=== PATIENT | male | born 1950 | race Caucasian/White ===

== ENCOUNTER → 2018-06-24 01:03 | Outpatient (CLI) | payer OTHER, SELFPAY ==
--- NOTE | 2018-06-24 13:00 | DI.REPORT_ITS ---
SYMPTOM/DIAGNOSIS: NEPHROLITHIASIS, N20.0 PA AND LATERAL CHEST: Comparison is made with 01/21/18. The heart is normal in size. The lungs are clear. The mediastinal structures and pleura appear intact. CONCLUSION: Normal chest.
--- NOTE | 2018-06-24 13:30 | DI.REPORT_ITS ---
SYMPTOM/DIAGNOSIS: NEPHROLITHIASIS N20.0 DTPA RENOGRAM : 11.8 mCi Tc99m D.T.P.A. were administered IV. The split function is 47% on the left and 53% on the right. 40 cc Lasix was administered IV at 11 minutes. There is no evidence of obstruction. The washout curves appear normal. IMPRESSION: Mild difference in bilateral renal function. No evidence of obstruction.
== END ==
PROVIDERS: PCP Internal Medicine; Visit Provider Urology
DX: N20.0 Calculus of kidney (principal)
CPT/HCPCS: 71046; 78708; J1940

== ENCOUNTER 2018-09-20 16:27 | Outpatient (REF) | payer OTHER, SELFPAY ==
[2018-09-20 21:03] LABS: FREE T4 0.89 ng/dL (0.76-1.46); TSH 3.05 uIU/mL (0.358-3.74)
== END 2018-09-20 16:47 ==
LOC: NCHCN 16:27
PROVIDERS: PCP Internal Medicine; Visit Provider Internal Medicine
DX: E03.9 Hypothyroidism, unspecified (principal)
CPT/HCPCS: 84439; 84443

== ENCOUNTER 2018-10-07 13:24 | Outpatient (CLI) | payer OTHER, SELFPAY ==
[2018-10-07 14:17] LABS: Absolute Monocyte Count 0.53 k/cumm (0.11-0.7); HGB 15.5 g/dL (13.5-17.5); Mean Corp. HGB Concentration 33.7 g/dL (32.0-36.0); Mean Corpuscular Hemoglobin 32.4 pg (27.0-33.0); Mean Corpuscular Volume 96.2 fL (80-95); Mean Platelet Volume 10.9 fL (8.0-11.0); Platelet Count 161 x1000/uL (130-400); RBC 4.78 m/cumm (4.50-6.00); RBC Distribution Width 14.4 % (11.8-14.1); White Blood Cell Count 8.79 k/cumm (4.4-10.8)
[2018-10-07 14:38] LABS: ALT 35 U/L (12-78); AST 20 U/L (15-37); Albumin 3.6 g/dL (3.4-5.0); Alkaline Phosphatase 87 U/L (46-116); BUN 29 mg/dL (7-18); Bilirubin, Total 0.5 mg/dL (0.2-1.0); CREATININE 1.56 mg/dL (0.70-1.30); Calcium 8.7 mg/dL (8.5-10.1); Chloride 104 mmol/L (98-107); Estimated GFR 44.75 (mL/min/1.73m2); Glucose 91 mg/dL (70-100); LDH 122 U/L (85-227); Potassium 4.2 mmol/L (3.5-5.1); Sodium 140 mmol/L (136-145)
[2018-10-07 15:34] LABS: Absolute Lymphocyte Count 5.45 k/cumm (1.2-3.4); Absolute Neutrophil Count 2.11 k/cumm (1.2-6.7)
[2018-10-07 15:35] LABS: Diff Comment Manual Differential; RBC Morphology Normal
== END 2018-10-07 13:44 ==
PROVIDERS: PCP Internal Medicine; Visit Provider Internal Medicine Hematology & Oncology
DX: C91.90 Lymphoid leukemia, unspecified not having achieved remission (principal)
CPT/HCPCS: 36415; 80053; 83615; 85025

== ENCOUNTER 2018-12-01 12:10 | Outpatient (CLI) | payer OTHER, SELFPAY ==
[2018-12-01 12:42] LABS: Abs Immature Grans 0.03 k/cumm (0.0-0.09); HCT 47.9 % (40.0-50.0); HGB 16.4 g/dL (13.5-17.5); Mean Corp. HGB Concentration 34.2 g/dL (32.0-36.0); Mean Corpuscular Hemoglobin 32.5 pg (27.0-33.0); Mean Platelet Volume 10.4 fL (8.0-11.0); Platelet Count 171 x1000/uL (130-400); RBC 5.04 m/cumm (4.50-6.00); White Blood Cell Count 11.17 k/cumm (4.4-10.8)
[2018-12-01 12:54] LABS: ALT 48 U/L (12-78); AST 28 U/L (15-37); Albumin 3.7 g/dL (3.4-5.0); Alkaline Phosphatase 83 U/L (46-116); Anion Gap 5.1 mmol/L (3-11); BUN 29 mg/dL (7-18); Bilirubin, Total 0.7 mg/dL (0.2-1.0); CO2 28.9 mmol/L (21.0-32.0); CREATININE 1.95 mg/dL (0.70-1.30); Calcium 8.9 mg/dL (8.5-10.1); Chloride 104 mmol/L (98-107); Estimated GFR 34.59 (mL/min/1.73m2); Glucose 94 mg/dL (70-100); LDH 138 U/L (85-227); Potassium 4.7 mmol/L (3.5-5.1); Sodium 138 mmol/L (136-145); Total Protein 7.5 g/dL (6.4-8.2)
[2018-12-01 12:57] LABS: Absolute Eosinophil Count 0.11 k/cumm (0.0-0.7); Absolute Lymphocyte Count 6.93 k/cumm (1.2-3.4); Absolute Monocyte Count 0.56 k/cumm (0.11-0.7); Absolute Neutrophil Count 3.57 k/cumm (1.2-6.7)
[2018-12-01 12:58] LABS: Diff Comment Manual Differential; RBC Morphology Normal
== END 2018-12-01 12:30 ==
PROVIDERS: PCP Internal Medicine; Visit Provider Internal Medicine Hematology & Oncology
DX: C91.90 Lymphoid leukemia, unspecified not having achieved remission (principal)
CPT/HCPCS: 36415; 80053; 83615; 85025

== ENCOUNTER 2019-09-21 10:36 | Outpatient (REF) | payer MEDICARE, SELFPAY ==
[2019-09-21 12:37] LABS: Abs Immature Grans 0.02 k/cumm (0.0-0.09); HCT 45.8 % (40.0-50.0); HGB 15.6 g/dL (13.5-17.5); Mean Corp. HGB Concentration 34.1 g/dL (32.0-36.0); Mean Corpuscular Hemoglobin 34.1 pg (27.0-33.0); Mean Corpuscular Volume 100.2 fL (80-95); Mean Platelet Volume 10.5 fL (8.0-11.0); Platelet Count 167 x1000/uL (130-400); RBC 4.57 m/cumm (4.50-6.00); RBC Distribution Width 14.3 % (11.8-14.1); White Blood Cell Count 14.34 k/cumm (4.4-10.8)
[2019-09-21 12:57] LABS: Anion Gap 9.8 mmol/L (3-11); BUN 37 mg/dL (7-18); CO2 24.2 mmol/L (21.0-32.0); CREATININE 2.02 mg/dL (0.70-1.30); Chloride 107 mmol/L (98-107); Estimated GFR 33.11 (mL/min/1.73m2); Glucose 78 mg/dL (70-100); Potassium 4.2 mmol/L (3.5-5.1); Sodium 141 mmol/L (136-145)
[2019-09-21 13:04] LABS: Absolute Neutrophil Count 4.73 k/cumm (1.2-6.7); Atypical Lymphocytes % 2
[2019-09-21 13:05] LABS: Absolute Basophil Count 0.14 k/cumm (0.0-0.2); Absolute Eosinophil Count 0.14 k/cumm (0.0-0.7); Absolute Monocyte Count 1.72 k/cumm (0.11-0.7)
[2019-09-21 13:14] LABS: Diff Comment Manual Differential; Macrocytosis 2+; Polychromasia Present
== END 2019-09-21 10:56 ==
LOC: NCHCN 10:36
PROVIDERS: PCP Internal Medicine; Visit Provider Internal Medicine
DX: C91.00 Acute lymphoblastic leukemia not having achieved remission (principal); I10 Essential (primary) hypertension
CPT/HCPCS: 80048; 85025

== ENCOUNTER 2020-09-16 20:16 | Outpatient (REF) | payer MEDICARE, SELFPAY ==
[2020-09-16 21:18] LABS: HCT 41.8 % (40.0-50.0); HGB 13.9 g/dL (13.5-17.5); MCH 35.4 pg (27.0-33.0); MCHC 33.3 % (32.0-36.0); MCV 106.4 fL (80-95); MPV 11.1 fL (8.0-11.0); Platelet Count 175 10^3/uL (130-400); RBC 3.93 10^6/uL (4.36-5.78); RDW 14.6 % (11.8-14.1); RDW-SD 58.2 fL
[2020-09-16 21:39] LABS: ALT 20 U/L (16-63); AST 17 U/L (15-37); Albumin 3.6 g/dL (3.4-5.0); Alkaline Phosphatase 108 U/L (46-116); Anion Gap 5.6 mmol/L (3-11); BUN 23 mg/dL (7-18); Bilirubin, Total 0.4 mg/dL (0.2-1.0); CO2 26.4 mmol/L (21.0-32.0); CREATININE 1.79 mg/dL (0.70-1.30); Chloride 104 mmol/L (98-107); Estimated GFR 37.95 (mL/min/1.73m2); Glucose 97 mg/dL (74-106); Potassium 4.7 mmol/L (3.5-5.1); Sodium 136 mmol/L (136-145)
[2020-09-16 21:42] LABS: WBC 47.31 10^3/uL (4.4-10.8)
[2020-09-17 06:41] LABS: Abs Immature Grans 0.08 10^3/uL (0.0-0.06)
[2020-09-17 07:08] LABS: Absolute Lymphocyte Count 37.85 10^3/uL (1.2-3.4); Absolute Monocyte Count 4.26 10^3/uL (0.1-0.8); Absolute Neutrophil Count 4.73 10^3/uL (1.2-6.7); Bands % 1
[2020-09-17 07:09] LABS: Diff Comment Manual Differential; Metamyelocytes % 1
[2020-09-17 07:10] LABS: RBC Morphology Normal
== END 2020-09-16 20:36 ==
LOC: NCHCN 20:16
PROVIDERS: PCP Internal Medicine; Visit Provider Internal Medicine
DX: I12.9 Hypertensive chronic kidney disease with stage 1 through stage 4 chronic kidney disease, or unspecified chronic kidney disease (principal); N18.4 Chronic kidney disease, stage 4 (severe); Z87.442 Personal history of urinary calculi
CPT/HCPCS: 80053; 85027; 85007

== ENCOUNTER 2020-09-23 00:53 | Outpatient (CLI) | payer MEDICARE, SELFPAY ==
--- NOTE | 2020-09-23 | DI.CT_ITS ---
EXAM: CT CHEST/ABD/PEL WO CLINICAL HISTORY: H/O CLL,INCREASED WBC,? RECURRENCE OR WORSENING TECHNIQUE: CT examination of the chest, abdomen, and pelvis was performed with oral contrast only.. COMPARISON: CT CT ABDOMEN AND PELVIS WO CONTRAST from 04/29/2018 FINDINGS: Lungs are clear except for a couple of tiny noncalcified pulmonary nodules, the largest 5 millimeters in diameter in the right upper lobe.. No pleural effusion. No pleural based mass. There is mild prominence of mediastinal lymph nodes, largest node is a 16 millimeter right paratrache al node period. Mild prominence of axillary lymph nodes bilaterally. Comparison with prior CT of 2017 from [facility] shows increased size of numerous abdominal lymph nodes since that ti me period. Tracheobronchial tree appears intact. Unremarkable noncontrast appearance of the thoracic vascular structures. The liver appears normal with no focal hepatic lesion identified. The spleen is mildly enlarged. Pancreas appears intact. Adrenals appear normal. Kidneys are unremarkable in appearance with no renal mass, hydronephrosis, or nephrolithiasis except for apparent bilateral renal cysts, the largest of the left kidney measuring 35 millimeters in diamet er.. Abdominal aorta and major visceral branches appear intact. No focal bowel pathology. Appendix is normal. No evidence of diverticulitis. There is scattered mild adenopathy in the abdomen, there are numerous prominent mesenteric nodes, the se measure up to about 3-4 cm in diameter. A 37 x 25 millimeter in diameter portal node is the large st of a group of enlarged portal nodes. There is mild retroperitoneal adenopathy, the largest para a ortic node is about 18 millimeters in diameter. No significant pelvic or inguinal adenopathy. No significant abdominal wall hernia. There is an apparent colostomy be at the level of the cecum. There is no focal bowel pathology. No focal bony lesion identified on scanning of the chest, abdomen, and pelvis. IMPRESSION: Mild diffuse lymphadenopathy as described above, mild splenomegaly also noted. Findings are new or i ncreased since prior study of April 2018. RADIATION DOSE DELIVERED: 1,554.04mGy.cm Total DLP 1,554.04mGy.cm Total DLP
[2020-09-23] MEDS: Omnipaque 350 MG/ML 50 ML BTL IJ (07:42)
[2020-09-23] MEDS: Breeza Beverage 473 ML BTL PO ×2 (07:43→07:44)
== END 2020-09-23 01:13 ==
PROVIDERS: PCP Internal Medicine; Visit Provider Internal Medicine
DX: R91.8 Other nonspecific abnormal finding of lung field (principal); R59.1 Generalized enlarged lymph nodes; R16.1 Splenomegaly, not elsewhere classified; Z85.6 Personal history of leukemia; D72.829 Elevated white blood cell count, unspecified
CPT/HCPCS: 71250; 74176; Q9967

== ENCOUNTER 2021-01-21 15:30 | Outpatient (REF) | payer MEDICARE, SELFPAY ==
[2021-01-21 21:48] LABS: Abs Immature Grans 0.24 10^3/uL (0.0-0.06); Absolute Lymphocyte Count 42.24 10^3/uL (1.2-3.4); Basophils % 0.1; Eosinophils % 0.1; HCT 37.7 % (40.0-50.0); HGB 12.5 g/dL (13.5-17.5); Immature Grans % 0.4; MCH 36.5 pg (27.0-33.0); MCHC 33.2 % (32.0-36.0); MCV 110.2 fL (80-95); MPV 11.8 fL (8.0-11.0); Monocytes % 4.3; Neutrophils % 16.4; Nucleated RBC 0 %; Platelet Count 265 10^3/uL (130-400); RBC 3.42 10^6/uL (4.36-5.78); RDW 14.2 % (11.8-14.1); RDW-SD 57.7 fL
[2021-01-21 21:57] LABS: ALT 27 U/L (16-63); AST 25 U/L (15-37); Albumin 3.1 g/dL (3.4-5.0); Alkaline Phosphatase 104 U/L (46-116); Anion Gap 8.6 mmol/L (3-11); BUN 33 mg/dL (7-18); Bilirubin, Total 0.7 mg/dL (0.2-1.0); CO2 25.4 mmol/L (21.0-32.0); Calcium 8.7 mg/dL (8.5-10.1); Chloride 100 mmol/L (98-107); Estimated GFR 33.39 (mL/min/1.73m2); Glucose 114 mg/dL (74-106); LDH 482 U/L (85-227); Potassium 4.3 mmol/L (3.5-5.1); Sodium 134 mmol/L (136-145); Uric Acid 5.8 mg/dL (3.5-7.2)
[2021-01-21 22:20] LABS: Absolute Basophil Count 0.05 10^3/uL (0.0-0.2); Absolute Eosinophil Count 0.05 10^3/uL (0.0-0.7); Absolute Monocyte Count 2.31 10^3/uL (0.1-0.8)
[2021-01-21 22:29] LABS: Lymphocytes % 78.7
[2021-01-21 22:43] LABS: WBC 53.67 10^3/uL (4.4-10.8)
[2021-01-21 22:44] LABS: Diff Comment Agrees w/ Instrument; RBC Morphology Normal
[2021-01-23 13:15] LABS: COVID-19 RT-PCR UVMMC Result Negative (Negative)
== END 2021-01-21 15:31 | disposition home or self-care (01) ==
LOC: NCHCN 15:30
PROVIDERS: PCP Internal Medicine; Visit Provider Internal Medicine
DX: N18.4 Chronic kidney disease, stage 4 (severe) (principal); R53.83 Other fatigue; I10 Essential (primary) hypertension; Z20.822 Contact with and (suspected) exposure to COVID-19
CPT/HCPCS: 80053; U0003; 83615; 84550; 85025

== ENCOUNTER 2021-04-10 11:40 | Outpatient (CLI) | payer MEDICARE, SELFPAY ==
[2021-04-10 12:09] LABS: HCT 34.4 % (40.0-50.0); HGB 11.4 g/dL (13.5-17.5); MCHC 33.1 % (32.0-36.0); MCV 117.8 fL (80-95); MPV 9.9 fL (8.0-11.0); Nucleated RBC 0 %; Platelet Count 268 10^3/uL (130-400); RBC 2.92 10^6/uL (4.36-5.78); RDW 15.6 % (11.8-14.1); RDW-SD 66.2 fL
[2021-04-10 12:24] LABS: ALT 20 U/L (16-63); AST 14 U/L (15-37); Albumin 3.8 g/dL (3.4-5.0); Alkaline Phosphatase 103 U/L (46-116); Anion Gap 8.7 mmol/L (3-11); BUN 33 mg/dL (7-18); Bilirubin, Total 0.8 mg/dL (0.2-1.0); CO2 25.3 mmol/L (21.0-32.0); CREATININE 2.1 mg/dL (0.70-1.30); Calcium 8.9 mg/dL (8.5-10.1); Chloride 106 mmol/L (98-107); Estimated GFR 31.56 (mL/min/1.73m2); Glucose 141 mg/dL (74-106); Potassium 4.4 mmol/L (3.5-5.1); Sodium 140 mmol/L (136-145); Total Protein 7.6 g/dL (6.4-8.2)
[2021-04-10 12:36] LABS: WBC 76.44 10^3/uL (4.4-10.8)
[2021-04-10 12:37] LABS: Absolute Neutrophil Count 6.12 10^3/uL (1.2-6.7)
[2021-04-10 12:39] LABS: Diff Comment Manual Differential; Macrocytosis 3+; Other Cells % 5; Polychromasia Present
[2021-04-11 10:28] LABS: IgA 144 mg/dL (85-499); IgG 1428 mg/dL (610-1,616); IgM 81 mg/dL (35-242)
== END 2021-04-10 11:41 | disposition home or self-care (01) ==
LOC: LBO 11:46
PROVIDERS: PCP Internal Medicine; Visit Provider Internal Medicine Hematology & Oncology
DX: C91.10 Chronic lymphocytic leukemia of B-cell type not having achieved remission (principal)
CPT/HCPCS: 36415; 80053; 82784; 85025

== ENCOUNTER 2021-05-24 19:02 | Emergency (ER) | payer MEDICARE, OTHER, SELFPAY ==
[2021-05-24] VITALS (25 sets, daily range): BP systolic 100–128; BP diastolic 46–109; PULSE 55–146; RESP 16–30; O2SAT 89–100
--- NOTE | 2021-05-24 19:00 | RT.EKG_ITS ---
APPROVED REPORT Exam: Resting ECG Reason for Exam: chest pain Patient Location: E HR:46 bpm ECG Measurements Heart Rate 46 AXIS W[place] 212 P 0 QRSd 122 QRS 66 QT 469 T 125 QTc 413 Conclusion Bradycardia with irregular rate...V-rate 44- 57, mean < 60 Nonspecific intraventricular conduction delay...QRSd >115mS, not LBBB/RBBB Inferior infarct, acute...ST>0.10mV, T upright, II III aVF
--- NOTE | 2021-05-24 19:00 | DI.RAD_ITS ---
Exam(s) XR PORTABLE CHEST AP EXAM: XR PORTABLE CHEST AP CLINICAL HISTORY: chest pain TECHNIQUE: 2D digital imaging was performed. COMPARISON: No exams were available for comparison FINDINGS: MEDIASTINUM: Normal. HEART: Normal. PULMONARY VASCULATURE: Normal. LUNGS: There is an infiltrate in the right lung base. PLEURAL SPACE: No pleural effusion or pneumothorax. BONE:Within normal limits for the patient's age. OTHER FINDINGS:Overlying cardiac monitoring devices. IMPRESSION: Right basilar infiltrate. DATA REPOSITORY: RADIATION DOSE DELIVERED:
--- NOTE | 2021-05-24 19:15 | RT.EKG_ITS ---
APPROVED REPORT Exam: Resting ECG Reason for Exam: chest pain Patient Location: E HR:132 bpm ECG Measurements Heart Rate 132 AXIS ID [id number] P [id number] QRSd 104 QRS 15 QT 272 T 109 QTc 403 Conclusion Atrial fibrillation...? atrial activity Inferior infarct, acute...ST>0.10mV, T upright, II III aVF
--- NOTE | 2021-05-24 19:15 | RT.EKG_ITS ---
APPROVED REPORT Exam: Resting ECG Reason for Exam: chest pain Patient Location: E HR:124 bpm ECG Measurements Heart Rate 124 AXIS MA [id number] P [id number] QRSd 95 QRS -40 QT 268 T 86 QTc 386 Conclusion Atrial fibrillation...V-rate 93-170, irreg A-activity Inferior infarct, old...Q >35mS, II III aVF Borderline ST elevation, lateral leads...ST >0.06mV, I aVL V5 V6
[2021-05-24] MEDS: Tenecteplase 50 MG KIT IVP (19:22)
[2021-05-24 19:25] LABS: HCT 26.8 % (40.0-50.0); HGB 8.5 g/dL (13.5-17.5); MCH 41.7 pg (27.0-33.0); MCHC 31.7 % (32.0-36.0); MCV 131.4 fL (80-95); MPV 10.3 fL (8.0-11.0); Nucleated RBC 0 %; Platelet Count 228 10^3/uL (130-400); RBC 2.04 10^6/uL (4.36-5.78); RDW 18.6 % (11.8-14.1); RDW-SD 80.6 fL
[2021-05-24 19:28] LABS: WBC 80.64 10^3/uL (4.4-10.8)
[2021-05-24] MEDS: Clopidogrel 300 MG TAB PO (19:29)
--- NOTE | 2021-05-24 19:32 | W.ED.GENAD ---
Discharge Plan Disposition Patient Disposition: [facility] Condition: Critical Discharge Details Clinical Impression: ST elevation (STEMI) myocardial infarction Primary Care Provider: Steve Neil ED Provider: Nicholas Upton Brune[place] Meds and New Rx's Prescriptions: No Action metoprolol tartrate 100 MG tablet 100 mg PO DAILY RF: 0 Thyroid Medication PO DAILY RF: 0 cyclobenzaprine 10 MG tablet 10 mg PO TID PRN (Reason: Muscle Spasm) Qty: 10 RF: 0 ibuprofen 600 MG tablet 600 mg PO QID PRN (Reason: Pain) Qty: 20 RF: 0 mirtazapine 15 MG tablet 15 mg PO HS RF: 0 tiotropium bromide [Spiriva with HandiHaler] 1 PUFF capsule, w/inhalation device 0 cap Inhalation DAILY RF: 0 zolpidem 10 MG tablet 10 mg PO HS RF: 0 Discharge Data Discharge Date/Time-TO BE ENTERED AT DEPARTURE: 05/24/21 21:35 Medical Decision Making <Cabrera Oliva MD - Last Filed: 05/30/21 23:29> 1935??70-year-old male with history of A. fib, leukemia, hypertension, presents via EMS, seen immediately on arrival with STEMI. EKG was reviewed and interpreted by me: STEMI, bradycardic 46 bpm, no definitive P waves present but narrow complex. Patient is bradycardic and low normal blood pressure on arrival. He received normal saline 250 bolus. He received aspirin 324 by EMS. Shortly after arrival, patient had A. fib with RVR heart rate 120-130s, BP improved now systolic of 120.. Repeat EKG performed and interpreted by me: Please see report, STEMI still present A. fib 132. Patient given TNKase 50 mg. Heparin bolus and drip initiated. Plavix 300 mg given. Labs reviewed: Troponin 0.66. Significant leukocytosis of 80,000 noted. Hemoglobin 8.5 which is new compared to recent prior 11.4 in March. Patient denies GI bleeding. 2038 --placed patient reassessed and is remained stable with heart rate 120s A. fib and normotensive. Still awaiting dart air unit Lab Data Lab results reviewed: Yes I reviewed the patient's lab results. Labs: Laboratory Tests Range/Units 05/24/21 05/24/21 05/24/21 19:05 19:05 19:05 WBC (4.4-10.8) 10^3/uL 80.64 H* RBC (4.36-5.78) 10^6/uL 2.04 L Hgb (13.5-17.5) g/dL 8.5 L Hct (40.0-50.0) % 26.8 L MCV (80-95) fL 131.4 H MCH (27.0-33.0) pg 41.7 H MCHC (32.0-36.0) % 31.7 L RDW (11.8-14.1) % 18.6 H Plt Count (130-400) 10^3/uL 228 MPV (8.0-11.0) fL 10.3 PT (9.3-11.0) sec 10.8 INR (0.9-1.1) 1.1 APTT (21.0-27.5) sec 19.1 L Sodium (136-145) mmol/L 141 Potassium (3.5-5.1) mmol/L 4.1 Chloride (98-107) mmol/L 107 Carbon Dioxide (21.0-32.0) mmol/L 18.8 L Anion Gap (3-11) mmol/L 15.2 H BUN (7-18) mg/dL 27 H Creatinine (0.70-1.30) mg/dL 2.2 H Estimated GFR/1.73 m2 (mL/min/1.73m2) 29.91 Glucose (74-106) mg/dL 198 H Calcium (8.5-10.1) mg/dL 8.4 L Magnesium (1.8-2.4) mg/dL 2.3 Total Bilirubin (0.2-1.0) mg/dL 0.9 AST (15-37) U/L 16 ALT (16-63) U/L 14 L Alkaline Phosphatase (46-116) U/L 88 Troponin I (<0.06) ng/mL 0.66 H* Total Protein (6.4-8.2) g/dL 6.7 Albumin (3.4-5.0) g/dL 3.4 <Nicholas Upton MD - Last Filed: 05/24/21 21:41> Patient signed out to me pending arrival of helicopter to transfer to [facility]. He remained stable during this time and care is transferred to the [facility] team and patient taken to [facility]. HPI <Cabrera Oliva MD - Last Filed: 05/30/21 23:29> General Mode of arrival: EMS. Date/Time Provider Initiated Documentation: 05/24/21 19:05. Limitations to Documentation: altered mental status. Information obtained by: EMS. HPI Narrative: 70-year-old male with past medical history of leukemia, hypertension, bladder cancer, history of bladder resection, A. fib, presents via EMS with concern for STEMI. Patient is chest pain started around 5 PM today. EMS was called and arrived to find the patient in A. fib with ST elevation. In route to [facility] he became more somnolent and rhythm was noted to be bradycardic with wide-complex concerning for complete heart block. Patient was given Versed 2.5 mg and transcutaneous pacing was attempted but unsuccessful as no capture was obtained. Atropine 1 mg was administered. Aspirin 324 mg was administered in the field. History is limited secondary to acuity of condition and altered mental status on arrival. Related Data Home Medications Medication Instructions Recorded Confirmed metoprolol tartrate 100 mg PO DAILY 02/22/14 05/24/21 mirtazapine 15 mg PO HS 07/28/17 11/22/17 tiotropium bromide [Spiriva with 0 cap INHALATION DAILY 07/28/17 11/22/17 HandiHaler] zolpidem 10 mg PO HS 08/02/17 05/24/21 Thyroid Medication PO DAILY 11/22/17 cyclobenzaprine 10 mg PO TID PRN #10 tab 11/22/17 ibuprofen 600 mg PO QID PRN #20 tablet 11/22/17 Previous Rx's Medication Instructions Recorded cyclobenzaprine 10 mg PO TID PRN #10 tab 11/22/17 ibuprofen 600 mg PO QID PRN #20 tablet 11/22/17 Allergies Allergy/AdvReac Type Severity Reaction Status Date / Time No Known Allergies Allergy Unverified 05/24/21 19:12 General Stated Complaint: Chest Pain MARY ANNE: 1 Review of Systems <Cabrera Oliva MD - Last Filed: 05/30/21 23:29> Unobtainable due to mental status Cardiovascular Cardiovascular: Reports as per HPI PFSH <Cabrera Oliva MD - Last Filed: 05/30/21 23:29> Medical History (Updated 05/24/21 @ 19:45 by Cabrera Oliva MD) A-fib Bladder mass Surgical History Transurethral Resection of Bladder Tumor, >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) Social History Smoking/Tobacco Use Status: Current every day Smoking risk assessment performed?: Yes Drug use: Never Do you feel safe in your relationship?: Yes Exam <Cabrera Oliva MD - Last Filed: 05/30/21 23:29> Const General: uncomfortable and acute distress Nutritional Appearance: average body habitus Orientation: alert and awake Limitations: altered mental status HENMT Mouth: mucous membranes dry Eyes Conjunctivae: normal conjunctivae Sclera: normal sclerae EOM: EOM intact bilaterally Neck Neck: trachea midline and supple Resp Auscultation: clear to auscultation bilaterally, no rales, no rhonchi and no wheezes Cardio Jugular venous pressure: no JVD Rate: bradycardic Rhythm: regular rhythm GI Palpation: soft, not firm, no guarding, no masses, not rigid and nontender Other: Ostomy intact Skin General skin exam: no rashes or lesions noted Neuro General: oriented Patient Orientation: Confused, tone normal and moves all extremities Cognition: abnormal cognition (Somnolent, responsive to tactile stimuli) Extrem General: no edema Psych Appearance: grossly normal Course <Cabrera Oliva MD - Last Filed: 05/30/21 23:29> Vital Signs Vital signs: Vital Signs Pulse 55 L 05/24/21 19:04 Respiratory Rate 16 05/24/21 19:04 Blood Pressure 100/46 L 05/24/21 19:04 Pulse Oximetry 100 05/24/21 19:04 Pulse 55 L 05/24/21 19:04 Respiratory Rate 16 05/24/21 19:04 Blood Pressure 100/46 L 05/24/21 19:04 Pulse Oximetry 100 05/24/21 19:04 Lab/Test Results Lab/Test Results: Laboratory Tests Range/Units 05/24/21 19:05 WBC (4.4-10.8) 10^3/uL 80.64 H* RBC (4.36-5.78) 10^6/uL 2.04 L Hgb (13.5-17.5) g/dL 8.5 L Hct (40.0-50.0) % 26.8 L MCV (80-95) fL 131.4 H MCH (27.0-33.0) pg 41.7 H MCHC (32.0-36.0) % 31.7 L RDW (11.8-14.1) % 18.6 H Plt Count (130-400) 10^3/uL 228 MPV (8.0-11.0) fL 10.3 Critical Care Time <Cabrera Oliva MD - Last Filed: 05/30/21 23:29> Critical Care Time Critical Care Time: Yes Total Critical Care Time: 82 Attestation: I spent greater than 82 minutes addressing this patient's immediate life threats. Please see MDM section of note. This time was spent engaged in work directly related to the patient's care, exclusive of separate procedures, and failure to initiate these interventions would have likely resulted in clinically significant or life threatening deterioration in the patient's condition. Sign Out <Cabrera Oliva MD - Last Filed: 05/30/21 23:29> Sign Out Data: Sign Out Comment: Pending transfer to [facility] for STEMI. Last updated by Cabrera Oliva MD at 05/24/21 20:55
[2021-05-24 19:33] LABS: INR 1.1 (0.9-1.1); PTT Activated 19.1 sec (21.0-27.5); Prothrombin Time 10.8 sec (9.3-11.0)
[2021-05-24] MEDS: Heparin 5,000 UNITS/ML VIAL 5000 UNITS (19:35)
[2021-05-24 19:36] LABS: ALT 14 U/L (16-63); AST 16 U/L (15-37); Albumin 3.4 g/dL (3.4-5.0); Alkaline Phosphatase 88 U/L (46-116); Anion Gap 15.2 mmol/L (3-11); BUN 27 mg/dL (7-18); Bilirubin, Total 0.9 mg/dL (0.2-1.0); CO2 18.8 mmol/L (21.0-32.0); CREATININE 2.2 mg/dL (0.70-1.30); Calcium 8.4 mg/dL (8.5-10.1); Chloride 107 mmol/L (98-107); Estimated GFR 29.91 (mL/min/1.73m2); Glucose 198 mg/dL (74-106); Magnesium 2.3 mg/dL (1.8-2.4); Potassium 4.1 mmol/L (3.5-5.1); Sodium 141 mmol/L (136-145); Total Protein 6.7 g/dL (6.4-8.2)
[2021-05-24 19:37] LABS: Troponin I 0.66 ng/mL (<0.06)
[2021-05-24 19:56] LABS: NT-proBNP 3063 pg/mL (<300)
[2021-05-24 19:58] LABS: Absolute Lymphocyte Count 70.16 10^3/uL (1.2-3.4); Absolute Monocyte Count 0.81 10^3/uL (0.1-0.8); Absolute Neutrophil Count 8.87 10^3/uL (1.2-6.7); Bands % 1; TSH (W/Ref FT4) 5.21 uIU/mL (0.36-3.74)
[2021-05-24 19:59] LABS: Anisocytosis 1+; Diff Comment Manual Differential; Hypochromasia 1+; Myelocytes % 1
[2021-05-24 20:00] LABS: Macrocytosis 3+; Polychromasia Present
--- NOTE | 2021-05-24 20:20 | DI.VRAD_ITS ---
PROCEDURE INFORMATION: Exam: XR Chest Exam date and time: 05/24/2021 7:08 PM Age: 70 years old Clinical indication: Other: Not specified; Patient HX: Chest pain TECHNIQUE: Imaging protocol: XR of the chest. Views: 1 view. Other technique: Portable exam. COMPARISON: CT CHEST/ABD/PEL WO 09/23/2020 9:05 AM FINDINGS: Tubes, catheters and devices: There are some overlying leads in place. Lungs: There is some coarse increased markings at the right lung base. Pleural spaces: Unremarkable. No pleural effusion. No pneumothorax. Heart/Mediastinum: There is cardiomegaly. Bones/joints: Unremarkable. IMPRESSION: Right lower lobe atelectasis versus early consolidation. Dictated and Authenticated by: Latia Wilde MD. Ordering:PAT Rees MD
[2021-05-24 21:06] LABS: FREE T4 0.92 ng/dL (0.76-1.46)
== END 2021-05-24 21:35 | disposition short-term general hospital (02) ==
PROVIDERS: Student in an Organized Health Care Education/Training Program; Emergency Provider Emergency Medicine; PCP Internal Medicine
DX: I21.3 ST elevation (STEMI) myocardial infarction of unspecified site (principal); I48.91 Unspecified atrial fibrillation; I47.2 Ventricular tachycardia; R00.1 Bradycardia, unspecified; D72.829 Elevated white blood cell count, unspecified
CPT/HCPCS: 36415; 80053; 86900; 86901; 93005; 96365; 96366; 96372; 96374; 96376; 99291; 99292; 71045; 83735; 83880; 84439; 84443; 84484; 85025; 85610; 85730; 93010; J1644; J3101

== ENCOUNTER 2021-06-13 12:58 | Emergency (ER) | payer MEDICARE, OTHER, SELFPAY ==
[2021-06-13] VITALS (61 sets, daily range): BP systolic 83–115; BP diastolic 44–73; PULSE 64–150; RESP 14–30; TEMP 37.4; O2SAT 92–100
--- NOTE | 2021-06-13 13:00 | RT.EKG_ITS ---
APPROVED REPORT Exam: Resting ECG Reason for Exam: Shortness of breath Patient Location: E HR:130 bpm ECG Measurements Heart Rate 130 AXIS AZ [id number] P [id number] QRSd 89 QRS -39 QT 289 T -28 QTc 426 Conclusion Atrial fibrillation...V-rate 106-174, irreg A-activity Inferior infarct, old...Q >35mS, II III aVF. Afib, seen in previous. No STEMI. I have reviewed and interpreted ECG and agree with software generated interpretation.
[2021-06-13 14:21] LABS: Lactate 1.6 mmol/L (0.6-1.4)
[2021-06-13 14:22] LABS: Abs Immature Grans 1.92 10^3/uL (0.0-0.06); HGB 9.9 g/dL (13.5-17.5); MPV 10.4 fL (8.0-11.0); Nucleated RBC 0 %
--- NOTE | 2021-06-13 14:30 | DI.CT_ITS ---
Exam(s) CT CHEST/ABD/PEL WO EXAM: CT CHEST/ABD/PEL WO CLINICAL HISTORY: right flank pain, wheezing, shortness of breath, TECHNIQUE: Imaging Protocol: Axial computed tomography images with coronal and sagittal reformatted images were created and reviewed CONTRAST MATERIAL: Imaging Protocol: Axial computed tomography images with coronal and sagittal refo rmatted images were created and reviewed. COMPARISON: CT CT CHEST/ABD/PEL WO from 09/23/2020 FINDINGS: CHEST: Tracheobronchial tree: Patent where visualized. Mediastinum and Liliana: There are enlarged lymph nodes seen in the mediastinum and hilum. The largest is in the right hilum and measures 2.3 cm. Pulmonary parenchyma: There is an area of consolidation in the right lower lobe with air bronchograms suspicious for pneumonia. Ground-glass opacities are also seen distributed in the right upper and m iddle lobes and both lower lobes. No architectural distortion. Pleura: No effusion or pneumothorax. Heart: Upper limits of normal in size. Mild coronary artery calcification. No significant pericardi al effusion. Aorta: Thoracic aorta non-dilated. Atherosclerosis. Lymph nodes: Please see the above discussion. Bones:Within normal limits for the patient's age. Soft tissues: Bilateral gynecomastia. ABDOMEN: Liver: Normal density. No measurable mass. Gallbladder and Biliary Tract: No radiodense calculus or dilation. Pancreas: Normal density, no abnormal calcifications or inflammatory process. Spleen: There is decreased attenuation in the superior medial spleen. Splenic mass or infarct should be considered. Adrenals: No masses seen. Kidneys: Normal size, contour and axis. No radiodense stones or obstructive uropathy. Bilateral renal cysts. The largest measures 3.7 cm in the left kidney. Abdominal Aorta: Abdominal portion non-dilated. Moderate atherosclerosis. Bowel: No obstruction or bowel wall thickening. No evidence of appendicitis. Peritoneal Cavity: No ascites, collection or mesenteric inflammatory response. No free air. Lymph Nodes: There are enlarged abdominal and pelvic lymph nodes. The largest lies superior to the p ancreatic body and measures 2.9 x 1.9 cm. Bones: Within normal limits for the patient's age. Soft Tissues: Unremarkable. PELVIS: Bladder: Status post cystectomy. The patient has a ileal pouch deep to the right anterior abdominal wall. Reproductive Organs: Status post prostatectomy. Lymph Nodes: Please see above. Bones: Within normal limits. IMPRESSION: 1. Multifocal pneumonia with area of consolidation in the right lower lobe. 2. Enlarged thoracic and abdominal lymph nodes. Findings suspicious for neoplastic process such as m etastatic disease or lymphoma. 3. New decreased attenuation in the posterior superior spleen. Splenic mass or infarct should be con sidered. Postcontrast CT scan is recommended for further evaluation. 4. Status post cystectomy and prostatectomy with ileal pouch. 5. Results of this exam have been verbally communicated with provider. RADIATION DOSE DELIVERED: 1,667.94mGy.cm Total DLP 1,667.94mGy.cm Total DLP DATA REPOSITORY: All CT scans at this facility are submitted to the National Radiology Data Registry (NRDR) Dose Index Registry (DIR) with the [employer] ([employer]). RADIATION OPTIMIZATION: All CT scans at this facility use at least one of these dose optimization te chniques: automated exposure control; mA and/or kV adjustment per patient size (includes targeted exa ms where dose is matched to clinical indication); or iterative reconstruction.
[2021-06-13] MEDS: Albuterol 2.5 MG/3 ML INH SOLN VIAL UPD (14:32)
[2021-06-13] MEDS: Metoprolol 5 MG/5 ML VIAL IVP (14:32)
[2021-06-13 14:40] LABS: Source Nasal/Nares
[2021-06-13] MEDS: Normal Saline 500 ML IV (14:40)
[2021-06-13 14:44] LABS: Platelet Count 152 10^3/uL (130-400); WBC 161.68 10^3/uL (4.4-10.8)
[2021-06-13 14:45] LABS: Absolute Lymphocyte Count 139.04 10^3/uL (1.2-3.4); Absolute Neutrophil Count 22.64 10^3/uL (1.2-6.7); Bands % 2
[2021-06-13 14:47] LABS: ALT 80 U/L (16-63); AST 33 U/L (15-37); Albumin 2.9 g/dL (3.4-5.0); Alkaline Phosphatase 68 U/L (46-116); Anion Gap 5.9 mmol/L (3-11); Anisocytosis 2+; BUN 42 mg/dL (7-18); Bilirubin, Total 2.1 mg/dL (0.2-1.0); CO2 29.1 mmol/L (21.0-32.0); CREATININE 1.5 mg/dL (0.70-1.30); Calcium 8.7 mg/dL (8.5-10.1); Chloride 104 mmol/L (98-107); Diff Comment Manual Differential; Estimated GFR 46.54 (mL/min/1.73m2); Glucose 96 mg/dL (74-106); Lipase 238 U/L (73-393); Macrocytosis 3+; NT-proBNP 4168 pg/mL (<300); Polychromasia Present; Sodium 139 mmol/L (136-145); Total Protein 6.8 g/dL (6.4-8.2)
[2021-06-13 14:53] LABS: Troponin I 0.07 ng/mL (<0.06)
[2021-06-13 15:00] LABS: D-Dimer 1199 ng/mlFEU (<500); Procalcitonin 0.1 ng/mL
--- NOTE | 2021-06-13 15:22 | ED.GENADUL_ITS ---
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, Pneumonia Primary Care Provider: Steve Neil ED Provider: Cabrera Oliva Home Meds and New Rx's Prescriptions: No Action metoprolol tartrate 100 MG tablet 150 mg PO DAILY RF: 0 cyclobenzaprine 10 MG tablet 10 mg PO TID PRN (Reason: Muscle Spasm) Qty: 10 RF: 0 ibuprofen 600 MG tablet 600 mg PO QID PRN (Reason: Pain) Qty: 20 RF: 0 atorvastatin 80 mg tablet 80 mg PO DAILY RF: 0 clopidogrel [Plavix] 75 mg tablet 75 mg PO DAILY RF: 0 lisinopril 2.5 mg tablet 2.5 mg PO DAILY RF: 0 prednisone 50 mg tablet 100 mg PO DAILY RF: 0 docusate sodium [Colace] 100 mg Capsule 100 mg PO PRN PRNRF: 0 mirtazapine 15 MG tablet 15 mg PO HS RF: 0 Spiriva with HandiHaler 1 PUFF capsule, w/inhalation device 0 cap Inhalation DAILY RF: 0 zolpidem 10 MG tablet 10 mg PO HS RF: 0 Discharge Data Discharge Date/Time-TO BE ENTERED AT DEPARTURE: 06/13/21 19:27 Medical Decision Making <SHAY Ritchie - Last Filed: 06/16/21 08:10> This is a very complex 70-year-old gentleman in atrial fibrillation, she initially has a soft blood pressure and I suspect is multifactorial, he has a multifocal pneumonia on CT scan, initially I did not order a CTA of the patient's chest as his that he is unable to receive IV contrast and his last creatinine was 2, therefore a CT chest abdomen and pelvis noncontrast was ordered given patient's pain complaints and history of leukemia Leukocytosis, white blood cell count from 80,200 260,000, troponin is elevated at 0.07, likely stress secondary to atrial fibrillation, BNP of 4100 without evidence of obvious volume overload on the CT scan Case discussed with Dr. Toribio, radiologist and there is concern for an abnormality to patient spleen although he does not have any discomfort in this area Denies much improvement with a DuoNeb, received 25 mg of metoprolol orally, 5 mg of IV metoprolol, did not receive Cardizem as blood pressure was 93/60, we will consult with cardiology at [facility] after CTA returns, concern for pulmonary embolism given significant leukocytosis with an recent cardiac catheterization although patient is not significantly tachypneic or hypoxic, room air is 97% and speaking in complete sentences CT scan shows right lower lobe infiltrate, uncertain if this is infiltrate secondary to PE or infiltrate secondary to infectious etiology although empiric treatment with doxycycline and doxy and ceftriaxone will be initiated I discussed CODE STATUS with patient he is a DNR/DNI although he is agreeable to synchronized cardioversion and antiarrhythmic medication should he need it, all discussions were had with patient's in the jeyson At this time patient is pending CTA chest and CT abdomen and pelvis with IV contrast Unfortunately did not order CTA or IV contrast initially as patient's stated that he was unable to receive IV contrast secondary to his kidneys, I did let her know that his creatinine was 1.5 and unfortunately MrsTereso Initially He is agreeable to repeat CAT scan at this time I did apologize Aspirin and Plavix received today Blood pressure has remained in the 90s and patient is alert and oriented, he is mentating within normal limits He will need admission, the question is whether or not tertiary care may be the most appropriate diet for this patient Care was transferred to Amber Santo, nurse practitioner [address], CT abdomen and pelvis and reassessment Medical Records Medical records reviewed: Yes I reviewed the patient's medical records. Lab Data Lab results reviewed: Yes I reviewed the patient's lab results. <Cabrera Oliva MD - Last Filed: 06/13/21 23:26> 1630 -- I was asked by DAMIÁN Santo to participate in care of patient due to complexity. I evaluated the patient: This is a 70-year-old gentleman with coronary artery disease status post recent stent, CML not actively treated, atrial fibrillation, here with shortness of breath also with recent cough and some chest discomfort. Recent EF 20-30%. Patient is mentating well. He continues to have some shortness of breath but denies chest pain at this time. Patient's blood pressure remains stable borderline low with systolic in the 90s and tachycardic in the 120s in atrial fibrillation. Patient was given crystalloid 500 mL bolus. Plan to hold additional IV fluid at this time given cardiac status. Patient did receive Lopressor 5 mg IV and metoprolol 25 mg p.o. earlier in course. Labs reviewed and significant leukocytosis noted -161 which is worse than prior, anemia noted, elevated D-dimer, troponin is elevated at 0.07. BNP is elevated at 4000. Urinalysis is concerning for UTI. CT of the chest abdomen pelvis, noncontrast was interpreted by radiology as concerning for pneumonia as well as questionable splenic infarct. Plan to obtain CTA chest and abdomen pelvis. Plan to initiate treatment with ceftriaxone and doxycycline IV. -- CTA chest interpreted by radiology: IMPRESSION: 1. Nonocclusive segmental left lower lobe pulmonary embolism as well as three subsegmental right lower lobe pulmonary emboli. 2. No evidence for right heart strain. 3. Mediastinal and right hilar adenopathy, unchanged from prior study performed earlier today. Findings could represent metastatic neoplasm or lymphoma. Recommend clinical correlation. 4. Stable confluent and patchy/nodular consolidation within the right lower lobe with surrounding ground-glass opacities suggesting bronchopneumonia. CTA abdomen pelvis interpreted by radiology: IMPRESSION: 1. Stable multifocal adenopathy within the abdomen, as described above, could represent metastatic neoplasm or lymphoma. Recommend clinical correlation. 2. Large fluid density splenic lesion as described above, not clearly present on study dated 09/23/2020. This could represent an evolving splenic infarct or sequela of treatment of prior lymphomatous mass. Recommend attention on follow-up studies. Patient reassessed and remains tachycardic and with map of 70. Consider blast crisis. [place] [facility] [place] and unfortunately there ICU is at capacity and cannot accept. I called [facility] transfer center and spoke with Dr. Kearney, discussed ED presentation and course, he will accept the patient in transfer. Patient was given lovenox 1mg/kg SC. Patient reassessed just prior to transfer and continues to mentate well. His MAP was down into the 50s and he was given a crystalloid bolus of 250 mL. MAP did improve prior to transfer to mid 60s. HPI <SHAY Ritchie - Last Filed: 06/16/21 08:10> General Mode of arrival: ambulatory . Date/Time Provider Initiated Documentation: 06/13/21 13:20 . Limitations to Documentation: no limitations . Information obtained by: patient . HPI Narrative: This very complex 70-year-old gentleman with history of atrial fibrillation, leukemia, hemolytic anemia, bladder mass, recent ST elevation [place] with stent presents with report of shortness of breath, orthopnea, peripheral edema, and some intermittent right flank pain for the past 24 hours. He is status post stent placement at [facility] and ST elevation ME approximately 3 days prior to arrival. He was discharged approximately a week ago. States he had been feeling improved. He is on Plavix, aspirin, and atorvastatin. 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 He denies any history of coagulopathy. He denies any pleuritic pain. He denies known history of COPD but has been a smoker for an extended period of time and has returned to smoking after his stent placement. He denies any new calf pain. Related Data Home Medications Medication Instructions Recorded Confirmed metoprolol tartrate 150 mg PO DAILY 02/22/14 06/13/21 Spiriva with HandiHaler 0 cap INHALATION DAILY 07/28/17 11/22/17 mirtazapine 15 mg PO HS 07/28/17 11/22/17 zolpidem 10 mg PO HS 08/02/17 06/13/21 cyclobenzaprine 10 mg PO TID PRN #10 tab 11/22/17 ibuprofen 600 mg PO QID PRN #20 tablet 11/22/17 atorvastatin 80 mg PO DAILY 06/13/21 06/13/21 clopidogrel [Plavix] 75 mg PO DAILY 06/13/21 06/13/21 docusate sodium [Colace] 100 mg PO PRN PRN 06/13/21 06/13/21 lisinopril 2.5 mg PO DAILY 06/13/21 06/13/21 prednisone 100 mg PO DAILY 06/13/21 06/13/21 Previous Rx's Medication Instructions Recorded cyclobenzaprine 10 mg PO TID PRN #10 tab 11/22/17 ibuprofen 600 mg PO QID PRN #20 tablet 11/22/17 Allergies Allergy/AdvReac Type Severity Reaction Status Date / Time No Known Allergies Allergy Unverified 06/13/21 13:24 General Stated Complaint: SOB MARY ANNE: 2 Review of Systems <SHAY Ritchie - Last Filed: 06/16/21 08:10> All systems reviewed & are unremarkable except as noted in HPI and below [facility] <SHAY Ritchie - Last Filed: 06/16/21 08:10> Medical History (Updated 06/13/21 @ 23:26 by Cabrera Oliva MD) A-fib Bladder mass Surgical History Transurethral Resection of Bladder Tumor, >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) Social History Smoking/Tobacco Use Status: Current every day Smoking risk assessment performed?: Yes Alcohol Intake: current Alcohol Intake frequency: holidays/special occasions only Drug use: Never Substance use type: does not use Do you feel safe at home: Yes Do you feel safe in your relationship?: Yes Exam <SHAY Ritchie - Last Filed: 06/16/21 08:10> Const Orientation: alert and oriented x3 Other: Chronically ill-appearing HENMT Other: Moist mucous membranes Eyes Pupils: PERRL Chest Chest: normal inspection of the chest Resp Effort & Inspection: tachypneic Other: Rhonchi and wheezes bilaterally Cardio Rate: tachycardic Rhythm: abnormal rhythm Other: No murmur GI Other: No CVA tenderness, no abdominal tenderness, no abdominal bruit or pulsatile mass, urostomy bag in place Skin General skin exam: no rashes or lesions noted Neuro General: patient alert and patient oriented x3 Cranial Nerves: CN's II-XI intact bilaterally Cognition: normal cognition Speech: speech normal Course <SHAY Ritchie - Last Filed: 06/16/21 08:10> Vital Signs Vital signs: Vital Signs Temperature 37.4 C 06/13/21 13:11 Pulse 70 06/13/21 13:11 Respiratory Rate 20 06/13/21 13:11 Blood Pressure 90/49 L 06/13/21 13:11 Pulse Oximetry 96 06/13/21 13:11 Temperature 37.4 C 06/13/21 13:11 Temperature Source Skin 06/13/21 13:11 Pulse 132 H 06/13/21 14:32 Respiratory Rate 20 06/13/21 13:11 Respiratory Effort 06/13/21 14:55 Respiratory Depth Normal 06/13/21 14:55 Respiratory Pattern Normal 06/13/21 14:55 Blood Pressure 103/64 06/13/21 13:33 Blood Pressure Position Sitting 06/13/21 13:11 Pulse Oximetry 94 06/13/21 13:33 Oxygen Delivery Method Room Air 06/13/21 13:33 Oxygen Flow Rate 0 06/13/21 13:33 Pain Level 1 06/13/21 13:11 Comment 06/13/21 13:11 Lab/Test Results Lab/Test Results: 06/13/21 13:55 Blood Blood Culture - Pending 06/13/21 13:55 Blood Blood Culture - Pending Laboratory Tests Range/Units 06/13/21 06/13/21 06/13/21 14:08 14:08 14:08 WBC (4.4-10.8) 10^3/uL 161.68 H* RBC Not Applicable Hgb (13.5-17.5) g/dL 9.9 L Hct Not Applicable MCV Not Applicable MCH Not Applicable MCHC Not Applicable RDW Not Applicable Plt Count (130-400) 10^3/uL 152 MPV (8.0-11.0) fL 10.4 Immature Gran % 0.0 Neutrophils % 12.0 Band Neutrophils % 2 Lymphocytes % 86.0 Monocytes % 0.0 Eosinophils % 0.0 Basophils % 0.0 Nucleated RBC % % 0 Absolute Neutrophils (1.2-6.7) 10^3/uL 22.64 H Absolute Lymphocytes (1.2-3.4) 10^3/uL 139.04 H Absolute Monocytes (0.1-0.8) 10^3/uL 0.00 L Absolute Eosinophils (0.0-0.7) 10^3/uL 0.00 Absolute Basophils (0.0-0.2) 10^3/uL 0.00 RBC Morphology See Below Polychromasia Present Anisocytosis 2+ Macrocytosis 3+ D-Dimer (<500) ng/mlFEU 1199 H VBG Lactate (0.6-1.4) mmol/L Sodium (136-145) mmol/L 139 Potassium (3.5-5.1) mmol/L 5.0 Chloride (98-107) mmol/L 104 Carbon Dioxide (21.0-32.0) mmol/L 29.1 Anion Gap (3-11) mmol/L 5.9 BUN (7-18) mg/dL 42 H Creatinine (0.70-1.30) mg/dL 1.5 H Estimated GFR/1.73 m2 (mL/min/1.73m2) 46.54 Glucose (74-106) mg/dL 96 Calcium (8.5-10.1) mg/dL 8.7 Total Bilirubin (0.2-1.0) mg/dL 2.1 H AST (15-37) U/L 33 ALT (16-63) U/L 80 H Alkaline Phosphatase (46-116) U/L 68 Troponin I (<0.06) ng/mL 0.07 H NT-Pro-B Natriuret Pep (<300) pg/mL 4168 H Total Protein (6.4-8.2) g/dL 6.8 Albumin (3.4-5.0) g/dL 2.9 L Lipase (73-393) U/L 238 Procalcitonin ng/mL COVID-19 Source Patient ABO/Rh Antibody Screen Range/Units 06/13/21 06/13/21 06/13/21 14:08 14:08 14:08 WBC (4.4-10.8) 10^3/uL RBC Hgb (13.5-17.5) g/dL Hct MCV MCH MCHC RDW Plt Count (130-400) 10^3/uL MPV (8.0-11.0) fL Immature Gran % Neutrophils % Band Neutrophils % Lymphocytes % Monocytes % Eosinophils % Basophils % Nucleated RBC % % Absolute Neutrophils (1.2-6.7) 10^3/uL Absolute Lymphocytes (1.2-3.4) 10^3/uL Absolute Monocytes (0.1-0.8) 10^3/uL Absolute Eosinophils (0.0-0.7) 10^3/uL Absolute Basophils (0.0-0.2) 10^3/uL RBC Morphology Polychromasia Anisocytosis Macrocytosis D-Dimer (<500) ng/mlFEU VBG Lactate (0.6-1.4) mmol/L 1.6 H Sodium (136-145) mmol/L Potassium (3.5-5.1) mmol/L Chloride (98-107) mmol/L Carbon Dioxide (21.0-32.0) mmol/L Anion Gap (3-11) mmol/L BUN (7-18) mg/dL Creatinine (0.70-1.30) mg/dL Estimated GFR/1.73 m2 (mL/min/1.73m2) Glucose (74-106) mg/dL Calcium (8.5-10.1) mg/dL Total Bilirubin (0.2-1.0) mg/dL AST (15-37) U/L ALT (16-63) U/L Alkaline Phosphatase (46-116) U/L Troponin I (<0.06) ng/mL NT-Pro-B Natriuret Pep (<300) pg/mL Total Protein (6.4-8.2) g/dL Albumin (3.4-5.0) g/dL Lipase (73-393) U/L Procalcitonin ng/mL 0.1 COVID-19 Source Patient ABO/Rh O Positive Antibody Screen NEGATIVE Range/Units 06/13/21 14:40 WBC (4.4-10.8) 10^3/uL RBC Hgb (13.5-17.5) g/dL Hct MCV MCH MCHC RDW Plt Count (130-400) 10^3/uL MPV (8.0-11.0) fL Immature Gran % Neutrophils % Band Neutrophils % Lymphocytes % Monocytes % Eosinophils % Basophils % Nucleated RBC % % Absolute Neutrophils (1.2-6.7) 10^3/uL Absolute Lymphocytes (1.2-3.4) 10^3/uL Absolute Monocytes (0.1-0.8) 10^3/uL Absolute Eosinophils (0.0-0.7) 10^3/uL Absolute Basophils (0.0-0.2) 10^3/uL RBC Morphology Polychromasia Anisocytosis Macrocytosis D-Dimer (<500) ng/mlFEU VBG Lactate (0.6-1.4) mmol/L Sodium (136-145) mmol/L Potassium (3.5-5.1) mmol/L Chloride (98-107) mmol/L Carbon Dioxide (21.0-32.0) mmol/L Anion Gap (3-11) mmol/L BUN (7-18) mg/dL Creatinine (0.70-1.30) mg/dL Estimated GFR/1.73 m2 (mL/min/1.73m2) Glucose (74-106) mg/dL Calcium (8.5-10.1) mg/dL Total Bilirubin (0.2-1.0) mg/dL AST (15-37) U/L ALT (16-63) U/L Alkaline Phosphatase (46-116) U/L Troponin I (<0.06) ng/mL NT-Pro-B Natriuret Pep (<300) pg/mL Total Protein (6.4-8.2) g/dL Albumin (3.4-5.0) g/dL Lipase (73-393) U/L Procalcitonin ng/mL COVID-19 Source Nasal/Nares Patient ABO/Rh Antibody Screen <Cabrera Oliva MD - Last Filed: 06/13/21 23:26> Critical Care Time Critical Care Time: Yes Total Critical Care Time: 80 Attestation: I spent greater than 80 minutes addressing this patient's immediate life threats. Please see MDM section of note. This time was spent engaged in work directly related to the patient's care, exclusive of separate procedures, and failure to initiate these interventions would have likely resulted in clinically significant or life threatening deterioration in the patient's condition.
[2021-06-13 15:34] LABS: COVID-19 PCR Negative (Negative)
--- NOTE | 2021-06-13 15:40 | DI.CT_ITS ---
Exam(s) CT CHEST PE ABD PELVIS W EXAM: CT CHEST PE ABD PELVIS W TECHNIQUE: CT angiography of the chest, abdomen and pelvis was performed with bolus infusion of 100 cc of Omnipaque 350. Axial CT angiography was performed with multi-slice acquisition and multi-planar and/or 3D reconstruc tions. COMPARISON: CT CT CHEST/ABD/PEL WO from 06/13/2021 FINDINGS: There are multi focal intrapulmonary infiltrates, the largest in the right lung base posteriorly as n oted on examination obtained earlier today.. No pleural effusion. There are bilateral lower lobe ceballos bsegmental pulmonary emboli period these are of questionable clinical significance. No central embol us period no evidence of right heart strain.. No thoracic aortic dissection or aneurysm. Major branc hes of the thoracic aorta appear normal. No pleural effusion. There is mild prominence of right hil ar and central mediastinal nodes, question infectious versus neoplastic process.. Tracheobronchial t ree appears intact. No focal hepatic or renal abnormality seen. Gallbladder and bile ducts are CT normal. Pancreas is unr emarkable. Spleen contains geographic areas of decreased attenuation consistent with fluid, question prior splenic infarct versus mass. Correlation with splenic MRI recommended.. No abdominal aortic aneurysm or dissection. Major branches of the abdominal aorta appear normal. The re are scattered intra-abdominal enlarged lymph nodes, the largest as previously described superior t o the pancreas measuring about 23 millimeters in greatest diameter period. Normal appendix. No signi ficant abdominal wall hernia. No focal bowel pathology. IMPRESSION: Multifocal intrapulmonary poorly defined infiltrates consistent with pneumonitis, a dominant area of consolidation is also seen in the right lung base. Follow-up chest CT suggested to resolution to exc lude underlying mass. Minimal subsegmental pulmonary embolic disease as described above, questionable clinical significance . No evidence of right heart strain. Mild mediastinal and abdominal adenopathy as noted above. Neoplastic disease not excluded, please co rrelate clinically. Indeterminate large geographic splenic lesion, infarct versus mass. MR correlation recommended. Ple ase correlate clinically RADIATION DOSE DELIVERED: 1,608.97mGy.cm Total DLP 1,608.97mGy.cm Total DLP CTDIvol DATA REPOSITORY: All CT scans at this facility are submitted to the National Radiology Data Registry (NRDR) Dose Index Registry (DIR) with the [employer] (A[employer]). RADIATION OPTIMIZATION: All CT scans at this facility use at least one of these dose optimization te chniques: automated exposure control; mA and/or kV adjustment per patient size (includes targeted exa ms where dose is matched to clinical indication); or iterative reconstruction.
[2021-06-13] MEDS: Metoprolol CR 25 MG TABCR PO (15:45)
[2021-06-13 16:11] LABS: Bilirubin Negative (Negative); Blood Trace-intact (Negative); Clarity Sl Cloudy (Clear); Glucose Negative (Negative); Ketones Negative (Negative); Leukocyte Esterase Negative (Negative); Nitrite Positive (Negative); Urobilinogen 0.2 EU/dL (Up TO 0.2)
[2021-06-13] MEDS: Omnipaque 350 MG/ML 100 ML BTL IJ (16:30)
[2021-06-13] MEDS: Normal Saline - Diluent 50 ML VIAL IV (16:31)
[2021-06-13 16:38] LABS: Bacteria Many HPF (Negative); C & S Indicated? Yes; Casts Negative LPF (Negative); Crystals Many Amorphous HPF (Negative); Epithelial Cells Negative HPF (Negative); Mucus Heavy (Negative); RBC Negative HPF (0-2); WBC >50 HPF (0-5)
[2021-06-13] MEDS: DOXYCYCLINE 100 MG in Normal Saline 100 ML IVPB (16:53)
[2021-06-13] MEDS: cefTRIAXone 2 GM/50 ML BAG IVPB (16:53)
[2021-06-13 17:04] LABS: Prothrombin Time 9.6 sec (9.3-11.0)
[2021-06-13 17:32] LABS: Troponin I 0.06 ng/mL (<0.06)
--- NOTE | 2021-06-13 17:46 | DI.VRAD_ITS ---
PROCEDURE INFORMATION: Exam: CTA Chest With Contrast Exam date and time: 06/13/2021 4:00 PM Age: 70 years old Clinical indication: Patient HX: Elevated ddimer, shortness of breath, CA HX TECHNIQUE: Imaging protocol: Computed tomographic angiography of the chest with contrast. 3D rendering (Not supervised by radiologist): MIP and/or 3D reconstructed images were created by the technologist. COMPARISON: CT CHEST/ABD/PEL WO 06/13/2021 3:32 PM FINDINGS: Pulmonary arteries: There is a nonocclusive filling defect within the posteromedial basilar segmental left lower lobe pulmonary artery, best seen on image 325, series 6 and coronal image 73, series 9, consistent with nonocclusive pulmonary embolism. There may be some degree of distal propagation into subsegmental branches in this segment as well. There appears to be a nonocclusive subsegmental pulmonary embolism within the superior segment of the right lower lobe on image 304, series 6 with a 2nd subsegmental embolism within the segment on image 324. There appears to be a subsegmental pulmonary embolism within the anterolateral basilar segment of the right lower lobe, as seen around image 377, series 6. Aorta: Unremarkable. No aortic aneurysm. No aortic dissection. Lungs: Again noted is a confluent region of consolidation within the posteromedial base of the right lower lobe measuring up to 4.7 x 7.1 cm. Again noted are mild patchy and nodular branching regions of consolidation elsewhere within the right lower lobe with surrounding ground-glass opacity suggesting bronchopneumonia. There are scattered other tiny nodular branching regions of consolidative and ground-glass opacities within the lungs suggesting mild bronchiolitis. Again noted is small wedge-shaped lingular opacity which may represent scarring/atelectasis. Again noted is narrowing the origins of the basilar right lower lobe segmental bronchi, likely related to mass effect associated with enlarged adjacent right hilar lymph node. Pleural spaces: Again noted is a tiny freely layering right pleural effusion, unchanged. Heart: The right ventricular to left ventricular ratio is 0.78, which is within normal limits. Heart size is normal. There is no pericardial effusion. There is mild reflux of contrast into the IVC which may be related to pressure of contrast injection. Lymph nodes: The mediastinal and right hilar adenopathy is unchanged. Bones/joints: Again noted is moderate spondylosis at multiple mid and lower thoracic levels. No suspicious osseous lesions are Soft tissues: Unremarkable. IMPRESSION: 1. Nonocclusive segmental left lower lobe pulmonary embolism as well as three subsegmental right lower lobe pulmonary emboli. 2. No evidence for right heart strain. 3. Mediastinal and right hilar adenopathy, unchanged from prior study performed earlier today. Findings could represent metastatic neoplasm or lymphoma. Recommend clinical correlation. 4. Stable confluent and patchy/nodular consolidation within the right lower lobe with surrounding ground-glass opacities suggesting bronchopneumonia. PROCEDURE INFORMATION: Exam: CT Abdomen And Pelvis With Contrast Exam date and time: 06/13/2021 4:00 PM Age: 70 years old Clinical indication: Patient HX: Elevated ddimer, shortness of breath, CA HX TECHNIQUE: Imaging protocol: Computed tomography of the abdomen and pelvis with contrast. COMPARISON: CT CHEST/ABD/PEL WO 06/13/2021 3:32 PM FINDINGS: Liver: Normal. No mass. Gallbladder and bile ducts: Normal. No calcified stones. No ductal dilation. Pancreas: Normal. No ductal dilation. Spleen: Again noted is a 5.7 x 8.7 cm fluid density splenic lesion, as seen on image 128, series 13, part of which has a wedge-shaped configuration and does not appear to distort the contour of the spleen. This lesion was not present on prior study dated 09/23/2020. Adrenal glands: Normal. No mass. Kidneys and ureters: There are multiple subcentimeter low-dense renal lesions which are too small to characterize but likely represent benign cysts. There are multiple simple appearing renal cysts measuring up to 3.7 cm. Stomach and bowel: Status post ileal diversion with small bowel anastomosis. There is no evidence of small or large bowel inflammation. There is no evidence for bowel obstruction. Appendix: No evidence of appendicitis. Intraperitoneal space: Again noted is trace free fluid in the pelvis. Vasculature: The aorta and iliac arteries demonstrate severe atherosclerotic calcification without aneurysm formation. Lymph nodes: There is mild adenopathy in the retroperitoneum and [id number] adenopathy in the periportal region and small bowel mesentery, stable since study performed earlier today. Urinary bladder: Again noted are postoperative changes of cystectomy and prostatectomy with ileal diversion. Reproductive: Status post prostatectomy. Bones/joints: Again noted is multilevel moderate spondylosis of the lower thoracic spine as well as at L5-S1. No acute fractures are identified. There are no suspicious osseous lesions. Soft tissues: Unremarkable. IMPRESSION: 1. Stable multifocal adenopathy within the abdomen, as described above, could represent metastatic neoplasm or lymphoma. Recommend clinical correlation. 2. Large fluid density splenic lesion as described above, not clearly present on study dated 09/23/2020. This could represent an evolving splenic infarct or sequela of treatment of prior lymphomatous mass. Recommend attention on follow-up studies. COMMENT: THIS REPORT CONTAINS FINDINGS THAT MAY BE CRITICAL TO PATIENT CARE. The exam findings were verbally communicated by me to DAMIÁN Santo via telephone conference at 5:37 PM EDT on 06/13/2021. The findings were acknowledged and understood. Dictated and Authenticated by: Javan Nolen MD. Ordering:RY Key MD
[2021-06-13] MEDS: Enoxaparin 100 MG/ML SYR SC (19:35)
== END 2021-06-13 19:27 | disposition short-term general hospital (02) ==
PROVIDERS: Physician Assistant; Emergency Provider Student in an Organized Health Care Education/Training Program; PCP Internal Medicine
DX: C92.10 Chronic myeloid leukemia, BCR/ABL-positive, not having achieved remission (principal); I26.94 Multiple subsegmental thrombotic pulmonary emboli without acute cor pulmonale; J18.8 Other pneumonia, unspecified organism; I48.91 Unspecified atrial fibrillation; R79.1 Abnormal coagulation profile; R06.02 Shortness of breath; Z20.822 Contact with and (suspected) exposure to COVID-19; Z03.818 Encounter for observation for suspected exposure to other biological agents ruled out; R82.71 Bacteriuria
CPT/HCPCS: 36415; 71250; 71275; 74177; 80053; 83690; 84145; 86850; 86900; 86901; 87040; 87077; 87635; 93005; 94640; 96361; 96365; 96368; 96372; 96375; 99291; 99292; 74176; 81003; 81015; 83605; 83880; 84484; 85025; 85379; 85610; 87086; 87186; 93010; J1650; J3490; J7613

== ENCOUNTER 2021-06-26 04:26 | Outpatient (CLI) | payer MEDICARE, OTHER, SELFPAY ==
[2021-06-26 13:41] LABS: Abs Immature Grans 0.39 10^3/uL (0.0-0.06); HCT 30.2 % (40.0-50.0); HGB 8.9 g/dL (13.5-17.5); Immature Grans % 0.3; MCH 37.2 pg (27.0-33.0); MCHC 29.5 % (32.0-36.0); MCV 126.4 fL (80-95); MPV 11.2 fL (8.0-11.0); Nucleated RBC 0 %; Platelet Count 212 10^3/uL (130-400); RBC 2.39 10^6/uL (4.36-5.78); RDW-SD 89.2 fL; Reticulocyte 10.1 % (0.5-2.4)
[2021-06-26 13:57] LABS: Absolute Lymphocyte Count 100.59 10^3/uL (1.2-3.4); Absolute Neutrophil Count 12.43 10^3/uL (1.2-6.7); Bands % 1
[2021-06-26 13:58] LABS: Anisocytosis 2+; Diff Comment Manual Differential; Macrocytosis 3+; Polychromasia Present
[2021-06-26 14:01] LABS: WBC 113.02 10^3/uL (4.4-10.8)
[2021-06-26 14:29] LABS: ALT 87 U/L (16-63); AST 22 U/L (15-37); Albumin 2.9 g/dL (3.4-5.0); Alkaline Phosphatase 94 U/L (46-116); BUN 35 mg/dL (7-18); Bilirubin, Total 0.8 mg/dL (0.2-1.0); CREATININE 1.7 mg/dL (0.70-1.30); Calcium 8.1 mg/dL (8.5-10.1); Chloride 107 mmol/L (98-107); Estimated GFR 40.28 (mL/min/1.73m2); Glucose 131 mg/dL (74-106); LDH 180 U/L (85-227); Potassium 4.9 mmol/L (3.5-5.1); Sodium 139 mmol/L (136-145); Total Protein 5.4 g/dL (6.4-8.2)
[2021-06-27 09:58] LABS: Haptoglobin 17 mg/dL (32-197)
== END 2021-06-26 04:27 | disposition home or self-care (01) ==
LOC: LBO 04:26
PROVIDERS: Internal Medicine Hematology & Oncology; PCP Internal Medicine; Visit Provider Internal Medicine
DX: C91.10 Chronic lymphocytic leukemia of B-cell type not having achieved remission (principal)
CPT/HCPCS: 36415; 80053; 83010; 83615; 85025; 85045

== ENCOUNTER 2021-07-03 02:49 | Outpatient (CLI) | payer MEDICARE, OTHER, SELFPAY ==
[2021-07-03 13:43] LABS: Abs Immature Grans 0.57 10^3/uL (0.0-0.06); Basophils % 0.1; HCT 32.1 % (40.0-50.0); HGB 9.5 g/dL (13.5-17.5); Immature Grans % 0.5; MCH 38.6 pg (27.0-33.0); MCHC 29.6 % (32.0-36.0); MCV 130.5 fL (80-95); MPV 9.9 fL (8.0-11.0); Monocytes % 1.5; Neutrophils % 10.7; Nucleated RBC 0 %; Platelet Count 222 10^3/uL (130-400); RBC 2.46 10^6/uL (4.36-5.78); RDW 20.2 % (11.8-14.1); Reticulocyte 7.6 % (0.5-2.4)
[2021-07-03 14:00] LABS: ALT 80 U/L (16-63); AST 21 U/L (15-37); Albumin 3.2 g/dL (3.4-5.0); Alkaline Phosphatase 83 U/L (46-116); Anion Gap 6.6 mmol/L (3-11); BUN 34 mg/dL (7-18); Bilirubin, Total 0.8 mg/dL (0.2-1.0); CO2 29.4 mmol/L (21.0-32.0); CREATININE 1.6 mg/dL (0.70-1.30); Calcium 8.5 mg/dL (8.5-10.1); Chloride 106 mmol/L (98-107); Glucose 98 mg/dL (74-106); LDH 198 U/L (85-227); Potassium 4.8 mmol/L (3.5-5.1); Sodium 142 mmol/L (136-145)
[2021-07-03 14:02] LABS: Absolute Basophil Count 0.12 10^3/uL (0.0-0.2); Absolute Lymphocyte Count 102.48 10^3/uL (1.2-3.4); Absolute Monocyte Count 1.76 10^3/uL (0.1-0.8); Absolute Neutrophil Count 12.57 10^3/uL (1.2-6.7)
[2021-07-03 14:09] LABS: Diff Comment Agrees w/ Instrument; WBC 117.52 10^3/uL (4.4-10.8)
[2021-07-03 14:10] LABS: Anisocytosis 2+; Macrocytosis 3+; Polychromasia Present
[2021-07-03 14:11] LABS: Lymphocytes % 87.2
[2021-07-04 09:40] LABS: Haptoglobin 12 mg/dL (32-197)
== END 2021-07-03 02:50 | disposition home or self-care (01) ==
PROVIDERS: PCP Internal Medicine; Visit Provider Internal Medicine Hematology & Oncology
DX: C91.10 Chronic lymphocytic leukemia of B-cell type not having achieved remission (principal)
CPT/HCPCS: 36415; 80053; 83010; 83615; 85025; 85045

== ENCOUNTER 2021-08-21 03:28 | Outpatient (CLI) | payer MEDICARE, OTHER, SELFPAY ==
[2021-08-21 09:21] LABS: HCT 36.1 % (40.0-50.0); HGB 11.6 g/dL (13.5-17.5); MCH 38.5 pg (27.0-33.0); MCHC 32.1 % (32.0-36.0); MCV 119.9 fL (80-95); MPV 10.7 fL (8.0-11.0); Nucleated RBC 0 %; Platelet Count 171 10^3/uL (130-400); RBC 3.01 10^6/uL (4.36-5.78); RDW 15.1 % (11.8-14.1); RDW-SD 67.7 fL
[2021-08-21 09:32] LABS: ALT 68 U/L (16-63); AST 22 U/L (15-37); Albumin 3.4 g/dL (3.4-5.0); Alkaline Phosphatase 98 U/L (46-116); Anion Gap 2.6 mmol/L (3-11); BUN 37 mg/dL (7-18); Bilirubin, Total 0.6 mg/dL (0.2-1.0); CO2 32.4 mmol/L (21.0-32.0); CREATININE 1.9 mg/dL (0.70-1.30); Calcium 8.9 mg/dL (8.5-10.1); Chloride 109 mmol/L (98-107); Estimated GFR 35.43 (mL/min/1.73m2); Glucose 103 mg/dL (74-106); LDH 194 U/L (85-227); Potassium 4.9 mmol/L (3.5-5.1); Sodium 144 mmol/L (136-145); Total Protein 6.3 g/dL (6.4-8.2)
[2021-08-21 09:35] LABS: WBC 68.64 10^3/uL (4.4-10.8)
[2021-08-21 09:36] LABS: Absolute Lymphocyte Count 62.46 10^3/uL (1.2-3.4); Absolute Neutrophil Count 6.18 10^3/uL (1.2-6.7); Bands % 1; Diff Comment Manual Differential
[2021-08-21 09:37] LABS: Macrocytosis 3+
== END 2021-08-21 03:29 | disposition home or self-care (01) ==
LOC: LBO 03:28
PROVIDERS: PCP Internal Medicine; Visit Provider Internal Medicine Hematology & Oncology
DX: C91.10 Chronic lymphocytic leukemia of B-cell type not having achieved remission (principal)
CPT/HCPCS: 36415; 80053; 83615; 85025; 85045

== ENCOUNTER 2021-10-14 00:56 | Outpatient (CLI) | payer MEDICARE, OTHER, SELFPAY ==
--- NOTE | 2021-10-14 14:15 | DI.CT_ITS ---
Exam(s) CT HEAD WO EXAM: CT HEAD WO CLINICAL HISTORY: RT LUNG CA,C34.31,STAGING EXAM. TECHNIQUE: Imaging Protocol: Axial computed tomography images with coronal and sagittal reformatted images were created and reviewed COMPARISON: No exams were available for comparison FINDINGS: Contrast was not administered due to the patient's decreased renal function. Ventricles and Extra axial spaces: Normal in size and morphology for the patient's age. Hemorrhage: None. Cerebral parenchyma: There is no evidence of an acute territorial infarct. There are areas of decrea sed attenuation in the white matter. These may reflect areas of small vessel ischemic disease. Midline shift: None. Brainstem/Cerebellum: Normal. Calvarium: Normal. Visualized Paranasal sinuses/Mastoids: There is soft tissue incompletely imaged extending from the pa tient's right nasal passageway into the nasopharynx. This may represent a nasal polyp. Correlation with direct visualization is recommended. A CT scan of the neck/sinus should be considered for furth er evaluation. The visualized paranasal sinuses are otherwise clear. Soft Tissues: Unremarkable. IMPRESSION: 1. IV contrast was not administered due to the patient's poor renal function. 2. Areas of decreased attenuation are seen in the white matter. These may reflect areas of small ves sheryl ischemic disease. The possibility of edema associated with intracranial metastases cannot be exc luded. MRI may be considered for further evaluation. 3. Incompletely imaged soft tissue extending from the patient's right nasal passageway into the nasop harynx. Correlation with direct visualization is recommended. A CT scan of the neck/sinus may also be obtained for further evaluation. RADIATION DOSE DELIVERED: 829.78mGy.cm Total DLP DATA REPOSITORY: All CT scans at this facility are submitted to the National Radiology Data Registry (NRDR) Dose Index Registry (DIR) with the [employer] ([employer]). RADIATION OPTIMIZATION: All CT scans at this facility use at least one of these dose optimization te chniques: automated exposure control; mA and/or kV adjustment per patient size (includes targeted exa ms where dose is matched to clinical indication); or iterative reconstruction.
== END 2021-10-14 01:16 ==
PROVIDERS: PCP Internal Medicine; Visit Provider Radiology Radiation Oncology
DX: C34.31 Malignant neoplasm of lower lobe, right bronchus or lung (principal); Z01.818 Encounter for other preprocedural examination
CPT/HCPCS: 36591; 80053; 70450; 82565

== ENCOUNTER 2021-10-14 02:19 | Outpatient (RCR) | payer MEDICARE, OTHER, SELFPAY ==
[2021-10-14] MEDS: Heparin 500 UNITS/5 ML SYRINGE (13:11)
[2021-10-14] MEDS: Normal Saline Flush 10 ML SYR IVP (13:12)
[2021-10-14 13:36] LABS: ALT 21 U/L (16-63); AST 8 U/L (15-37); Albumin 3.3 g/dL (3.4-5.0); Alkaline Phosphatase 127 U/L (46-116); Anion Gap 11.6 mmol/L (3-11); BUN 30 mg/dL (7-18); Bilirubin, Total 0.8 mg/dL (0.2-1.0); CO2 24.4 mmol/L (21.0-32.0); CREATININE 2.5 mg/dL (0.70-1.30); Chloride 107 mmol/L (98-107); Estimated GFR 25.74 (mL/min/1.73m2); Glucose 135 mg/dL (74-106); Potassium 4.2 mmol/L (3.5-5.1); Sodium 143 mmol/L (136-145); Total Protein 6.8 g/dL (6.4-8.2)
== END 2021-10-14 23:59 | disposition home or self-care (01) ==
LOC: INF 02:19
PROVIDERS: Internal Medicine Medical Oncology; PCP Internal Medicine; Visit Provider Radiology Radiation Oncology
DX: C34.31 Malignant neoplasm of lower lobe, right bronchus or lung (principal); Z45.2 Encounter for adjustment and management of vascular access device
CPT/HCPCS: 36591; 80053

== ENCOUNTER 2021-10-23 02:34 | Outpatient (CLI) | payer MEDICARE, OTHER, SELFPAY ==
[2021-10-23 14:36] LABS: HCT 32.3 % (40.0-50.0); HGB 10.5 g/dL (13.5-17.5); MCH 37.9 pg (27.0-33.0); MCHC 32.5 % (32.0-36.0); MCV 116.6 fL (80-95); MPV 10.4 fL (8.0-11.0); Nucleated RBC 0 %; Platelet Count 327 10^3/uL (130-400); RBC 2.77 10^6/uL (4.36-5.78); RDW 16.4 % (11.8-14.1); RDW-SD 69.6 fL
[2021-10-23 14:45] LABS: WBC 43.78 10^3/uL (4.4-10.8)
[2021-10-23 14:47] LABS: ALT 16 U/L (16-63); AST 11 U/L (15-37); Albumin 3.3 g/dL (3.4-5.0); Alkaline Phosphatase 124 U/L (46-116); Anion Gap 8.7 mmol/L (3-11); BUN 32 mg/dL (7-18); Bilirubin, Total 0.8 mg/dL (0.2-1.0); CO2 27.3 mmol/L (21.0-32.0); Calcium 9.3 mg/dL (8.5-10.1); Chloride 105 mmol/L (98-107); Estimated GFR 33.29 (mL/min/1.73m2); Glucose 113 mg/dL (74-106); Magnesium 2.3 mg/dL (1.8-2.4); Potassium 4.9 mmol/L (3.5-5.1); Sodium 141 mmol/L (136-145)
[2021-10-23 14:56] LABS: Absolute Eosinophil Count 0.44 10^3/uL (0.0-0.7); Absolute Lymphocyte Count 36.78 10^3/uL (1.2-3.4); Absolute Monocyte Count 1.31 10^3/uL (0.1-0.8); Absolute Neutrophil Count 5.25 10^3/uL (1.2-6.7); Anisocytosis 1+; Bands % 1; Diff Comment Manual Differential; Macrocytosis 1+
== END 2021-10-23 02:35 | disposition home or self-care (01) ==
PROVIDERS: PCP Internal Medicine; Visit Provider Internal Medicine Medical Oncology
DX: C34.31 Malignant neoplasm of lower lobe, right bronchus or lung (principal)
CPT/HCPCS: 36415; 80053; 83735; 85025

== ENCOUNTER 2021-11-10 03:32 | Outpatient (RCR) | payer MEDICARE, OTHER, SELFPAY ==
[2021-10-27] MEDS: Normal Saline Flush 10 ML SYR IVP (08:20)
[2021-10-27 08:36] LABS: HCT 29.8 % (40.0-50.0); HGB 9.9 g/dL (13.5-17.5); MCH 39.8 pg (27.0-33.0); MCHC 33.2 % (32.0-36.0); MCV 119.7 fL (80-95); MPV 10.4 fL (8.0-11.0); Nucleated RBC 0 %; Platelet Count 339 10^3/uL (130-400); RBC 2.49 10^6/uL (4.36-5.78); RDW 17.9 % (11.8-14.1); RDW-SD 72.9 fL
[2021-10-27 08:41] LABS: WBC 44.82 10^3/uL (4.4-10.8)
[2021-10-27 08:51] LABS: ALT 17 U/L (16-63); AST 16 U/L (15-37); Albumin 3.2 g/dL (3.4-5.0); Alkaline Phosphatase 122 U/L (46-116); Anion Gap 6.9 mmol/L (3-11); BUN 26 mg/dL (7-18); Bilirubin, Total 0.9 mg/dL (0.2-1.0); CO2 28.1 mmol/L (21.0-32.0); CREATININE 2.1 mg/dL (0.70-1.30); Calcium 8.9 mg/dL (8.5-10.1); Chloride 104 mmol/L (98-107); Estimated GFR 31.47 (mL/min/1.73m2); Glucose 116 mg/dL (74-106); Magnesium 2.2 mg/dL (1.8-2.4); Potassium 4.6 mmol/L (3.5-5.1); Sodium 139 mmol/L (136-145); Total Protein 6.8 g/dL (6.4-8.2)
[2021-10-27 08:53] LABS: Absolute Neutrophil Count 4.03 10^3/uL (1.2-6.7)
[2021-10-27 08:54] LABS: Anisocytosis 2+; Diff Comment Manual Differential; Macrocytosis 3+
[2021-10-27 14:30] LABS: Absolute Lymphocyte Count 40.79 10^3/uL (1.2-3.4); Atypical Lymphocytes % 27
[2021-11-03] MEDS: Normal Saline Flush 10 ML SYR IVP (08:54)
[2021-11-03 09:03] LABS: HCT 27.5 % (40.0-50.0); HGB 9.2 g/dL (13.5-17.5); MCH 41.3 pg (27.0-33.0); MCHC 33.5 % (32.0-36.0); MCV 123.3 fL (80-95); MPV 10.3 fL (8.0-11.0); Nucleated RBC 0 %; Platelet Count 285 10^3/uL (130-400); RBC 2.23 10^6/uL (4.36-5.78); RDW-SD 76.1 fL
[2021-11-03 09:09] LABS: WBC 34.17 10^3/uL (4.4-10.8)
[2021-11-03 09:13] LABS: Absolute Lymphocyte Count 25.97 10^3/uL (1.2-3.4); Anisocytosis 1+; Atypical Lymphocytes % 10; Bands % 1; Diff Comment Manual Differential; Macrocytosis 2+
[2021-11-03 09:24] LABS: ALT 22 U/L (16-63); AST 15 U/L (15-37); Albumin 3.1 g/dL (3.4-5.0); Alkaline Phosphatase 92 U/L (46-116); Anion Gap 9.4 mmol/L (3-11); BUN 43 mg/dL (7-18); Bilirubin, Total 0.8 mg/dL (0.2-1.0); CO2 25.6 mmol/L (21.0-32.0); CREATININE 1.8 mg/dL (0.70-1.30); Calcium 8.9 mg/dL (8.5-10.1); Chloride 106 mmol/L (98-107); Glucose 146 mg/dL (74-106); Magnesium 2.4 mg/dL (1.8-2.4); Potassium 4.3 mmol/L (3.5-5.1); Sodium 141 mmol/L (136-145); Total Protein 6.8 g/dL (6.4-8.2)
[2021-11-10] MEDS: Normal Saline Flush 10 ML SYR IVP ×2 (09:14→14:04)
[2021-11-10 09:15] LABS: HCT 22.9 % (40.0-50.0); HGB 7.6 g/dL (13.5-17.5); MCH 39.2 pg (27.0-33.0); MCHC 33.2 % (32.0-36.0); MPV 11.4 fL (8.0-11.0); Nucleated RBC 0 %; Platelet Count 156 10^3/uL (130-400); RBC 1.94 10^6/uL (4.36-5.78); RDW 18.6 % (11.8-14.1); RDW-SD 72.6 fL
[2021-11-10 09:25] LABS: WBC 32.74 10^3/uL (4.4-10.8)
[2021-11-10 09:29] LABS: Absolute Eosinophil Count 0.33 10^3/uL (0.0-0.7); Absolute Lymphocyte Count 22.92 10^3/uL (1.2-3.4); Absolute Neutrophil Count 9.49 10^3/uL (1.2-6.7); Bands % 2
[2021-11-10 09:30] LABS: Anisocytosis 1+; Diff Comment Manual Differential; Macrocytosis 2+
[2021-11-10 09:31] LABS: ALT 35 U/L (16-63); AST 18 U/L (15-37); Alkaline Phosphatase 78 U/L (46-116); Anion Gap 8.5 mmol/L (3-11); BUN 48 mg/dL (7-18); Bilirubin, Total 0.8 mg/dL (0.2-1.0); CO2 25.5 mmol/L (21.0-32.0); CREATININE 1.7 mg/dL (0.70-1.30); Calcium 8.7 mg/dL (8.5-10.1); Chloride 105 mmol/L (98-107); Estimated GFR 40.16 (mL/min/1.73m2); Glucose 157 mg/dL (74-106); Magnesium 2.4 mg/dL (1.8-2.4); Potassium 4.4 mmol/L (3.5-5.1); Sodium 139 mmol/L (136-145); Total Protein 6.6 g/dL (6.4-8.2)
[2021-11-10 14:19] LABS: Reticulocyte 1.1 % (0.5-2.4)
[2021-11-10 14:57] LABS: Vitamin B12 634 pg/mL (193-986)
[2021-11-10 15:43] LABS: Folate > 20.0 ng/mL (8.6-20.0)
[2021-11-10 15:54] LABS: LDH 221 U/L (85-227)
[2021-11-11 10:44] LABS: Haptoglobin <7 mg/dL (32-197)
== END 2021-11-14 23:59 | disposition home or self-care (01) ==
LOC: INF 03:32
PROVIDERS: Internal Medicine Medical Oncology; PCP Internal Medicine; Visit Provider Radiology Radiation Oncology
DX: C34.31 Malignant neoplasm of lower lobe, right bronchus or lung (principal); Z45.2 Encounter for adjustment and management of vascular access device; D59.10 Autoimmune hemolytic anemia, unspecified; C91.10 Chronic lymphocytic leukemia of B-cell type not having achieved remission
CPT/HCPCS: 36591; 80053; 82607; 82746; 83010; 83615; 83735; 85025; 85045; 86880

== ENCOUNTER 2021-11-17 08:09 | Emergency (ER) | payer MEDICARE, OTHER, SELFPAY ==
[2021-11-17] VITALS (26 sets, daily range): BP systolic 61–96; BP diastolic 35–67; PULSE 75–149; RESP 13–34; TEMP 35.7–36.9; O2SAT 91–100
--- NOTE | 2021-11-17 08:00 | RT.EKG_ITS ---
APPROVED REPORT Exam: Resting ECG Reason for Exam: AFIXB OUT OF CONTROL Patient Location: E HR:141 bpm ECG Measurements Heart Rate 141 AXIS NE [id number] P [id number] QRSd 98 QRS -21 QT 275 T [id number] QTc 421 Conclusion Atrial fibrillation...? atrial activity Paired ventricular premature complexes...sequence of 2 V complexes atrial fibrillation at 141 with PVCs, normal axis, no STEMI
--- NOTE | 2021-11-17 08:22 | W.ED.GENAD ---
Discharge Plan Disposition Patient Disposition: [facility] Condition: Critical Discharge Details Clinical Impression: Anemia, Atrial fibrillation, Hypotension Primary Care Provider: Steve Neil ED Provider: Lovely Oliva Home Meds and New Rx's Prescriptions: No Action bupropion HCl (smoking deter) 150 mg tablet extended release 12 hr 150 mg PO DAILY RF: 0 Stiolto Respimat 2.5-2.5 mcg/actuation mist 2 puff inhalation DAILY Qty: 4 RF: 8 levalbuterol tartrate 45 mcg/actuation HFA aerosol inhaler 2 inh inhalation Q6H Qty: 15 RF: 8 pantoprazole [Protonix] 20 mg tablet,delayed release (DR/EC) 20 mg PO DAILY RF: 0 furosemide 20 mg tablet 20 mg PO DAILY RF: 0 Xarelto 20 mg tablet 20 mg PO DAILY RF: 0 folic acid 1 mg tablet 2 mg PO DAILY RF: 0 metoprolol tartrate 100 mg tablet 200 mg PO DAILY RF: 0 atorvastatin 80 mg tablet 80 mg PO DAILY RF: 0 clopidogrel [Plavix] 75 mg tablet 75 mg PO DAILY RF: 0 lisinopril 2.5 mg tablet 2.5 mg PO DAILY RF: 0 docusate sodium [Colace] 100 mg Capsule 100 mg PO PRN PRNRF: 0 prednisone 50 mg tablet 40 mg PO DAILY RF: 0 zolpidem 10 MG tablet 10 mg PO HS RF: 0 Discharge Data Discharge Date/Time-TO BE ENTERED AT DEPARTURE: 11/17/21 10:40 Medical Decision Making Jonnathan Fung is a 71-year-old man with history of COPD, autoimmune hemolytic anemia, coronary artery disease, cardiomyopathy, bladder cancer, lung mass, chronic kidney disease, hypertension, pulmonary embolism who presented to emergency department with generalized weakness, shortness of breath, malaise, found to be in atrial fibrillation in the 140s and hypotensive with SBP 80s, MAP 67. On exam patient is chronically ill appearing, pallor is present, heart rate is irregularly irregular and tachycardic in the 140s, lungs with expiratory wheeze bilateral bases, no rales, no lower extremity edema, no posterior calf tenderness to palpation. Concern for dehydration, metabolic/lyte derangement, rapid A. fib with RVR secondary to not taking rate controlling meds, pulmonary embolism, anemia, possible sepsis, other. Exam/history at this time is not consistent with acute coronary syndrome, acute aortic pathology, meningitis. Plan for EKG, IV placement, telemetry, IV fluids, screening labs, chest x-ray. Will initiate IV amiodarone given hypotension. Patient mentating well is not appear to be unstable at this time. Patient reports that he would be amenable to synchronized cardioversion, but states that he remains DNR/DNI. Bedside ultrasound shows IVC collapse during respiration, no pericardial effusion. Hemoglobin resulted at 3.6, hemoglobin / 7.6, lactate 5.2. Patient reporting no diarrhea, no black stools. 8:48 [facility] [place] [facility] [place] awaiting callback from critical care. Discussed risk of [id number] disease, other reaction from giving nonirradiated blood patient undergoing active chemotherapy. Dr. Anderson relayed the risk of severe reaction as low but not 0, this should be weighed against patient's risk for cardiovascular collapse. Given severe anemia, abnormal vital signs, I believe that the benefit of blood transfusion outweighs risk. I did discuss this with the patient including risk of , permanent disability. Patient verbalized understanding the risks and agreed to blood transfusion. Per Dr. Anderson, both units will be from the same donor to minimize possibility of reaction. Callback from critical care at [facility] approximately 9:00: Discussed patient presentation results with [facility] critical care who accepts patient in transfer (accepting physician Dr. Newell), agree with continue amiodarone infusion and giving 2 units nonirradiated blood, plan for air transfer if possible, no other acute interventions recommended at this time. [facility] en route, to arrive at 9:45. Per Dr. Anderson of pathology, patient with antibody reaction, holding blood at this time for further delineation, patient map 60 at this time. Blood pressure decreasing, MAP 52, plan to give blood at this time, risk of hemolytic reaction does not outweigh need for blood for prevention of cardiovascular collapse at this time. Discussed need for emergent blood transfusion with patient and and risk of reaction, possibly fatal, patient verbalized understanding the risk and agrees to blood transfusion. Attempted to obtain chest x-ray, patient began to feel suddenly very short of breath and agitated with sitting upright for chest x-ray, head of bed placed back at 30 degrees, patient reports shortness of breath improved with resting in lower position. SOB resolved. Will defer chest x-ray at this time as transfer is imminent. 09:54: Patient remains alert and oriented, blood pressure 81/53, RBCs infusing, [facility] team present at bedside. Patient reports that he did take 60 mg of prednisone this morning, will give additional 60mg of Solu-Medrol prior to departure. Levophed initiated. 10:03 SBP 103 prior to Levophed initiation. Patient reports feeling well, no additional symptoms at this time with PRBCs running. Patient left ED with transfer team without further incident. Medical Records Medical records reviewed: Yes I reviewed the patient's medical records. Lab Data Lab results reviewed: Yes I reviewed the patient's lab results. Labs: 11/17/21 09:05 Blood Blood Culture - Pending 11/17/21 08:19 Blood Blood Culture - Pending Laboratory Tests Range/Units 11/17/21 11/17/21 11/17/21 08:25 08:25 08:25 WBC (4.4-10.8) 10^3/uL 14.85 H RBC (4.36-5.78) 10^6/uL 0.88 L Hgb (13.5-17.5) g/dL 3.6 L* Hct (40.0-50.0) % 10.8 L* MCV (80-95) fL 122.7 H MCH (27.0-33.0) pg 40.9 H MCHC (32.0-36.0) % 33.3 RDW (11.8-14.1) % 20.1 H Plt Count (130-400) 10^3/uL 70 L D MPV (8.0-11.0) fL 11.9 H Immature Gran % 0.0 Neutrophils % 9.0 Lymphocytes % 90.0 Monocytes % 0.0 Eosinophils % 1.0 Basophils % 0.0 Nucleated RBC % % 0 Absolute Neutrophils (1.2-6.7) 10^3/uL 1.34 Absolute Lymphocytes (1.2-3.4) 10^3/uL 13.37 H Absolute Monocytes (0.1-0.8) 10^3/uL 0.00 L Absolute Eosinophils (0.0-0.7) 10^3/uL 0.15 Absolute Basophils (0.0-0.2) 10^3/uL 0.00 RBC Morphology See Below Anisocytosis 2+ Macrocytosis 2+ PT (9.3-11.0) sec INR (0.9-1.1) D-Dimer (<500) ng/mlFEU VBG Lactate (0.6-1.4) mmol/L 5.5 H* Sodium (136-145) mmol/L 142 Potassium (3.5-5.1) mmol/L 5.2 H Chloride (98-107) mmol/L 108 H Carbon Dioxide (21.0-32.0) mmol/L 22.2 Anion Gap (3-11) mmol/L 11.8 H BUN (7-18) mg/dL 47 H Creatinine (0.70-1.30) mg/dL 2.0 H Estimated GFR/1.73 m2 (mL/min/1.73m2) 33.29 Glucose (74-106) mg/dL 117 H Calcium (8.5-10.1) mg/dL 8.2 L Magnesium (1.8-2.4) mg/dL 2.5 H Total Bilirubin (0.2-1.0) mg/dL 1.6 H AST (15-37) U/L 21 ALT (16-63) U/L 30 Alkaline Phosphatase (46-116) U/L 72 Troponin I (<or=60) ng/L < 50 NT-Pro-B Natriuret Pep (<300) pg/mL 5347 H Total Protein (6.4-8.2) g/dL 6.1 L Albumin (3.4-5.0) g/dL 2.9 L COVID-19 Source SARS-CoV-2 (PCR) (Negative) Patient ABO/Rh Antibody Screen Crossmatch Range/Units 11/17/21 11/17/21 11/17/21 08:25 08:25 08:25 WBC (4.4-10.8) 10^3/uL RBC (4.36-5.78) 10^6/uL Hgb (13.5-17.5) g/dL Hct (40.0-50.0) % MCV (80-95) fL MCH (27.0-33.0) pg MCHC (32.0-36.0) % RDW (11.8-14.1) % Plt Count (130-400) 10^3/uL MPV (8.0-11.0) fL Immature Gran % Neutrophils % Lymphocytes % Monocytes % Eosinophils % Basophils % Nucleated RBC % % Absolute Neutrophils (1.2-6.7) 10^3/uL Absolute Lymphocytes (1.2-3.4) 10^3/uL Absolute Monocytes (0.1-0.8) 10^3/uL Absolute Eosinophils (0.0-0.7) 10^3/uL Absolute Basophils (0.0-0.2) 10^3/uL RBC Morphology Anisocytosis Macrocytosis PT (9.3-11.0) sec 17.5 H INR (0.9-1.1) 1.8 H D-Dimer (<500) ng/mlFEU 325 VBG Lactate (0.6-1.4) mmol/L Sodium (136-145) mmol/L Potassium (3.5-5.1) mmol/L Chloride (98-107) mmol/L Carbon Dioxide (21.0-32.0) mmol/L Anion Gap (3-11) mmol/L BUN (7-18) mg/dL Creatinine (0.70-1.30) mg/dL Estimated GFR/1.73 m2 (mL/min/1.73m2) Glucose (74-106) mg/dL Calcium (8.5-10.1) mg/dL Magnesium (1.8-2.4) mg/dL Total Bilirubin (0.2-1.0) mg/dL AST (15-37) U/L ALT (16-63) U/L Alkaline Phosphatase (46-116) U/L Troponin I (<or=60) ng/L NT-Pro-B Natriuret Pep (<300) pg/mL Total Protein (6.4-8.2) g/dL Albumin (3.4-5.0) g/dL COVID-19 Source SARS-CoV-2 (PCR) (Negative) Patient ABO/Rh O Positive Antibody Screen POSITIVE Crossmatch See Detail Range/Units 11/17/21 11/17/21 09:08 11:20 WBC (4.4-10.8) 10^3/uL RBC (4.36-5.78) 10^6/uL Hgb (13.5-17.5) g/dL Hct (40.0-50.0) % MCV (80-95) fL MCH (27.0-33.0) pg MCHC (32.0-36.0) % RDW (11.8-14.1) % Plt Count (130-400) 10^3/uL MPV (8.0-11.0) fL Immature Gran % Neutrophils % Lymphocytes % Monocytes % Eosinophils % Basophils % Nucleated RBC % % Absolute Neutrophils (1.2-6.7) 10^3/uL Absolute Lymphocytes (1.2-3.4) 10^3/uL Absolute Monocytes (0.1-0.8) 10^3/uL Absolute Eosinophils (0.0-0.7) 10^3/uL Absolute Basophils (0.0-0.2) 10^3/uL RBC Morphology Anisocytosis Macrocytosis PT (9.3-11.0) sec INR (0.9-1.1) D-Dimer (<500) ng/mlFEU VBG Lactate (0.6-1.4) mmol/L Sodium (136-145) mmol/L Potassium (3.5-5.1) mmol/L Chloride (98-107) mmol/L Carbon Dioxide (21.0-32.0) mmol/L Anion Gap (3-11) mmol/L BUN (7-18) mg/dL Creatinine (0.70-1.30) mg/dL Estimated GFR/1.73 m2 (mL/min/1.73m2) Glucose (74-106) mg/dL Calcium (8.5-10.1) mg/dL Magnesium (1.8-2.4) mg/dL Total Bilirubin (0.2-1.0) mg/dL AST (15-37) U/L ALT (16-63) U/L Alkaline Phosphatase (46-116) U/L Troponin I (<or=60) ng/L Cancelled NT-Pro-B Natriuret Pep (<300) pg/mL Total Protein (6.4-8.2) g/dL Albumin (3.4-5.0) g/dL COVID-19 Source Nasal/Nares SARS-CoV-2 (PCR) (Negative) Negative Patient ABO/Rh Antibody Screen Crossmatch ECG Data Attestation: I personally reviewed and interpreted this ECG (s) as follows: Interpretation: EKG shows atrial fibrillation at 141 with PVCs, normal axis, no STEMI HPI General Mode of arrival: EMS. Date/Time Provider Initiated Documentation: 11/17/21 08:22. Limitations to Documentation: no limitations. Information obtained by: patient, RN notes reviewed and old records reviewed. HPI Narrative: Jonnathan Fung is a 71-year-old man with history of COPD, autoimmune hemolytic anemia, coronary artery disease, cardiomyopathy, bladder cancer, lung mass, chronic kidney disease, hypertension, pulmonary embolism in the past presenting to the emergency department with generalized weakness. Patient reports that he is actively receiving chemo and gets chemo every Wednesday, also gets radiation once a day. Patient reports that he has had a sore throat over the past week, and has been told that this is secondary to his chemotherapy and radiation. Patient reports that he has been taking less, p.o. due to his sore throat. He is able to drink fluids but has pain doing so and has difficulty swallowing solids. Patient reports that he has been having progressive generalized weakness over the past week. He denies any other pain, fever, vomiting, cough, diarrhea, focal weakness, rash. Reports some shortness of breath over the past week, has not been using inhalers for COPD at home. Related Data Home Medications Medication Instructions Recorded Confirmed zolpidem 10 mg PO HS 08/02/17 11/17/21 atorvastatin 80 mg PO DAILY 06/13/21 11/17/21 clopidogrel [Plavix] 75 mg PO DAILY 06/13/21 11/17/21 docusate sodium [Colace] 100 mg PO PRN PRN 06/13/21 11/17/21 lisinopril 2.5 mg PO DAILY 06/13/21 11/17/21 folic acid 1 mg tablet 2 mg PO DAILY tab 10/03/21 11/17/21 furosemide 20 mg tablet 20 mg PO DAILY 10/03/21 11/17/21 pantoprazole 20 mg tablet,delayed 20 mg PO DAILY 10/03/21 11/17/21 release rivaroxaban 20 mg tablet 20 mg PO DAILY 10/03/21 11/17/21 bupropion HCl (smoking deter) 150 150 mg PO DAILY 11/12/21 11/17/21 mg tablet,12 hr sustained-release(smoking deterrent) levalbuterol tartrate 45 2 inh INHALATION Q6H #15 g 11/12/21 11/17/21 mcg/actuation aerosol inhaler metoprolol tartrate 100 mg tablet 200 mg PO DAILY 11/12/21 11/17/21 prednisone 50 mg tablet 40 mg PO DAILY 11/12/21 11/17/21 tiotropium 2.5 mcg-olodaterol 2.5 2 puff INHALATION DAILY #4 g 11/12/21 11/17/21 mcg/actuation mist for inhalation Previous Rx's Medication Instructions Recorded levalbuterol tartrate 45 2 inh INHALATION Q6H #15 g 11/12/21 mcg/actuation aerosol inhaler tiotropium 2.5 mcg-olodaterol 2.5 2 puff INHALATION DAILY #4 g 11/12/21 mcg/actuation mist for inhalation Allergies Allergy/AdvReac Type Severity Reaction Status Date / Time No Known Allergies Allergy Unverified 11/17/21 08:16 General Stated Complaint: GenMedical MARY ANNE: 2 Review of Systems Narrative: Constitutional: denies fevers, reports generalized weakness Eyes: denies eye pain ENT: denies ear pain, dental pain, reports sore throat Cardiovascular: denies chest pain, edema Respiratory: denies cough, reports shortness of breath GI: denies abdominal pain, vomiting, diarrhea : denies flank pain MSK: denies back pain, neck pain, arthralgias, myalgias Skin: denies rash Neuro: denies headaches, numbness, focal weakness PFSH All Active Problems (Updated 11/17/21 @ 10:35 by Lovely Oliva MD) Anemia (Chronic) Atrial fibrillation (Chronic) Hypotension (Acute) Nicotine dependence, cigarettes, uncomplicated (Acute) COPD (chronic obstructive pulmonary disease) (Chronic) Anemia, autoimmune hemolytic (Acute) Lung mass (Acute) primary malignant 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 H/O total cystectomy Transurethral Resection of Bladder Tumor, >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) Family History (Updated 10/03/21 @ 15:13 by Abigail Randhawa) Father Heart disease Social History Smoking/Tobacco Use Status: Current every day Smoking risk assessment performed?: Yes Alcohol Intake: current Alcohol Intake frequency: holidays/special occasions only Drug use: Never Substance use type: does not use Do you feel safe at home: Yes Do you feel safe in your relationship?: Yes Exam Narrative Exam Narrative: Constitutional: Chronically ill appearing, pleasant, conversing normally HENT: head atraumatic/normocephalic/normal inspection, mucous membranes moist, normal exam of the posterior pharynx, uvula midline, no drooling or pooling of secretions Eyes: conjunctiva normal, sclera normal, pupils 3mm b/l Neck: no stridor, normal ROM, trachea midline Chest: normal inspection Resp: normal work of breathing, expiratory wheeze bilateral bases Cardio: tachycardic rate, irregularly irregular rhythm, no murmur appreciated GI: abdomen soft, non-tender, non-distended Back: normal inspection, no rash Skin: warm, dry, pallor present, no rash Neuro: alert, not altered, grossly non-focal, normal tone Ext: no edema, no posterior calf tenderness to palpation Psych: normal mood, normal affect, normal behavior Course Vital Signs Vital signs: Vital Signs Temperature 36.9 C 11/17/21 08:07 Pulse 149 H 11/17/21 08:07 Respiratory Rate 31 H 11/17/21 08:07 Blood Pressure 79/53 L 11/17/21 08:07 Pulse Oximetry 99 11/17/21 08:07 Temperature 36.9 C 11/17/21 08:07 Temperature Source Temporal Artery Scan 11/17/21 08:07 Pulse 149 H 11/17/21 08:07 Respiratory Rate 31 H 11/17/21 08:07 Respiratory Effort 11/17/21 08:07 Blood Pressure 79/53 L 11/17/21 08:07 Blood Pressure Position Supine 11/17/21 08:07 Pulse Oximetry 99 11/17/21 08:07 Oxygen Delivery Method Room Air 11/17/21 08:07 Oxygen Flow Rate 0 11/17/21 08:07 Pain Level 0 11/17/21 08:07 Lab/Test Results Lab/Test Results: 11/17/21 08:19 Blood Blood Culture - Pending 11/17/21 08:19 Blood Blood Culture - Pending Critical Care Time Critical Care Time Critical Care Time: Yes Total Critical Care Time: 45 Attestation: I have spent greater than 45 minutes of critical care time with this critically ill patient including management of infusions, discussions with consultants and family, and frequent bedside reassessments.
[2021-11-17 08:37] LABS: Lactate 5.5 mmol/L (0.6-1.4)
[2021-11-17 08:49] LABS: INR 1.8 (0.9-1.1); Prothrombin Time 17.5 sec (9.3-11.0)
[2021-11-17 08:57] LABS: ALT 30 U/L (16-63); AST 21 U/L (15-37); Albumin 2.9 g/dL (3.4-5.0); Alkaline Phosphatase 72 U/L (46-116); Anion Gap 11.8 mmol/L (3-11); BUN 47 mg/dL (7-18); Bilirubin, Total 1.6 mg/dL (0.2-1.0); CO2 22.2 mmol/L (21.0-32.0); Calcium 8.2 mg/dL (8.5-10.1); Chloride 108 mmol/L (98-107); Estimated GFR 33.29 (mL/min/1.73m2); Glucose 117 mg/dL (74-106); Magnesium 2.5 mg/dL (1.8-2.4); NT-proBNP 5347 pg/mL (<300); Potassium 5.2 mmol/L (3.5-5.1); Sodium 142 mmol/L (136-145); Total Protein 6.1 g/dL (6.4-8.2); Troponin I < 50 ng/L (<or=60)
[2021-11-17 09:05] LABS: D-Dimer 325 ng/mlFEU (<500)
[2021-11-17 09:13] LABS: Source Nasal/Nares
[2021-11-17 09:17] LABS: MCH 40.9 pg (27.0-33.0); MCHC 33.3 % (32.0-36.0); MCV 122.7 fL (80-95); MPV 11.9 fL (8.0-11.0); Nucleated RBC 0 %; RBC 0.88 10^6/uL (4.36-5.78); RDW 20.1 % (11.8-14.1); RDW-SD 79.9 fL; WBC 14.85 10^3/uL (4.4-10.8)
[2021-11-17 09:20] LABS: HCT 10.8 % (40.0-50.0); HGB 3.6 g/dL (13.5-17.5); Platelet Count 70 10^3/uL (130-400)
[2021-11-17 09:21] LABS: Absolute Lymphocyte Count 13.37 10^3/uL (1.2-3.4); Absolute Neutrophil Count 1.34 10^3/uL (1.2-6.7)
[2021-11-17 09:22] LABS: Absolute Eosinophil Count 0.15 10^3/uL (0.0-0.7)
[2021-11-17 09:24] LABS: Anisocytosis 2+; Diff Comment Manual Differential; Macrocytosis 2+
[2021-11-17] MEDS: Albuterol/Ipratropium 3 ML UPD VIAL UPD (09:40)
[2021-11-17 09:56] LABS: COVID-19 PCR Negative (Negative)
[2021-11-17] MEDS: Normal Saline-STERILE FIELD 0.9% 10 ML SYR (10:09)
[2021-11-17] MEDS: methylPREDNISolone SUCC 125 MG VIAL 60 MG IVP (10:10)
--- NOTE | 2021-11-17 16:31 | NUR.NOTE ---
Nursing Note: APPLE WATCH GIVEN TO PT DAUGHTER. MORGAN MCCALL
== END 2021-11-17 10:40 | disposition short-term general hospital (02) ==
LOC: ER 10:40
PROVIDERS: Emergency Provider Student in an Organized Health Care Education/Training Program; PCP Internal Medicine
DX: D59.10 Autoimmune hemolytic anemia, unspecified (principal); I95.9 Hypotension, unspecified; I48.91 Unspecified atrial fibrillation; R06.02 Shortness of breath; J44.9 Chronic obstructive pulmonary disease, unspecified; F17.210 Nicotine dependence, cigarettes, uncomplicated; Z79.899 Other long term (current) drug therapy; C34.31 Malignant neoplasm of lower lobe, right bronchus or lung
CPT/HCPCS: 36415; 36430; 80053; 86850; 86900; 86901; 86920; 87040; 87635; 93005; 94640; 96365; 96366; 96367; 96375; 96376; 99291; 83605; 83735; 83880; 84484; 85025; 85379; 85610; 86870; 93010; J2930; J3490; J7620; P9016

== ENCOUNTER 2021-12-01 00:54 | Outpatient (RCR) | payer MEDICARE, OTHER, SELFPAY ==
[2021-11-24 08:21] LABS: HCT 25.3 % (40.0-50.0); HGB 8.3 g/dL (13.5-17.5); MCH 35.6 pg (27.0-33.0); MCHC 32.8 % (32.0-36.0); MCV 108.6 fL (80-95); MPV 12.5 fL (8.0-11.0); Nucleated RBC 0 %; RBC 2.33 10^6/uL (4.36-5.78); RDW 22.9 % (11.8-14.1); RDW-SD 75.3 fL; WBC 7.49 10^3/uL (4.4-10.8)
[2021-11-24 08:32] LABS: ALT 70 U/L (16-63); AST 22 U/L (15-37); Albumin 2.8 g/dL (3.4-5.0); Alkaline Phosphatase 79 U/L (46-116); Anion Gap 6.6 mmol/L (3-11); BUN 33 mg/dL (7-18); CO2 27.4 mmol/L (21.0-32.0); CREATININE 1.2 mg/dL (0.70-1.30); Calcium 8.1 mg/dL (8.5-10.1); Chloride 109 mmol/L (98-107); Glucose 107 mg/dL (74-106); Magnesium 1.7 mg/dL (1.8-2.4); Potassium 3.8 mmol/L (3.5-5.1); Sodium 143 mmol/L (136-145); Total Protein 5.5 g/dL (6.4-8.2)
[2021-11-24 08:49] LABS: Absolute Eosinophil Count 0.07 10^3/uL (0.0-0.7); Absolute Lymphocyte Count 6.14 10^3/uL (1.2-3.4); Absolute Neutrophil Count 1.27 10^3/uL (1.2-6.7); Anisocytosis 2+; Diff Comment Manual Differential; Macrocytosis 2+; Platelet Count 45 10^3/uL (130-400)
[2021-11-24] MEDS: Normal Saline Flush 10 ML SYR IVP (10:01)
[2021-11-27] MEDS: Normal Saline Flush 10 ML SYR IVP (09:59)
[2021-11-27 10:10] LABS: Abs Immature Grans 0.01 10^3/uL (0.0-0.06); Absolute Basophil Count 0.01 10^3/uL (0.0-0.2); Absolute Eosinophil Count 0.01 10^3/uL (0.0-0.7); Absolute Lymphocyte Count 6.65 10^3/uL (1.2-3.4); Absolute Monocyte Count 0.22 10^3/uL (0.1-0.8); Absolute Neutrophil Count 2.39 10^3/uL (1.2-6.7); Basophils % 0.1; Eosinophils % 0.1; HCT 25.8 % (40.0-50.0); HGB 8.6 g/dL (13.5-17.5); Immature Grans % 0.1; Lymphocytes % 71.6; MCH 37.1 pg (27.0-33.0); MCHC 33.3 % (32.0-36.0); MCV 111.2 fL (80-95); MPV 11.5 fL (8.0-11.0); Monocytes % 2.4; Neutrophils % 25.7; Nucleated RBC 0 %; Platelet Count 53 10^3/uL (130-400); RBC 2.32 10^6/uL (4.36-5.78); RDW 24.6 % (11.8-14.1); RDW-SD 90.3 fL; WBC 9.29 10^3/uL (4.4-10.8)
[2021-11-27 10:23] LABS: Anisocytosis 2+; Diff Comment Agrees w/ Instrument; Macrocytosis 2+; Polychromasia Present
== END 2021-12-15 23:59 | disposition home or self-care (01) ==
LOC: INF 00:54
PROVIDERS: Internal Medicine Medical Oncology; PCP Internal Medicine; Visit Provider Radiology Radiation Oncology
DX: C34.31 Malignant neoplasm of lower lobe, right bronchus or lung (principal); Z45.2 Encounter for adjustment and management of vascular access device
CPT/HCPCS: 36591; 80053; 83735; 85025

== ENCOUNTER 2021-12-02 14:23 | Inpatient (IN) | payer MEDICARE, OTHER, SELFPAY ==
[2021-12-02] VITALS (9 sets, daily range): BP systolic 88–107; BP diastolic 56–81; PULSE 60–125; RESP 10–20; TEMP 36.4–36.8; O2SAT 91–98; BMI 29.9
--- NOTE | 2021-12-02 14:30 | DI.RAD_ITS ---
Exam(s) XR CHEST 1V IN DI DEPT EXAM: XR CHEST 1V IN DI DEPT CLINICAL HISTORY: Fall, Hip Pain. TECHNIQUE: 2D digital imaging was performed. COMPARISON: CR,XR XR PORTABLE CHEST AP from 05/24/[address] CHEST/ABD/PEL WO from 06/13/2021 FINDINGS: Mild cardiomegaly. Mediastinum unchanged. Distal tip of the right supra clavi in Port-A-Cath is in the upper RA. No pneumothorax. Left lung is clear. Slightly increased markings in the right infrah ilar region noted. No pleural effusions. No pulmonary edema. . IMPRESSION: Increased markings-possible infiltrate in the right infrahilar region. Right-sided Port-A-Cath distal tip is in the upper right atrium. DATA REPOSITORY: RADIATION DOSE DELIVERED: All CT scans at this facility use at least one of these dose optimization techniques: automated exposure control; mA and/or kV adjustment per patient size (includes targeted e xams where dose is matched to clinical indication); or iterative reconstruction.
--- NOTE | 2021-12-02 14:30 | DI.RAD_ITS ---
Exam(s) XR PELVIS AP EXAM: XR PELVIS AP CLINICAL HISTORY: Fall, R/O Fracture. TECHNIQUE: 2D digital imaging was performed. COMPARISON: No exams were available for comparison FINDINGS: There is a right femoral neck fracture. Minimal displacement. Bone density is normal. No obvious o sseous lesions. Left hip appears unremarkable. IMPRESSION: Right femoral neck fracture. DATA REPOSITORY: RADIATION DOSE DELIVERED:
--- NOTE | 2021-12-02 14:30 | RT.EKG_ITS ---
APPROVED REPORT Exam: Resting ECG Reason for Exam: Fall, Hip Pain Patient Location: E HR:111 bpm ECG Measurements Heart Rate 111 AXIS WA [id number] P [id number] QRSd 95 QRS -35 QT 328 T [id number] QTc 447 Conclusion Atrial fibrillation...V-rate 88-152, irreg A-activity Left axis deviation...QRS axis (-30,-90). Afib. No STEMI. I have reviewed and interpreted ECG and agree with software generated interpretation.
--- NOTE | 2021-12-02 14:30 | DI.RAD_ITS ---
Exam(s) XR FEMUR RT EXAM: XR FEMUR RT CLINICAL HISTORY: Fall, R/O Hip Fracture. TECHNIQUE: 2D digital imaging was performed. COMPARISON: No exams were available for comparison FINDINGS: There is a right femoral neck fracture. Mild displacement. No fractures lower down in the femur. IMPRESSION: DATA REPOSITORY: RADIATION DOSE DELIVERED:
--- NOTE | 2021-12-02 14:35 | W.ED.GENAD ---
Discharge Plan Disposition Patient Disposition: [facility] INPATIENT Condition: Stable Discharge Details Clinical Impression: Closed fracture of right hip Admit Date/Time: 12/02/21 15:54 Admit Provider: Dao Pacheco Attending Provider: Dao Pacheco Primary Care Provider: Steve Neil ED Provider: Amber Santo Discharge Data Discharge Date/Time-TO BE ENTERED AT DEPARTURE: 12/02/21 16:46 Medical Decision Making 71-year-old male presents to the ER via EMS with a chief complaint of right hip pain mechanical fall prior to arrival. Patient states that he tripped while in his bedroom. He is complaining of right hip pain he has slight external rotation. Denies any chest pain abdominal pain denies hitting his head or loss of consciousness. He does have a past medical history of atrial fibrillation, COPD, hemolytic anemia, cardiomyopathy, coronary artery disease, STEMI, leukemia. Patient does have Port-A-Cath was not given anything for pain prior to arrival. He is a smoker. Work-up ordered including IV, labs, EKG, hip x-ray, chest x-ray I do suspect possible right hip fracture due to external rotation and pain. 0.5 mg hydromorphone IV ordered for patient's pain 1548: Spoke with Dr. Curiel orthopedic surgeon who is on-call tomorrow for orthopedics regarding patient case and details. He okays admission here, he does recommend holding the Plavix and rechecking hemoglobin hematocrit in the a.m. 1549: Hospitalist paged 1554: Spoke with Dr. Pacheco hospitalist production associate regarding patient case and details. He agrees to accept patient for admission for right hip fracture he will place holding orders. 1558: Discussed x-ray results and plan for admission with patient and patient's Mady who verbalized understanding and are in agreement with the plan. Plan is admission to [facility] for right hip HPI General Mode of arrival: EMS. Date/Time Provider Initiated Documentation: 12/02/21 14:32. Limitations to Documentation: no limitations. Information obtained by: patient, EMS, RN notes reviewed and old records reviewed. HPI Narrative: 71-year-old male presents to the ER via EMS with a chief complaint of right hip pain mechanical fall prior to arrival. Patient states that he tripped while in his bedroom. He is complaining of right hip pain he has slight external rotation. Denies any chest pain abdominal pain denies hitting his head or loss of consciousness. He does have a past medical history of atrial fibrillation, COPD, hemolytic anemia, cardiomyopathy, coronary artery disease, STEMI, leukemia. Patient does have Port-A-Cath was not given anything for pain prior to arrival. He is a smoker. Related Data Home Medications Medication Instructions Recorded Confirmed atorvastatin 80 mg PO QPM 06/13/21 12/02/21 clopidogrel [Plavix] 75 mg PO DAILY 06/13/21 12/02/21 docusate sodium [Colace] 100 mg PO DAILY PRN 06/13/21 12/02/21 folic acid 1 mg tablet 2 mg PO DAILY tab 10/03/21 12/02/21 furosemide 20 mg tablet 20 mg PO DAILY 10/03/21 12/02/21 pantoprazole 20 mg tablet,delayed 20 mg PO DAILY 10/03/21 12/02/21 release rivaroxaban 20 mg tablet 20 mg PO DAILY 10/03/21 12/02/21 levalbuterol tartrate 45 2 inh INHALATION Q6H #15 g 11/12/21 12/02/21 mcg/actuation aerosol inhaler tiotropium 2.5 mcg-olodaterol 2.5 2 puff INHALATION DAILY #4 g 11/12/21 12/02/21 mcg/actuation mist for inhalation bupropion HCl 150 mg PO DAILY 12/02/21 12/02/21 cyanocobalamin (vitamin B-12) 1,000 mcg PO DAILY 12/02/21 12/02/21 metoprolol succinate 200 mg PO DAILY 12/02/21 12/02/21 nicotine 1 patch TRANSDERMAL Q24H 12/02/21 12/02/21 nicotine (polacrilex) 4 mg BUCCAL Q2H PRN 12/02/21 12/02/21 prednisone 0 mg PO DAILY 12/02/21 12/02/21 sulfamethoxazole-trimethoprim 1 tab PO .THREE TIMES A WEEK 12/02/21 12/02/21 zolpidem 5 mg PO HS PRN 12/02/21 12/02/21 Previous Rx's Medication Instructions Recorded levalbuterol tartrate 45 2 inh INHALATION Q6H #15 g 11/12/21 mcg/actuation aerosol inhaler tiotropium 2.5 mcg-olodaterol 2.5 2 puff INHALATION DAILY #4 g 11/12/21 mcg/actuation mist for inhalation Allergies Allergy/AdvReac Type Severity Reaction Status Date / Time No Known Allergies Allergy Unverified 11/17/21 08:16 General MARY ANNE: 2 Review of Systems All systems reviewed & are unremarkable except as noted in HPI and below PFSH All Active Problems (Updated 12/03/21 @ 14:46 by Dao Pacheco MD) UTI (urinary tract infection) (Acute) Displaced fracture of right femoral neck (Acute 12/02/21) Anemia (Chronic) Atrial fibrillation (Chronic) Hypotension (Acute) Nicotine dependence, cigarettes, uncomplicated (Acute) COPD (chronic obstructive pulmonary disease) (Chronic) Anemia, autoimmune hemolytic (Acute) Lung mass (Acute) primary malignant 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 H/O total cystectomy Transurethral Resection of Bladder Tumor, >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) Family History Father Heart disease Social History Smoking/Tobacco Use Status: Current every day Tobacco Type: cigarettes Years smoked: 50 Smoking risk assessment performed?: Yes Alcohol Intake: current Alcohol Intake frequency: holidays/special occasions only Drug use: Never Substance use type: does not use Do you feel safe at home: Yes Do you feel safe in your relationship?: Yes Exam Narrative Exam Narrative: Constitutional: Alert and oriented x3. Appears stated age. Normal body habitus. Head: Normocephalic, no trauma. Eyes: Pupils PERRL, Red reflex noted, EOM's intact. Eyelids symmetrical without lesions, discharge, or swelling. ENT: Bilateral TM's WNL, External ear normal to inspection, no mastoid TTP, swelling, or erythema, Nasal turbinates WNL, no nasal discharge. Normal dentition, Posterior pharynx WNL, no exudate. Chest: RRR, Normal S1, S2, distal pulses intact. Port-A-Cath noted. Resp: Lungs clear to auscultation bilaterally, no wheezes, rales, or rhonchi. Abdomen: Colostomy noted right quadrant, soft, Musculoskeletal: Unable to assess gait, complaining of right hip pain. Tender with palpation. Slight external rotation noted to his right lower extremity. Skin: No suspicious rashes or lesions. Capillary refill less than 3 sec. patient is pale, cool to the touch. Neurologic: Cranial nerves II-XII intact. Alert and oriented x 3. Motor: No deficits noted. Sensory: Intact bilaterally all 4 extremities. Reflexes: DTR's intact bilaterally.. Hematologic/Lymphatic: No ecchymosis, no lymphadenopathy.
[2021-12-02] MEDS: HYDROmorphone 2 MG/ML VIAL 0.5 MG IVP ×2 (14:55→17:36)
[2021-12-02 15:06] LABS: Source Nasal/Nares
[2021-12-02 15:07] LABS: HCT 25.1 % (40.0-50.0); HGB 8.4 g/dL (13.5-17.5); MCH 37.7 pg (27.0-33.0); MCHC 33.5 % (32.0-36.0); MCV 112.6 fL (80-95); MPV 11.8 fL (8.0-11.0); Nucleated RBC 0 %; RBC 2.23 10^6/uL (4.36-5.78); RDW 26.9 % (11.8-14.1); RDW-SD 102.8 fL; WBC 9.58 10^3/uL (4.4-10.8)
[2021-12-02 15:16] LABS: Bilirubin Negative (Negative); Blood Trace-intact (Negative); Clarity Clear (Clear); Glucose Negative (Negative); Ketones Negative (Negative); Leukocyte Esterase Trace (Negative); Nitrite Negative (Negative); Specific Gravity 1.015 (1.005-1.025)
[2021-12-02 15:18] LABS: INR 1.3 (0.9-1.1); Prothrombin Time 13.3 sec (9.3-11.0)
[2021-12-02 15:22] LABS: ALT 62 U/L (16-63); AST 18 U/L (15-37); Alkaline Phosphatase 83 U/L (46-116); Anion Gap 8.1 mmol/L (3-11); BUN 33 mg/dL (7-18); Bilirubin, Total 1.4 mg/dL (0.2-1.0); CO2 26.9 mmol/L (21.0-32.0); CREATININE 1.7 mg/dL (0.70-1.30); Calcium 8.8 mg/dL (8.5-10.1); Chloride 103 mmol/L (98-107); Estimated GFR 40.16 (mL/min/1.73m2); Glucose 146 mg/dL (74-106); Magnesium 2.2 mg/dL (1.8-2.4); Potassium 4.2 mmol/L (3.5-5.1); Sodium 138 mmol/L (136-145); Total Protein 6.1 g/dL (6.4-8.2); Troponin I < 50 ng/L (<or=60)
[2021-12-02 15:22] LABS: Bacteria Few HPF (Negative); C & S Indicated? Yes; Casts Negative LPF (Negative); Crystals Negative HPF (Negative); Epithelial Cells Few HPF (Negative); Mucus Negative (Negative); RBC 0-2 HPF (0-2)
[2021-12-02 15:25] LABS: Absolute Lymphocyte Count 4.12 10^3/uL (1.2-3.4); Absolute Neutrophil Count 5.46 10^3/uL (1.2-6.7); Bands % 3; Diff Comment Manual Differential
[2021-12-02 15:26] LABS: Anisocytosis 2+; Macrocytosis 2+; Platelet Count 61 10^3/uL (130-400)
[2021-12-02 15:44] LABS: COVID-19 PCR Negative (Negative)
--- NOTE | 2021-12-02 16:08 | HPE_ITS ---
Date of service: 12/02/21 Time of Service: 16:08 Assessment and Plan Assessment and plan (1) Displaced fracture of right femoral neck: Status: Acute Assessment and plan: Dr Curiel notified by ED provider and will evaluate and plan repair. Pain in the ED managed with IV dilaudid. Continue prn IV dilaudid 0.5mg Q4H. (2) Atrial fibrillation: Status: Chronic Assessment and plan: Cont metoprolol. Holding Eliquis in preperation for surgical repair / open total hip. Monitor. (3) Nicotine dependence, cigarettes, uncomplicated: Status: Acute Assessment and plan: Nicoderm patch prn. (4) COPD (chronic obstructive pulmonary disease): Status: Chronic Assessment and plan: Recently saw Dr Golden and started on Stiolto; definitive dx of COPD pending. No PFTs performed d/t his weak state. Levalbuterol prn. (5) Anemia, autoimmune hemolytic: Status: Acute Assessment and plan: Hgb 8.4. Monitor. (6) Lung mass: Status: Acute Assessment and plan: Recent evaluation with Dr Golden. Long-time smoker. Has been receiving radiation tx and chemo; details not in chart. (7) Cardiomyopathy: Status: Acute Assessment and plan: Last estimated EF I see in his chart was from an MPI test on 02/13/20: 61% EF (8) CAD (coronary artery disease): Status: Chronic Assessment and plan: No reports of CP. Trop negative. Holding Plavix in preperation for surgical repair of femoral neck fx repair / open total hip. (9) Bladder cancer: Status: Acute Assessment and plan: Previous resection. (10) Stage 3b chronic kidney disease: Status: Acute Assessment and plan: Creatinine 1.7; within his baseline range. (11) Benign essential HTN: Status: Acute Assessment and plan: SBP in the 80's - 90's range. Appears to be his baseline. He endorses this. (12) ST elevation (STEMI) myocardial infarction: Status: Acute Assessment and plan: Continuing BB. No CP (13) Pulmonary embolism: Status: Chronic Assessment and plan: Previous history. Is on Eliquis for afib; being held. (14) Leukemia: Status: Chronic History of Present Illness History of Present Illness Chief Complaint: Right Hip Pain Narrative: This is a 71 yo male with an extensive PMH that includes, CAD/STEMI, cardiomyopathy, atrial fibrillation, COPD, hemolytic anemia, Chronic myeloid eukemia, tobacco abuse disorder, CKD, Pulmonary embolism, HTN. He presented to the ED with right hip pain after a mechanical fall (tripped) from standing height in his bedroom. He denied hitting his head. No other areas of pain described. Xrays showed a minimally displaced right femoral neck fracture. CXR showed mild cardiomegaly. Slightly increased marking in the right infrahilar region noted. No effusions or edema. WBC count normal. Hgb 8.4. MCV elevated at 112.6. Platelets 61. Lytes normal. BUN 33. Creatinine 1.7. Total bilirubin 1.4. UA with tr blood, tr leuk esterase, 10-20 WBCs few bacteria. Reflex urine cx in progress. PFSH All Active Problems (Updated 12/02/21 @ 16:24 by Fernando Curiel MD) Displaced fracture of right femoral neck (Acute 12/02/21) Anemia (Chronic) Atrial fibrillation (Chronic) Hypotension (Acute) Nicotine dependence, cigarettes, uncomplicated (Acute) COPD (chronic obstructive pulmonary disease) (Chronic) Anemia, autoimmune hemolytic (Acute) Lung mass (Acute) primary malignant 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 H/O total cystectomy Transurethral Resection of Bladder Tumor, >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) Family History Father Heart disease Social History Smoking/Tobacco Use Status: Current every day Tobacco Type: cigarettes Years smoked: 50 Smoking risk assessment performed?: Yes Alcohol Intake: current Alcohol Intake frequency: holidays/special occasions only Drug use: Never Substance use type: does not use Do you feel safe at home: Yes Do you feel safe in your relationship?: Yes Meds Allergies and Home Medications Allergies Allergy/AdvReac Type Severity Reaction Status Date / Time No Known Allergies Allergy Unverified 11/17/21 08:16 Home Medications Medication Instructions Recorded Confirmed Type atorvastatin 80 mg PO QPM 06/13/21 12/02/21 History clopidogrel [Plavix] 75 mg PO DAILY 06/13/21 12/02/21 History docusate sodium [Colace] 100 mg PO DAILY PRN 06/13/21 12/02/21 History folic acid 1 mg tablet 2 mg PO DAILY tab 10/03/21 12/02/21 History furosemide 20 mg tablet 20 mg PO DAILY 10/03/21 12/02/21 History pantoprazole 20 mg tablet,delayed 20 mg PO DAILY 10/03/21 12/02/21 History release rivaroxaban 20 mg tablet 20 mg PO DAILY 10/03/21 12/02/21 History levalbuterol tartrate 45 2 inh INHALATION Q6H #15 g 11/12/21 12/02/21 Rx mcg/actuation aerosol inhaler tiotropium 2.5 mcg-olodaterol 2.5 2 puff INHALATION DAILY #4 g 11/12/21 12/02/21 Rx mcg/actuation mist for inhalation bupropion HCl 150 mg PO DAILY 12/02/21 12/02/21 History cyanocobalamin (vitamin B-12) 1,000 mcg PO DAILY 12/02/21 12/02/21 History metoprolol succinate 200 mg PO DAILY 12/02/21 12/02/21 History nicotine 1 patch TRANSDERMAL Q24H 12/02/21 12/02/21 History nicotine (polacrilex) 4 mg BUCCAL Q2H PRN 12/02/21 12/02/21 History prednisone 0 mg PO DAILY 12/02/21 12/02/21 History sulfamethoxazole-trimethoprim 1 tab PO .THREE TIMES A WEEK 12/02/21 12/02/21 History zolpidem 5 mg PO HS PRN 12/02/21 12/02/21 History Exam Narrative Exam Narrative: Lying supine. Pain controlled at the time of evaluation. Pleasant and conversant. Const General: cooperative and no acute distress Nutritional Appearance: obese Orientation: alert and oriented x3 HENMT Head: normal to inspection and atraumatic Eyes General: appearance normal, both eyes and all related structures Sclera: sclerae normal Chest Chest: normal inspection of the chest and no tenderness Resp Effort & Inspection: normal respiratory effort Auscultation: clear to auscultation bilaterally and diminished lung sounds Cardio Jugular venous pressure: no JVD Rate: regular rate Rhythm: regular rhythm Heart Sounds: S1 normal and S2 normal GI Inspection: other (RLQ ostomy in place. ) Palpation: soft and nontender Skin General skin exam: no rashes or lesions noted and pallor Neuro General: no focal motor deficits Cranial Nerves: facial strength normal Cognition: normal cognition Speech: speech normal Extrem General: no pedal edema and no calf tenderness Right lower extremity: hip/thigh Details: tenderness Results Labs Result diagrams: 12/02/21 14:58 12/03/21 06:30 Labs: Laboratory Results - last 24 hr 12/02/21 12/02/21 12/02/21 14:50 14:58 14:58 WBC 9.58 RBC 2.23 L Hgb 8.4 L Hct 25.1 L MCV 112.6 H MCH 37.7 H MCHC 33.5 RDW 26.9 H Plt Count 61 L MPV 11.8 H Immature Gran % 0.0 Neutrophils % 54.0 Band Neutrophils % 3 Lymphocytes % 43.0 Monocytes % 0.0 Eosinophils % 0.0 Basophils % 0.0 Nucleated RBC % 0 Absolute Neutrophils 5.46 Absolute Lymphocytes 4.12 H Absolute Monocytes 0.00 L Absolute Eosinophils 0.00 Absolute Basophils 0.00 RBC Morphology See Below Anisocytosis 2+ Macrocytosis 2+ PT INR Sodium 138 Potassium 4.2 Chloride 103 Carbon Dioxide 26.9 Anion Gap 8.1 BUN 33 H Creatinine 1.7 H Estimated GFR/1.73 m2 40.16 Glucose 146 H Calcium 8.8 Magnesium 2.2 Total Bilirubin 1.4 H AST 18 ALT 62 Alkaline Phosphatase 83 Troponin I < 50 Total Protein 6.1 L Albumin 3.0 L Urine Color Urine Clarity Urine pH Ur Specific [place] Urine Protein Urine Ketones Urine Blood Urine Nitrite Urine Bilirubin Urine Urobilinogen Ur Leukocyte Esterase Urine RBC Urine WBC Ur Epithelial Cells Urine Crystals Urine Bacteria Urine Casts Urine Mucus Ur Culture Indicated? Urine Glucose COVID-19 Source Nasal/Nares SARS-CoV-2 (PCR) Negative 12/02/21 12/02/21 14:58 15:00 WBC RBC Hgb Hct MCV MCH MCHC RDW Plt Count MPV Immature Gran % Neutrophils % Band Neutrophils % Lymphocytes % Monocytes % Eosinophils % Basophils % Nucleated RBC % Absolute Neutrophils Absolute Lymphocytes Absolute Monocytes Absolute Eosinophils Absolute Basophils RBC Morphology Anisocytosis Macrocytosis PT 13.3 H INR 1.3 H Sodium Potassium Chloride Carbon Dioxide Anion Gap BUN Creatinine Estimated GFR/1.73 m2 Glucose Calcium Magnesium Total Bilirubin AST ALT Alkaline Phosphatase Troponin I Total Protein Albumin Urine Color Yellow Urine Clarity Clear Urine pH 7.0 Ur Specific [place] 1.015 Urine Protein Negative Urine Ketones Negative Urine Blood Trace-intact H Urine Nitrite Negative Urine Bilirubin Negative Urine Urobilinogen 1.0 H Ur Leukocyte Esterase Trace H Urine RBC 0-2 Urine WBC 10-20 H Ur Epithelial Cells Few Urine Crystals Negative Urine Bacteria Few Urine Casts Negative Urine Mucus Negative Ur Culture Indicated? Yes Urine Glucose Negative COVID-19 Source SARS-CoV-2 (PCR) Last Vital Signs Temp 36.4 C L 12/02/21 14:32 Pulse 125 H 12/02/21 14:32 Resp 10 L 12/02/21 14:32 BP 107/81 12/02/21 14:32 Pulse Ox 98 12/02/21 14:32
--- NOTE | 2021-12-02 16:23 | OCONE_ITS ---
Date of service: 12/03/21 Time of Service: 08:25 History of Present Illness Narrative: Mechanical fall with right hip pain Consult Reason Right femoral neck fracture Assessment and Plan Assessment and plan (1) Displaced fracture of right femoral neck: Status: Acute Assessment and plan: 71-year-old male with displaced right femoral neck fracture Medical admission and optimization for open hip surgery, which would not be tomorrow due to combination chronic anemia and current Xarelto and Plavix use. Surgery could potentially be 12/04/2021: Right hip hemiarthroplasty Repeat hemoglobin in AM given chronic anemia and acute blood loss from fracture. Hold Xarelto, Plavix, and chemo DVT ppx medications. Bedrest, multimodal pain control, bilateral TEDs or SCDs, and Mares if necessary Recommend COMPUT[employer]AME [employer] evaluation preoperatively due to significant medical comorbidit ies including CAD/STEMI, cardiomyopathy, atrial fibrillation, COPD, hemolytic anemia, chronic myeloid eukemia, CKD, Pulmonary embolism, HTN and high-dose daily prednisone use and current everyday smoker. Low threshold to consider transfer to tertiary care facility if necessary for hip fracture surgery Will need to consider potential blood requirement and availability of blood products at [facility] for this patient with significant cardiac history who may not tolerate expected acute worsening of chronic anemia after surgery UPDATE?after review with nurse vascular neurologist team, recommend transfer to tertiary care facility for surgery. Please see their note for details. Discussed with primary medical team Review of Systems Narrative: Deferred [facility] All Active Problems (Updated 12/02/21 @ 16:24 by Fernando Curiel MD) Displaced fracture of right femoral neck (Acute 12/02/21) Anemia (Chronic) Atrial fibrillation (Chronic) Hypotension (Acute) Nicotine dependence, cigarettes, uncomplicated (Acute) COPD (chronic obstructive pulmonary disease) (Chronic) Anemia, autoimmune hemolytic (Acute) Lung mass (Acute) primary malignant 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 H/O total cystectomy Transurethral Resection of Bladder Tumor, >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) Family History Father Heart disease Social History Smoking/Tobacco Use Status: Current every day Tobacco Type: cigarettes Years smoked: 50 Smoking risk assessment performed?: Yes Alcohol Intake: current Alcohol Intake frequency: holidays/special occasions only Drug use: Never Substance use type: does not use Do you feel safe at home: Yes Do you feel safe in your relationship?: Yes Exam Narrative Exam Narrative: Deferred Results Last Vital Signs Temp 97.5 F L 12/02/21 14:32 Pulse 125 H 12/02/21 14:32 Resp 10 L 12/02/21 14:32 BP 107/81 12/02/21 14:32 Pulse Ox 98 12/02/21 14:32 Labs Result diagrams: 12/03/21 06:30 12/03/21 06:30 Labs: Laboratory Results - last 24 hr 12/02/21 12/02/21 12/02/21 14:50 14:58 14:58 WBC 9.58 RBC 2.23 L Hgb 8.4 L Hct 25.1 L MCV 112.6 H MCH 37.7 H MCHC 33.5 RDW 26.9 H Plt Count 61 L MPV 11.8 H Immature Gran % 0.0 Neutrophils % 54.0 Band Neutrophils % 3 Lymphocytes % 43.0 Monocytes % 0.0 Eosinophils % 0.0 Basophils % 0.0 Nucleated RBC % 0 Absolute Neutrophils 5.46 Absolute Lymphocytes 4.12 H Absolute Monocytes 0.00 L Absolute Eosinophils 0.00 Absolute Basophils 0.00 RBC Morphology See Below Anisocytosis 2+ Macrocytosis 2+ PT INR Sodium 138 Potassium 4.2 Chloride 103 Carbon Dioxide 26.9 Anion Gap 8.1 BUN 33 H Creatinine 1.7 H Estimated GFR/1.73 m2 40.16 Glucose 146 H Calcium 8.8 Magnesium 2.2 Total Bilirubin 1.4 H AST 18 ALT 62 Alkaline Phosphatase 83 Troponin I < 50 Total Protein 6.1 L Albumin 3.0 L Urine Color Urine Clarity Urine pH Ur Specific [place] Urine Protein Urine Ketones Urine Blood Urine Nitrite Urine Bilirubin Urine Urobilinogen Ur Leukocyte Esterase Urine RBC Urine WBC Ur Epithelial Cells Urine Crystals Urine Bacteria Urine Casts Urine Mucus Ur Culture Indicated? Urine Glucose COVID-19 Source Nasal/Nares SARS-CoV-2 (PCR) Negative 12/02/21 12/02/21 14:58 15:00 WBC RBC Hgb Hct MCV MCH MCHC RDW Plt Count MPV Immature Gran % Neutrophils % Band Neutrophils % Lymphocytes % Monocytes % Eosinophils % Basophils % Nucleated RBC % Absolute Neutrophils Absolute Lymphocytes Absolute Monocytes Absolute Eosinophils Absolute Basophils RBC Morphology Anisocytosis Macrocytosis PT 13.3 H INR 1.3 H Sodium Potassium Chloride Carbon Dioxide Anion Gap BUN Creatinine Estimated GFR/1.73 m2 Glucose Calcium Magnesium Total Bilirubin AST ALT Alkaline Phosphatase Troponin I Total Protein Albumin Urine Color Yellow Urine Clarity Clear Urine pH 7.0 Ur Specific [place] 1.015 Urine Protein Negative Urine Ketones Negative Urine Blood Trace-intact H Urine Nitrite Negative Urine Bilirubin Negative Urine Urobilinogen 1.0 H Ur Leukocyte Esterase Trace H Urine RBC 0-2 Urine WBC 10-20 H Ur Epithelial Cells Few Urine Crystals Negative Urine Bacteria Few Urine Casts Negative Urine Mucus Negative Ur Culture Indicated? Yes Urine Glucose Negative COVID-19 Source SARS-CoV-2 (PCR)
[2021-12-02] MEDS: cefTRIAXone 1 GM/50 ML BAG IVPB (17:10)
[2021-12-02] MEDS: Normal Saline 500 ML 30 ML IV (17:37)
[2021-12-02] MEDS: Normal Saline 250 ML IV (17:43)
[2021-12-02 20:11] LABS: Troponin I < 50 ng/L (<or=60)
--- NOTE | 2021-12-02 20:50 | W.ANESCON ---
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 He has a history of A-fib for 10 years (on Xarelto) and CKD stage 3B. History of a PE and a recent diagnosis of RLL squamous cell carcinoma receiving chemotherapy at [facility]. In May 2021, he had a STEMI with 2 RCA ZE stents placed and his echo after showed a reduced EF of 28%. He has been on DAPT since and is recommended to continue for 12 months. STEMI course complicated by bilateral pneumonia as well as his PE. Today he fell and suffered a Displaced fracture of right femoral neck requiring surgical repair. His current labs are remarkable for anemia with hemoglobin of 8.4 and platelets of 61K as well as continued CKD, Troponin is negative. Given these acute/chronic medical issues and most of his care being completed at [facility] as well as current lack of blood product resources, I would recommend that he have his hip repaired at a tertiary hospital with more resources/interventional cardiology on site. I would aggressively pursue this. Given lack of tertiary beds, if after reasonable attempts have been made, there is no bed availability, then this would require a team/family meeting to discuss his surgical/medical management if complications were to occur at [facility] given our [facility] resources. If this were the case I would recommend a new echo as well as a cardiology consult prior to surgery. Let me know if there are any questions and we can discuss further. Height: 6 ft 3 in Weight: 108.8 kg Body Mass Index (BMI): 29.9 Meds Allergies and Home Medications Allergies Allergy/AdvReac Type Severity Reaction Status Date / Time No Known Allergies Allergy Unverified 11/17/21 08:16 Home Medication Medication Instructions Recorded atorvastatin 80 mg PO QPM 06/13/21 clopidogrel [Plavix] 75 mg PO DAILY 06/13/21 docusate sodium [Colace] 100 mg PO DAILY PRN 06/13/21 folic acid 1 mg tablet 2 mg PO DAILY tab 10/03/21 furosemide 20 mg tablet 20 mg PO DAILY 10/03/21 pantoprazole 20 mg tablet,delayed 20 mg PO DAILY 10/03/21 release rivaroxaban 20 mg tablet 20 mg PO DAILY 10/03/21 levalbuterol tartrate 45 2 inh INHALATION Q6H #15 g 11/12/21 mcg/actuation aerosol inhaler tiotropium 2.5 mcg-olodaterol 2.5 2 puff INHALATION DAILY #4 g 11/12/21 mcg/actuation mist for inhalation bupropion HCl 150 mg PO DAILY 12/02/21 cyanocobalamin (vitamin B-12) 1,000 mcg PO DAILY 12/02/21 metoprolol succinate 200 mg PO DAILY 12/02/21 nicotine 1 patch TRANSDERMAL Q24H 12/02/21 nicotine (polacrilex) 4 mg BUCCAL Q2H PRN 12/02/21 prednisone 0 mg PO DAILY 12/02/21 sulfamethoxazole-trimethoprim 1 tab PO .THREE TIMES A WEEK 12/02/21 zolpidem 5 mg PO HS PRN 12/02/21 Current Visit Medications: Current Medications Generic Name Dose Route Start Last Admin Trade Name Freq PRN Reason Stop Dose Admin Acetaminophen 0 mg 12/02/21 16:00 Acetaminophen 325 Mg Tab PO Q4H PRN PRN Atorvastatin Calcium 80 mg 12/03/21 08:30 Atorvastatin 40 Mg Tab PO DAILY DESTINI Bupropion HCl 150 mg 12/03/21 08:30 Bupropion-Xl 150 Mg Tabcr PO DAILY DESTINI Dimethicone/Zinc Oxide 0 gm 12/02/21 15:54 Tiffany Protect Cream 142 Gm Tube TP PRN PRN Docusate Sodium 100 mg 12/02/21 20:00 Docusate Sodium 100 Mg Cap PO BID DESTINI Folic Acid 2 mg 12/03/21 08:30 Folic Acid 1 Mg Tab PO DAILY DESTINI Hydromorphone HCl 0.5 mg 12/02/21 16:06 12/02/21 17:36 Hydromorphone 2 Mg/Ml Vial IVP 0.5 mg Q4H PRN PRN Administration Sodium Chloride 500 mls @ 0 mls/hr 12/02/21 14:33 12/02/21 17:37 Saline 500ml Bag IV 30 mls/hr PRN PRN Administration As Directed Ceftriaxone Sodium/Dextrose 1 gm in 50 mls @ 100 mls/hr 12/03/21 16:00 Rocephin IVPB Q24H [facility] IV Miscellaneous Supplies 1 each 12/02/21 14:45 Iv Access IV DIRECTED [facility] Levalbuterol HCl 0.63 mg 12/02/21 16:06 Levalbuterol 0.63 Mg/3 Ml Upd Vial UPD Q2H PRN PRN Magnesium Hydroxide 30 ml 12/02/21 16:00 Milk Of Magnesia 30 Ml Cup PO DAILY PRN PRN Metoprolol Succinate 200 mg 12/03/21 08:30 Metoprolol Cr 50 Mg Tabcr PO DAILY [facility] Nicotine 14 mg 12/02/21 16:14 Nicotine 14 Mg/24 Hr Patch TD DAILY PRN PRN Oxycodone HCl 5 mg 12/02/21 17:26 Oxycodone 5 Mg Tab PO Q4H PRN PRN Pantoprazole Sodium 20 mg 12/03/21 07:30 Pantoprazole 20 Mg Tabcr PO DAILY@0730 [facility] Polyethylene Glycol 17 gm 12/02/21 15:54 Polyethylene Glycol 3350 17 Gm Packet PO DAILY PRN PRN Constipation Prednisone 40 mg 12/03/21 08:30 Prednisone 20 Mg Tab PO DAILY [facility] Sodium Chloride 0 ml 12/02/21 14:33 Normal Saline Flush 10 Ml Syr IVP PRN PRN Tiotropium [place]/Olodaterol 2 puff 12/03/21 08:30 Tiotropium/Olodaterol 10 Puff Inhaler IH DAILY [facility] Zolpidem Tartrate 10 mg 12/02/21 22:00 Zolpidem 10 Mg Tab PO HS DESTINI PFSH Active Problems Active Problems: Problem Status Onset Code Displaced fracture of right femoral neck 12/02/21 S72.001A Anemia D64.9 Atrial fibrillation I48.91 Hypotension I95.9 Nicotine dependence, cigarettes, uncomplicated F17.210 COPD (chronic obstructive pulmonary disease) J44.9 Anemia, autoimmune hemolytic D59.10 Lung mass R91.8 Cardiomyopathy I42.9 CAD (coronary artery disease) I25.10 Nephrolithiasis N20.0 Bladder cancer C67.9 Stage 3b chronic kidney disease N18.32 Benign essential HTN I10 ST elevation (STEMI) myocardial infarction I21.3 Pulmonary embolism I26.99 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 H/O total cystectomy Transurethral Resection of Bladder Tumor, >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) Tobacco Smoking/Tobacco Use Status: Current every day Tobacco Type: cigarettes Smoking cigarettes per day: 4 Years smoked: 50 Alcohol Alcohol Intake: current Alcohol intake frequency: holidays/special occasions only Substance Use Substance use: Never Substance use type: does not use Vital Signs & Lab Results Vital Signs Most Recent Vital Signs: Most Recent Vital Signs Temp Pulse Resp BP Pulse Ox 36.8 C 115 H 18 91/60 L 96 12/02/21 19:41 12/02/21 19:49 12/02/21 19:41 12/02/21 19:41 12/02/21 19:41 Point of Care Results Nursing Point of Care Results: No Data to Display Lab Results Result Diagrams: 12/02/21 14:58 12/02/21 14:58 Blood Type / Crossmatch: Patient ABO/Rh O Positive 11/17/21 Antibody Screen POSITIVE 11/17/21 Crossmatch See Detail 11/17/21 Complete Blood Count: White Blood Count 9.58 10^3/uL (4.4-10.8) 12/02/21 14:58 12/02/21 Red Blood Count 2.23 10^6/uL (4.36-5.78) L 12/02/21 14:58 12/02/21 Hemoglobin 8.4 g/dL (13.5-17.5) L 12/02/21 14:58 12/02/21 Hematocrit 25.1 % (40.0-50.0) L 12/02/21 14:58 12/02/21 Platelet Count 61 10^3/uL (130-400) L 12/02/21 14:58 12/02/21 Venous Blood Lactate 5.5 mmol/L (0.6-1.4) H* 11/17/21 08:25 11/17/21 Complete Metabolic Panel: Sodium Level 138 mmol/L (136-145) 12/02/21 14:58 12/02/21 Potassium Level 4.2 mmol/L (3.5-5.1) 12/02/21 14:58 12/02/21 Chloride Level 103 mmol/L (98-107) 12/02/21 14:58 12/02/21 Carbon Dioxide Level 26.9 mmol/L (21.0-32.0) 12/02/21 14:58 12/02/21 Blood Urea Nitrogen 33 mg/dL (7-18) H 12/02/21 14:58 12/02/21 Creatinine 1.7 mg/dL (0.70-1.30) H 12/02/21 14:58 12/02/21 Estimated GFR/1.73 m2 40.16 (mL/min/1.73m2) 12/02/21 14:58 12/02/21 Magnesium Level 2.2 mg/dL (1.8-2.4) 12/02/21 14:58 12/02/21 Calcium Level 8.8 mg/dL (8.5-10.1) 12/02/21 14:58 12/02/21 Albumin 3.0 g/dL (3.4-5.0) L 12/02/21 14:58 12/02/21 Glucose Level 146 mg/dL (74-106) H 12/02/21 14:58 12/02/21 Liver Function Panel: Alanine Aminotransferase (ALT/SGPT) 62 U/L (16-63) 12/02/21 14:58 12/02/21 Aspartate Amino Transf (AST/SGOT) 18 U/L (15-37) 12/02/21 14:58 12/02/21 Coagulation Panel: INR International Normalized Ratio 1.3 (0.9-1.1) H 12/02/21 14:58 12/02/21 Prothrombin Time 13.3 sec (9.3-11.0) H 12/02/21 14:58 12/02/21 D-Dimer 325 ng/mlFEU (<500) 11/17/21 08:25 11/17/21 Cardiac Panel: Troponin I < 50 ng/L (<or=60) 12/02/21 UZ-Crz-L-Type Natriuretic Peptide 5347 pg/mL (<300) H 11/17/21 Arterial Blood Gas: No Data to Display Venous Blood Gas: No Data to Display Pancreas Panel: No Data to Display Thyroid Panel: No Data to Display Infectious Disease: Coronavirus (COVID-19)(PCR) Negative (Negative) 12/02/21 14:50 12/02/21 Coronavirus 2019 Source Nasal/Nares 12/02/21 14:50 12/02/21 Blood Cultures: No Data to Display Toxicology Panel: No Data to Display Imaging and Studies Imaging and Studies EKG Summary: DATE/TIME OF SERVICE: 12/02/21 1506 HR:111 bpm ECG Measurements Heart Rate 111 AXIS MS [id number] P [id number] QRSd 95 QRS -35 QT 328 [id number] QTc 447 Conclusion Atrial fibrillation...V-rate 88-152, irreg A-activity Left axis deviation...QRS axis (-30,-90). Echocardiogram Summary: 05/26/2021: [facility]: Setting of STEMI: EF 28%, PA pressure 39. Moderate MR, mild->Moderate TR. AV and PV are normal. No repeat echo since this time. Cardiac Catheterization Summary: 05/25/2021: [facility]: Mid RCA EZ stent placement x2 50% stenosis. DAPT recommended for 12 months. Pulmonary Function Summary: DATE OF SERVICE February 19, 2017 REQUESTING PROVIDER Steve Neil M.D. IMPRESSION Mild obstructive airways disease with no significant bronchodilator response. This is associated with mild diffusion defect. Clinical correlation recommended. INTERPRETATION OF STUDY Spirometry shows mild obstructive airways disease with no significant bronchodilator response. LUNG VOLUMES - Lung volumes show no evidence of restriction. DIFFUSION CAPACITY - Mildly reduced even when corrected to alveolar volume. AIRWAY RESISTANCE - Normal.
[2021-12-02] MEDS: Docusate Sodium 100 MG CAP PO (21:17)
[2021-12-02] MEDS: oxyCODONE 5 MG TAB PO (21:29)
[2021-12-03] VITALS (7 sets, daily range): BP systolic 95–105; BP diastolic 54–67; PULSE 60–125; RESP 17–19; TEMP 36.5–37.1; O2SAT 91–97
[2021-12-03] MEDS: oxyCODONE 5 MG TAB PO (03:25)
[2021-12-03 07:13] LABS: Abs Immature Grans 0.02 10^3/uL (0.0-0.06); Absolute Basophil Count 0.01 10^3/uL (0.0-0.2); Absolute Eosinophil Count 0.02 10^3/uL (0.0-0.7); Absolute Lymphocyte Count 3.97 10^3/uL (1.2-3.4); Absolute Neutrophil Count 3.04 10^3/uL (1.2-6.7); Basophils % 0.1; Eosinophils % 0.3; HCT 23.6 % (40.0-50.0); HGB 7.7 g/dL (13.5-17.5); Immature Grans % 0.3; Lymphocytes % 55.4; MCH 36.5 pg (27.0-33.0); MCHC 32.6 % (32.0-36.0); MCV 111.8 fL (80-95); MPV 12.5 fL (8.0-11.0); Monocytes % 1.4; Neutrophils % 42.5; Nucleated RBC 0 %; RBC 2.11 10^6/uL (4.36-5.78); RDW 26.5 % (11.8-14.1); RDW-SD 100.3 fL; WBC 7.16 10^3/uL (4.4-10.8)
[2021-12-03 07:23] LABS: Anion Gap 6.9 mmol/L (3-11); BUN 38 mg/dL (7-18); CO2 28.1 mmol/L (21.0-32.0); CREATININE 1.7 mg/dL (0.70-1.30); Calcium 8.9 mg/dL (8.5-10.1); Chloride 105 mmol/L (98-107); Estimated GFR 40.16 (mL/min/1.73m2); Glucose 94 mg/dL (74-106); Potassium 4.4 mmol/L (3.5-5.1); Sodium 140 mmol/L (136-145)
[2021-12-03] MEDS: HYDROmorphone 2 MG/ML VIAL 0.5 MG IVP (07:53)
[2021-12-03] MEDS: Atorvastatin 40 MG TAB 80 MG PO (07:53)
[2021-12-03 07:54] LABS: Anisocytosis 2+; Diff Comment Agrees w/ Instrument; Hypochromasia 2+; Macrocytosis 2+; Platelet Count 59 10^3/uL (130-400)
[2021-12-03] MEDS: Normal Saline Flush 10 ML SYR IVP ×2 (07:54→15:35)
[2021-12-03 07:55] LABS: Poikilocytes 1+; Polychromasia Present
[2021-12-03] MEDS: buPROPion-XL 150 MG TABCR PO (07:56)
[2021-12-03] MEDS: predniSONE 20 MG TAB 40 MG PO (07:56)
[2021-12-03] MEDS: Pantoprazole 20 MG TABCR PO (07:56)
[2021-12-03] MEDS: Folic Acid 1 MG TAB 2 MG PO (07:56)
[2021-12-03] MEDS: Docusate Sodium 100 MG CAP PO ×2 (07:56→19:14)
[2021-12-03] MEDS: Metoprolol CR 50 MG TABCR 200 MG PO (07:57)
[2021-12-03] MEDS: Tiotropium/Olodaterol 10 PUFF INHALER 2 PUFF IH (09:50)
--- NOTE | 2021-12-03 10:33 | INITIAL_ITS ---
- If Service Date Differs Date of service: 12/03/21 Time of Service: 10:33 Care Management Initial Assess REASON FOR HOSPITALIZATION:: Displaced fracture of right femoral neck PAST MEDICAL HISTORY/PAST SURGICAL HISTORY:: All Active Problems (Updated 12/02/21 @ 16:24 by Fernando Curiel MD). Displaced fracture of right femoral neck (Acute 12/02/21). Anemia (Chronic). Atrial fibrillation (Chronic). Hypotension (Acute). Nicotine dependence, cigarettes, uncomplicated (Acute). COPD (chronic obstructive pulmonary disease) (Chronic). Anemia, autoimmune hemolytic (Acute). Lung mass (Acute). primary malignant 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 Cardiomyopathy (Acute). CAD (coronary artery disease) (Chronic). Nephrolithiasis (Chronic). Bladder cancer (Acute). Stage 3b chronic kidney disease (Acute). Benign essential HTN (Acute). ST elevation (STEMI) myocardial infarction (Acute). Pulmonary embolism (Chronic). 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 Pneumonia (Acute). Leukemia (Chronic). chronic lymphocytic leukemia. A-fib (Chronic). Bladder mass (Acute). Medical History . Encounter for insertion of venous access port. Surgical History . H/O inguinal hernia repair. at age 15, left. H/O total cystectomy. Transurethral Resection of Bladder Tumor, >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) PREVIOUS FUNCTIONAL STATUS/SOCIAL/FAMILY SUPPORTS:: Ramesh lives in [place], [place] with his Serina. Has patient been provided with info about the portal/API?: Yes Did the patient sign up for the portal?: Yes (previously) CODE STATUS:: Full Code INSURANCE COVERAGE / FINANCIAL ISSUES:: Medicare. Denita [facility] PRIMARY CARE PHYSICIAN:: Steve Neil POTENTIAL DISCHARGE NEEDS:: follow up with surgeon, PCP and plan of care PATIENT/FAMILY EDUCATION NEEDS:: Review of dsicharge instructions, medications, activity, limitations, Ask Me Three TRANSPORTATION:: via private vehicle with family
--- NOTE | 2021-12-03 13:43 | CHAPLAIN ---
Jonnathan was in bed watching TV when I visited. He told me about his fall, and current hip pain. He doesn't know yet if [place] may be [place] [facility] He has been in touch with his by phone. He said is pain so somewhat controlled. They can only do so much, he said.
--- NOTE | 2021-12-03 14:45 | W.PM.PROGNOT ---
Date of Service Date of service: 12/03/21 Time of Service: 15:55 Assessment and Plan Assessment and plan (1) UTI (urinary tract infection): Status: Acute Assessment and plan: + UA with culture growing Gram neg sarah. On Rocephin waiting for final ID and sensitivities. (2) Displaced fracture of right femoral neck: Status: Acute Assessment and plan: Given his significant co-morbidities, he will be transferred to [facility] for repair. Because of bed availability it will be 24-48 hours before transfer most likely. Pain control; adjust as needed. Waiting for 48-72 hours s/p last dose of Eliquis and Plavix. (3) Atrial fibrillation: Status: Chronic Assessment and plan: Cont metoprolol. Holding Eliquis in preperation for surgical repair / open total hip. Monitor. (4) Nicotine dependence, cigarettes, uncomplicated: Status: Acute Assessment and plan: Nicoderm patch prn. (5) COPD (chronic obstructive pulmonary disease): Status: Chronic Assessment and plan: Recently saw Dr Golden and started on Stiolto; definitive dx of COPD pending. No PFTs performed d/t his weak state. Levalbuterol prn. (6) Anemia, autoimmune hemolytic: Status: Acute Assessment and plan: Hgb 8.4 on admission; now 7.7 Monitor. (7) Lung mass: Status: Acute Assessment and plan: Recent evaluation with Dr Golden. Long-time smoker. Has been receiving radiation tx and chemo; details not in chart. (8) Cardiomyopathy: Status: Acute Assessment and plan: Last estimated EF I see in his chart was from an MPI test on 02/13/20: 61% EF (9) CAD (coronary artery disease): Status: Chronic Assessment and plan: No reports of CP. Trop negative. Holding Plavix in preperation for surgical repair of femoral neck fx repair / open total hip. (10) Bladder cancer: Status: Acute Assessment and plan: Previous resection. (11) Stage 3b chronic kidney disease: Status: Acute Assessment and plan: Creatinine 1.7; within his baseline range. (12) Benign essential HTN: Status: Acute Assessment and plan: SBP in the 80's - 90's range. Appears to be his baseline. He endorses this. (13) ST elevation (STEMI) myocardial infarction: Status: Acute Assessment and plan: Continuing BB. No CP (14) Pulmonary embolism: Status: Chronic Assessment and plan: Previous history. Is on Eliquis for afib; being held. SCD's. (15) Leukemia: Status: Chronic Exam Narrative Exam Narrative: Lying supine. Pain controlled at the time of evaluation. Pleasant and conversant. Const General: cooperative and no acute distress Nutritional Appearance: obese Orientation: alert and oriented x3 HENMT Head: normal to inspection and atraumatic Eyes General: appearance normal, both eyes and all related structures Sclera: sclerae normal Chest Chest: normal inspection of the chest and no tenderness Resp Effort & Inspection: normal respiratory effort Auscultation: clear to auscultation bilaterally and diminished lung sounds Cardio Jugular venous pressure: no JVD Rate: regular rate Rhythm: regular rhythm Heart Sounds: S1 normal and S2 normal GI Inspection: other (RLQ ostomy in place. ) Palpation: soft and nontender Skin General skin exam: no rashes or lesions noted and pallor Neuro General: no focal motor deficits Cranial Nerves: facial strength normal Cognition: normal cognition Speech: speech normal Extrem General: no pedal edema and no calf tenderness Right lower extremity: hip/thigh Details: tenderness Objective Last Vital Signs Temp 37.1 C 12/03/21 08:16 Pulse 73 12/03/21 08:16 Resp 19 12/03/21 08:16 BP 105/67 12/03/21 08:16 Pulse Ox 91 L 12/03/21 08:16 Laboratory Results - last 24 hr 12/02/21 12/02/21 12/02/21 14:50 14:58 14:58 WBC 9.58 RBC 2.23 L Hgb 8.4 L Hct 25.1 L MCV 112.6 H MCH 37.7 H MCHC 33.5 RDW 26.9 H Plt Count 61 L MPV 11.8 H Immature Gran % 0.0 Neutrophils % 54.0 Band Neutrophils % 3 Lymphocytes % 43.0 Monocytes % 0.0 Eosinophils % 0.0 Basophils % 0.0 Nucleated RBC % 0 Absolute Neutrophils 5.46 Absolute Lymphocytes 4.12 H Absolute Monocytes 0.00 L Absolute Eosinophils 0.00 Absolute Basophils 0.00 RBC Morphology See Below Polychromasia Hypochromasia Poikilocytosis Anisocytosis 2+ Macrocytosis 2+ PT INR Sodium 138 Potassium 4.2 Chloride 103 Carbon Dioxide 26.9 Anion Gap 8.1 BUN 33 H Creatinine 1.7 H Estimated GFR/1.73 m2 40.16 Glucose 146 H Calcium 8.8 Magnesium 2.2 Total Bilirubin 1.4 H AST 18 ALT 62 Alkaline Phosphatase 83 Troponin I < 50 Total Protein 6.1 L Albumin 3.0 L Urine Color Urine Clarity Urine pH Ur Specific [place] Urine Protein Urine Ketones Urine Blood Urine Nitrite Urine Bilirubin Urine Urobilinogen Ur Leukocyte Esterase Urine RBC Urine WBC Ur Epithelial Cells Urine Crystals Urine Bacteria Urine Casts Urine Mucus Ur Culture Indicated? Urine Glucose COVID-19 Source Nasal/Nares SARS-CoV-2 (PCR) Negative Patient ABO/Rh Antibody Screen 12/02/21 12/02/21 12/02/21 14:58 15:00 19:40 WBC RBC Hgb Hct MCV MCH MCHC RDW Plt Count MPV Immature Gran % Neutrophils % Band Neutrophils % Lymphocytes % Monocytes % Eosinophils % Basophils % Nucleated RBC % Absolute Neutrophils Absolute Lymphocytes Absolute Monocytes Absolute Eosinophils Absolute Basophils RBC Morphology Polychromasia Hypochromasia Poikilocytosis Anisocytosis Macrocytosis PT 13.3 H INR 1.3 H Sodium Potassium Chloride Carbon Dioxide Anion Gap BUN Creatinine Estimated GFR/1.73 m2 Glucose Calcium Magnesium Total Bilirubin AST ALT Alkaline Phosphatase Troponin I < 50 Total Protein Albumin Urine Color Yellow Urine Clarity Clear Urine pH 7.0 Ur Specific [place] 1.015 Urine Protein Negative Urine Ketones Negative Urine Blood Trace-intact H Urine Nitrite Negative Urine Bilirubin Negative Urine Urobilinogen 1.0 H Ur Leukocyte Esterase Trace H Urine RBC 0-2 Urine WBC 10-20 H Ur Epithelial Cells Few Urine Crystals Negative Urine Bacteria Few Urine Casts Negative Urine Mucus Negative Ur Culture Indicated? Yes Urine Glucose Negative COVID-19 Source SARS-CoV-2 (PCR) Patient ABO/Rh Antibody Screen 12/03/21 12/03/21 12/03/21 06:30 06:30 06:30 WBC 7.16 RBC 2.11 L Hgb 7.7 L Hct 23.6 L MCV 111.8 H MCH 36.5 H MCHC 32.6 RDW 26.5 H Plt Count 59 L MPV 12.5 H Immature Gran % 0.3 Neutrophils % 42.5 Band Neutrophils % Lymphocytes % 55.4 Monocytes % 1.4 Eosinophils % 0.3 Basophils % 0.1 Nucleated RBC % 0 Absolute Neutrophils 3.04 Absolute Lymphocytes 3.97 H Absolute Monocytes 0.10 Absolute Eosinophils 0.02 Absolute Basophils 0.01 RBC Morphology See Below Polychromasia Present Hypochromasia 2+ Poikilocytosis 1+ Anisocytosis 2+ Macrocytosis 2+ PT INR Sodium 140 Potassium 4.4 Chloride 105 Carbon Dioxide 28.1 Anion Gap 6.9 BUN 38 H Creatinine 1.7 H Estimated GFR/1.73 m2 40.16 Glucose 94 D Calcium 8.9 Magnesium Total Bilirubin AST ALT Alkaline Phosphatase Troponin I Total Protein Albumin Urine Color Urine Clarity Urine pH Ur Specific [place] Urine Protein Urine Ketones Urine Blood Urine Nitrite Urine Bilirubin Urine Urobilinogen Ur Leukocyte Esterase Urine RBC Urine WBC Ur Epithelial Cells Urine Crystals Urine Bacteria Urine Casts Urine Mucus Ur Culture Indicated? Urine Glucose COVID-19 Source SARS-CoV-2 (PCR) Patient ABO/Rh O Positive Antibody Screen POSITIVE
[2021-12-03] MEDS: oxyCODONE 5 MG TAB 10 MG PO ×2 (14:51→19:13)
[2021-12-03] MEDS: cefTRIAXone 1 GM/50 ML BAG IVPB (15:35)
[2021-12-03] MEDS: Baclofen 10 MG TAB PO ×2 (15:35→19:14)
--- NOTE | 2021-12-03 18:43 | DSE_ITS ---
Date of service: 12/03/21 Time of Service: 18:44 DS: Diagnosis Discharge Diagnosis (1) UTI (urinary tract infection): Status: Acute (2) Displaced fracture of right femoral neck: Status: Acute (3) Atrial fibrillation: Status: Chronic (4) Nicotine dependence, cigarettes, uncomplicated: Status: Acute (5) COPD (chronic obstructive pulmonary disease): Status: Chronic (6) Anemia, autoimmune hemolytic: Status: Acute (7) Lung mass: Status: Acute (8) Cardiomyopathy: Status: Acute (9) CAD (coronary artery disease): Status: Chronic (10) Bladder cancer: Status: Acute (11) Stage 3b chronic kidney disease: Status: Acute (12) Benign essential HTN: Status: Acute (13) ST elevation (STEMI) myocardial infarction: Status: Acute (14) Pulmonary embolism: Status: Chronic (15) Leukemia: Status: Chronic Discharge Plan Disposition Patient Disposition: [facility] ([facility]) Condition: Stable Discharge Details Reason For Visit: Hip Fracture Admit Date/Time: 12/02/21 15:54 Admit Provider: Dao Pacheco Attending Provider: Dao Pacheco Primary Care Provider: Steve Neil Hospital Course Hospital Course: This is a 71 yo male with an extensive PMH that includes, CAD/STEMI, cardiomyopathy, atrial fibrillation, COPD, hemolytic anemia, Chronic myeloid eukemia, tobacco abuse disorder, CKD, Pulmonary embolism, HTN. He presented to the ED with right hip pain after a mechanical fall (tripped) from standing height in his bedroom. He denied hitting his head. No other areas of pain described. Xrays showed a minimally displaced right femoral neck fracture. CXR showed mild cardiomegaly. Slightly increased marking in the right infrahilar region noted. No effusions or edema. WBC count normal. Hgb 8.4. MCV elevated at 112.6. Platelets 61. Lytes normal. BUN 33. Creatinine 1.7. Total bilirubin 1.4. UA with tr blood, tr leuk esterase, 10-20 WBCs few bacteria. Reflex urine cx in progress. Hold eliquis and Plavix in anticipation of surgical repair. Pain control with pr Prn IV dilaudid and oral oxycodone Given his complex co-morbidities it has been arranged for him to transfer to [facility] for surgical repair. Home Meds and New Rx's Prescriptions: New ceftriaxone in dextrose,iso-os 1 gram/50 mL Piggyback 1 g IVPB Q24H Qty: 0 RF: 0 hydromorphone (PF) 2 mg/mL Solution 0.5 mg IVP Q3H PRN PRNQty: 0 RF: 0 polyethylene glycol 3350 17 gram Powder In Packet 17 g PO DAILY PRN PRN (Reason: Constipation) Qty: 0 RF: 0 levalbuterol HCl 0.63 mg/3 mL Solution For Nebulization 0.63 mg UPD Q2H PRN PRNQty: 0 RF: 0 oxycodone 5 mg Tablet 10 mg PO Q4H PRN PRNQty: 0 RF: 0 Continued Stiolto Respimat 2.5-2.5 mcg/actuation mist 2 puff inhalation DAILY Qty: 4 RF: 8 levalbuterol tartrate 45 mcg/actuation HFA aerosol inhaler 2 inh inhalation Q6H Qty: 15 RF: 8 pantoprazole [Protonix] 20 mg tablet,delayed release (DR/EC) 20 mg PO DAILY RF: 0 furosemide 20 mg tablet 20 mg PO DAILY RF: 0 folic acid 1 mg tablet 2 mg PO DAILY RF: 0 atorvastatin 80 mg tablet 80 mg PO QPM RF: 0 docusate sodium [Colace] 100 mg Capsule 100 mg PO DAILY PRNRF: 0 bupropion HCl 150 mg tablet extended release 24 hr 150 mg PO DAILY RF: 0 metoprolol succinate 200 mg tablet extended release 24 hr 200 mg PO DAILY RF: 0 sulfamethoxazole-trimethoprim 800-160 mg tablet 1 tab PO .THREE TIMES A WEEK RF: 0 zolpidem 5 mg tablet 5 mg PO HS PRNRF: 0 prednisone 20 mg tablet 0 mg PO DAILY RF: 0 cyanocobalamin (vitamin B-12) 1,000 mcg Tablet 1,000 mcg PO DAILY RF: 0 nicotine (polacrilex) 4 mg Gum 4 mg buccal Q2H PRNRF: 0 nicotine 21 mg/24 hr Patch 24 Hour 1 patch TRANSDERMAL Q24H RF: 0 Discontinued Xarelto 20 mg tablet 20 mg PO DAILY RF: 0 clopidogrel [Plavix] 75 mg tablet 75 mg PO DAILY RF: 0 Discharge Orders Discharge Orders: Discharge Order (Routine); Ordered 12/03/21 Ordered By: Dao Pacheco DS: Summary Time Spent with Patient providing and/or coordinating discharge services: Greater than 30 minutes Status at Discharge Functional status at discharge: bed bound Overall status at discharge: patient is not back to baseline Mental Status: mental status grossly normal Speech and Movement: speech clear Mood: congruent mood Affect: other (Appropriate for situation ) Quality: AMI Contraindication for Aspirin: Family illness Exam Narrative Exam Narrative: Lying supine. Pain controlled at the time of evaluation. Ple asant and conversant. Const General: cooperative and no acute distress (Hip pain distress with movement ) Nutritional Appearance: obese Orientation: alert and oriented x3 HENMT Head: normal to inspection and atraumatic Eyes General: appearance normal, both eyes and all related structures Sclera: sclerae normal Chest Chest: normal inspection of the chest and no tenderness Resp Effort & Inspection: normal respiratory effort Auscultation: clear to auscultation bilaterally and diminished lung sounds Cardio Jugular venous pressure: no JVD Rate: regular rate Rhythm: regular rhythm Heart Sounds: S1 normal and S2 normal GI Inspection: other (RLQ ostomy in place. ) Palpation: soft and nontender Skin General skin exam: no rashes or lesions noted and pallor Neuro General: no focal motor deficits Cranial Nerves: facial strength normal Cognition: normal cognition Speech: speech normal Extrem General: no pedal edema and no calf tenderness Right lower extremity: hip/thigh Details: tenderness Psych Mental Status: mental status grossly normal Speech and Movement: speech clear Mood: congruent mood DS: Data Vitals/I&O Vitals and I&O: Vital Signs Temperature 37 C 12/03/21 15:45 Temperature Source Tympanic 12/03/21 15:45 Pulse 60 12/03/21 15:45 Pulse Rhythm Regular 12/03/21 16:52 Respiratory Rate 17 12/03/21 15:45 Respiratory Effort 12/03/21 16:52 Respiratory Depth Normal 12/03/21 16:52 Respiratory Pattern Normal 12/03/21 16:52 Blood Pressure 96/54 L 12/03/21 15:45 Blood Pressure Mean 74 12/02/21 16:26 Blood Pressure Position Supine 12/02/21 14:32 Pulse Oximetry 96 12/03/21 15:45 Oxygen Delivery Method Room Air 12/03/21 15:45 Oxygen Flow Rate 0 12/03/21 15:45 Pain Level 8 12/03/21 08:16 Comment 12/02/21 19:41 Intake & Output 12/02/21 12/03/21 12/03/21 23:59 11:59 23:59 Output Total 500 / 500 425 / 425 Balance -500 / -500 -425 / -425 Weight 108.8 kg Output: Urine 500 / 500 425 / 425 Other: Urine Color Straw Light Daija Urine Appearance Mucous Threads Sediment Sediment Urine Odor Foul Strong Comment urostomy does not need to be emptied at this time Voiding Methods Ileal Conduit (Right) Data Completed and Pending Labs on day of discharge: Labs from last 24 hours 12/03/21 12/03/21 12/03/21 12:50 06:30 06:30 WBC 7.16 RBC 2.11 L Hgb 7.7 L Hct 23.6 L MCV 111.8 H MCH 36.5 H MCHC 32.6 RDW 26.5 H Plt Count 59 L MPV 12.5 H Immature Gran % 0.3 Neutrophils % 42.5 Lymphocytes % 55.4 Monocytes % 1.4 Eosinophils % 0.3 Basophils % 0.1 Nucleated RBC % 0 Absolute Neutrophils 3.04 Absolute Lymphocytes 3.97 H Absolute Monocytes 0.10 Absolute Eosinophils 0.02 Absolute Basophils 0.01 RBC Morphology See Below Polychromasia Present Hypochromasia 2+ Poikilocytosis 1+ Anisocytosis 2+ Macrocytosis 2+ Sodium Potassium Chloride Carbon Dioxide Anion Gap BUN Creatinine Estimated GFR/1.73 m2 Glucose Calcium Troponin I Patient ABO/Rh O Positive Antibody Screen POSITIVE Antibody Identification Pending Antibody ID Referred Pending Direct Antiglob Test Pending 12/03/21 12/02/21 06:30 19:40 WBC RBC Hgb Hct MCV MCH MCHC RDW Plt Count MPV Immature Gran % Neutrophils % Lymphocytes % Monocytes % Eosinophils % Basophils % Nucleated RBC % Absolute Neutrophils Absolute Lymphocytes Absolute Monocytes Absolute Eosinophils Absolute Basophils RBC Morphology Polychromasia Hypochromasia Poikilocytosis Anisocytosis Macrocytosis Sodium 140 Potassium 4.4 Chloride 105 Carbon Dioxide 28.1 Anion Gap 6.9 BUN 38 H Creatinine 1.7 H Estimated GFR/1.73 m2 40.16 Glucose 94 D Calcium 8.9 Troponin I < 50 Patient ABO/Rh Antibody Screen Antibody Identification Antibody ID Referred Direct Antiglob Test Preliminary micro results at discharge 12/02/21 15:00 Urine Culture - Preliminary Urine - Reflex from Ua Gram Positive Vonda,Mixed Gram Negative Segundo PFSH All Active Problems (Updated 12/03/21 @ 14:46 by Dao Pacheco MD) UTI (urinary tract infection) (Acute) Displaced fracture of right femoral neck (Acute 12/02/21) Anemia (Chronic) Atrial fibrillation (Chronic) Hypotension (Acute) Nicotine dependence, cigarettes, uncomplicated (Acute) COPD (chronic obstructive pulmonary disease) (Chronic) Anemia, autoimmune hemolytic (Acute) Lung mass (Acute) primary malignant 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 H/O total cystectomy Transurethral Resection of Bladder Tumor, >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) Family History Father Heart disease Social History Smoking/Tobacco Use Status: Current every day Tobacco Type: cigarettes Years smoked: 50 Smoking risk assessment performed?: Yes Alcohol Intake: current Alcohol Intake frequency: holidays/special occasions only Drug use: Never Substance use type: does not use Do you feel safe at home: Yes Do you feel safe in your relationship?: Yes
--- NOTE | 2021-12-03 19:36 | NUR.NOTE ---
Nursing Note report given to Jadon MARIANO at [facility] at 1935:
== END 2021-12-03 20:05 | disposition short-term general hospital (02) | DRG 536 ==
LOC: ER 16:12 → MS 16:47
PROVIDERS: Admitting Provider Family Medicine; Emergency Provider Registered Nurse Emergency; PCP Internal Medicine; Visit Provider Family Medicine
DX: S72.001A Fracture of unspecified part of neck of right femur, initial encounter for closed fracture (principal); D59.10 Autoimmune hemolytic anemia, unspecified; C34.31 Malignant neoplasm of lower lobe, right bronchus or lung; I42.9 Cardiomyopathy, unspecified; N39.0 Urinary tract infection, site not specified; C92.10 Chronic myeloid leukemia, BCR/ABL-positive, not having achieved remission; Z79.01 Long term (current) use of anticoagulants; I48.91 Unspecified atrial fibrillation; N18.32 Chronic kidney disease, stage 3b; Z86.711 Personal history of pulmonary embolism; Z79.899 Other long term (current) drug therapy; I25.2 Old myocardial infarction; Z95.5 Presence of coronary angioplasty implant and graft; W01.0XXA Fall on same level from slipping, tripping and stumbling without subsequent striking against object, initial encounter; J44.9 Chronic obstructive pulmonary disease, unspecified; I25.10 Atherosclerotic heart disease of native coronary artery without angina pectoris; F17.210 Nicotine dependence, cigarettes, uncomplicated; I12.9 Hypertensive chronic kidney disease with stage 1 through stage 4 chronic kidney disease, or unspecified chronic kidney disease; C67.9 Malignant neoplasm of bladder, unspecified
CPT/HCPCS: 36415; 73552; 80048; 80053; 86850; 86900; 86901; 87635; 93005; 96374; 99222; 99285; 71045; 72170; 81003; 81015; 83735; 84484; 85025; 85610; 86870; 86880; 87086; 93010; 99233; 99239; J0696; J7512

== ENCOUNTER 2021-12-18 02:33 | Outpatient (RCR) | payer MEDICARE, OTHER, SELFPAY ==
[2021-12-18] MEDS: Normal Saline Flush 10 ML SYR IVP (11:48)
[2021-12-18 12:10] LABS: Abs Immature Grans 0.04 10^3/uL (0.0-0.06); Absolute Basophil Count 0.01 10^3/uL (0.0-0.2); Absolute Eosinophil Count 0.02 10^3/uL (0.0-0.7); Absolute Lymphocyte Count 1.97 10^3/uL (1.2-3.4); Absolute Monocyte Count 0.04 10^3/uL (0.1-0.8); Absolute Neutrophil Count 3.43 10^3/uL (1.2-6.7); Basophils % 0.2; Eosinophils % 0.4; HCT 26.2 % (40.0-50.0); HGB 8.4 g/dL (13.5-17.5); Immature Grans % 0.7; Lymphocytes % 35.8; MCH 38.5 pg (27.0-33.0); MCHC 32.1 % (32.0-36.0); MCV 120.2 fL (80-95); MPV 10.5 fL (8.0-11.0); Monocytes % 0.7; Neutrophils % 62.2; Nucleated RBC 0 %; Platelet Count 170 10^3/uL (130-400); RBC 2.18 10^6/uL (4.36-5.78); WBC 5.51 10^3/uL (4.4-10.8)
[2021-12-18 12:34] LABS: ALT 77 U/L (16-63); AST 17 U/L (15-37); Albumin 2.8 g/dL (3.4-5.0); Alkaline Phosphatase 82 U/L (46-116); BUN 32 mg/dL (7-18); Bilirubin, Total 0.9 mg/dL (0.2-1.0); CREATININE 1.7 mg/dL (0.70-1.30); Calcium 8.7 mg/dL (8.5-10.1); Chloride 104 mmol/L (98-107); Estimated GFR 40.16 (mL/min/1.73m2); Glucose 120 mg/dL (74-106); LDH 177 U/L (85-227); Potassium 4.6 mmol/L (3.5-5.1); Sodium 139 mmol/L (136-145); Total Protein 5.8 g/dL (6.4-8.2)
[2021-12-18 12:50] LABS: Anisocytosis 3+; Diff Comment RBC Morph Reviewed; Macrocytosis 2+
== END 2022-01-12 23:59 | disposition home or self-care (01) ==
LOC: INF 02:33
PROVIDERS: Internal Medicine Hematology & Oncology; PCP Internal Medicine; Visit Provider Radiology Radiation Oncology
DX: C91.10 Chronic lymphocytic leukemia of B-cell type not having achieved remission (principal); Z45.2 Encounter for adjustment and management of vascular access device
CPT/HCPCS: 36591; 80053; 83615; 85025

== ENCOUNTER 2021-12-24 10:47 | Emergency (ER) | payer MEDICARE, OTHER, SELFPAY ==
[2021-12-24] VITALS (71 sets, daily range): BP systolic 73–107; BP diastolic 44–71; PULSE 58–117; RESP 12–31; TEMP 36.4; O2SAT 95–100
--- NOTE | 2021-12-24 10:45 | RT.EKG_ITS ---
APPROVED REPORT Exam: Resting ECG Reason for Exam: tachy Patient Location: E HR:109 bpm ECG Measurements Heart Rate 109 AXIS DC [id number] P [id number] QRSd 101 QRS -35 QT 345 T -44 QTc 465 Conclusion Atrial fibrillation...V-rate 82-161, irreg A-activity Left axis deviation...QRS axis (-30,-90) Borderline T abnormalities, diffuse leads...T flat/neg Physician: no stemi, inverted t waves are unchanged
--- NOTE | 2021-12-24 10:45 | DI.RAD_ITS ---
Exam(s) XR HIP RT COMPLETE AP PELVIS EXAM: XR HIP RT COMPLETE AP PELVIS CLINICAL HISTORY: 3 wks s/p hip replacement, possible reduction. TECHNIQUE: 2D digital imaging was performed. COMPARISON: CR XR FEMUR RT from 12/02/2021 FINDINGS: There is superior dislocation of the femoral head prosthesis relative to the [place] acetabulum. The dislocations superior with no prominent anterior nor posterior dislocation. IMPRESSION: Superior dislocation. No fracture evident. DATA REPOSITORY: RADIATION DOSE DELIVERED:
[2021-12-24] MEDS: Normal Saline 500 ML IV ×2 (11:12→14:32)
--- NOTE | 2021-12-24 11:13 | ED.GENADUL_ITS ---
Discharge Plan Disposition Patient Disposition: HOME Condition: Stable Discharge Details Clinical Impression: Closed dislocation of right hip Primary Care Provider: Steve Neil ED Provider: Amber Santo Home Meds and New Rx's Prescriptions: Continued Stiolto Respimat 2.5-2.5 mcg/actuation mist 2 puff inhalation DAILY Qty: 4 8RF levalbuterol tartrate 45 mcg/actuation HFA aerosol inhaler 2 inh inhalation Q6H Qty: 15 8RF pantoprazole [Protonix] 20 mg tablet,delayed release (DR/EC) 20 mg PO DAILY 0RF furosemide 20 mg tablet 20 mg PO DAILY 0RF folic acid 1 mg tablet 2 mg PO DAILY 0RF atorvastatin 80 mg tablet 80 mg PO QPM 0RF Label Comments: Take 1 tablet by mouth every evening docusate sodium [Colace] 100 mg Capsule 100 mg PO DAILY PRN0RF bupropion HCl 150 mg tablet extended release 24 hr 150 mg PO DAILY 0RF Label Comments: TAKE 1 TABLET BY MOUTH ONCE DAILY metoprolol succinate 200 mg tablet extended release 24 hr 200 mg PO DAILY 0RF sulfamethoxazole-trimethoprim 800-160 mg tablet 1 tab PO .THREE TIMES A WEEK 0RF Label Comments: TAKE 1 TABLET BY MOUTH THREE TIMES A WEEK zolpidem 5 mg tablet 5 mg PO HS PRN0RF Label Comments: TAKE 1 TABLET BY MOUTH AT BEDTIME NEEDED prednisone 20 mg tablet 20 mg PO DAILY 0RF Label Comments: TAKE 4 TABLETS BY MOUTH ONCE DAILY FOR 3 DAYS, THEN 3 TABS DAILY FOR 3 DAYS, THEN 2 TABS DAILY FOR 3 DAYS, THEN 1 TABLET DAILY THEREAFTER FOR 20 DAYS cyanocobalamin (vitamin B-12) 1,000 mcg Tablet 1,000 mcg PO DAILY 0RF nicotine (polacrilex) 4 mg Gum 4 mg buccal Q2H PRN0RF nicotine 21 mg/24 hr Patch 24 Hour 1 patch TRANSDERMAL Q24H 0RF hydromorphone (PF) 2 mg/mL Solution 0.5 mg IVP Q3H PRN PRNQty: 0 0RF polyethylene glycol 3350 17 gram Powder In Packet 17 g PO DAILY PRN PRN (Reason: Constipation) Qty: 0 0RF levalbuterol HCl 0.63 mg/3 mL Solution For Nebulization 0.63 mg UPD Q2H PRN PRNQty: 0 0RF oxycodone 5 mg Tablet 10 mg PO Q4H PRN PRNQty: 0 0RF clopidogrel 75 mg tablet 75 mg PO DAILY 0RF magnesium 250 mg Tablet 500 mg PO DAILY 0RF calcium carbonate-vitamin D3 [Calcium 500 + D] 500 mg-10 mcg (400 unit) Tablet 1 tab PO DAILY 0RF Xarelto 20 mg tablet 20 mg PO DAILY 0RF Label Comments: TAKE 1 TABLET BY MOUTH ONCE DAILY acetaminophen 325 mg Tablet 650 mg PO .[id number] 0RF aspirin 81 mg Tablet,Chewable 81 mg PO DAILY 0RF Discharge Instructions Additional Instructions: Do not bend your head, 90 degrees Do not cross the midline of the body with your right leg Do not rotate the affected extremity inward in bed use adductor pad to keep hip from rolling inward Call your surgeon for follow-up tomorrow to schedule outpatient reassessment toe-touch weightbearing to right leg as tolerated Take your pain medication as needed and return earlier should you have new or worsening complaints Please return for any dizziness, lightheadedness or if BP does not return to baseline. Please get up slowly from a sitting position. Do not get up by yourself. Referrals: Steve Neil MD [Primary Care Provider] - Discharge Data Discharge Date/Time-TO BE ENTERED AT DEPARTURE: 12/24/21 17:34 Medical Decision Making <SHAY Ritchie - Last Filed: 12/26/21 18:51> Patient has been. The patient of his right hip Dr. Kimball was called and feels comfortable raising the hip in the emergency room Dr. Nina will administer sedation, propofol Patient was consented by Dr. Nina and Dr. Kimball Patient tolerated procedure without incident but did become hypotensive #An hour after procedure, 7040 He did receive 1 L of normal saline and has an ejection fraction of 25% do not feel comfortable giving any additional fluid He has been resting comfortably At time of reassessment he is 86/50 for his blood pressure, we will have patient set up an attempt to mobilize and his Mady will be called to pick patient up yet there she needs to extend you select catheterized Care was transferred to [facility] pending mobilization and recheck on blood pressure, in stable condition at time of reassessment I did consult with Dr. Ramírez at [facility] and they will follow the patient closely in the outpatient setting Patient was also given abductor pillow for sleeping but not recur All recommendations were relayed to patient's Patient is alert, speaking in complete sentences with feeling marked improvement upon reassessment at 1620 Signed out to Caryn Willett nurse practitioner pending reassessment after recovery from conscious sedation Medical Records Medical records reviewed: Yes I reviewed the patient's medical records. Lab Data Lab results reviewed: Yes I reviewed the patient's lab results. <Amber Santo - Last Filed: 12/24/21 19:55> Care assumed from provider (SHAY Ritchie) Please see their initial HPI, PE, and documentation. Discussed patient details and case and pending workup and disposition. Patient is hemodynamically stable, and alert and oriented. At this time patient post sedation for a dislocated hip. Did instruct the nurse to give patient p.o. challenge patient up. My colleague was concerned about his blood pressure which is 96 systolic. She would prefer if systolic is 100 or greater prior to discharge. 1654: Patient re-evaluation, patient sitting up in bed SBP approx 86, I did speak with patient's again regarding his blood pressure she feels comfortable taking care of him at home with blood pressure like this. She reports that she will recheck at home. She states that it is not uncommon for him to go little bit lower during the day. I do suspect this may be from the propofol and slow metabolism of the drug. Patient is asymptomatic with his blood pressure he denies being dizzy or feeling lightheaded at all. He is tolerating p.o. without difficulty. 1720: Patient's here to take patient home, he remained alert, awake and denies symptoms prior to discharge. Discussed strict return instructiuons with who verbalizes understanding. HPI <SHAY Ritchie - Last Filed: 12/26/21 18:51> General Mode of arrival: ambulatory . Date/Time Provider Initiated Documentation: 12/24/21 10:51 . Limitations to Documentation: no limitations . Information obtained by: patient . HPI Narrative: This 71-year-old male with history of leukemia, PE, anticoagulated on Xarelto, coronary disease, hypertension chest, renal arteries, cardiomyopathy, presents for eval for possible hip dislocation. Patient presents hypokyphosis located from both left radius/wrist which I am not occurred. He reportedly turned over in bed and felt it dislocate when he awoke. He denies any additional injuries. He felt quite well since his surgery approximately 3 weeks ago. Denies any additional complaints at this time. Related Data Home Medications Medication Instructions Recorded Confirmed atorvastatin 80 mg tablet 80 mg PO QPM 06/13/21 12/26/21 docusate sodium 100 mg capsule 100 mg PO DAILY PRN 06/13/21 12/26/21 (Colace) folic acid 1 mg tablet 2 mg PO DAILY tab 10/03/21 12/26/21 furosemide 20 mg tablet 20 mg PO DAILY 10/03/21 12/26/21 pantoprazole 20 mg tablet,delayed 20 mg PO DAILY 10/03/21 12/26/21 release (Protonix) levalbuterol tartrate 45 2 inh INHALATION Q6H #15 g 11/12/21 12/26/21 mcg/actuation aerosol inhaler tiotropium 2.5 mcg-olodaterol 2.5 2 puff INHALATION DAILY #4 g 11/12/21 12/26/21 mcg/actuation mist for inhalation (Stiolto Respimat) bupropion HCl 150 mg 24 hr tablet, 150 mg PO DAILY 12/02/21 12/26/21 extended release cyanocobalamin (vitamin B-12) 1,000 mcg PO DAILY 12/02/21 12/26/21 1,000 mcg tablet metoprolol succinate 200 mg 200 mg PO DAILY 12/02/21 12/26/21 tablet,extended release 24 hr nicotine (polacrilex) 4 mg gum 4 mg BUCCAL Q2H PRN 12/02/21 12/26/21 nicotine 21 mg/24 hr daily 1 patch TRANSDERMAL Q24H 12/02/21 12/26/21 transdermal patch prednisone 20 mg tablet 20 mg PO DAILY 12/02/21 12/26/21 sulfamethoxazole 800 1 tab PO .THREE TIMES A WEEK 12/02/21 12/26/21 mg-trimethoprim 160 mg tablet zolpidem 5 mg tablet 5 mg PO HS PRN 12/02/21 12/26/21 hydromorphone (PF) 2 mg/mL 0.5 mg (0.25 mL) IVP Q3H PRN PRN 12/03/21 12/26/21 injection solution #0 ml levalbuterol HCl 0.63 mg/3 mL 0.63 mg (3 mL) UPD Q2H PRN PRN #0 12/03/21 12/26/21 solution for nebulization ml oxycodone 5 mg tablet 10 mg PO Q4H PRN PRN #0 tab 12/03/21 12/26/21 polyethylene glycol 3350 17 gram 17 g PO DAILY PRN PRN #0 ea 12/03/21 12/26/21 oral powder packet acetaminophen 325 mg tablet 650 mg PO .[id number] 12/24/21 12/26/21 aspirin 81 mg chewable tablet 81 mg PO DAILY 12/24/21 12/26/21 calcium carbonate 500 mg-vitamin 1 tab PO DAILY 12/24/21 12/26/21 D3 10 mcg (400 unit) tablet (Calcium 500 + D) clopidogrel 75 mg tablet 75 mg PO DAILY 12/24/21 12/26/21 magnesium 250 mg tablet 500 mg PO DAILY 12/24/21 12/26/21 rivaroxaban 20 mg tablet (Xarelto) 20 mg PO DAILY 12/24/21 12/26/21 Previous Rx's Medication Instructions Recorded levalbuterol tartrate 45 2 inh INHALATION Q6H #15 g 11/12/21 mcg/actuation aerosol inhaler tiotropium 2.5 mcg-olodaterol 2.5 2 puff INHALATION DAILY #4 g 11/12/21 mcg/actuation mist for inhalation (Stiolto Respimat) hydromorphone (PF) 2 mg/mL 0.5 mg (0.25 mL) IVP Q3H PRN PRN 12/03/21 injection solution #0 ml levalbuterol HCl 0.63 mg/3 mL 0.63 mg (3 mL) UPD Q2H PRN PRN #0 12/03/21 solution for nebulization ml oxycodone 5 mg tablet 10 mg PO Q4H PRN PRN #0 tab 12/03/21 polyethylene glycol 3350 17 gram 17 g PO DAILY PRN PRN #0 ea 12/03/21 oral powder packet Allergies Allergy/AdvReac Type Severity Reaction Status Date / Time No Known Allergies Allergy Unverified 12/26/21 01:42 General Stated Complaint: Orthopedic MARY ANNE: 3 Review of Systems <SHAY Ritchie - Last Filed: 12/26/21 18:51> All systems reviewed & are unremarkable except as noted in HPI and below Constitutional Constitutional: Reports as per HPI PFSH <SHAY Ritchie - Last Filed: 12/26/21 18:51> All Active Problems (Updated 12/26/21 @ 14:45 by Fernando Kimball MD) Weakness generalized (Acute) Mechanical instability of hip prosthesis (Acute) Closed dislocation of right hip (Acute 12/24/21) UTI (urinary tract infection) (Acute) Displaced fracture of right femoral neck (Acute 12/02/21) s/p right unipolar [facility] Nicotine dependence, cigarettes, uncomplicated (Acute) COPD (chronic obstructive pulmonary disease) (Chronic) Anemia, autoimmune hemolytic (Acute) Lung mass (Acute) primary malignant 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 H/O total cystectomy Transurethral Resection of Bladder Tumor, >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) Family History Father Heart disease Social History Smoking/Tobacco Use Status: Current every day Tobacco Type: cigarettes Years smoked: 50 Smoking risk assessment performed?: Yes Alcohol Intake: current Alcohol Intake frequency: holidays/special occasions only Drug use: Never Substance use type: does not use Do you feel safe at home: Yes Do you feel safe in your relationship?: Yes Exam <SHAY Ritchie - Last Filed: 12/26/21 18:51> Const General: cooperative and in distress HENMT Head: normal to inspection Neck Other: No midline tenderness Resp Effort & Inspection: normal respiratory effort Cardio Rate: tachycardic GI Other: Urostomy in place, nontender Back/Spine/Pelvis Back: no CVA tenderness and CVA tenderness Other: Right hip abducted, externally rotated consistent with dislocation, neurovascularly intact Skin General skin exam: no rashes or lesions noted Neuro General: patient alert and patient oriented x3 Course <SHAY Ritchie - Last Filed: 12/26/21 18:51> Vital Signs Vital signs: Vital Signs Temperature 36.4 C L 12/24/21 10:53 Pulse 115 H 12/24/21 10:53 Respiratory Rate 21 12/24/21 10:53 Blood Pressure 93/57 L 12/24/21 10:53 Pulse Oximetry 96 12/24/21 10:53 Temperature 36.4 C L 12/24/21 10:53 Temperature Source Skin 12/24/21 10:53 Pulse 115 H 12/24/21 10:53 Respiratory Rate 21 12/24/21 10:53 Respiratory Effort 12/24/21 10:53 Blood Pressure 93/57 L 12/24/21 10:53 Blood Pressure Position Supine 12/24/21 10:53 Pulse Oximetry 96 12/24/21 10:53 Pain Level 9 12/24/21 10:53 <Raciel Nina DO - Last Filed: 12/24/21 14:56> Procedural Sedation Indication: fracture/dislocation reduction ASA Class: III Time of Last PO Intake: 08:00 Preparation: quality assurance monitor applied, pulse oximeter, capnometry used, supplemental O2 applied, suction/airway equipment at bedside and IV secured IV Propofol dose (mg): 100 Patient Tolerated Procedure: well Complications: none Interventions: oxygen applied Additional Comments: Supplemental oxygen was on at all times during procedure as a precaution. Patient had no complications with procedure sedation. Dislocation was performed by Dr. Kimball and SHAY Love at bedside. Sedation was performed by myself Dr. Nina. Sign Out <SHAY Ritchie - Last Filed: 12/26/21 18:51> Sign Out Data: Sign Out Comment: Pending reassessment hypertension post procedural sedation hip reduction and likely discharge home in care of patient's Mady Naylor updated by Yesi Farley PA at 12/24/21 16:21
[2021-12-24 11:38] LABS: HCT 27.7 % (40.0-50.0); HGB 8.7 g/dL (13.5-17.5); MCH 38.3 pg (27.0-33.0); MCHC 31.4 % (32.0-36.0); MPV 9.9 fL (8.0-11.0); Nucleated RBC 0 %; Platelet Count 164 10^3/uL (130-400); RBC 2.27 10^6/uL (4.36-5.78); WBC 5.65 10^3/uL (4.4-10.8)
[2021-12-24 11:54] LABS: ALT 48 U/L (16-63); AST 16 U/L (15-37); Albumin 2.8 g/dL (3.4-5.0); Alkaline Phosphatase 85 U/L (46-116); Anion Gap 4.3 mmol/L (3-11); BUN 30 mg/dL (7-18); Bilirubin, Total 0.7 mg/dL (0.2-1.0); CO2 28.7 mmol/L (21.0-32.0); CREATININE 1.6 mg/dL (0.70-1.30); Calcium 8.5 mg/dL (8.5-10.1); Chloride 107 mmol/L (98-107); Estimated GFR 43.07 (mL/min/1.73m2); Glucose 113 mg/dL (74-106); Potassium 4.1 mmol/L (3.5-5.1); Sodium 140 mmol/L (136-145); Total Protein 5.8 g/dL (6.4-8.2)
[2021-12-24 11:56] LABS: Absolute Eosinophil Count 0.06 10^3/uL (0.0-0.7); Absolute Lymphocyte Count 1.24 10^3/uL (1.2-3.4); Absolute Neutrophil Count 4.35 10^3/uL (1.2-6.7); Atypical Lymphocytes % 1; Bands % 2; Diff Comment Manual Differential
[2021-12-24 11:57] LABS: Anisocytosis 2+; Macrocytosis 2+
[2021-12-24] MEDS: fentaNYL 100 MCG/2 ML VIAL 50 MCG IVP (12:18)
--- NOTE | 2021-12-24 12:18 | W.ORTHOCONSU ---
Documented by User: Kate Kelley 12/24/21 15:00 History of Present Illness Narrative: Mr. Fung is a 71-year-old male with PMH of bladder and lung cancer, leukemia, PE managed on rivaroxaban, history of STEMI, cardiomyopathy, HTN, CKD and COPD who brought in via EMS for acute discomfort of the right hip. Patient is status post right unipolar hip arthroplasty completed at [facility] ~3 weeks ago; states he was in the hospital for ~4-5 days and discharged home, has not yet had outpatient orthopedic follow-up. Reports he is unsure of follow-up and his manages his appointments. Overall reports recovering well from right unipolar hip has been using the walker for assistive ambulation and managing discomfort with oxycodone 5 mg PO PRN. States he was doing well yesterday without any additional issue or change in symptoms. Denies any falls or injuries. Took one dose of oxycodone 5 mg around 11 PM and slept well. He has been sleeping with a small pillow between his legs following recent surgery; reports his had used a pillow at night following her NILSA so they thought he should as well. This morning around ~6-7AM he arose due to severe right hip pain while laying on his left side. Due to significant discomfort and pain with attempted motion EMS was contacted and he was brought to the ER. While in the ER his x-rays revealed right hip dislocation and orthopedic team was contacted for consult. Assessment and Plan Assessment and plan (1) Closed dislocation of right hip: Status: Acute Assessment and plan: Plan: Mr. Fung is a 71-year-old male with PMH of bladder and lung cancer, leukemia, PE managed on rivaroxaban, history of STEMI, cardiomyopathy, HTN, CKD and COPD who brought in via EMS for acute discomfort of the right hip. X-rays ordered by the ER show right unipolar hip arthroplasty with superior posterior dislocation. Based on his incision location appears he is status post right unipolar arthroplasty via posterior approach Discussed his case with his ER provider, Yesi Farley PA-C Case was reviewed and discussed with Dr. Kimball Based on patient's significant medical issues recommend sedation in the ER with reduction Educated patient on diagnosis and recommended treatment plan He is agreeable to ER sedation and reduction Discussed case again with Ms. Miguelito PA-C and Dr. Oliva (ER physician available) - ER agreeable to providing sedation Sedation was provided by Dr. Oliva, DOLORES Farley was also present with a respiratory therapist bedside Reduction was completed by provider; Dr. Kimball was bedside and assisted Following reduction examination was completed - leg length was equal, foot was warm and well perfused Abduction pillow was placed between legs Recommend patient avoid bending at the hip, avoiding bending at the knees over 90 degrees, knees must be wider than hips at all times to avoid adduction, must sleep with abduction pillow present DOLORES Farley was contacting [facility] to alert their orthopedic team of his dislocation Patient will have follow-up with [facility] as per their recommendations Patient had opportunity to have questions answered prior to procedure Will contact [facility] if issues arise or present to the ER Review of Systems Constitutional Constitutional: Denies frequent falls and Reports weakness (Over the past several years with radiation for bladder and lung cancer) Musculoskeletal Musculoskeletal: Denies numbness and Denies tingling Neurologic Neurologic: Reports as per HPI, Denies frequent falls, Denies numbness, Denies tingling and Reports weakness (Over the past several years with radiation for bladder and lung cancer) Comments: Denies muscle or overall weakness change in the past 48 hours PFSH All Active Problems (Updated 12/26/21 @ 14:45 by Fernando Kimball MD) Weakness generalized (Acute) Mechanical instability of hip prosthesis (Acute) Closed dislocation of right hip (Acute 12/24/21) UTI (urinary tract infection) (Acute) Displaced fracture of right femoral neck (Acute 12/02/21) s/p right unipolar [facility] Nicotine dependence, cigarettes, uncomplicated (Acute) COPD (chronic obstructive pulmonary disease) (Chronic) Anemia, autoimmune hemolytic (Acute) Lung mass (Acute) primary malignant 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 H/O total cystectomy Transurethral Resection of Bladder Tumor, >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) Family History Father Heart disease Social History Smoking/Tobacco Use Status: Current every day Tobacco Type: cigarettes Years smoked: 50 Smoking risk assessment performed?: Yes Alcohol Intake: current Alcohol Intake frequency: holidays/special occasions only Drug use: Never Substance use type: does not use Do you feel safe at home: Yes Do you feel safe in your relationship?: Yes Exam Const General: cooperative, uncomfortable and no acute distress Nutritional Appearance: well nourished Orientation: awake and oriented to person Resp Effort & Inspection: normal respiratory effort and able to speak in complete sentences Extrem Other: Right lower extremity examination: On visual examination - his right leg is mildly shortened, adducted and internally rotated. Skin is intact without significant signs of edema, erythema or calor. There are resolving ecchymosis along the lateral hip as well as bandage from recent surgery. Sensation to light touch was intact along the lower extremity including the superficial and deep peroneal nerves. Brisk capillary refill of his great toe is noted. He is able to demonstrate flexion and extension of his toes without issue. After reduction while patient was still sedated - bandage was removed. Steri-strips were in place. Incision is well approximated without signs of erythema, edema or calor. No signs of purulent discharge was noted. Results Last Vital Signs Temp 36.4 C L 12/24/21 10:53 Pulse 69 12/24/21 11:16 Resp 18 12/24/21 11:16 BP 104/59 L 12/24/21 11:16 Pulse Ox 95 12/24/21 11:16 Labs Result diagrams: 12/24/21 11:10 12/24/21 11:10 Labs: Laboratory Results - last 24 hr 12/24/21 12/24/21 11:10 11:10 WBC 5.65 RBC 2.27 L Hgb 8.7 L Hct 27.7 L MCV 122.0 H MCH 38.3 H MCHC 31.4 L RDW Not Applicable Plt Count 164 MPV 9.9 Immature Gran % 0.0 Neutrophils % 75.0 Band Neutrophils % 2 Lymphocytes % 21.0 Atypical Lymphs % 1 Monocytes % 0.0 Eosinophils % 1.0 Basophils % 0.0 Nucleated RBC % 0 Absolute Neutrophils 4.35 Absolute Lymphocytes 1.24 Absolute Monocytes 0.00 L Absolute Eosinophils 0.06 Absolute Basophils 0.00 RBC Morphology See Below Anisocytosis 2+ Macrocytosis 2+ Sodium 140 Potassium 4.1 Chloride 107 Carbon Dioxide 28.7 Anion Gap 4.3 BUN 30 H Creatinine 1.6 H Estimated GFR/1.73 m2 43.07 Glucose 113 H Calcium 8.5 Total Bilirubin 0.7 AST 16 ALT 48 Alkaline Phosphatase 85 Total Protein 5.8 L Albumin 2.8 L Imaging Imaging Studies: ER had obtained AP pelvis and lateral views of the right hip which show prosthesis head is superiorly dislocated in relation to acetabulum. Difficult to visualize on lateral view but as per Dr. Kimball read appears to be posteriorly dislocated. Prosthesis component is well aligned in femoral shaft without signs of lucency or obvious fracture. No obvious additional acute bony abnormalities are noted. Procedures Orthopedic Joint Reduction Joint #1: Time out performed: Yes Side: right Joint reduction location: hip Analgesia: procedural sedation Technique used: direct manipulation Post-reduction neuro exam: intact Post-reduction vascular exam: intact Post-reduction x-ray obtained: Yes Post-reduction x-ray results: reduced Splint applied: Yes (abduction pillow) Patient tolerated procedure: well Additional comments: Stable to 90 degrees of flexion and ~10-15 degrees of internal rotation; subluxed with adduction Documented by User: Fernando Kimball MD 12/28/21 12:54 Assessment and Plan Assessment and plan (1) Closed dislocation of right hip: Status: Acute Assessment and plan: I interviewed and examined the patient with Kate Kelley PA-C. I agree with the documentation as above. The assessment and plan were formulated with my direct involvement. Mauro is a 71-year-old who underwent a right hip hemiarthroplasty for fracture. This was performed at [facility] by Dr. Hill from a posterior approach. He was initially discharged home via [facility] as he had to go there for radiation treatment. His reports that he was making some progress but unfortunately dislocated his hip last night while sleeping. His low-energy dislocation of the hip hemiarthroplasty is quite concerning. I do not see any significant abnormalities on the x-ray to suggest that that was severely malposition although retroversion is still a possibility. While he was under sedation the hip was tested and did show to be fairly unstable tolerating only 10 or so degrees of internal rotation, especially any abduction approaching the midline. At this point, being the first time dislocation I do think is reasonable to treat without any other invasive procedure. I encouraged him to keep his knees wider than his hips at all times. He should keep his hips pointing away and no flexion past 90 degrees to the hip itself. Should wear the abduction pillow when he is in bed or sleeping. Also caution and sleeping on his left side as this may cause adduction of the right hip. Unfortunately, dislocation of the hip hemiarthroplasty is not common but when it does occur is associated with notable morbidity with need for multiple interventions. I am cautious that this once I dislocation will be it and that we can treat this nonoperatively. Will be discharged home using assistive device at all times. He will follow-up with myself or with [facility] within the next 2 weeks. Fernando Kimball MD FAAOS FAAHKS PFSH All Active Problems (Updated 12/26/21 @ 14:45 by Fernando Kimball MD) Weakness generalized (Acute) Mechanical instability of hip prosthesis (Acute) Closed dislocation of right hip (Acute 12/24/21) UTI (urinary tract infection) (Acute) Displaced fracture of right femoral neck (Acute 12/02/21) s/p right unipolar [facility] Nicotine dependence, cigarettes, uncomplicated (Acute) COPD (chronic obstructive pulmonary disease) (Chronic) Anemia, autoimmune hemolytic (Acute) Lung mass (Acute) primary malignant 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 H/O total cystectomy Transurethral Resection of Bladder Tumor, >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) Family History Father Heart disease Social History Smoking/Tobacco Use Status: Current every day Tobacco Type: cigarettes Years smoked: 50 Smoking risk assessment performed?: Yes Alcohol Intake: current Alcohol Intake frequency: holidays/special occasions only Drug use: Never Substance use type: does not use Do you feel safe at home: Yes Do you feel safe in your relationship?: Yes Results Labs Result diagrams: 12/24/21 11:10 12/24/21 11:10
[2021-12-24] MEDS: LORazepam 2 MG/ML VIAL 0.5 MG IVP (13:03)
[2021-12-24] MEDS: Propofol 200 MG/20 ML VIAL 100 MG IVP (13:45)
--- NOTE | 2021-12-24 13:49 | DI.RAD_ITS ---
Exam(s) XR HIP RT COMPLETE AP PELVIS EXAM: XR HIP RT COMPLETE AP PELVIS CLINICAL HISTORY: right hip. TECHNIQUE: 2D digital imaging was performed. COMPARISON: CR XR PELVIS AP from 12/02/2021 FINDINGS: On this single view there appears to be realignment of the hip prosthesis within the [place] acetabulu m. IMPRESSION: DATA REPOSITORY: RADIATION DOSE DELIVERED:
--- NOTE | 2021-12-24 18:29 | NUR.NOTE ---
Medication list with meds given today @ 10am was mailed to the patient. Tigist Pérez Note:
== END 2021-12-24 17:34 | disposition home or self-care (01) ==
PROVIDERS: Physician Assistant; Emergency Provider Registered Nurse Emergency; PCP Internal Medicine
DX: T84.020A Dislocation of internal right hip prosthesis, initial encounter (principal); X50.1XXA Overexertion from prolonged static or awkward postures, initial encounter; I95.81 Postprocedural hypotension; R00.0 Tachycardia, unspecified
CPT/HCPCS: 27265; 36415; 80053; 93005; 96361; 96374; 96375; 73502; 85025; 93010; J2060; J2704; J3010

== ENCOUNTER 2021-12-26 01:20 | Inpatient (IN) | payer MEDICARE, OTHER, SELFPAY ==
[2021-12-26] VITALS (176 sets, daily range): BP systolic 56–115; BP diastolic 41–88; PULSE 58–151; RESP 7–28; TEMP 35.7–36.8; O2SAT 89–100
--- NOTE | 2021-12-26 01:15 | DI.RAD_ITS ---
Exam(s) XR HIP RT COMPLETE AP PELVIS EXAM: XR HIP RT COMPLETE AP PELVIS CLINICAL HISTORY: ?dislocation. TECHNIQUE: 2D digital imaging was performed of the right hip. Three images were obtained. AP pelvis and lateral right hip views were obtained. COMPARISON: CR XR HIP RT COMPLETE AP PELVIS from 12/24/2021 FINDINGS: BONES: No acute fracture is present. No bony destructive lesion is seen. JOINTS: The patient has a bipolar right hip prosthesis. The prosthetic femoral head is located super ior to the acetabulum. SOFT TISSUE: Normal. IMPRESSION: Right hip dislocation. DATA REPOSITORY: RADIATION DOSE DELIVERED:
--- NOTE | 2021-12-26 01:33 | ED.GENADUL_ITS ---
Discharge Plan Disposition Patient Disposition: [facility] INPATIENT Condition: Stable Discharge Details Clinical Impression: Closed dislocation of right hip Primary Care Provider: Steve Neil ED Provider: Viral Kee Home Meds and New Rx's Prescriptions: Continued Stiolto Respimat 2.5-2.5 mcg/actuation mist 2 puff inhalation DAILY Qty: 4 8RF levalbuterol tartrate 45 mcg/actuation HFA aerosol inhaler 2 inh inhalation Q6H Qty: 15 8RF pantoprazole [Protonix] 20 mg tablet,delayed release (DR/EC) 20 mg PO DAILY 0RF furosemide 20 mg tablet 20 mg PO DAILY 0RF folic acid 1 mg tablet 2 mg PO DAILY 0RF atorvastatin 80 mg tablet 80 mg PO QPM 0RF Label Comments: Take 1 tablet by mouth every evening docusate sodium [Colace] 100 mg Capsule 100 mg PO DAILY PRN0RF bupropion HCl 150 mg tablet extended release 24 hr 150 mg PO DAILY 0RF Label Comments: TAKE 1 TABLET BY MOUTH ONCE DAILY metoprolol succinate 200 mg tablet extended release 24 hr 200 mg PO DAILY 0RF sulfamethoxazole-trimethoprim 800-160 mg tablet 1 tab PO .THREE TIMES A WEEK 0RF Label Comments: TAKE 1 TABLET BY MOUTH THREE TIMES A WEEK zolpidem 5 mg tablet 5 mg PO HS PRN0RF Label Comments: TAKE 1 TABLET BY MOUTH AT BEDTIME NEEDED prednisone 20 mg tablet 20 mg PO DAILY 0RF Label Comments: TAKE 4 TABLETS BY MOUTH ONCE DAILY FOR 3 DAYS, THEN 3 TABS DAILY FOR 3 DAYS, THEN 2 TABS DAILY FOR 3 DAYS, THEN 1 TABLET DAILY THEREAFTER FOR 20 DAYS cyanocobalamin (vitamin B-12) 1,000 mcg Tablet 1,000 mcg PO DAILY 0RF nicotine (polacrilex) 4 mg Gum 4 mg buccal Q2H PRN0RF nicotine 21 mg/24 hr Patch 24 Hour 1 patch TRANSDERMAL Q24H 0RF hydromorphone (PF) 2 mg/mL Solution 0.5 mg IVP Q3H PRN PRNQty: 0 0RF polyethylene glycol 3350 17 gram Powder In Packet 17 g PO DAILY PRN PRN (Reason: Constipation) Qty: 0 0RF levalbuterol HCl 0.63 mg/3 mL Solution For Nebulization 0.63 mg UPD Q2H PRN PRNQty: 0 0RF oxycodone 5 mg Tablet 10 mg PO Q4H PRN PRNQty: 0 0RF clopidogrel 75 mg tablet 75 mg PO DAILY 0RF magnesium 250 mg Tablet 500 mg PO DAILY 0RF calcium carbonate-vitamin D3 [Calcium 500 + D] 500 mg-10 mcg (400 unit) Tablet 1 tab PO DAILY 0RF Xarelto 20 mg tablet 20 mg PO DAILY 0RF Label Comments: TAKE 1 TABLET BY MOUTH ONCE DAILY acetaminophen 325 mg Tablet 650 mg PO .[id number] 0RF aspirin 81 mg Tablet,Chewable 81 mg PO DAILY 0RF Discharge Instructions Additional Instructions: Do not bend your head, 90 degrees Do not cross the midline of the body with your right leg Do not rotate the affected extremity inward in bed? use adductor pad to keep hip from rolling inward toe-touch weightbearing to right leg as tolerated Take your pain medication as needed and return earlier should you have new or worsening complaints Please return for any dizziness, lightheadedness or if BP does not return to baseline. Please get up slowly from a sitting position. follow up with orthopedics Medical Decision Making <Freddie Gutiérrez MD - Last Filed: 12/26/21 06:17> 71 yo male with multiple medical problems including copd, cad, cml, who had recent right hip arthroplasty secondary to right hip fracture (repaired at [facility] due to his significant medical comorbidities), who had a hip dislocation reduced in the ED here on 12/24 comes in with complaints of it being dislocated again. He states he went to bed and woke up to use the commode. He stood up and pivoted a nd had immediate pain and felt a pop in the right hip, denies loc or hitting his head. Has no headache, neck pain, chest pain, abdomen pain. His right leg is shortened and internally rotated and is tender in the right hip area. No tenderness in the mid/distal femur, knee, tib/fib or ankle/foot and has normal distal sensation. Suspect recurrent hip dislocation, will obtain xray to further evaluate xray confirms hip dislocation, pt stable, BP is in the 90's but seems he had similar issue with pain meds and propofol last time he was here, denies lightheaded senstaion, chest pain or dyspnea. Consulted ortho Dr. martinez who will be in to assist with closed reduction. Again discussed risks/benefits of sedation and he consents to having procedural sedation patient's pain well controlled with 1.5mg IV dilaudid. Was given 100mg IV propofol with successful reduction of the right hip dislocation. He did have brief apnea lasting less than a minute which assisted BVM ventilations were applied, no hypoxia and had transient hypotension with systolic in the high 60's for one blood pressure cycle lasting a minute. He gradually regained consciousness and mental status returned to baseline. BP now in the high 80's low 90's which is similar to his prior sedation. Dr. martinez is discussing options for surgery here but may need to again be evaluated at [facility]. Differential Diagnosis Differential Diagnosis: hip dislocation, hip fracture Medical Records Medical records reviewed: Yes I reviewed the patient's medical records. Imaging Data Radiologic Study: Radiologist's impression: FINDINGS: Bones/joints: Right hip hemiarthroplasty is dislocated from the [place] acetabulum. The prosthetic femoral head is superior to the [place] acetabulum. No fractures are appreciated. Soft tissues: Unremarkable. IMPRESSION: Right hip dislocation. Radiologic Study #2: My impression: sucessful reduction of right hip dislocation <Viral Kee MD - Last Filed: 12/26/21 09:25> 71 yo male with multiple medical problems including copd, cad, cml, who had recent right hip arthroplasty secondary to right hip fracture (repaired at [facility] due to his significant medical comorbidities), who had a hip dislocation reduced in the ED here on 12/24 comes in with complaints of it being dislocated again. He states he went to bed and woke up to use the commode. He stood up and pivoted and had immediate pain and felt a pop in the right hip, denies loc or hitting his head. Has no headache, neck pain, chest pain, abdomen pain. His right leg is shortened and internally rotated and is tender in the right hip area. No tenderness in the mid/distal femur, knee, tib/fib or ankle/foot and has normal distal sensation. Suspect recurrent hip dislocation, will obtain xray to further evaluate xray confirms hip dislocation, pt stable, BP is in the 90's but seems he had similar issue with pain meds and propofol last time he was here, denies lightheaded senstaion, chest pain or dyspnea. Consulted ortho Dr. martinez who will be in to assist with closed reduction. Again discussed risks/benefits of sedation and he consents to having procedural sedation patient's pain well controlled with 1.5mg IV dilaudid. Was given 100mg IV propofol with successful reduction of the right hip dislocation. He did have brief apnea lasting less than a minute which assisted BVM ventilations were applied, no hypoxia and had transient hypotension with systolic in the high 60's for one blood pressure cycle lasting a minute. He gradually regained consciousness and mental status returned to baseline. BP now in the high 80's low 90's which is similar to his prior sedation. Dr. martinez is discussing options for surgery here but may need to again be evaluated at [facility]. Addendum: I received care of the patient from Dr. Gutiérrez. Patient was evaluated by Dr. Martinez. He will require a nonurgent redo of right total hip arthropla sty. Dr. Martinez has discussed with both the [facility] and [facility]. Will consider swing bed admission for today. HPI <Freddie Gutiérrez MD - Last Filed: 12/26/21 06:17> General Mode of arrival: EMS . Date/Time Provider Initiated Documentation: 12/26/21 01:24 . Limitations to Documentation: no limitations . Information obtained by: patient . History of Present Illness 71 year old M presents to the emergency department with the chief complaint of right hip pain, described as severe, with intensity rated at 10. Quality is described as constant, and is localized to the right (hip). Patient reports no radiation. Patient started experiencing this hour(s) (1) and it has been constant. improves with Rest improves symptom(s), Movement worsens symptoms . Patient notes no other symptoms.. Patient did receive the following treatments prior to arrival, other (100mcg fentanyl with ems) Related Data Home Medications Medication Instructions Recorded Confirmed atorvastatin 80 mg tablet 80 mg PO QPM 06/13/21 12/26/21 docusate sodium 100 mg capsule 100 mg PO DAILY PRN 06/13/21 12/26/21 (Colace) folic acid 1 mg tablet 2 mg PO DAILY tab 10/03/21 12/26/21 furosemide 20 mg tablet 20 mg PO DAILY 10/03/21 12/26/21 pantoprazole 20 mg tablet,delayed 20 mg PO DAILY 10/03/21 12/26/21 release (Protonix) levalbuterol tartrate 45 2 inh INHALATION Q6H #15 g 11/12/21 12/26/21 mcg/actuation aerosol inhaler tiotropium 2.5 mcg-olodaterol 2.5 2 puff INHALATION DAILY #4 g 11/12/21 12/26/21 mcg/actuation mist for inhalation (Stiolto Respimat) bupropion HCl 150 mg 24 hr tablet, 150 mg PO DAILY 12/02/21 12/26/21 extended release cyanocobalamin (vitamin B-12) 1,000 mcg PO DAILY 12/02/21 12/26/21 1,000 mcg tablet metoprolol succinate 200 mg 200 mg PO DAILY 12/02/21 12/26/21 tablet,extended release 24 hr nicotine (polacrilex) 4 mg gum 4 mg BUCCAL Q2H PRN 12/02/21 12/26/21 nicotine 21 mg/24 hr daily 1 patch TRANSDERMAL Q24H 12/02/21 12/26/21 transdermal patch prednisone 20 mg tablet 20 mg PO DAILY 12/02/21 12/26/21 sulfamethoxazole 800 1 tab PO .THREE TIMES A WEEK 12/02/21 12/26/21 mg-trimethoprim 160 mg tablet zolpidem 5 mg tablet 5 mg PO HS PRN 12/02/21 12/26/21 hydromorphone (PF) 2 mg/mL 0.5 mg (0.25 mL) IVP Q3H PRN PRN 12/03/21 12/26/21 injection solution #0 ml levalbuterol HCl 0.63 mg/3 mL 0.63 mg (3 mL) UPD Q2H PRN PRN #0 12/03/21 12/26/21 solution for nebulization ml oxycodone 5 mg tablet 10 mg PO Q4H PRN PRN #0 tab 12/03/21 12/26/21 polyethylene glycol 3350 17 gram 17 g PO DAILY PRN PRN #0 ea 12/03/21 12/26/21 oral powder packet acetaminophen 325 mg tablet 650 mg PO .[id number] 12/24/21 12/26/21 aspirin 81 mg chewable tablet 81 mg PO DAILY 12/24/21 12/26/21 calcium carbonate 500 mg-vitamin 1 tab PO DAILY 12/24/21 12/26/21 D3 10 mcg (400 unit) tablet (Calcium 500 + D) clopidogrel 75 mg tablet 75 mg PO DAILY 12/24/21 12/26/21 magnesium 250 mg tablet 500 mg PO DAILY 12/24/21 12/26/21 rivaroxaban 20 mg tablet (Xarelto) 20 mg PO DAILY 12/24/21 12/26/21 Previous Rx's Medication Instructions Recorded levalbuterol tartrate 45 2 inh INHALATION Q6H #15 g 11/12/21 mcg/actuation aerosol inhaler tiotropium 2.5 mcg-olodaterol 2.5 2 puff INHALATION DAILY #4 g 11/12/21 mcg/actuation mist for inhalation (Stiolto Respimat) hydromorphone (PF) 2 mg/mL 0.5 mg (0.25 mL) IVP Q3H PRN PRN 12/03/21 injection solution #0 ml levalbuterol HCl 0.63 mg/3 mL 0.63 mg (3 mL) UPD Q2H PRN PRN #0 12/03/21 solution for nebulization ml oxycodone 5 mg tablet 10 mg PO Q4H PRN PRN #0 tab 12/03/21 polyethylene glycol 3350 17 gram 17 g PO DAILY PRN PRN #0 ea 12/03/21 oral powder packet Allergies Allergy/AdvReac Type Severity Reaction Status Date / Time No Known Allergies Allergy Unverified 12/26/21 01:42 General Stated Complaint: Orthopedic MARY ANNE: 2 Review of Systems <Freddie Gutiérrez MD - Last Filed: 12/26/21 06:17> All systems reviewed & are unremarkable except as noted in HPI and below Constitutional Constitutional: Denies chills, Denies fever(s) and Denies weakness Cardiovascular Cardiovascular: Denies chest pain and Denies dyspnea Respiratory Respiratory: Denies cough and Denies dyspnea Gastrointestinal Gastrointestinal: Denies abdominal pain, Denies nausea and Denies vomiting Musculoskeletal Musculoskeletal: Denies joint swelling Integumentary/Breasts Skin/Breast: Denies rash Neurologic Neurologic: Denies weakness PFS <Freddie Gutiérrez MD - Last Filed: 12/26/21 06:17> All Active Problems (Updated 12/26/21 @ 06:44 by Fernando Martinez MD) Mechanical instability of hip prosthesis (Acute) Closed dislocation of right hip (Acute 12/24/21) UTI (urinary tract infection) (Acute) Displaced fracture of right femoral neck (Acute 12/02/21) s/p right unipolar [facility] Nicotine dependence, cigarettes, uncomplicated (Acute) COPD (chronic obstructive pulmonary disease) (Chronic) Anemia, autoimmune hemolytic (Acute) Lung mass (Acute) primary malignant 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 H/O total cystectomy Transurethral Resection of Bladder Tumor, >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) Family History Father Heart disease Social History Smoking/Tobacco Use Status: Current every day Tobacco Type: cigarettes Years smoked: 50 Smoking risk assessment performed?: Yes Alcohol Intake: current Alcohol Intake frequency: holidays/special occasions only Drug use: Never Substance use type: does not use Do you feel safe at home: Yes Do you feel safe in your relationship?: Yes Exam <Freddie Gutiérrez MD - Last Filed: 12/26/21 06:17> Const General: no acute distress Orientation: alert [facility] Head: normal to inspection Ears: external ears normal General nose exam: external nose normal Mouth: moist mucous membranes Eyes General: appearance normal, both eyes and all related structures Neck Neck: normal visual inspection Resp Effort & Inspection: normal respiratory effort and able to speak in complete sentences Cardio Rate: regular rate Skin General skin exam: no rashes or lesions noted Neuro General: patient alert and patient oriented x3 Extrem General: capillary refill normal Psych Mental Status: mental status grossly normal Course <Freddie Gutiérrez MD - Last Filed: 12/26/21 06:17> Vital Signs Vital signs: Vital Signs Temperature 35.7 C L 12/26/21 01:26 Pulse 113 H 12/26/21 01:26 Respiratory Rate 20 12/26/21 01:26 Blood Pressure 115/73 12/26/21 01:26 Pulse Oximetry 97 12/26/21 01:26 Temperature 35.7 C L 12/26/21 01:26 Temperature Source Skin 12/26/21 01:26 Pulse 113 H 12/26/21 01:26 Respiratory Rate 20 12/26/21 01:26 Blood Pressure 115/73 12/26/21 01:26 Blood Pressure Position Supine 12/26/21 01:26 Pulse Oximetry 97 12/26/21 01:26 Oxygen Delivery Method Room Air 12/26/21 01:26 Oxygen Flow Rate 0 12/26/21 01:26 Pain Level 9 12/26/21 01:26 Procedures <Freddie Gutiérrez MD - Last Filed: 12/26/21 06:17> Procedural Sedation Indication: fracture/dislocation reduction ASA Class: III Time of Last PO Intake: 17:00 Preparation: monitoring coordinator applied, pulse oximeter, capnometry used and supplemental O2 applied IV Propofol dose (mg): 100 Complications: hypoventilation Sign Out <Freddie Gutiérrez MD - Last Filed: 12/26/21 06:17> Sign Out Data: Sign Out Comment: right hip fracture at the end of November repaired at [facility] due to anesthesia here feeling as though he was too medically complex. He had a dislocation reduced in the ED 12/24 and returned tonight with recurrent dislocation. Has mild hypotension which he had on 12/24 and seems to be his baseline (systolics in the 80-90's). Dr. Martinez determining dispo, may need to be transferred again. Last updated by Freddie Gutiérrez MD at 12/26/21 06:16
[2021-12-26] MEDS: HYDROmorphone 2 MG/ML VIAL 1 MG IVP (01:37)
[2021-12-26] MEDS: Normal Saline 500 ML IV (02:25)
--- NOTE | 2021-12-26 02:27 | DI.VRAD_ITS ---
PROCEDURE INFORMATION: Exam: XR Right Hip Exam date and time: 12/26/2021 1:19 AM Age: 71 years old Clinical indication: Other: ? Dislocation TECHNIQUE: Imaging protocol: XR Right hip. Views: 2 or 3 views hip with pelvis when performed. COMPARISON: CR XR HIP RT COMPLETE AP PELVIS 12/24/2021 3:21 PM FINDINGS: Bones/joints: Right hip hemiarthroplasty is dislocated from the [place] acetabulum. The prosthetic femoral head is superior to the [place] acetabulum. No fractures are appreciated. Soft tissues: Unremarkable. IMPRESSION: Right hip dislocation. Dictated and Authenticated by: Freddie Le MD. Ordering:KEVIN Frazier MD
[2021-12-26] MEDS: HYDROmorphone 2 MG/ML VIAL 0.5 MG IVP (03:35)
--- NOTE | 2021-12-26 05:45 | DI.RAD_ITS ---
Exam(s) XR PELVIS AP EXAM: XR PELVIS AP CLINICAL HISTORY: rt hip post reduction film. TECHNIQUE: 2D digital imaging was performed. COMPARISON: CR XR PELVIS AP from 12/02/2021 FINDINGS: BONES: No acute fracture is present. No bony destructive lesion is seen. JOINTS: There has been successful reduction of the right hip prostatic dislocation. The bipolar pros thesis is well seated within the acetabulum. No joint space narrowing is present. SOFT TISSUE: Normal. IMPRESSION: Successful reduction of the right hip dislocation. The right hip prosthesis is well seated within th e acetabulum. DATA REPOSITORY: RADIATION DOSE DELIVERED:
[2021-12-26] MEDS: Normal Saline 1,000 ML 1000 ML IV (05:50)
[2021-12-26] MEDS: Propofol 200 MG/20 ML VIAL 100 MG IVP (05:59)
--- NOTE | 2021-12-26 06:38 | W.ORTHOCONSU ---
History of Present Illness Narrative: Mauro is a 71-year-old who is status post right hip hemiarthroplasty for femoral neck fracture. This was performed at [facility] by Dr. Hill. He was discharged to home but unfortunately approximately 17 or 18 days after surgery he suffered a dislocation in his sleep. He was having a pillow between the knees. Close reduction was performed in the emergency department here on December 24, less than 48 hours ago. Early this morning he stood out of the bed and turned to use the commode when he felt a pop and had an obvious repeat dislocation. He was brought into the emergency department and diagnosed with a repeat dislocation of his right hip hemiarthroplasty. He has been wearing the abduction pillow at all times. Has been very cautious to keep his knees wider than his hips. He does not recall any excessive flexion nor adduction of the right leg. He denies any numbness or tingling. Denies any fevers or chills. He has had no drainage from the wound. Assessment and Plan Assessment and plan (1) Mechanical instability of hip prosthesis: Status: Acute Assessment and plan: Mauro is a 71-year-old who presents to the emergency department for repeat dislocation of his right hip hemiarthroplasty. The hip is grossly unstable. Dr. Gutiérrez performed the reduction maneuver in the emergency department but I tested afterwards as I also tested on December 24. He is able to obtain 90 degrees of flexion. At about 10 degrees of internal rotation there is subluxation and that is with no adduction and if anything some slight abduction. Any additional adduction with the slight internal rotation causes subluxation and recurrent dislocation of the right hip. The hip was successfully reduced with minimal effort and with propofol sedation. He tolerated this well. At this point, he has now had 2 dislocation events in less than 48 hours. The hip is highly unstable based on his clinical exam under sedation and also based on how he is dislocated both times, 1 being asleep and one while standing up. In evaluation of the postreduction films there may be some slight lack of offset on the right side and may be some shortening of the right hip by few millimeters. Grossly the appearance of the appears to be reasonable. The center edge angle is about 40 degrees which is within normal limits. There is a high femoral neck which may indicate poor offset methodist but in general no gross abnormalities that I can appreciate. Nevertheless, which is gross instability is probably reasonable to consider revision to at least repair the posterior soft tissues and increase the head neck length if not convert the acetabulum to a dual mobility construct. Unfortunately, he has multiple medical issues with recent new diagnoses of leukemia and congestive heart failure and COPD. He is being managed currently by multiple providers and is relatively stable in his medical treatment. He is on Xarelto for recurrent pulmonary emboli. I spoke at length with his , Mady, who would like to stay local if possible. Unfortunately he was transferred initially to the [facility] for his medical issues and concern about anesthesia. I will review this case once again with our anesthesia providers. If he is deemed not a surgical candidate here than I would work on transfer for secondary evaluation likely revision surgery in the near future. Review of Systems All systems reviewed & are unremarkable except as noted in HPI and below PFSH All Active Problems (Updated 12/26/21 @ 06:44 by Fernando Kimball MD) Mechanical instability of hip prosthesis (Acute) Closed dislocation of right hip (Acute 12/24/21) UTI (urinary tract infection) (Acute) Displaced fracture of right femoral neck (Acute 12/02/21) s/p right unipolar [facility] Nicotine dependence, cigarettes, uncomplicated (Acute) COPD (chronic obstructive pulmonary disease) (Chronic) Anemia, autoimmune hemolytic (Acute) Lung mass (Acute) primary malignant 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 H/O total cystectomy Transurethral Resection of Bladder Tumor, >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) Family History Father Heart disease Social History Smoking/Tobacco Use Status: Current every day Tobacco Type: cigarettes Years smoked: 50 Smoking risk assessment performed?: Yes Alcohol Intake: current Alcohol Intake frequency: holidays/special occasions only Drug use: Never Substance use type: does not use Do you feel safe at home: Yes Do you feel safe in your relationship?: Yes Exam Narrative Exam Narrative: Resting in the supine position in the hospital stretcher. The right leg is obviously internally rotated and shortened. The incision about the right posterior hip is well approximated with some swelling around the edges but no signs of infection. No fluctuance. Minor induration. Resolving ecchymosis is also present. He is able to actively extend and flex the great toe as well as dorsiflex and plantarflex the right ankle. Sensation is grossly intact over the deep and superficial peroneal nerve and tibial nerve. Results Last Vital Signs Temp 35.7 C L 12/26/21 01:26 Pulse 98 H 12/26/21 06:15 Resp 14 12/26/21 06:15 BP 98/59 L 12/26/21 06:15 Pulse Ox 100 12/26/21 06:15
[2021-12-26 07:21] LABS: Source Nasal/Nares
[2021-12-26 07:39] LABS: MCH 38.1 pg (27.0-33.0); MCHC 30.8 % (32.0-36.0); MPV 9.9 fL (8.0-11.0); WBC 4.99 10^3/uL (4.4-10.8)
[2021-12-26 07:47] LABS: Anion Gap 3.9 mmol/L (3-11); BUN 36 mg/dL (7-18); CO2 29.1 mmol/L (21.0-32.0); CREATININE 1.7 mg/dL (0.70-1.30); Calcium 8.6 mg/dL (8.5-10.1); Chloride 110 mmol/L (98-107); Estimated GFR 40.16 (mL/min/1.73m2); Glucose 94 mg/dL (74-106); Potassium 4.2 mmol/L (3.5-5.1); Sodium 143 mmol/L (136-145)
[2021-12-26 07:58] LABS: MCV 123.8 fL (80-95)
[2021-12-26 08:03] LABS: INR 1.1 (0.9-1.1); Prothrombin Time 11.5 sec (9.3-11.0)
[2021-12-26 08:13] LABS: Platelet Count 152 10^3/uL (130-400)
--- NOTE | 2021-12-26 08:20 | DI.VRAD_ITS ---
PROCEDURE INFORMATION: Exam: XR Right Pelvis Exam date and time: 12/26/2021 5:55 AM Age: 71 years old Clinical indication: Other: RT hip post reduction TECHNIQUE: Imaging protocol: XR Right pelvis. Views: 1 or 2 view. COMPARISON: CR XR HIP RT COMPLETE AP PELVIS 12/26/2021 1:49 AM FINDINGS: Bones/joints: Status post right hip hemiarthroplasty. Right hip dislocation has been reduced with the right hip joint in anatomic alignment based on frontal projections. No obvious fractures. Soft tissues: Unremarkable. IMPRESSION: Right hip dislocation has been reduced with the hip joint in anatomic alignment based frontal projections. Dictated and Authenticated by: Micky Bartholomew MD. Ordering:KEVIN Frazier MD
--- NOTE | 2021-12-26 08:22 | DI.US_ITS ---
APPROVED REPORT EXAM: Comprehensive 2D, Doppler, and color-flow Echocardiogram Patient Location: ER Room/Bed: 1 Paint Tinter: Awa Carrillo RDCS (AE) Indications: h/o STEMI, Low EF, A Fib Other Information Study Quality: Fair. Technically limited study due to body habitus, inability to position patient exa m done supine bedside er. Conclusion Normal left ventricular wall thickness and chamber size. Left ventricular systolic function is moder ately to severely reduced. EF is 25 to 30%. There are segmental wall motion abnormalities Normal right ventricular size and systolic function Both atria are normal in size Mild mitral annular calcification with mild regurgitation Normal tricuspid valve with trace to mild regurgitation. Estimated right ventricular systolic pressu re is 28 mmHg Mildly dilated ascending aorta, 3.87 cm Wall motion Left Ventricle The left ventricle is normal size. Left ventricular systolic function is moderately to severely decre ased. There is normal left ventricular wall thickness. Inferior and posterior hypo to akinesis Septum is akinetic There is no ventricular septal defect visualized. LVEF is 25-30%. Right Ventricle The right ventricle is normal size. Right ventricle is mildly hypokinetic. The RVSP is 28.1mmHg. Atria Left atrium is moderately dilated. Right atrium is moderately dilated. The interatrial septum is inta ct with no evidence for an atrial septal defect. Aortic Valve The aortic valve is normal in structure. Aortic valve is trileaflet. There is no aortic valvular sten osis. No aortic regurgitation is present. Mitral Valve Mild mitral annular calcification. No evidence of mitral valve stenosis. Mild mitral regurgitation. Tricuspid Valve The tricuspid valve is normal in structure. There is no tricuspid valve stenosis. Trace to mild tricu spid regurgitation. Pulmonic Valve The pulmonary valve is normal in structure. There is no pulmonic valvular stenosis. There is no pulmo rené valvular regurgitation. Great Vessels The aortic root is normal in size. The ascending aorta is mildly dilated.3.87 cm Aortic arch is not v isualized. IVC is normal in size and collapses >50% with inspiration. Pericardium There is no pericardial effusion. 2D Dimensions IVSD d PLAX 1.27 cm M: 0.6-1.2 LV Vol A2C d MOD 96.1 mL LVPW d PLAX 1.22 cm M: 0.6 - 1.2 LV Vol A4C d MOD 186.5 mL LVID d PLAX 4.82 cm M: 4.2 - 5.8 LA vol/ BSA A2C s A-L 18.2 mL/m2 LVDs 4.25 cm M: 2.5 - 4.0 LA vol/ BSA A4C s A-L 48.4 mL/m2 Ao Root d 3.36 cm M: 3.1 - 3.7 LA Vol/ BSA Biplane s A-L 37.7 mL/m2 RA Area A4C 25.94 cm2 LA Area A4C s MOD 32.91 cm2 RA Vol/ BSA A4C s A-L 33.7 mL/m2 LA Area A2C s MOD 15.90 cm2 Ao Asc Diam d 3.87 cm M: 2.6 - 3.4 LV EF A4C MOD 25.6 % LV EF Teichholz 25.2 % LV EF A2C MOD 25.8 % LVEF ([place]) 24.13 % M: 52 - 72 LV EF Biplane MOD 24.1 % LV Volume 100.37 mL M: 62 - 150 SV 33.92 mL LV Volume Index 43.07 mL/m2 M: 34 - 74 SV Index 14.51 mL/m2 LV Vol Biplane MOD 140.6 mL FS 11.60 % M-Mode TAPSE 1.71 cm (M/F) >1.7 LV Diastology MV E Vmax 0.90 (0.4-1.3 m/s) Aortic Valve LVOT Area 3.47 cm2 AoV Area Vmax 2.52 cm2 LVOT Vmax 0.76 m/s AoV Area/ BSA (Vmax) 1.08 cm2/m2 LVOT Mean Nilesh. 0.47 m/s GRAY Mean Nilesh. 1.88 cm2 LVOT Peak Grad 2.3 mmHg GRAY Mean Nilesh. Index 0.80 cm2/m2 LVOT Mean Grad 1.1 mmHg LVOT VTI 0.103 m LVOT Diam s 2.10 cm AoV Vmax 1.05 m/s Velocity Ratio 0.72 AoV Mean Nilesh. 0.87 m/s AoV Peak Grad 4.4 mmHg LVOT SV 35.83 mL AoV Mean Grad 3.1 mmHg AoV VTI 0.195 m AoV Area VTI 1.83 cm2 AoV Area/ BSA (VTI) 0.78 cm/m2 Mitral Valve MV VTI 0.179 m MR Vmax 3.55 m/s MV VTI Annulus 0.185 m MR VTI 1.108 m MV Area VTI 2.08 (4.0-6.0 cm2) MR Peak Grad 50.5 mmHg MR Mean Grad 34.4 mmHg MR PISA Radius 0.64 cm MR EROA 0.26 cm2 MR Aliasing Velocity 0.35 m/s MR PISA 2.61 cm2 Pulmonary Valve PV Vmax 0.85 (0.5-1.5 m/s) RVOT Peak Gr. 1.42 mmHg PV Peak Grad 2.9 mmHg RVOT Mean Gr. 0.65 mmHg PV Mean Grad 1.3 mmHg RVOT VTI 0.095 m PV VTI 0.123 m RVOT Vmax 0.60 m/s Tricuspid Valve TR Peak Grad 25.0 mmHg TR Vmax 2.50 m/s RA Pressure 3.00 mmHg RVSP (TR) 28.1 mmHg
[2021-12-26 09:03] LABS: COVID-19 PCR Negative (Negative)
[2021-12-26] MEDS: Metoprolol CR 100 MG TABCR 200 MG PO (10:26)
[2021-12-26] MEDS: Pantoprazole 20 MG TABCR PO (10:26)
[2021-12-26] MEDS: buPROPion-XL 150 MG TABCR PO (10:27)
[2021-12-26] MEDS: Atorvastatin 40 MG TAB 80 MG PO (10:27)
--- NOTE | 2021-12-26 12:23 | OCONE_ITS ---
Date of service: 12/26/21 Time of Service: 06:00 History of Present Illness Narrative: Mauro is a 71-year-old who has had significant past medical history over the past few years. He was diagnosed with bladder cancer about 5 or so years ago which was initially treated with less invasive means. Unfortunately had recurrence of this cancer and underwent cystectomy with urostomy through an ileal conduit. 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 He was treated initially with chemotherapy. The summer, May 2021, he was feeling unwell and was diagnosed with a blast crisis from his CLL and was also found to have an NSTEMI. He underwent angiography with stent placement. He has been followed by [facility] and undergoing treatments for his CLL which is in better control. 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 Therefore, he is undergoing chemoradiation as well for this. Additionally, he had pulmonary emboli which is now being treated with Xarelto. Throughout this he has had significant decline in his strength. Unfortunately, in December 02 he had a fall at home landing on his right side. He suffered a transcervical femoral neck fracture on the right side. Due to his medical comorbidities it was advised that surgical treatment be conducted in a tertiary center. He was transferred to the [facility] where he underwent a cemented hemiarthroplasty on December 05. He was in the hospital for a few days before being transferred on to [facility] for continued radiation treatment. He was then discharged home. His reports that he was very weak at first but was able to mobilize. He then started to make some improvements and seem to be gaining some strength. He did not have any physical therapy at the home or outpatient at this point. He was sleeping with a pillow between his knees and was ambulating with a walker. Unfortunately during the night of December night he awoke with pain in his right hip and was unable to mobilize. EMS was called he presented to the emergency department with a diagnosis of a dislocated right hip hemiarthroplasty. I was called in consult at that time and a close reduction was performed with conscious sedation. The hip was found to be stable as long as there was no significant adduction or internal rotation. He was placed into a hip abduction pillow. He was then discharged home with strict posterior precautions. His reports that he was quite weak on that return and had difficulty with mobilization. He got up to the toilet late on the night December 25 and will try to get up from the toilet felt the right hip dislocate once again. He was brought into the emergency department early in the morning on December 26 with a repeat diagnosed of a dislocation of the right hip hemiarthroplasty. Once again, I was called in consultation. A close reduction was performed with conscious sedation. At this point the hip seem to be more unstable with subluxation of the right hip with any internal rotation past 10 degrees in any adduction. Postreduction x-rays did show concentric reduction. No fracture was identified. He currently reports much improved pain control now that the hip is reduced. He does report being weak but denies any fevers or chills. He reports fatigue and malaise in general being tired. He has a good urine output. He denies significant appetite disorder. 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 This hemiarthroplasty typically is not a high dislocation risk. However, once it starts to dislocate it does have difficulty with maintaining reduction is seen in the literature. Given 2 dislocations within 48 hours and how unstable it appeared on examination under sedation, I do not think this will remain stable without further intervention. In critical evaluation of the postreduction pelvic x-ray it does appear to be slightly under offset and slightly shorter but only by few millimeters. He likely has torn the posterior capsule repair. He does not have a significant narrow lateral center edge angle. Is difficult to appreciate rotation of the femoral component on the x- ray but is possible there could be some malrotation of the femoral component. My suspicion would be to proceed with a revision of his hemiarthroplasty, likely leaving the femoral component, and placing an acetabular component with a dual mobility construct. This would be done through a posterior approach to repair the torn posterior capsular tissues and short external rotators. Mauro and his are understanding that this is likely the best next step to allow him to be able to function at a better level. Unfortunately, given his multiple medical comorbidities anesthesia providers deemed that he was too high risk for proceeding here at [facility] with most recent echo, performed at [facility], documented ejection fraction of 27%. I discussed the case with [facility] orthopedics who has no arthroplasty surgeons available at least until later next week. I also discu ssed the case briefly with colleagues at [facility] who did agree that revision surgery is likely necessary. Given his 2 dislocations and his overall weakness I think he would benefit from admission to a swing bed status for therapy services and further attention to prevent recurrent dislocation or other morbidity. I will continue to work with [facility] to find a time for evaluation and likely further treatment of his recurrent dislocation. (2) Lung mass: Status: Acute Assessment and plan: Continue with chemoradiation as per [facility] instructions. (3) COPD (chronic obstructive pulmonary disease): Status: Chronic Assessment and plan: Continue with inhalers as instructed by Dr. Mccain. (4) Pulmonary embolism: Status: Chronic Assessment and plan: Hold Xarelto. Continue with therapeutic dosing of Lovenox to allow stoppage in anticipation of any upcoming surgery. (5) Leukemia: Status: Chronic Assessment and plan: Current blood count is stable. (6) Weakness generalized: Status: Acute Assessment and plan: Mauro has notable weakness from his multiple treatments of multiple medical comorbidities. He has had difficulty functioning at home and therefore would benefit from further intervention with therapy services in anticipation of likely further surgery in the near future. Review of Systems All systems reviewed & are unremarkable except as noted in HPI and below PFSH All Active Problems (Updated 12/26/21 @ 14:45 by Fernando Kimball MD) Weakness generalized (Acute) Mechanical instability of hip prosthesis (Acute) Closed dislocation of right hip (Acute 12/24/21) UTI (urinary tract infection) (Acute) Displaced fracture of right femoral neck (Acute 12/02/21) s/p right unipolar [facility] Nicotine dependence, cigarettes, uncomplicated (Acute) COPD (chronic obstructive pulmonary disease) (Chronic) Anemia, autoimmune hemolytic (Acute) Lung mass (Acute) primary malignant 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 H/O total cystectomy Transurethral Resection of Bladder Tumor, >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) Family History Father Heart disease Social History Smoking/Tobacco Use Status: Current every day Tobacco Type: cigarettes Years smoked: 50 Smoking risk assessment performed?: Yes Alcohol Intake: current Alcohol Intake frequency: holidays/special occasions only Drug use: Never Substance use type: does not use Do you feel safe at home: Yes Do you feel safe in your relationship?: Yes Exam Const General: cooperative and frail appearing Nutritional Appearance: average body habitus Orientation: alert, awake and oriented x3 HENMT Head: normal to inspection, normocephalic and atraumatic Eyes General: appearance normal, both eyes and all related structures Resp Effort & Inspection: normal respiratory effort and able to speak in complete sentences Cardio Rate: tachycardic Rhythm: abnormal rhythm irregularly irregular Extrem Other: The right lower extremity initially was shortened and externally rotated. He was able to demonstrate active dorsiflexion plantarflexion of the right foot as well as extension and flexion of the great toe. The incision about the right hip is well approximated with resolving ecchymosis and some swelling but no sign of infection. After reduction the like in a more normal appearance with slight external rotation and appropriate leg lengths. I was able to passively internally externally rotate the leg in a supine position without significant pain. Results Last Vital Signs Temp 35.7 C L 12/26/21 01:26 Pulse 81 12/26/21 11:50 Resp 14 12/26/21 11:51 BP 86/54 L 12/26/21 11:50 Pulse Ox 99 12/26/21 11:50 Labs Result diagrams: 12/26/21 07:30 12/26/21 07:30 Labs: Laboratory Results - last 24 hr 12/26/21 12/26/21 12/26/21 07:14 07:30 07:30 WBC 4.99 RBC 2.10 L Hgb 8.0 L Hct 26.0 L MCV 123.8 H MCH 38.1 H MCHC 30.8 L RDW Plt Count 152 MPV 9.9 PT INR APTT Sodium 143 Potassium 4.2 Chloride 110 H Carbon Dioxide 29.1 Anion Gap 3.9 BUN 36 H Creatinine 1.7 H Estimated GFR/1.73 m2 40.16 Glucose 94 Calcium 8.6 COVID-19 Source Nasal/Nares SARS-CoV-2 (PCR) Negative 12/26/21 07:33 WBC RBC Hgb Hct MCV MCH MCHC RDW Plt Count MPV PT 11.5 H INR 1.1 APTT 25.0 Sodium Potassium Chloride Carbon Dioxide Anion Gap BUN Creatinine Estimated GFR/1.73 m2 Glucose Calcium COVID-19 Source SARS-CoV-2 (PCR)
--- NOTE | 2021-12-26 13:46 | PDOC.CMIN ---
- If Service Date Differs Date of service: 12/26/21 Time of Service: 13:46 Care Management Initial Assess REASON FOR HOSPITALIZATION:: Right prosthetic hip instability. PAST MEDICAL HISTORY/PAST SURGICAL HISTORY:: All Active Problems: Mechanical instability of hip prosthesis (Acute),. Closed dislocation of right hip (Acute 12/24/21), UTI (urinary tract infection) (Acute), Displaced fracture of right femoral neck (Acute 12/02/21) - s/p right unipolar - [facility], Nicotine dependence, cigarettes, uncomplicated (Acute), COPD (chronic obstructive pulmonary disease) (Chronic), Anemia, autoimmune hemolytic (Acute), Lung mass (Acute) - primary malignant 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, Cardiomyopathy (Acute), CAD (coronary artery disease) (Chronic), Nephrolithiasis (Chronic),. Bladder cancer (Acute), Stage 3b chronic kidney disease (Acute), Benign essential HTN (Acute), ST elevation (STEMI) myocardial infarction (Acute),. Pulmonary embolism (Chronic), Blast crisis phase of chronic myeloid leukemia (Acute), Pneumonia (Acute), Leukemia (Chronic) - chronic lymphocytic leukemia, A-fib (Chronic), and Bladder mass (Acute). Medical History: Encounter for insertion of venous access port. Surgical History: H/O inguinal hernia repair - at age 15, left., H/O total cystectomy, and Transurethral Resection of Bladder Tumor, >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). PREVIOUS FUNCTIONAL STATUS/SOCIAL/FAMILY SUPPORTS:: Jonnathan lives in [place] with his , Serina. He has 4 adult children, his daughter Bobbi lives locally and is supportive. Jonnathan also names his [id number]-ved who lives next door to him as a source of support. 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 He enjoys hunting, fishing, and finding treasures with his metal detector. Jonnathan is independent at baseline. ADVANCE DIRECTIVES:: None on file but Jonnathan believes he has completed one. His , Serina Fung, is the Health Care Agent. Has patient been provided with info about the portal/API?: Yes Did the patient sign up for the portal?: Yes (Previously enrolled.) CODE STATUS:: Full Code INSURANCE COVERAGE / FINANCIAL ISSUES:: Medicare and [facility]. CURRENT HOME/COMMUNITY SERVICES/EQUIPMENT:: Jonnathan has a FWW. No home/community services at this time. PRIMARY CARE PHYSICIAN:: Steve Neil MD ([facility]). POTENTIAL DISCHARGE NEEDS:: Follow up appointment with PCP. PATIENT/FAMILY EDUCATION NEEDS:: Review of discharge instructions, limitations, medications, and follow up plan of care; discuss Ask Me Three and self management. ANTICIPATED BARRIERS TO DISCHARGE:: None identified at this time. TRANSPORTATION:: Via ambulance. PLAN:: Plan is for Jonnathan to transfer to a tertiary center when a bed becomes available.
--- NOTE | 2021-12-26 15:09 | CM.SBPSYCH ---
- If Service Date Differs Date of service: 12/26/21 Time of Service: 15:09 SB Psychosocial/Act.Assessment - Hospital Admission Admission Date: 12/26/21 Admission From:: Home Diagnosis:: Right Prosthetic Hip Instability. - Swing Bed Admission Swing Bed Admit Date:: 12/26/21 Swing Bed Level of Care: Level 1/SNF - Social Supports PREVIOUS FUNCTIONAL STATUS/SOCIAL/FAMILY SUPPORTS:: Jonnathan lives in [place] with his , Serina. He has 4 adult children, his daughter Bobbi lives locally and is supportive. Jonnathan also names his [id number] who lives next door to him as a source of support. 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 He enjoys hunting, fishing, and finding treasures with his metal detector. Jonnathan is independent at baseline. - Prior to Admission Living Arrangements/Environment Prior to Admission:: Jonnathan lives in [place] with his , Serina. He has become weak due to several medical issues and on December 02, 2021, he had a fall at home which resulted in a transcervical femoral neck fracture on the right side. On December 05, 2021, he underwent a cemented hemiarthroplasty at [facility]. Since his return home, he has dislocated his right hip hemiarthroplasty twice, requiring further intervention at a tertiary center due to his medical comorbidities. - Education Highest Grade Completed:: One year of college. Where did you attend School:: [employer] Special Education/Training:: [employer] training. - Work History Employment Status:: Retired. 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 - : No 's Spouse: No - Benefits Financial: Social Security, Medicare - [employer] Active Advent Member:: No Will Advent Members or Visual Presentation Manager Visit:: No - Advance Directives for Healthcare Advance Directives for Healthcare: Advance Directives Advance Directive Agent: , Serina Fung, is Health Care Agent. - Community Community Supports/Involvement: None. - Interests Outdoor Activities:: Fishing and hunting. - Present Functional Status Physical Abilities:: Impaired mobility and weakness. Cognitive:: Cognition and mental status grossly normal. Communication:: Speech is of normal rate and volume. Sensory Systems: Normal. Behavior:: Jonnathan is pleasant, cooperative and has a positive outlook on life. - Medical History PAST MEDICAL HISTORY/PAST SURGICAL HISTORY:: All Active Problems: Mechanical instability of hip prosthesis (Acute),. Closed dislocation of right hip (Acute 12/24/21), UTI (urinary tract infection) (Acute), Displaced fracture of right femoral neck (Acute 12/02/21) - s/p right unipolar - [facility], Nicotine dependence, cigarettes, uncomplicated (Acute), COPD (chronic obstructive pulmonary disease) (Chronic), Anemia, autoimmune hemolytic (Acute), Lung mass (Acute) - primary malignant 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, Cardiomyopathy (Acute), CAD (coronary artery disease) (Chronic), Nephrolithiasis (Chronic),. Bladder cancer (Acute), Stage 3b chronic kidney disease (Acute), Benign essential HTN (Acute), ST elevation (STEMI) myocardial infarction (Acute),. Pulmonary embolism (Chronic), Blast crisis phase of chronic myeloid leukemia (Acute), Pneumonia (Acute), Leukemia (Chronic) - chronic lymphocytic leukemia, A-fib (Chronic), and Bladder mass (Acute). Medical History: Encounter for insertion of venous access port. Surgical History: H/O inguinal hernia repair - at age 15, left., H/O total cystectomy, and Transurethral Resection of Bladder Tumor, >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). General Health:: Jonnathan has several medical comorbidities, including a history of bladder cancer, chronic lymphocytic leukemia, an NSTEMI, perihilar mass confirmed to be squamous cell cancer, and a pulmonary emboli. He has undergone angiography with stent placement, chemotherapy, and is on Xarelto. Past Psychiatric Treatment:: None. - Admission Data Reason for Swing Bed Admission:: Jonnathan will work with PT/OT to regain strength while awaiting transfer to a tertiary hospital for a surgical intervention. Discharge Plan:: Transfer to a tertiary center when a bed becomes available. Assessment: Jonnathan would benefit from PT/OT to regain some strength while he awaits transfer to a tertiary center. Resource Recovery Specialist: Jennifer Estrada Date Assessment was completed:: 12/26/21
--- NOTE | 2021-12-26 15:22 | CM.SWINGPC ---
- If Service Date Differs Date of service: 12/26/21 Time of Service: 15:22 Swingbed Plan of Care Plan of care: SWING BED PROGRAM ACTIVITIES/DISCHARGE PLAN OF CARE ACTIVITIES PLAN Date:12/26/2021 Identified Need: Activities to promote life enrichment. Intervention/Plan: Television and remote in room, offer activity cart, and offer music therapy. Initials LS DISCHARGE PLAN Date: Identified Need: Intervention/Plan: Initials
[2021-12-26] MEDS: Acetaminophen 325 MG TAB 650 MG PO ×2 (15:40→19:48)
[2021-12-26] MEDS: oxyCODONE 5 MG TAB PO (15:43)
[2021-12-26] MEDS: Enoxaparin 100 MG/ML SYR SC (19:47)
[2021-12-26] MEDS: Protein Nutritional Supplement 16 GM 1 OUNCE PACKET PO (19:48)
[2021-12-26] MEDS: Nicotine 14 MG/24 HR PATCH TD (19:58)
[2021-12-27] VITALS (10 sets, daily range): BP systolic 88–102; BP diastolic 45–65; PULSE 54–110; RESP 16–19; TEMP 36.3–36.9; O2SAT 52–99
[2021-12-27] MEDS: oxyCODONE 5 MG TAB PO ×3 (00:34→17:44)
[2021-12-27] MEDS: Acetaminophen 325 MG TAB 650 MG PO ×4 (08:52→19:51)
[2021-12-27] MEDS: Protein Nutritional Supplement 16 GM 1 OUNCE PACKET PO ×3 (08:52→19:54)
[2021-12-27] MEDS: Enoxaparin 100 MG/ML SYR SC ×2 (08:52→19:53)
[2021-12-27] MEDS: Furosemide 20 MG TAB PO (08:53)
[2021-12-27] MEDS: Cyanocobalamin 500 MCG TAB 1000 MCG PO (08:53)
[2021-12-27] MEDS: Folic Acid 1 MG TAB 2 MG PO (08:53)
[2021-12-27] MEDS: Pantoprazole 20 MG TABCR PO (08:53)
[2021-12-27] MEDS: buPROPion-XL 150 MG TABCR PO (08:55)
[2021-12-27] MEDS: predniSONE 20 MG TAB PO (08:57)
[2021-12-27] MEDS: Metoprolol 50 MG TAB PO ×3 (12:13→23:33)
--- NOTE | 2021-12-27 12:45 | PT.INIE ---
Date of service: 12/27/21 Time of Service: 09:56 PT Notes Visit Reasons: Right Prosthetic Hip Instability Physical Therapy Inpatient Initial Evaluation Date: 12/27/21 Referring Doctor: Fernando Kimball PT Orders: PT CONSULT: Limited ability s/p R hip hemiarthroplasty with multiple dislocation Precautions: Fall. Standard. Straight precautions Patient Profile/Admitting Diagnosis: Jonnathan is a 71-year-old male whome had undergone right hip hemiarthroplasty on 12/05/21 due to displaced fracture of femoral neck on 12/02/21 secondary to fall. He presented to the ER on 12/24/2021 and again on 12/26/2021 for right hip dislocation. The first occurred while sleeping and the second upon standing from [facility]. He is awaiting availability for transfer to [facility] in order for revision to be performed. Complex medical history with multiple comorbidities and things affecting general health this year including myocardial infarction, pneumonia, DVT, and lung cancer treated with chemo and radiation. PMHX: See EMR Social History/Home Situation: Lives with spouse, has no stairs to enter. Ambulating with FWW. He does report general weakness and fatigue with shortness of breath at baseline. Equipment Owned/DME: FWW, commode Subjective: Cleared by nursing to see patient and patient is agreeable to PT. Patient is resting in bed at time of consult and apprehensive about movement. At end of session left resting in bed with hip abductor pillow in place and call light in reach. Patient declined to remain sitting up edge of bed. Objective: General Observation: Abductor pillow in place Mental Status: A&O x3 Pain: Discomfort right hip upon sitting ROM: Right Upper Extremity: Shoulder Flexion WFL. Shoulder abduction WFL. Elbow flexion WFL. Wrist flexion WFL. Opening and closing of hand WFL. Left Upper Extremity: Shoulder Flexion WFL. Shoulder abduction WFL. Elbow flexion WFL. Wrist flexion WFL. Opening and closing of hand WFL. Right Lower Extremity: Hip flexion impaired. Hip abductionimpaired. Knee flexion WFL. Ankle dorsiflexion WFL. Ankle plantarflexion WFL. Left Lower Extremity: Hip flexion WFL. Hip abduction WFL. Knee flexion WFL. Ankle dorsiflexion WFL. Ankle plantarflexion WFL. Strength: Right Upper Extremity: Grossly 4+/5 Left Upper Extremity: Grossly 4+/5 Right Lower Extremity: Impaired right hip strength Left Lower Extremity: Grossly 4+/5 Sensation: Intact as to pain and pressure on bilateral lower extremities. Bed Mobility/Transfers: Supine to sit: Min A with legs Sit to supine: Min A with legs Sit to stand: CGA Stand to sit: SBA Gait: Ambulated 5ft in room with FWW, CGA -increased dizziness with standing and shortness of breath HEP: Quad set, glutes, heel slides, hip abduction, bilateral shoulder ER, bilateral shoulder horizontal abduction, shoulder flexion -Arm exercises with red resistance band Balance: Static Sitting: Normal Dynamic Sitting: Good Static Standing: Fair Dynamic Standing: Order Special Tests: Mobility Limitations Standardized Measure [facility] AM-PAC 6 clicks Basic Mobility Inpatient Short Form: Raw Score: 16 CMS Score: 54.16% Informed Consent/Education: Patient instructed in purpose of PT consult and plan of care. Assessment: Patient presents with clinical signs and symptoms consistent with current/admitting diagnoses that have resulted to mobility limitations, gait instability, generalized weakness, and impairment of motor control as demonstrated by the following impairment level findings: 1. Decreased strength to upper and lower extremity major muscle groups 2. Impaired sitting/standing balance 3. Impaired activity tolerance 4. Limitation of joint range of motion in right hip Impairments are contributing to the following functional limitations: 1. Decreased bed mobility skills 2. Increased dependence with transfers 3. Inability to safely ambulate without assistive device and physical assistance 4. Increase completion time for mobility ADL performance 5. Increased fall risk 6. Inability to negotiate steps alone safely Patient is assessed as a Low complexity based on the following: History: 71 male year old male with impairment level findings, functional limitations, and past medical history as indicated above Examination: Demonstrable impairment in strength, balance, and mobility level with underlying impairments and functional limitations as documented above Presentation: Stable Decision Making: Low complexity Goals: Goals x1 week 1. Supine-Sit: independent 2. Sit-Supine: independent 3. Sit-Stand: independent 4. Stand-Sit: independent 5. Bed-Chair: independent 6. Chair-Bed: independent 7. Independent gait on level surface with use of least restrictive device for at least 300 feet without report of pain nor dyspnea 8. Independent stair negotiation while holding onto bilateral rails for at least 10 steps without report of pain nor dyspnea 9. Independent with home exercise program 10. Good static and dynamic standing balance/tolerance Plan of Care/Treatment Plan: 1-2x/day, 7 days/week x 1 week. Plan of care has been reviewed with the [employer] providing the service under Physical Therapy direction. Initiate Physical Therapy intervention for strengthening, bed mobility, transfers, gait, stairs, balance training, and use of assistive device. Discharge Plan DISCHARGE RECOMMENDATIONS: To be determined following right hip revision at tertiary care facility TREATMENT CODE/TIME: 9:56-10:40 (44 minutes), [id number], [id number] Thank you for the opportunity to participate in the care of this patient. Nhi Taylor, PT, DPT, OCS [facility] [place], [place]
--- NOTE | 2021-12-27 15:32 | W.PM.DS.N ---
Date of service: 12/28/21 Time of Service: 15:38 DS: Diagnosis Discharge Diagnosis (1) Mechanical instability of hip prosthesis: Status: Acute Asessment and Plan: transfer to [facility] under DR Iglesias for revision of right hip prosthesis following 2 non traumatic postoperative dislocations. (2) Lung mass: Status: Acute (3) COPD (chronic obstructive pulmonary disease): Status: Chronic (4) Pulmonary embolism: Status: Chronic (5) Leukemia: Status: Chronic (6) Weakness generalized: Status: Acute Discharge Plan Disposition Patient Disposition: [facility] Condition: Stable Discharge Details Reason For Visit: Right Prosthetic Hip Instability Admit Date/Time: 12/26/21 11:04 Admit Provider: Fernando Kimball Attending Provider: Fernando Kimball Primary Care Provider: Steve Neil Hospital Course Hospital Course: This is a 71 year old male with complex medical history including COPD, cardiomyopathy EF 25 %, bladder cancer, leukemia, PE on xarelto, STEMI, CKD who underwent a right hip arthoplasty at [facility] (not here d/t complex medical history) who presented to the ED on 2 occasions with prosthetic hip dislocation following his surgery approx 3 weeks ago. Both reductions performed in the ED by our orthopedics provider. After the second reduction it was felt he should undergo a surgical revision. Again, due to complex medical history, anesthesia did not feel he was appropriate for the procedure here. His case was discussed with [facility] but unfortunately they were not able to accommodate him. His case with then discussed with [facility] who has accepted him in transfer. He has remained medically stable while awaiting a bed. Of note he was hypotensive in the emergency department and did respond to gentle IV hydration. His beta carlos was divided into 4 doses. he is being transported by ground EMS to [facility] for further management. discharge discussed with DR Kimball and Dr Orosco Home Meds and New Rx's Prescriptions: Continued Stiolto Respimat 2.5-2.5 mcg/actuation mist 2 puff inhalation DAILY Qty: 4 8RF levalbuterol tartrate 45 mcg/actuation HFA aerosol inhaler 2 inh inhalation Q6H Qty: 15 8RF pantoprazole [Protonix] 20 mg tablet,delayed release (DR/EC) 20 mg PO DAILY 0RF furosemide 20 mg tablet 20 mg PO DAILY 0RF folic acid 1 mg tablet 2 mg PO DAILY 0RF atorvastatin 80 mg tablet 80 mg PO QPM 0RF Label Comments: Take 1 tablet by mouth every evening docusate sodium [Colace] 100 mg Capsule 100 mg PO DAILY PRN0RF bupropion HCl 150 mg tablet extended release 24 hr 150 mg PO DAILY 0RF Label Comments: TAKE 1 TABLET BY MOUTH ONCE DAILY metoprolol succinate 200 mg tablet extended release 24 hr 200 mg PO DAILY 0RF sulfamethoxazole-trimethoprim 800-160 mg tablet 1 tab PO .THREE TIMES A WEEK 0RF Label Comments: TAKE 1 TABLET BY MOUTH THREE TIMES A WEEK zolpidem 5 mg tablet 5 mg PO HS PRN0RF Label Comments: TAKE 1 TABLET BY MOUTH AT BEDTIME NEEDED prednisone 20 mg tablet 20 mg PO DAILY 0RF Label Comments: TAKE 4 TABLETS BY MOUTH ONCE DAILY FOR 3 DAYS, THEN 3 TABS DAILY FOR 3 DAYS, THEN 2 TABS DAILY FOR 3 DAYS, THEN 1 TABLET DAILY THEREAFTER FOR 20 DAYS cyanocobalamin (vitamin B-12) 1,000 mcg Tablet 1,000 mcg PO DAILY 0RF nicotine (polacrilex) 4 mg Gum 4 mg buccal Q2H PRN0RF nicotine 21 mg/24 hr Patch 24 Hour 1 patch TRANSDERMAL Q24H 0RF hydromorphone (PF) 2 mg/mL Solution 0.5 mg IVP Q3H PRN PRNQty: 0 0RF polyethylene glycol 3350 17 gram Powder In Packet 17 g PO DAILY PRN PRN (Reason: Constipation) Qty: 0 0RF levalbuterol HCl 0.63 mg/3 mL Solution For Nebulization 0.63 mg UPD Q2H PRN PRNQty: 0 0RF oxycodone 5 mg Tablet 10 mg PO Q4H PRN PRNQty: 0 0RF clopidogrel 75 mg tablet 75 mg PO DAILY 0RF magnesium 250 mg Tablet 500 mg PO DAILY 0RF calcium carbonate-vitamin D3 [Calcium 500 + D] 500 mg-10 mcg (400 unit) Tablet 1 tab PO DAILY 0RF Xarelto 20 mg tablet 20 mg PO DAILY 0RF Label Comments: TAKE 1 TABLET BY MOUTH ONCE DAILY acetaminophen 325 mg Tablet 650 mg PO .[id number] 0RF aspirin 81 mg Tablet,Chewable 81 mg PO DAILY 0RF Discharge Instructions Additional Instructions: During transport: Do not cross the midline of the body with your right leg Do not rotate the affected extremity inward in bed? use adductor pad to keep hip from rolling inward toe-touch weight-bearing to right leg as tolerated Referrals: [facility] [Outside] (orthopedics) Activity:: see above Diet:: NPO Discharge Orders Discharge Orders: Discharge Order (Routine); Ordered 12/28/21 Ordered By: Josie Morales Discharge Data Discharge Date/Time-TO BE ENTERED AT DEPARTURE: 12/28/21 15:53 DS: Summary Time Spent with Patient providing and/or coordinating discharge services: Less than 30 minutes Status at Discharge Functional status at discharge: bed bound Overall status at discharge: patient is not back to baseline Mental Status: mental status grossly normal Speech and Movement: speech and movement normal Mood: congruent mood Affect: normal affect Exam Const General: no acute distress Orientation: alert HENMT Head: normal to inspection Ears: external ears normal General nose exam: external nose normal Mouth: moist mucous membranes Eyes General: appearance normal, both eyes and all related structures Neck Neck: normal visual inspection Resp Effort & Inspection: normal respiratory effort and able to speak in complete sentences Cardio Rate: regular rate Skin General skin exam: no rashes or lesions noted Neuro General: patient alert and patient oriented x3 Extrem General: capillary refill normal Psych Mental Status: mental status grossly normal Speech and Movement: speech and movement normal Mood: congruent mood Affect: normal affect DS: Data Vitals/I&O Vitals and I&O: Vital Signs Temperature 36.7 C 12/27/21 15:28 Temperature Source Tympanic 12/27/21 15:28 Pulse 110 H 12/27/21 15:28 Pulse Rhythm Irregular 12/27/21 11:14 Pulse Strength Normal 12/26/21 06:15 Pulse 98 H 12/26/21 13:13 Respiratory Rate 18 12/27/21 15:28 Respiratory Effort Non-Labored 12/27/21 11:14 Respiratory Depth Normal 12/27/21 11:14 Respiratory Pattern Normal 12/27/21 11:14 Blood Pressure 90/45 L 12/27/21 15:28 Blood Pressure Mean 69 12/26/21 13:07 Blood Pressure Position Supine 12/26/21 06:30 Pulse Oximetry 96 12/27/21 15:28 Respiratory End-tidal CO2 15 12/26/21 05:52 Oxygen Delivery Method Room Air 12/27/21 15:28 Oxygen Flow Rate 0 12/27/21 15:28 Pain Level 4 12/27/21 12:12 Comment 12/27/21 15:28 Intake & Output 12/26/21 12/27/21 12/27/21 23:59 11:59 23:59 Intake Total 540 / 540 Output Total 250 / 250 1225 / 1225 Balance -250 / 1250 -685 / -685 Intake: Oral 540 / 540 Output: Urine 250 / 250 1225 / 1225 Other: Urine Color Yellow Yellow Urine Appearance Clear Clear Urine Odor Normal Comment ileostomy right side Stool Size Smear Copious Stool Characteristics Liquid Soft Voiding Methods Indwelling Catheter PFSH All Active Problems (Updated 12/26/21 @ 14:45 by Fernando Kimball MD) Weakness generalized (Acute) Mechanical instability of hip prosthesis (Acute) Closed dislocation of right hip (Acute 12/24/21) UTI (urinary tract infection) (Acute) Displaced fracture of right femoral neck (Acute 12/02/21) s/p right unipolar [facility] Nicotine dependence, cigarettes, uncomplicated (Acute) COPD (chronic obstructive pulmonary disease) (Chronic) Anemia, autoimmune hemolytic (Acute) Lung mass (Acute) primary malignant 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 H/O total cystectomy Transurethral Resection of Bladder Tumor, >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) Family History Father Heart disease Social History Smoking/Tobacco Use Status: Current every day Tobacco Type: cigarettes Years smoked: 50 Smoking risk assessment performed?: Yes Alcohol Intake: current Alcohol Intake frequency: holidays/special occasions only Drug use: Never Substance use type: does not use Do you feel safe at home: Yes Do you feel safe in your relationship?: Yes
[2021-12-27] MEDS: Atorvastatin 40 MG TAB 80 MG PO (19:52)
[2021-12-28 05:31] VITALS: BP 108/73; PULSE 98; RESP 17; TEMP 36.5; O2SAT 96
[2021-12-28] MEDS: oxyCODONE 5 MG TAB PO (05:33)
[2021-12-28] MEDS: Metoprolol 50 MG TAB PO ×2 (05:33→12:07)
[2021-12-28 06:08] LABS: Platelet Count 151 10^3/uL (130-400)
[2021-12-28 08:10] VITALS: BP 98/65; PULSE 100; RESP 18; TEMP 36; O2SAT 96
[2021-12-28] MEDS: Tiotropium/Olodaterol 10 PUFF INHALER 2 PUFF IH (08:37)
[2021-12-28] MEDS: Cyanocobalamin 500 MCG TAB 1000 MCG PO (09:00)
[2021-12-28] MEDS: Acetaminophen 325 MG TAB 650 MG PO ×3 (09:14→15:27)
[2021-12-28] MEDS: buPROPion-XL 150 MG TABCR PO (09:14)
[2021-12-28] MEDS: Pantoprazole 20 MG TABCR PO (09:14)
[2021-12-28] MEDS: Furosemide 20 MG TAB PO (09:14)
[2021-12-28] MEDS: predniSONE 20 MG TAB PO (09:14)
--- NOTE | 2021-12-28 12:10 | PT.INTREAT ---
Date of service: 12/28/21 Time of Service: 11:20 PT Notes Visit Reasons: Right Prosthetic Hip Instability Inpatient Physical Therapy Treatment Note [facility] Date: 12/28/2021 PRECAUTIONS:Fall, standard, posterior hip precautions SUBJECTIVE: Eager to get to [facility] to have hip fixed. Fearful of dislocating again. OBJECTIVE: PAIN: Doing okay today, but afraid to move due to dislocation and return of severe pain. BED MOBILITY/TRANSFERS Supine-sit: SBA Sit-supine: SBA Sit-stand: SBA Stand-sit: SBA GAIT Assistive Device: FWW Weight bearing: WBAT on right Assist: SBA of 2 Distance: 26ft, without complaints of SOB THEREX: Reviewed HEP which he indicated he had already performed earlier today. ASSESSMENT: Tolerated today's session well with good ambulation within room. PLAN: To be transferred to [facility] as soon as bed is available. Will continue with mobilization until transfer. TREATMENT CODE/TIME: 46464, treatment began at 11:20 am (15 minutes)
[2021-12-28 12:13] VITALS: BP 105/63; PULSE 89; RESP 18; TEMP 36.4; O2SAT 96
[2021-12-28] MEDS: Protein Nutritional Supplement 16 GM 1 OUNCE PACKET PO (15:27)
--- NOTE | 2021-12-29 18:30 | PT.INDS ---
Date of service: 12/29/21 Time of Service: 18:00 PT Notes Visit Reasons: Right Prosthetic Hip Instability Physical Therapy Discharge Summary Date: 12/29/21 Dates of Service: 12/27/2021 through 12/28/2021 This is a clinical summary of care provided for the duration of dates listed above. No charge was made in the completion of this documentation. Referring Doctor: Fernando Kimball PT Orders: PT CONSULT: Limited ability s/p R hip hemiarthroplasty with multiple dislocation Precautions: Fall. Standard.? Straight precautions Patient Profile/Admitting Diagnosis:?Jonnathan is a 71-year-old male whome had undergone right hip hemiarthroplasty on 12/05/21 due to displaced fracture of femoral neck on 12/02/21 secondary to fall.? He presented to the ER on 12/24/2021 and again on 12/26/2021 for right hip dislocation.? The first occurred while sleeping and the second upon standing from [facility]. He is awaiting availability for transfer to [facility] in order for revision to be performed. Complex medical history with multiple comorbidities and things affecting general health this year including myocardial infarction, pneumonia, DVT, and lung cancer treated with chemo and radiation. PMHX: See EMR Social History/Home Situation: Lives with spouse, has no stairs to enter.? Ambulating with FWW.? He does report general weakness and fatigue with shortness of breath at baseline. Equipment Owned/DME: FWW, commode Subjective:?NT. See most recent [employer] notes. Objective:? General Observation: NT. See most recent [employer] notes. Mental Status: NT. See most recent [employer] notes. Pain: NT. See most recent [employer] notes. ROM: Right Upper Extremity: Shoulder Flexion WFL. Shoulder abduction WFL. Elbow flexion WFL. Wrist flexion WFL. Opening and closing of hand WFL. Left Upper Extremity: Shoulder Flexion WFL. Shoulder abduction WFL. Elbow flexion WFL. Wrist flexion WFL. Opening and closing of hand WFL. Right Lower Extremity: Hip flexion impaired. Hip abductionimpaired. Knee flexion WFL. Ankle dorsiflexion WFL. Ankle plantarflexion WFL. Left Lower Extremity: Hip flexion WFL. Hip abduction WFL. Knee flexion WFL. Ankle dorsiflexion WFL. Ankle plantarflexion WFL. Strength: Right Upper Extremity: Grossly 4+/5 Left Upper Extremity: Grossly 4+/5 Right Lower Extremity: Impaired right hip strength Left Lower Extremity: Grossly 4+/5 Sensation:?Intact as to pain and pressure on bilateral lower extremities. Bed Mobility/Transfers: Supine to sit: independent Sit to supine: stand by assist Sit to stand: stand by assist Stand to sit: stand by assist Gait:?26 feet with decreased weight bearing on R LE with stand by assist Balance:? Static Sitting: Normal Dynamic Sitting: Good Static Standing: Fair Dynamic Standing: Order Assessment: Patient presents with clinical signs and symptoms consistent with current/admitting diagnoses that have resulted to mobility limitations, gait instability, generalized weakness, and impairment of motor control as demonstrated by the following impairment level findings: 1. Decreased strength to upper and lower extremity major muscle groups 2. Impaired sitting/standing balance 3. Impaired activity tolerance 4. Limitation of joint range of motion in right hip Impairments are contributing to the following functional limitations: 1. Decreased bed mobility skills 2. Increased dependence with transfers 3. Inability to safely ambulate without assistive device and physical assistance 4. Increase completion time for mobility ADL performance 5. Increased fall risk 6. Inability to negotiate steps alone safely Patient is assessed as a Low complexity based on the following: History: 71 male year old male with impairment hip,, functional limitations, and past medical history as indicated above Examination: Demonstrable impairment in strength, balance, and mobility level with underlying impairments and functional limitations as documented above Presentation: Stable Decision Making: Low complexity Goals: Goals x1 week 1. Supine-Sit: independent NOT MET 2. Sit-Supine: independent NOT MET 3. Sit-Stand: independent NOT MET 4. Stand-Sit: independent NOT MET 5. Bed-Chair: independent NOT MET 6. Chair-Bed: independent NOT MET 7. Independent gait on level surface with use of least restrictive device for at least 300 feet without report of pain nor dyspnea NOT MET 8. Independent stair negotiation while holding onto bilateral rails for at least 10 steps without report of pain nor dyspnea NOT MET 9. Independent with home exercise program NOT MET 10. Good static and dynamic standing balance/tolerance NOT MET Plan of Care/Treatment Plan: 1-2x/day, 7 days/week x 1 week. Plan of care has been reviewed with the [employer] providing the service under Physical Therapy direction. Initiate Physical Therapy intervention for strengthening, bed mobility, transfers, gait, stairs, balance training, and use of assistive device. Discharge Plan DISCHARGE RECOMMENDATIONS: To be determined following right hip revision at tertiary care facility TREATMENT CODE/TIME: NC Thank you for the opportunity to participate in the care of this patient. Lea Orta PT, DPT, CLT [facility] [place], [place]
== END 2021-12-28 15:53 | disposition short-term general hospital (02) | DRG 560 ==
LOC: ER 09:25 → MS 13:48
PROVIDERS: Emergency Medicine; Internal Medicine; Admitting Provider Student in an Organized Health Care Education/Training Program; Emergency Provider Emergency Medicine; PCP Internal Medicine; Visit Provider Student in an Organized Health Care Education/Training Program
DX: T84.098A Other mechanical complication of other internal joint prosthesis, initial encounter (principal); C92.10 Chronic myeloid leukemia, BCR/ABL-positive, not having achieved remission; D59.10 Autoimmune hemolytic anemia, unspecified; I48.20 Chronic atrial fibrillation, unspecified; C34.31 Malignant neoplasm of lower lobe, right bronchus or lung; I27.82 Chronic pulmonary embolism; T84.020A Dislocation of internal right hip prosthesis, initial encounter; Z79.01 Long term (current) use of anticoagulants; J44.9 Chronic obstructive pulmonary disease, unspecified; I50.9 Heart failure, unspecified; F17.210 Nicotine dependence, cigarettes, uncomplicated; I25.2 Old myocardial infarction; N18.32 Chronic kidney disease, stage 3b; I25.10 Atherosclerotic heart disease of native coronary artery without angina pectoris; N20.0 Calculus of kidney; C67.9 Malignant neoplasm of bladder, unspecified; I12.9 Hypertensive chronic kidney disease with stage 1 through stage 4 chronic kidney disease, or unspecified chronic kidney disease; I95.9 Hypotension, unspecified
CPT/HCPCS: 27265; 36415; 80048; 85027; 87635; 94640; 96361; 96374; 97161; 97530; 99285; 99316; 72170; 73502; 85049; 85610; 85730; 93306; 99238; J1650; J2704; J7512

== ENCOUNTER 2022-01-18 12:47 | Inpatient (IN) | payer MEDICARE, OTHER, SELFPAY ==
[2022-01-18] VITALS (112 sets, daily range): BP systolic 76–114; BP diastolic 46–96; PULSE 56–183; RESP 12–41; TEMP 36.7–37.4; O2SAT 91–99
--- NOTE | 2022-01-18 12:45 | RT.EKG_ITS ---
APPROVED REPORT Exam: Resting ECG Reason for Exam: sob Patient Location: E HR:147 bpm ECG Measurements Heart Rate 147 AXIS OK [id number] P [id number] QRSd 101 QRS -57 QT 301 T 75 QTc 471 Conclusion Atrial fibrillation...V-rate 103-183, irreg A-activity Inferior infarct, old...Q >35mS, II III aVF. Afib. Q waves inferior leads. No STEMI. I have reviewed and interpreted ECG and agree with software generated interpretation.
--- NOTE | 2022-01-18 13:05 | W.ED.GENAD ---
Discharge Plan Disposition Patient Disposition: [facility] INPATIENT Condition: Stable Discharge Details Clinical Impression: Atrial fibrillation with rapid ventricular response, Acute kidney injury superimposed on chronic kidney disease, Dehydration, Sepsis Admit Date/Time: 01/18/22 15:49 Admit Provider: Mera Orosco Attending Provider: Mera Orosco Primary Care Provider: Steve Neil ED Provider: Ioana Henao Discharge Data Discharge Date/Time-TO BE ENTERED AT DEPARTURE: 01/18/22 18:17 Medical Decision Making 71 yo M w/ a h/o bladder and lung cancer, chronic lymphocytic leukemia, chronic hemolytic anemia, PE managed on rivaroxaban, history of STEMI, cardiomyopathy, HTN, CKD and COPD?with h/o right hip arthroplasty at [facility] complicated by 2 recent dislocations followed by total hip replacement at [facility] 3 weeks ago presents from home for generalized weakness for several weeks, neck and left shoulder pain since yesterday, shortness of breath for the past 2 months, worse today. EKG notes a rate of 147, A. fib, no STEMI. Heart rate 140s in A. fib. Blood pressure within normal limits. His oxygen saturation is 97% on room air. Normal breath sounds throughout. His left shoulder pain is reproducible with muscle strength testing with resistance. Patient did not endorse neck pain to me. Discussed patient's symptoms over the phone with his who states that he has been extremely weak since being discharged from rehab from [facility] on Wednesday. She states today he became significantly short of breath with ambulating and complained of neck and left shoulder pain. We will obtain screening labs, urinalysis, CT cervical spine/chest/abdomen and pelvis. We will give a dose of metoprolol for his A. fib with RVR, IV fluid hydration. Labs reviewed. White blood cell count 13. Hemoglobin 10. Creatinine 2.3, which is increased compared to his recent baseline. Troponin negative. CT cervical spine negative. CT chest abdomen pelvis no evidence of new hepatic, adrenal gland and hilar lymph node lesion, concerning for potential mass. No evidence of acute pneumonia or acute abdominal process. Urine sample not yet obtained from urostomy. Case discussed with hospitalist who would like to obtain cultures, lactate, procalcitonin and start antibiotic for consideration for sepsis. Discussed that we could not obtain CT with PE protocol due to his acute kidney injury, but consider VQ scan tomorrow, although PE is less likely as he is on Xarelto. Right hip surgical site appears clean dry and intact. He does have a port in his right chest as this may be the site of his infection. We will send urine sample. History and presentation does not appear consistent with meningitis. Patient has had several episodes of hypotension. His blood pressure is fluid responsive. Lactate obtained and 3.3. Will plan for admission to the ICU. Medical Records Medical records reviewed: Yes I reviewed the patient's medical records. Imaging Data Radiologic Study: Radiologist's impression: ?CT CERVICAL SPINE WO CLINICAL HISTORY: ? neck pain, r/o acute process.? TECHNIQUE:? CT Examination of the cervical spine was performed utilizing multislice acquisition and multiplanar reconstruction. COMPARISON:? No exams were available for comparison FINDINGS: The visualized lung apices are clear. The tracholaryngeal structures appear intact. No cervical mass or adenopathy seen. Intervertebral disc spaces are generally well maintained except for loss of disc height at C6-7 level.. No gross cervical disc herniation by CT criteria. There are mild hypertrophic degenerative changes involving the vertebral endplates at multiple levels and there are moderate changes of facet hypertrophy . There is no evidence of acute fracture or dislocation. IMPRESSION: No evidence of acute injury. CT CHEST/ABD/PEL WO CLINICAL HISTORY:? shortness of breath, tachycardia, no iv due to labs TECHNIQUE:? CT examination of the chest, abdomen, and pelvis was performed without contrast administration COMPARISON:? CT CT CHEST PE ABD ? PELVIS W from 06/13/2021 FINDINGS: The lungs are predominantly clear with a new pleural based nodule of the left lower lobe posteriorly, possibly metastatic period. There is no pleural effusion seen. There is enlargement of right hilar lymph node at about 25 millimeters, this appears to contain calcification.? This may represent treated lung carcinoma.? There is a Port-A-Cath in position on the right. Note is made of coronary artery calcifications and stents period. Pulmonary arteries are of normal diameter but the possibility of pulmonary embolic disease cannot be assessed due to the lack of contrast administration. Thoracic aorta shows no evidence of aneurysm There are multiple a questionable sclerotic areas in the ribs, metastatic disease not excluded.? Mildly sclerotic lesion in L 1 vertebral body, also possibly metastatic.? This was not present on prior examination of June 13, 2021.. There is poorly defined rounded new right lobe hepatic 25 millimeter hypoattenuating mass.? Findings are suspicious for metastatic disease in a patient with history of lung carcinoma and bladder carcinoma.? Gallbladder and bile ducts are CT normal. No abnormality seen involving the spleen. Pancreas appears intact. There is a new 20 millimeter in diameter right adrenal nodule, suspicious for metastatic disease. Multiple renal cysts noted bilaterally.? No evidence of hydronephrosis or nephrolithiasis.. Abdominal aorta and major visceral branches appear intact. No significant abdominal wall hernia seen.? There are multiple prominent mesenteric lymph nodes, nonspecific. There are mildly enlarged portal nodes, nonspecific..? No focal bowel pathology.? No evidence of appendicitis or diverticulitis. IMPRESSION: Findings are suggestive of new metastatic disease involving lung, liver, right adrenal gland, and L1 vertebral body.? Probable enlargement of metastatic right hilar node since prior examination of June 13. No evidence of acute pneumonitis.? Pulmonary embolic disease cannot be assessed on this noncontrast examination. Lab Data Lab results reviewed: Yes I reviewed the patient's lab results. Labs: 01/18/22 16:23 Blood Blood Culture - Pending 01/18/22 16:15 Blood Blood Culture - Pending Laboratory Tests Range/Units 01/18/22 01/18/22 01/18/22 12:37 13:26 16:00 WBC (4.4-10.8) 10^3/uL 13.60 H RBC (4.36-5.78) 10^6/uL 2.96 L Hgb (13.5-17.5) g/dL 10.8 L Hct (40.0-50.0) % 34.8 L MCV (80-95) fL 117.6 H MCH (27.0-33.0) pg 36.5 H MCHC (32.0-36.0) % 31.0 L RDW (11.8-14.1) % 18.1 H Plt Count (130-400) 10^3/uL 253 D MPV (8.0-11.0) fL 9.7 Immature Gran % 2.8 Neutrophils % 86.3 Lymphocytes % 10.2 Monocytes % 0.4 Eosinophils % 0.1 Basophils % 0.2 Nucleated RBC % % 0 Absolute Neutrophils (1.2-6.7) 10^3/uL 11.74 H Absolute Lymphocytes (1.2-3.4) 10^3/uL 1.39 Absolute Monocytes (0.1-0.8) 10^3/uL 0.05 L Absolute Eosinophils (0.0-0.7) 10^3/uL 0.01 Absolute Basophils (0.0-0.2) 10^3/uL 0.03 VBG Lactate (0.6-1.4) mmol/L Sodium (136-145) mmol/L 142 Potassium (3.5-5.1) mmol/L 4.1 Chloride (98-107) mmol/L 105 Carbon Dioxide (21.0-32.0) mmol/L 24.6 Anion Gap (3-11) mmol/L 12.4 H BUN (7-18) mg/dL 34 H Creatinine (0.70-1.30) mg/dL 2.3 H Estimated GFR/1.73 m2 (mL/min/1.73m2) 28.33 Glucose (74-106) mg/dL 198 H Calcium (8.5-10.1) mg/dL 9.6 Magnesium (1.8-2.4) mg/dL 2.1 Total Bilirubin (0.2-1.0) mg/dL 1.0 AST (15-37) U/L 18 ALT (16-63) U/L 26 Alkaline Phosphatase (46-116) U/L 136 H Troponin I (<or=60) ng/L < 50 Total Protein (6.4-8.2) g/dL 6.6 Albumin (3.4-5.0) g/dL 3.1 L COVID-19 Source Nasal/Nares SARS-CoV-2 (PCR) (Negative) Negative Add-On Test Request Range/Units 01/18/22 01/18/22 16:23 16:23 WBC (4.4-10.8) 10^3/uL RBC (4.36-5.78) 10^6/uL Hgb (13.5-17.5) g/dL Hct (40.0-50.0) % MCV (80-95) fL MCH (27.0-33.0) pg MCHC (32.0-36.0) % RDW (11.8-14.1) % Plt Count (130-400) 10^3/uL MPV (8.0-11.0) fL Immature Gran % Neutrophils % Lymphocytes % Monocytes % Eosinophils % Basophils % Nucleated RBC % % Absolute Neutrophils (1.2-6.7) 10^3/uL Absolute Lymphocytes (1.2-3.4) 10^3/uL Absolute Monocytes (0.1-0.8) 10^3/uL Absolute Eosinophils (0.0-0.7) 10^3/uL Absolute Basophils (0.0-0.2) 10^3/uL VBG Lactate (0.6-1.4) mmol/L 3.3 H* Sodium (136-145) mmol/L Potassium (3.5-5.1) mmol/L Chloride (98-107) mmol/L Carbon Dioxide (21.0-32.0) mmol/L Anion Gap (3-11) mmol/L BUN (7-18) mg/dL Creatinine (0.70-1.30) mg/dL Estimated GFR/1.73 m2 (mL/min/1.73m2) Glucose (74-106) mg/dL Calcium (8.5-10.1) mg/dL Magnesium (1.8-2.4) mg/dL Total Bilirubin (0.2-1.0) mg/dL AST (15-37) U/L ALT (16-63) U/L Alkaline Phosphatase (46-116) U/L Troponin I (<or=60) ng/L Total Protein (6.4-8.2) g/dL Albumin (3.4-5.0) g/dL COVID-19 Source SARS-CoV-2 (PCR) (Negative) Add-On Test Request DONE ECG Data Attestation: I personally reviewed and interpreted this ECG (s) as follows: Interpretation: Rate of 147, A. fib, no STEMI. HPI General Mode of arrival: EMS. Date/Time Provider Initiated Documentation: 01/18/22 12:56. Limitations to Documentation: physical limitation. Information obtained by: patient and family. HPI Narrative: The patient is a 71-year-old male with a history of bladder and lung cancer, leukemia, PE managed on rivaroxaban, history of STEMI, cardiomyopathy, HTN, CKD and COPD?with h/o right hip arthroplasty at [facility] complicated by 2 recent dislocations followed by total hip replacement at [facility] 3 weeks ago presents from home for left shoulder pain since yesterday, shortness of breath for the past 2 months, worse today. Patient states he has been doing his daily exercises for his right hip which requires him pulling up using his arms in addition to ambulating using a walker. He otherwise denies any known injury to his shoulder or fall. He states today he was walking he became short of breath. He states the pain in his shoulder radiates to his left chest but otherwise denies any anterior chest pain. He admits to a dry cough but denies any fever, vomiting or diarrhea. He states he has had more constipation lately. Related Data Home Medications Medication Instructions Recorded Confirmed atorvastatin 80 mg tablet 80 mg PO QPM 06/13/21 01/18/22 docusate sodium 100 mg capsule 100 mg PO DAILY PRN 06/13/21 01/18/22 (Colace) folic acid 1 mg tablet 2 mg PO DAILY tab 10/03/21 01/18/22 furosemide 20 mg tablet 20 mg PO DAILY 10/03/21 01/18/22 pantoprazole 20 mg tablet,delayed 20 mg PO DAILY 10/03/21 01/18/22 release (Protonix) levalbuterol tartrate 45 2 inh INHALATION Q6H #15 g 11/12/21 01/19/22 mcg/actuation aerosol inhaler tiotropium 2.5 mcg-olodaterol 2.5 2 puff INHALATION DAILY #4 g 11/12/21 01/19/22 mcg/actuation mist for inhalation (Stiolto Respimat) cyanocobalamin (vitamin B-12) 1,000 mcg PO DAILY 12/02/21 01/18/22 1,000 mcg tablet metoprolol succinate 200 mg 200 mg PO DAILY 12/02/21 01/18/22 tablet,extended release 24 hr nicotine (polacrilex) 4 mg gum 4 mg BUCCAL Q2H PRN 12/02/21 01/19/22 nicotine 21 mg/24 hr daily 1 patch TRANSDERMAL Q24H 12/02/21 01/19/22 transdermal patch prednisone 20 mg tablet 20 mg PO DAILY 12/02/21 01/18/22 sulfamethoxazole 800 1 tab PO .THREE TIMES A WEEK 12/02/21 01/18/22 mg-trimethoprim 160 mg tablet zolpidem 5 mg tablet 5 mg PO HS PRN 12/02/21 01/18/22 oxycodone 5 mg tablet 10 mg PO Q4H PRN PRN #0 tab 12/03/21 01/18/22 polyethylene glycol 3350 17 gram 17 g PO DAILY PRN PRN #0 ea 12/03/21 01/18/22 oral powder packet aspirin 81 mg chewable tablet 81 mg PO DAILY 12/24/21 01/19/22 calcium carbonate 500 mg-vitamin 1 tab PO DAILY 12/24/21 01/18/22 D3 10 mcg (400 unit) tablet (Calcium 500 + D) clopidogrel 75 mg tablet 75 mg PO DAILY 12/24/21 01/18/22 magnesium 250 mg tablet 500 mg PO DAILY 12/24/21 01/18/22 rivaroxaban 20 mg tablet (Xarelto) 20 mg PO DAILY 12/24/21 01/18/22 acetaminophen 500 mg tablet 1,000 mg PO Q6H PRN 01/19/22 01/19/22 bupropion HCl 150 mg 24 hr tablet, 150 mg PO DAILY 01/19/22 01/19/22 extended release Previous Rx's Medication Instructions Recorded levalbuterol tartrate 45 2 inh INHALATION Q6H #15 g 11/12/21 mcg/actuation aerosol inhaler tiotropium 2.5 mcg-olodaterol 2.5 2 puff INHALATION DAILY #4 g 11/12/21 mcg/actuation mist for inhalation (Stiolto Respimat) oxycodone 5 mg tablet 10 mg PO Q4H PRN PRN #0 tab 12/03/21 polyethylene glycol 3350 17 gram 17 g PO DAILY PRN PRN #0 ea 12/03/21 oral powder packet Allergies Allergy/AdvReac Type Severity Reaction Status Date / Time No Known Allergies Allergy Unverified 01/18/22 12:59 General Stated Complaint: GenMedical MARY ANNE: 2 Review of Systems All systems reviewed & are unremarkable except as noted in HPI and below Constitutional Constitutional: Reports as per HPI, Denies chills, Denies excessive sweating, Denies fatigue and Denies fever(s) Eyes Eyes: Denies blurry vision ENT Ears, Nose, Mouth, and Throat: Denies dizziness, Denies sore throat and Denies throat swelling Cardiovascular Cardiovascular: Denies chest pain and Reports dyspnea Respiratory Respiratory: Reports cough and Reports dyspnea Gastrointestinal Gastrointestinal: Denies abdominal pain, Denies diarrhea and Denies vomiting Genitourinary Genitourinary: Denies hematuria and Denies dysuria Musculoskeletal Musculoskeletal: Denies back pain and Denies numbness Comments: L shoulder pain Integumentary/Breasts Skin/Breast: Denies lesions and Denies rash Neurologic Neurologic: Denies behavioral changes, Denies confusion, Denies dizziness, Denies localized weakness and Denies numbness Psychiatric Psychiatric: Denies behavioral changes, Denies confusion and Denies depression Endocrine Endocrine: Denies excessive sweating and Denies fatigue Hematologic/Lymphatic Hematologic/Lymphatic: Denies easy bruising and Denies lymphadenopathy Allergic/Immunologic Allergic/Immunologic: Denies throat swelling PFSH All Active Problems (Updated 01/19/22 @ 10:26 by Aurora Golden MD) Lactic acidosis (Acute) COPD (chronic obstructive pulmonary disease) (Chronic) Hemolytic anemia (Acute) Discharge planning issues (Acute) DVT prophylaxis (Acute) Metastatic disease (Acute) Atrial fibrillation with rapid ventricular response (Acute) Acute kidney injury superimposed on chronic kidney disease (Acute) Dehydration (Acute) Bladder cancer (Acute) Pneumonia (Acute) A-fib (Chronic) Medical History (Updated 01/19/22 @ 10:26 by Aurora Golden MD) Anemia, autoimmune hemolytic Benign essential HTN Bladder mass 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 Mechanical instability of hip prosthesis Nephrolithiasis Nicotine dependence, cigarettes, uncomplicated Pulmonary embolism ST elevation (STEMI) myocardial infarction Stage 3b chronic kidney disease Surgical History (Updated 01/18/22 @ 18:41 by Mera Orosco MD) Displaced fracture of right femoral neck (12/02/21) s/p right unipolar [facility]; revision at [facility] on 12/30/21. H/O inguinal hernia repair at age 15, left. H/O total cystectomy Transurethral Resection of Bladder Tumor, >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) Family History Father Heart disease Social History Smoking/Tobacco Use Status: Current every day Tobacco Type: cigarettes Years smoked: 50 Smoking risk assessment performed?: Yes Alcohol Intake: current Alcohol Intake frequency: holidays/special occasions only Drug use: Never Substance use type: does not use Do you feel safe at home: Yes Do you feel safe in your relationship?: Yes Exam Const General: cooperative and disheveled Nutritional Appearance: obese morbidly obese Orientation: alert and awake HENOK Head: normal to inspection Ears: hearing grossly normal bilaterally, external ears normal and TM's normal bilaterally General nose exam: external nose normal Face and sinus: normal facial exam Mouth: oral mucosae normal Teeth and gingiva: dentition normal Throat: posterior oropharynx normal Eyes General: appearance normal, both eyes and all related structures Eyelids: eyelids normal Pupils: PERRL EOM: EOM intact bilaterally Neck Neck: normal visual inspection Lymphatic: no lymphadenopathy noted Chest Chest: normal inspection of the chest Resp Effort & Inspection: normal respiratory effort and able to speak in complete sentences Auscultation: clear to auscultation bilaterally Cardio Rate: tachycardic Rhythm: abnormal rhythm irregularly irregular GI Inspection: normal to inspection Palpation: soft, not firm, no guarding, no hepatosplenomegaly, no masses and nontender Auscultation: normal bowel sounds Other: Ileostomy right side of abdomen Back/Spine/Pelvis Back: no CVA tenderness Cervical Spine: No cervical spinal tenderness Thoracic/Lumbar Spine: No thoracic spinal tenderness and No lumbar spinal tenderness Skin General skin exam: no rashes or lesions noted Neuro General: patient alert and patient awake Cognition: normal cognition Speech: speech normal Gait: normal gait Motor: muscle tone normal throughout Sensory Exam: no sensory deficits noted Extrem Other: Pain in left shoulder reproducible with muscle strength testing with resistance, most specifically testing biceps and triceps. He otherwise has normal range of motion with internal and external rotation. There is no deformity noted to the shoulder. Left upper extremity distal pulses intact. Meme to the right lateral hip appear clean dry and intact. There is no surrounding erythema or drainage. Psych Appearance: grossly normal Mental Status: mental status grossly normal Speech and Movement: speech and movement normal Affect: normal affect Thought Process: normal Course Vital Signs Vital signs: Vital Signs Temperature 98.1 F 01/18/22 12:52 Pulse 144 H 01/18/22 12:52 Respiratory Rate 24 01/18/22 12:52 Blood Pressure 114/96 H 01/18/22 12:52 Pulse Oximetry 97 01/18/22 12:52 Temperature 98.1 F 01/18/22 12:52 Temperature Source Temporal Artery Scan 01/18/22 12:52 Pulse 144 H 01/18/22 12:52 Respiratory Rate 24 01/18/22 12:52 Respiratory Effort 01/18/22 12:56 Blood Pressure 114/96 H 01/18/22 12:52 Blood Pressure Position Supine 01/18/22 12:52 Pulse Oximetry 97 01/18/22 12:52 Oxygen Delivery Method Room Air 01/18/22 12:52 Oxygen Flow Rate 0 01/18/22 12:52 Pain Level 7 01/18/22 12:52
[2022-01-18 13:26] LABS: Abs Immature Grans 0.38 10^3/uL (0.0-0.06); Absolute Basophil Count 0.03 10^3/uL (0.0-0.2); Absolute Eosinophil Count 0.01 10^3/uL (0.0-0.7); Absolute Lymphocyte Count 1.39 10^3/uL (1.2-3.4); Basophils % 0.2; Eosinophils % 0.1; HCT 34.8 % (40.0-50.0); HGB 10.8 g/dL (13.5-17.5); Immature Grans % 2.8; Lymphocytes % 10.2; MCH 36.5 pg (27.0-33.0); MCV 117.6 fL (80-95); MPV 9.7 fL (8.0-11.0); Monocytes % 0.4; Neutrophils % 86.3; Nucleated RBC 0 %; Platelet Count 253 10^3/uL (130-400); RBC 2.96 10^6/uL (4.36-5.78); RDW 18.1 % (11.8-14.1); RDW-SD 81.4 fL
[2022-01-18 13:27] LABS: Absolute Monocyte Count 0.05 10^3/uL (0.1-0.8); Absolute Neutrophil Count 11.74 10^3/uL (1.2-6.7)
[2022-01-18] MEDS: Normal Saline 500 ML IV (13:30)
--- NOTE | 2022-01-18 13:36 | DI.CT_ITS ---
Exam(s) CT CHEST/ABD/PEL WO EXAM: CT CHEST/ABD/PEL WO CLINICAL HISTORY: shortness of breath, tachycardia, no iv due to labs TECHNIQUE: CT examination of the chest, abdomen, and pelvis was performed without contrast administr ation COMPARISON: CT CT CHEST PE ABD PELVIS W from 06/13/2021 FINDINGS: The lungs are predominantly clear with a new pleural based nodule of the left lower lobe posteriorly, possibly metastatic period. There is no pleural effusion seen. There is enlargement of right hilar lymph node at about 25 millimeters, this appears to contain calci fication. This may represent treated lung carcinoma. There is a Port-A-Cath in position on the [facility] t. Note is made of coronary artery calcifications and stents period. Pulmonary arteries are of normal diameter but the possibility of pulmonary embolic disease cannot be assessed due to the lack of contrast administration. Thoracic aorta shows no evidence of aneurysm There are multiple a questionable sclerotic areas in the ribs, metastatic disease not excluded. Mild ly sclerotic lesion in L 1 vertebral body, also possibly metastatic. This was not present on prior e xamination of June 13, 2021.. There is poorly defined rounded new right lobe hepatic 25 millimeter hypoattenuating mass. Findings are suspicious for metastatic disease in a patient with history of lung carcinoma and bladder carcino ma. Gallbladder and bile ducts are CT normal. No abnormality seen involving the spleen. Pancreas appears intact. There is a new 20 millimeter in diameter right adrenal nodule, suspicious for metastatic disease. Multiple renal cysts noted bilaterally. No evidence of hydronephrosis or nephrolithiasis.. Abdominal aorta and major visceral branches appear intact. No significant abdominal wall hernia seen. There are multiple prominent mesenteric lymph nodes, nons pecific. There are mildly enlarged portal nodes, nonspecific.. No focal bowel pathology. No evidence of appendicitis or diverticulitis. IMPRESSION: Findings are suggestive of new metastatic disease involving lung, liver, right adrenal gland, and L1 vertebral body. Probable enlargement of metastatic right hilar node since prior examination of June 13. No evidence of acute pneumonitis. Pulmonary embolic disease cannot be assessed on this noncontrast e xamination. RADIATION DOSE DELIVERED: 1088.16 mGy.cm Total DLP 1088.16 mGy.cm Total DLP !Error CTDIvol
[2022-01-18 13:44] LABS: ALT 26 U/L (16-63); AST 18 U/L (15-37); Albumin 3.1 g/dL (3.4-5.0); Alkaline Phosphatase 136 U/L (46-116); Anion Gap 12.4 mmol/L (3-11); BUN 34 mg/dL (7-18); CO2 24.6 mmol/L (21.0-32.0); CREATININE 2.3 mg/dL (0.70-1.30); Calcium 9.6 mg/dL (8.5-10.1); Chloride 105 mmol/L (98-107); Estimated GFR 28.33 (mL/min/1.73m2); Glucose 198 mg/dL (74-106); Magnesium 2.1 mg/dL (1.8-2.4); Potassium 4.1 mmol/L (3.5-5.1); Sodium 142 mmol/L (136-145); Total Protein 6.6 g/dL (6.4-8.2); Troponin I < 50 ng/L (<or=60)
[2022-01-18] MEDS: Metoprolol 5 MG/5 ML VIAL IVP (13:59)
--- NOTE | 2022-01-18 14:30 | DI.CT_ITS ---
Exam(s) CT CERVICAL SPINE WO EXAM: CT CERVICAL SPINE WO CLINICAL HISTORY: neck pain, r/o acute process. TECHNIQUE: CT Examination of the cervical spine was performed utilizing multislice acquisition and m ultiplanar reconstruction. COMPARISON: No exams were available for comparison FINDINGS: The visualized lung apices are clear. The tracholaryngeal structures appear intact. No cervical mass or adenopathy seen. Intervertebral disc spaces are generally well maintained except for loss of disc height at C6-7 level .. No gross cervical disc herniation by CT criteria. There are mild hypertrophic degenerative changes involving the vertebral endplates at multiple levels and there are moderate changes of facet hypertrophy . There is no evidence of acute fracture or dislocation. IMPRESSION: No evidence of acute injury. RADIATION DOSE DELIVERED: 784.62mGy.cm Total DLP 784.62mGy.cm Total DLP !Error CTDIvol DATA REPOSITORY: All CT scans at this facility are submitted to the National Radiology Data Registry (NRDR) Dose Index Registry (DIR) with the [employer] (A[employer]). RADIATION OPTIMIZATION: All CT scans at this facility use at least one of these dose optimization te chniques: automated exposure control; mA and/or kV adjustment per patient size (includes targeted exa ms where dose is matched to clinical indication); or iterative reconstruction.
[2022-01-18] MEDS: dilTIAZem 25 MG/5 ML VIAL 15 MG IVP (15:04)
--- NOTE | 2022-01-18 16:03 | W.PM.HP.N ---
Date of service: 01/18/22 Time of Service: 16:03 Assessment and Plan Assessment and plan (1) Sepsis: Status: Suspected Assessment and plan: Suspected as the patient has leucocytosis and tachycardia. Sources: ?UTI (UA pending), ?bacteremia (has an infusaport), ?prosthetic hip infection Treat with empiric vancomycin/cefepime, cautious IVF, stress dose steroids. Await blood cx/urine cx. Trend lactates. (2) Atrial fibrillation with rapid ventricular response: Status: Acute Assessment and plan: HR now controlled. Will monitor in the ICU while also monitoring BPs. (3) Chronic adrenal insufficiency: Assessment and plan: Stress dose steroids initiated. (4) Acute kidney injury superimposed on chronic kidney disease: Status: Acute Assessment and plan: Cautious IVF. (5) COPD (chronic obstructive pulmonary disease): Assessment and plan: Does not appear to be in an acute exacerbation on exam. Continue home meds. (6) Metastatic disease: Status: Acute Assessment and plan: I discussed CT findings with the patient. He is not sure if he wants to talk to a palliative care doctor at this time. He will get back to me. (7) DVT prophylaxis: Status: Acute Assessment and plan: On therapeutic xarelto (8) Discharge planning issues: Status: Acute Assessment and plan: Full code as confirmed in my conversation with the patient. 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 ED today because his reported poor PO intake at home and the patient not taking care of himself for the last two days. He reports L shoulder pain starting yesterday, not recalling any trauma to the area. Additionally, the patient was having SANTIAGO today, which was unusual for him. His ED workup revealed that he was in rapid Afib with HR of 140, requiring a push of IV cardizem 15 mg as 5 mg of IV lopressor was ineffective. Since then, his HR has come done to 90s-low 100s (still Afib), but SBPs have gone down to low 80s -90s. He was also found to have leucocytosis with concerns for sepsis. He has evidence of [place] on CKD. His imaging reveals new liver and adrenal mets as well as a hilar metastatic disease. He was initiated on stress dose steroids, IVF, empiric vancomycin and cefepime. Blood cultures were obtained peripherally as well as from his R chest infusaport. Hospitalist admission was requested. He remains full code. Review of Systems All systems reviewed & are unremarkable except as noted in HPI and below PFSH All Active Problems (Updated 01/18/22 @ 18:49 by Mera Orosco MD) Sepsis (Acute) Discharge planning issues (Acute) DVT prophylaxis (Acute) Metastatic disease (Acute) Atrial fibrillation with rapid ventricular response (Acute) Acute kidney injury superimposed on chronic kidney disease (Acute) Dehydration (Acute) UTI (urinary tract infection) (Acute) Bladder cancer (Acute) Pneumonia (Acute) A-fib (Chronic) Medical History (Updated 01/18/22 @ 18:49 by Mera Orosco MD) Anemia, autoimmune hemolytic Benign essential HTN Bladder mass 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 Mechanical instability of hip prosthesis Nephrolithiasis Nicotine dependence, cigarettes, uncomplicated Pulmonary embolism ST elevation (STEMI) myocardial infarction Stage 3b chronic kidney disease Surgical History (Updated 01/18/22 @ 18:41 by Mera Orosco MD) Displaced fracture of right femoral neck (12/02/21) s/p right unipolar [facility]; revision at [facility] [place] on 12/30/21. H/O inguinal hernia repair at age 15, left. H/O total cystectomy Transurethral Resection of Bladder Tumor, >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) Family History Father Heart disease Social History Smoking/Tobacco Use Status: Current every day Tobacco Type: cigarettes Years smoked: 50 Smoking risk assessment performed?: Yes Alcohol Intake: current Alcohol Intake frequency: holidays/special occasions only Drug use: Never Substance use type: does not use Do you feel safe at home: Yes Do you feel safe in your relationship?: Yes Meds Allergies and Home Medications Allergies Allergy/AdvReac Type Severity Reaction Status Date / Time No Known Allergies Allergy Unverified 01/18/22 12:59 Home Medications Medication Instructions Recorded Confirmed Type atorvastatin 80 mg tablet 80 mg PO QPM 06/13/21 01/18/22 History docusate sodium 100 mg capsule 100 mg PO DAILY PRN 06/13/21 01/18/22 History (Colace) folic acid 1 mg tablet 2 mg PO DAILY tab 10/03/21 01/18/22 History furosemide 20 mg tablet 20 mg PO DAILY 10/03/21 01/18/22 History pantoprazole 20 mg tablet,delayed 20 mg PO DAILY 10/03/21 01/18/22 History release (Protonix) levalbuterol tartrate 45 2 inh INHALATION Q6H #15 g 11/12/21 12/26/21 Rx mcg/actuation aerosol inhaler tiotropium 2.5 mcg-olodaterol 2.5 2 puff INHALATION DAILY #4 g 11/12/21 12/26/21 Rx mcg/actuation mist for inhalation (Stiolto Respimat) bupropion HCl 150 mg 24 hr tablet, 150 mg PO DAILY 12/02/21 01/18/22 History extended release cyanocobalamin (vitamin B-12) 1,000 mcg PO DAILY 12/02/21 01/18/22 History 1,000 mcg tablet metoprolol succinate 200 mg 200 mg PO DAILY 12/02/21 01/18/22 History tablet,extended release 24 hr nicotine (polacrilex) 4 mg gum 4 mg BUCCAL Q2H PRN 12/02/21 12/26/21 History nicotine 21 mg/24 hr daily 1 patch TRANSDERMAL Q24H 12/02/21 12/26/21 History transdermal patch prednisone 20 mg tablet 20 mg PO DAILY 12/02/21 01/18/22 History sulfamethoxazole 800 1 tab PO .THREE TIMES A WEEK 12/02/21 01/18/22 History mg-trimethoprim 160 mg tablet zolpidem 5 mg tablet 5 mg PO HS PRN 12/02/21 01/18/22 History hydromorphone (PF) 2 mg/mL 0.5 mg (0.25 mL) IVP Q3H PRN PRN 12/03/21 12/26/21 Rx injection solution #0 ml levalbuterol HCl 0.63 mg/3 mL 0.63 mg (3 mL) UPD Q2H PRN PRN #0 12/03/21 12/26/21 Rx solution for nebulization ml oxycodone 5 mg tablet 10 mg PO Q4H PRN PRN #0 tab 12/03/21 01/18/22 Rx polyethylene glycol 3350 17 gram 17 g PO DAILY PRN PRN #0 ea 12/03/21 01/18/22 Rx oral powder packet acetaminophen 325 mg tablet 650 mg PO .[id number] 12/24/21 12/26/21 History aspirin 81 mg chewable tablet 81 mg PO DAILY 12/24/21 12/26/21 History calcium carbonate 500 mg-vitamin 1 tab PO DAILY 12/24/21 01/18/22 History D3 10 mcg (400 unit) tablet (Calcium 500 + D) clopidogrel 75 mg tablet 75 mg PO DAILY 12/24/21 01/18/22 History magnesium 250 mg tablet 500 mg PO DAILY 12/24/21 01/18/22 History rivaroxaban 20 mg tablet (Xarelto) 20 mg PO DAILY 12/24/21 01/18/22 History Exam Narrative Exam Narrative: General: Pleasant male who appears uncomfortable in a stretcher, A&Ox3, cooperative, able to provide his complicated medical history Neurological: A&Ox3, no focal deficits Psychiatric: Appropriate speech pattern/content Skin: Multiple closed comedones L face; Incision R hip c/d/i. No erythema over R chest infusaport. No erythema over L shoulder. Small laceration 1st digit LLE which appears to have recently bled, no signs of infection. HEENT: Atraumatic, normocephalic, EOMI, dry MM, clear oropharynx, no submandibular or cervical lymphadenopathy, no goiter or JVD Cardiovascular: irregularly irregular rhythm, no m/r/g Lungs: CTAB, coughs occasionally Gastrointestinal: soft, nontender, nondistended Genitourinary: deferred Extremities: R hip incision - c/d/i. 1+ pedal pulses B, no e/c/c. small laceration 1st digit LLE. Results Imaging Additional studies: CT chest/adbomen/pelvis: Findings are suggestive of new metastatic disease involving lung, liver, right adrenal gland, and L1 vertebral body.? Probable enlargement of metastatic right hilar node since prior examination of June 13. No evidence of acute pneumonitis.? Pulmonary embolic disease cannot be assessed on this noncontrast examination. CT c-spine w/o contrast: No evidence of acute injury. Labs Result diagrams: 01/18/22 13:26 01/18/22 12:37 Labs: Laboratory Results - last 24 hr 01/18/22 01/18/22 12:37 13:26 WBC 13.60 H RBC 2.96 L Hgb 10.8 L Hct 34.8 L MCV 117.6 H MCH 36.5 H MCHC 31.0 L RDW 18.1 H Plt Count 253 D MPV 9.7 Immature Gran % 2.8 Neutrophils % 86.3 Lymphocytes % 10.2 Monocytes % 0.4 Eosinophils % 0.1 Basophils % 0.2 Nucleated RBC % 0 Absolute Neutrophils 11.74 H Absolute Lymphocytes 1.39 Absolute Monocytes 0.05 L Absolute Eosinophils 0.01 Absolute Basophils 0.03 Sodium 142 Potassium 4.1 Chloride 105 Carbon Dioxide 24.6 Anion Gap 12.4 H BUN 34 H Creatinine 2.3 H Estimated GFR/1.73 m2 28.33 Glucose 198 H Calcium 9.6 Magnesium 2.1 Total Bilirubin 1.0 AST 18 ALT 26 Alkaline Phosphatase 136 H Troponin I < 50 Total Protein 6.6 Albumin 3.1 L Last Vital Signs Temp 37 C 01/18/22 15:13 Pulse 89 01/18/22 15:13 Resp 26 H 01/18/22 15:13 BP 96/56 L 01/18/22 15:13 Pulse Ox 97 01/18/22 15:13
[2022-01-18 16:15] LABS: Source Nasal/Nares
[2022-01-18] MEDS: Hydrocortisone SOD SUC. 100 MG VIAL IVP (16:21)
[2022-01-18] MEDS: CEFEPIME 2 GM in Normal Saline 100 ML IVPB (16:22)
[2022-01-18] MEDS: Hydrocortisone SOD SUC. 100 MG VIAL 50 MG IVP ×2 (16:29→22:37)
[2022-01-18 17:00] LABS: COVID-19 PCR Negative (Negative)
[2022-01-18 17:03] LABS: Lab Add On Test DONE; Lactate 3.3 mmol/L (0.6-1.4)
[2022-01-18] MEDS: Normal Saline 1,000 ML 1000 ML IV (17:05)
[2022-01-18 17:21] LABS: C-Reactive Protein 6.72 mg/dL (0.0-0.3)
[2022-01-18 18:26] LABS: Procalcitonin 0.1 ng/mL
[2022-01-18] MEDS: Docusate Sodium 100 MG CAP PO (19:26)
[2022-01-18] MEDS: Acetaminophen 325 MG TAB PO (19:26)
[2022-01-18] MEDS: Atorvastatin 40 MG TAB 80 MG PO (19:26)
[2022-01-18] MEDS: Normal Saline Flush 10 ML SYR IVP (19:27)
[2022-01-18] MEDS: oxyCODONE 5 MG TAB PO (19:27)
[2022-01-18] MEDS: Nicotine 21 MG/24 HR PATCH TD (19:27)
[2022-01-18] MEDS: Lactated Ringers 1,000 ML 75 ML IV (19:28)
[2022-01-18] MEDS: VANCOMYCIN/WATER (PEG) 1.5 GM/300 ML BAG IV (19:51)
[2022-01-18 22:59] LABS: Lactate 2.1 mmol/L (0.6-1.4)
[2022-01-18] MEDS: Zolpidem 5 MG TAB PO (23:40)
[2022-01-18] MEDS: oxyCODONE 5 MG TAB 10 MG PO (23:40)
[2022-01-18 23:50] LABS: Bilirubin Negative (Negative); Blood Negative (Negative); Clarity Sl Cloudy (Clear); Glucose Negative (Negative); Ketones Negative (Negative); Leukocyte Esterase Negative (Negative); Nitrite Negative (Negative); Specific Gravity 1.025 (1.005-1.025); Urobilinogen 0.2 EU/dL (Up TO 0.2); pH 5.5 (5-8)
[2022-01-19] VITALS (33 sets, daily range): BP systolic 55–118; BP diastolic 20–84; PULSE 58–159; RESP 4–30; TEMP 35.9–36.6; O2SAT 93–100
[2022-01-19] MEDS: CEFEPIME 2 GM in Normal Saline 100 ML IVPB ×2 (05:34→16:06)
[2022-01-19] MEDS: Hydrocortisone SOD SUC. 100 MG VIAL 50 MG IVP ×4 (06:32→21:31)
[2022-01-19 07:21] LABS: HCT 30.2 % (40.0-50.0); HGB 9.6 g/dL (13.5-17.5); MCH 35.7 pg (27.0-33.0); MCHC 31.8 % (32.0-36.0); MCV 112.3 fL (80-95); MPV 9.7 fL (8.0-11.0); Nucleated RBC 0 %; Platelet Count 208 10^3/uL (130-400); RBC 2.69 10^6/uL (4.36-5.78); RDW 18.2 % (11.8-14.1); WBC 6.12 10^3/uL (4.4-10.8)
[2022-01-19 07:23] LABS: Lab Add On Test DONE
[2022-01-19 07:51] LABS: Absolute Neutrophil Count 5.02 10^3/uL (1.2-6.7); Anion Gap 11.5 mmol/L (3-11); BUN 35 mg/dL (7-18); Bands % 2; C-Reactive Protein 6.04 mg/dL (0.0-0.3); CO2 22.5 mmol/L (21.0-32.0); CREATININE 1.9 mg/dL (0.70-1.30); Calcium 9.2 mg/dL (8.5-10.1); Chloride 109 mmol/L (98-107); Diff Comment Manual Differential; Estimated GFR 35.32 (mL/min/1.73m2); Glucose 118 mg/dL (74-106); Macrocytosis 2+; Magnesium 2.1 mg/dL (1.8-2.4); Potassium 4.1 mmol/L (3.5-5.1); Sodium 143 mmol/L (136-145); Troponin I < 50 ng/L (<or=60)
--- NOTE | 2022-01-19 08:49 | PGE_ITS ---
Date of Service Date of service: 01/19/22 Time of Service: 08:49 Assessment and Plan Assessment and plan (1) Sepsis: Status: Suspected Assessment and plan: Suspected as the patient had leucocytosis and tachycardia on presentation. These have now both resolved. UA negative. Blood cultures are pending. ?bacteremia (has an infusaport), ?prosthetic hip infection Continue empiric vancomycin/cefepime, stress dose steroids. D/c IVF. Await blood cx. Ok to transfer out of ICU. (2) Atrial fibrillation with rapid ventricular response: Status: Acute Assessment and plan: HR now controlled. To receive home metoprolol today. Will monitor BPs/HRs. (3) Chronic adrenal insufficiency: Assessment and plan: Continue Stress dose steroids. On steroids due to AIHA. (4) Acute kidney injury superimposed on chronic kidney disease: Status: Acute Assessment and plan: Improved. D/c IVF. Continue to monitor renal function. (5) COPD (chronic obstructive pulmonary disease): Assessment and plan: Does not appear to be in an acute exacerbation on exam. Wheezing I heard today was coming from upper airway. Continue home meds. (6) Metastatic disease: Status: Acute Assessment and plan: has a h/o CLL, active squamous cell cancer of the lung, h/o bladder ca s/p urostomy. Several metastatic lesions seen on CT (new): lung, liver, right adrenal gland, L1 vertebra; enlarged metastatic right hilar node also seen. WE are communicating this information to [facility]. The patient agreed to a palliative care consult today, wants his involved in the conversation. (7) DVT prophylaxis: Status: Acute Assessment and plan: On therapeutic xarelto (8) Discharge planning issues: Status: Acute Assessment and plan: Full code as confirmed in my conversation with the patient. Palliative care consulted. Ok to transfer to [facility] with tele. Discussed with Dr Golden. Subjective Subjective Interval history since last seen: Mr Fung states he is feeling better today. His SBPs are now in 100s. Afib 80s-low 100s. He feels like he is coming down with a cold, he says. Denies dizziness, chest pain, shortness of breath at rest (he is on room air), denies n/v/abdominal pain. L shoulder pain is better today. He says he did not get a COVID booster, just 2 doses of the vaccine. He tested negative for COVID on admission. Exam Narrative Exam Narrative: General: Pleasant male, looks better today, A&Ox3, NAD HEENT: EOMI, MMM Cardiovascular: irregularly irregular rhythm, no m/r/g Lungs: upper airway expiratory wheezing B Gastrointestinal: soft, nontender, nondistended; urostomy bag RUQ with concentrated appearing urine. Extremities: no e/c/c. L shoulder without erythema/warmth/effusion. Objective Last Vital Signs Temp 36.6 C 01/19/22 05:38 Pulse 81 01/19/22 08:00 Resp 20 01/19/22 08:00 BP 105/61 01/19/22 08:00 Pulse Ox 97 01/19/22 08:00 Laboratory Results - last 24 hr 01/18/22 01/18/22 01/18/22 12:37 13:26 16:00 WBC 13.60 H RBC 2.96 L Hgb 10.8 L Hct 34.8 L MCV 117.6 H MCH 36.5 H MCHC 31.0 L RDW 18.1 H Plt Count 253 D MPV 9.7 Immature Gran % 2.8 Neutrophils % 86.3 Band Neutrophils % Lymphocytes % 10.2 Monocytes % 0.4 Eosinophils % 0.1 Basophils % 0.2 Nucleated RBC % 0 Absolute Neutrophils 11.74 H Absolute Lymphocytes 1.39 Absolute Monocytes 0.05 L Absolute Eosinophils 0.01 Absolute Basophils 0.03 RBC Morphology Macrocytosis VBG Lactate Sodium 142 Potassium 4.1 Chloride 105 Carbon Dioxide 24.6 Anion Gap 12.4 H BUN 34 H Creatinine 2.3 H Estimated GFR/1.73 m2 28.33 Glucose 198 H Calcium 9.6 Magnesium 2.1 Total Bilirubin 1.0 AST 18 ALT 26 Alkaline Phosphatase 136 H Troponin I < 50 C-Reactive Protein Total Protein 6.6 Albumin 3.1 L Procalcitonin Urine Color Urine Clarity Urine pH Ur Specific [place] Urine Protein Urine Ketones Urine Blood Urine Nitrite Urine Bilirubin Urine Urobilinogen Ur Leukocyte Esterase Urine Glucose COVID-19 Source Nasal/Nares SARS-CoV-2 (PCR) Negative Add-On Test Request 01/18/22 01/18/22 01/18/22 16:23 16:23 16:23 WBC RBC Hgb Hct MCV MCH MCHC RDW Plt Count MPV Immature Gran % Neutrophils % Band Neutrophils % Lymphocytes % Monocytes % Eosinophils % Basophils % Nucleated RBC % Absolute Neutrophils Absolute Lymphocytes Absolute Monocytes Absolute Eosinophils Absolute Basophils RBC Morphology Macrocytosis VBG Lactate 3.3 H* Sodium Potassium Chloride Carbon Dioxide Anion Gap BUN Creatinine Estimated GFR/1.73 m2 Glucose Calcium Magnesium Total Bilirubin AST ALT Alkaline Phosphatase Troponin I C-Reactive Protein 6.72 H Total Protein Albumin Procalcitonin Urine Color Urine Clarity Urine pH Ur Specific [place] Urine Protein Urine Ketones Urine Blood Urine Nitrite Urine Bilirubin Urine Urobilinogen Ur Leukocyte Esterase Urine Glucose COVID-19 Source SARS-CoV-2 (PCR) Add-On Test Request DONE 01/18/22 01/18/22 01/18/22 16:23 19:37 22:53 WBC RBC Hgb Hct MCV MCH MCHC RDW Plt Count MPV Immature Gran % Neutrophils % Band Neutrophils % Lymphocytes % Monocytes % Eosinophils % Basophils % Nucleated RBC % Absolute Neutrophils Absolute Lymphocytes Absolute Monocytes Absolute Eosinophils Absolute Basophils RBC Morphology Macrocytosis VBG Lactate 3.0 H* 2.1 H Sodium Potassium Chloride Carbon Dioxide Anion Gap BUN Creatinine Estimated GFR/1.73 m2 Glucose Calcium Magnesium Total Bilirubin AST ALT Alkaline Phosphatase Troponin I C-Reactive Protein Total Protein Albumin Procalcitonin 0.1 Urine Color Urine Clarity Urine pH Ur Specific [place] Urine Protein Urine Ketones Urine Blood Urine Nitrite Urine Bilirubin Urine Urobilinogen Ur Leukocyte Esterase Urine Glucose COVID-19 Source SARS-CoV-2 (PCR) Add-On Test Request 01/18/22 01/19/22 01/19/22 23:00 06:14 06:14 WBC 6.12 D RBC 2.69 L Hgb 9.6 L Hct 30.2 L MCV 112.3 H D MCH 35.7 H MCHC 31.8 L RDW 18.2 H Plt Count 208 MPV 9.7 Immature Gran % 0.0 Neutrophils % 80.0 Band Neutrophils % 2 Lymphocytes % 18.0 Monocytes % 0.0 Eosinophils % 0.0 Basophils % 0.0 Nucleated RBC % 0 Absolute Neutrophils 5.02 Absolute Lymphocytes 1.10 L Absolute Monocytes 0.00 L Absolute Eosinophils 0.00 Absolute Basophils 0.00 RBC Morphology See Below Macrocytosis 2+ VBG Lactate Sodium 143 Potassium 4.1 Chloride 109 H Carbon Dioxide 22.5 Anion Gap 11.5 H BUN 35 H Creatinine 1.9 H Estimated GFR/1.73 m2 35.32 Glucose 118 H D Calcium 9.2 Magnesium 2.1 Total Bilirubin AST ALT Alkaline Phosphatase Troponin I < 50 C-Reactive Protein 6.04 H Total Protein Albumin Procalcitonin Urine Color Yellow Urine Clarity Sl Cloudy Urine pH 5.5 Ur Specific [place] 1.025 Urine Protein Negative Urine Ketones Negative Urine Blood Negative Urine Nitrite Negative Urine Bilirubin Negative Urine Urobilinogen 0.2 Ur Leukocyte Esterase Negative Urine Glucose Negative COVID-19 Source SARS-CoV-2 (PCR) Add-On Test Request 01/19/22 01/19/22 07:45 Unknown WBC RBC Hgb Hct MCV MCH MCHC RDW Plt Count MPV Immature Gran % Neutrophils % Band Neutrophils % Lymphocytes % Monocytes % Eosinophils % Basophils % Nucleated RBC % Absolute Neutrophils Absolute Lymphocytes Absolute Monocytes Absolute Eosinophils Absolute Basophils RBC Morphology Macrocytosis VBG Lactate 1.0 Sodium Potassium Chloride Carbon Dioxide Anion Gap BUN Creatinine Estimated GFR/1.73 m2 Glucose Calcium Magnesium Total Bilirubin AST ALT Alkaline Phosphatase Troponin I C-Reactive Protein Total Protein Albumin Procalcitonin Urine Color Urine Clarity Urine pH Ur Specific [place] Urine Protein Urine Ketones Urine Blood Urine Nitrite Urine Bilirubin Urine Urobilinogen Ur Leukocyte Esterase Urine Glucose COVID-19 Source SARS-CoV-2 (PCR) Add-On Test Request DONE
--- NOTE | 2022-01-19 08:57 | W.PULMCC ---
General Date of Service Date of service: 01/19/22 Time of Service: 07:50 Reason for Admission to ICU: Poor PO intake Assessment and Plan Assessment and plan (1) Metastatic disease: Status: Acute (2) Atrial fibrillation with rapid ventricular response: Status: Acute (3) Acute kidney injury superimposed on chronic kidney disease: Status: Acute (4) Dehydration: Status: Acute (5) Hemolytic anemia: Status: Acute (6) COPD (chronic obstructive pulmonary disease): Status: Chronic (7) Lactic acidosis: Status: Acute Assessment and plan: This is a 71 yo man with NSCLC receiving chemoradiation who presents with dehydration due to poor PO intake at home that resulted in A. fib with RVR. This caused a transient hypotension, which has since resolved. His procalcitonin is negative, he is afebrile and non toxic appearing. Additionally his rodriguez scan did not show any area or possible infection and his UA is negative. His white count has resolved as did his lactate with fluids. I do not beleive this patient has any infection let alone sepsis. It seems as though this was a failure to thrive diagnosis with poor PO intake. I contacted his oncologist Dr. Raya who recommended a biopsy of one of the new lesions. As he is on blood thinners and we do not have IR capabilities this is not possible at our institution, so he will arrange for a biopsy as an outpatient. Recommendations Pulmonary: COPD - not in exacerbation - continue home Stiolto - levalbuterol as needed Smoking - cessation advised - can continue Zyban Cardiac: A. fib with RVR - s/p dilt push which caused transient hypotension - continue home metoprolol - on Xarelto Renal: [place] on CKD - likely prerenal given fast recovery with resuscitation I&O: Intake & Output 01/16/22 01/17/22 01/18/22 01/19/22 23:59 23:59 23:59 23:59 Intake Total 1910 / 1910 977.5 / 977.5 Output Total 500 / 500 325 / 325 Balance 1410 / 1410 652.5 / 652.5 Weight 103.9 kg 103.5 kg Daily Fluid Goal:: even GI Nutrition: Poor PO intake - OK for regular diet - consider Megace for stimulation - s/p fluid resuscitation Date of Last Bowel Movement: 01/17/22 Infectious Disease: I have no concerns for an acute infection - would recommend discontinuing antibiotics Hematologic: NSCLC with newly discovered mets - Dr. Raya has been made aware of new mets and images sent to [facility] - outpatient biopsy to be arranged by Dr. Raya - he is on blood thinners and we do not have IR at [facility] Neurologic: No acute concerns - recommend brain MRI given new meetastatic disease discovered Endocrine: No acute concerns Prophylaxis: on Xarelto and protonix as an outpatient Code Status: Resuscitation Status Full Code Subjective Critical and life-threatening events over the past 24 hours: This is a 71 yo man with CLL, hemolytic anemia, h/o bladder cancer and active NSCLC on chemoradiation through [facility]. His oncologist is Dr. Jadon Raya. I see him in pulmonary clinic for his COPD and to assist with his breathing symptoms. He continues to smoke and has been working on this. He presented to the ED with poor PO intake. He was found to be dehydrated and he went into A. fib with RVR. He was given volume and diltiazem which caused him to be hypotensive transiently. He has a rodriguez scan that unfortunately found evidence of metastatic disease in the liver, adrenal gland and possible L1. This is new information as to my understanding his cancer had been somewhat stable. Today he says he feels much better, he is positive 2L which is an appropriate resuscitation in his case. There is a concern for an active infection, however work up thus far has been unrevealing. He does not seem toxic to me. He denies any symptoms of infection at this time. He told me he has some left shoulder pain but that it is very mild and he only feels it when moving. He denies shortness of breath currently but he is resting in bed. Exam Narrative Exam Narrative: Gen: NAD, normal respiratory effort, well-nourished HENT: PERRL, nasal turbinates normal without erythema or inflammation, moist oral mucosa, Mallampati 2, No LAD or JVD Chest: No respiratory distress, normal appearance of chest, clear to auscultation bilaterally, no crackles. There are diffuse wheezes, normal inspiratory effort Heart: regular rate and rhythym, no murmurs, rubs or gallops Abdomen: Non-distended, soft, non tender Extremities: No clubbing, edema, cyanosis, rashes Neuro: AAOx3 , non focal Psych: cooperative, appropriate mental affect Most Recent VS/Results Last Vital Signs Temp 36.6 C 01/19/22 05:38 Pulse 81 01/19/22 08:00 Resp 20 01/19/22 08:00 BP 105/61 01/19/22 08:00 Pulse Ox 97 01/19/22 08:00 Laboratory Results - last 24 hr 01/18/22 01/18/22 01/18/22 12:37 13:26 16:00 WBC 13.60 H RBC 2.96 L Hgb 10.8 L Hct 34.8 L MCV 117.6 H MCH 36.5 H MCHC 31.0 L RDW 18.1 H Plt Count 253 D MPV 9.7 Immature Gran % 2.8 Neutrophils % 86.3 Band Neutrophils % Lymphocytes % 10.2 Monocytes % 0.4 Eosinophils % 0.1 Basophils % 0.2 Nucleated RBC % 0 Absolute Neutrophils 11.74 H Absolute Lymphocytes 1.39 Absolute Monocytes 0.05 L Absolute Eosinophils 0.01 Absolute Basophils 0.03 RBC Morphology Macrocytosis VBG Lactate Sodium 142 Potassium 4.1 Chloride 105 Carbon Dioxide 24.6 Anion Gap 12.4 H BUN 34 H Creatinine 2.3 H Estimated GFR/1.73 m2 28.33 Glucose 198 H Calcium 9.6 Magnesium 2.1 Total Bilirubin 1.0 AST 18 ALT 26 Alkaline Phosphatase 136 H Troponin I < 50 C-Reactive Protein Total Protein 6.6 Albumin 3.1 L Procalcitonin Urine Color Urine Clarity Urine pH Ur Specific [place] Urine Protein Urine Ketones Urine Blood Urine Nitrite Urine Bilirubin Urine Urobilinogen Ur Leukocyte Esterase Urine Glucose COVID-19 Source Nasal/Nares SARS-CoV-2 (PCR) Negative Add-On Test Request 01/18/22 01/18/22 01/18/22 16:23 16:23 16:23 WBC RBC Hgb Hct MCV MCH MCHC RDW Plt Count MPV Immature Gran % Neutrophils % Band Neutrophils % Lymphocytes % Monocytes % Eosinophils % Basophils % Nucleated RBC % Absolute Neutrophils Absolute Lymphocytes Absolute Monocytes Absolute Eosinophils Absolute Basophils RBC Morphology Macrocytosis VBG Lactate 3.3 H* Sodium Potassium Chloride Carbon Dioxide Anion Gap BUN Creatinine Estimated GFR/1.73 m2 Glucose Calcium Magnesium Total Bilirubin AST ALT Alkaline Phosphatase Troponin I C-Reactive Protein 6.72 H Total Protein Albumin Procalcitonin Urine Color Urine Clarity Urine pH Ur Specific [place] Urine Protein Urine Ketones Urine Blood Urine Nitrite Urine Bilirubin Urine Urobilinogen Ur Leukocyte Esterase Urine Glucose COVID-19 Source SARS-CoV-2 (PCR) Add-On Test Request DONE 01/18/22 01/18/22 01/18/22 16:23 19:37 22:53 WBC RBC Hgb Hct MCV MCH MCHC RDW Plt Count MPV Immature Gran % Neutrophils % Band Neutrophils % Lymphocytes % Monocytes % Eosinophils % Basophils % Nucleated RBC % Absolute Neutrophils Absolute Lymphocytes Absolute Monocytes Absolute Eosinophils Absolute Basophils RBC Morphology Macrocytosis VBG Lactate 3.0 H* 2.1 H Sodium Potassium Chloride Carbon Dioxide Anion Gap BUN Creatinine Estimated GFR/1.73 m2 Glucose Calcium Magnesium Total Bilirubin AST ALT Alkaline Phosphatase Troponin I C-Reactive Protein Total Protein Albumin Procalcitonin 0.1 Urine Color Urine Clarity Urine pH Ur Specific [place] Urine Protein Urine Ketones Urine Blood Urine Nitrite Urine Bilirubin Urine Urobilinogen Ur Leukocyte Esterase Urine Glucose COVID-19 Source SARS-CoV-2 (PCR) Add-On Test Request 01/18/22 01/19/22 01/19/22 23:00 06:14 06:14 WBC 6.12 D RBC 2.69 L Hgb 9.6 L Hct 30.2 L MCV 112.3 H D MCH 35.7 H MCHC 31.8 L RDW 18.2 H Plt Count 208 MPV 9.7 Immature Gran % 0.0 Neutrophils % 80.0 Band Neutrophils % 2 Lymphocytes % 18.0 Monocytes % 0.0 Eosinophils % 0.0 Basophils % 0.0 Nucleated RBC % 0 Absolute Neutrophils 5.02 Absolute Lymphocytes 1.10 L Absolute Monocytes 0.00 L Absolute Eosinophils 0.00 Absolute Basophils 0.00 RBC Morphology See Below Macrocytosis 2+ VBG Lactate Sodium 143 Potassium 4.1 Chloride 109 H Carbon Dioxide 22.5 Anion Gap 11.5 H BUN 35 H Creatinine 1.9 H Estimated GFR/1.73 m2 35.32 Glucose 118 H D Calcium 9.2 Magnesium 2.1 Total Bilirubin AST ALT Alkaline Phosphatase Troponin I < 50 C-Reactive Protein 6.04 H Total Protein Albumin Procalcitonin Urine Color Yellow Urine Clarity Sl Cloudy Urine pH 5.5 Ur Specific [place] 1.025 Urine Protein Negative Urine Ketones Negative Urine Blood Negative Urine Nitrite Negative Urine Bilirubin Negative Urine Urobilinogen 0.2 Ur Leukocyte Esterase Negative Urine Glucose Negative COVID-19 Source SARS-CoV-2 (PCR) Add-On Test Request 01/19/22 01/19/22 07:45 Unknown WBC RBC Hgb Hct MCV MCH MCHC RDW Plt Count MPV Immature Gran % Neutrophils % Band Neutrophils % Lymphocytes % Monocytes % Eosinophils % Basophils % Nucleated RBC % Absolute Neutrophils Absolute Lymphocytes Absolute Monocytes Absolute Eosinophils Absolute Basophils RBC Morphology Macrocytosis VBG Lactate 1.0 Sodium Potassium Chloride Carbon Dioxide Anion Gap BUN Creatinine Estimated GFR/1.73 m2 Glucose Calcium Magnesium Total Bilirubin AST ALT Alkaline Phosphatase Troponin I C-Reactive Protein Total Protein Albumin Procalcitonin Urine Color Urine Clarity Urine pH Ur Specific [place] Urine Protein Urine Ketones Urine Blood Urine Nitrite Urine Bilirubin Urine Urobilinogen Ur Leukocyte Esterase Urine Glucose COVID-19 Source SARS-CoV-2 (PCR) Add-On Test Request DONE Review of Systems All systems reviewed & are unremarkable except as noted in HPI and below Time spent with patient Time spent in Critical Care: 45 Time spent in Critical care included: Coordination of care, Chart review, Documenting critically ill care, Time at immediate bedside and Discussing critically ill care with other medical staff
[2022-01-19] MEDS: Levalbuterol 0.63 MG/3 ML UPD VIAL UPD (09:00)
--- NOTE | 2022-01-19 09:08 | PT.INIE ---
Date of service: 01/19/22 Time of Service: 09:08 PT Notes Visit Reasons: Rapid Afib,Suspected Sepsis,Failure to Thrive Physical Therapy Inpatient Initial Evaluation Date: 01/19/2022 Referring Doctor: Mera Orosco MD PT Orders: PT CONSULT: Limited ability Precautions: Fall. Standard.? Refrain from sitting on low chairs and low bedside commode. Most recent LVEF 15-20%. Patient Profile/Admitting Diagnosis:? Jonnathan is a 71-year-old male with past medical history significant for lung cancer with metastasis to liver and adrenal glands who underwent right hip hemiarthroplasty on 12/05/21 due to displaced fracture of femoral neck on 12/02/21 secondary to fall.? He presented to the ED on 12/24/2021 and again on 12/26/2021 for right hip dislocation.? The first occurred while sleeping and the second upon standing from commode. He is S/P R total hip arthro[place] at [facility] ans is now on postoperative week 3. He presented again at the ED on 01/18/2022 due to generalized weakness, left shoulder pain since a day ago and shortness of breath for the past 2 months that has been worse since day of re-admission. 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 Mechanical instability of hip prosthesis Nephrolithiasis Nicotine dependence, cigarettes, uncomplicated Pulmonary embolism ST elevation (STEMI) myocardial infarction Stage 3b chronic kidney disease Social History/Home Situation: Lives with spouse, has no stairs to enter.? Ambulating with FWW.? He does report general weakness and fatigue with shortness of breath at baseline. Equipment Owned/DME: FWW, bedside commode Subjective:? At rest and with manual muscle testing, patient reports significantly decreased pain in the left shoulder at 10. He complained of increasing wooziness when asked to stand up from edge of the bed for the first time. This lightheadedness was accompanied by L shoulder pain that crosses to the right side of the heart and to the left side of the back of his neck. Nurse Roz was made aware. Objective:? General Observation: Supine in bed. Telemetry monitoring in place. IV access in the right UE. Mental Status: A&O x3 Pain: Pain in R hip and L shoulder with sit<>stand at 2-3/10 ROM: Right Upper Extremity: Shoulder Flexion WFL. Shoulder abduction WFL. Elbow flexion WFL. Wrist flexion WFL. Opening and closing of hand WFL. Left Upper Extremity: Shoulder Flexion WFL. Shoulder abduction WFL. Elbow flexion WFL. Wrist flexion WFL. Opening and closing of hand WFL. Right Lower Extremity: Hip flexion unable to complete the last 25% of AROM. Hip abduction about 20 degrees . Knee flexion WFL. Ankle dorsiflexion WFL. Ankle plantarflexion WFL. Left Lower Extremity: Hip flexion WFL. Hip abduction WFL. Knee flexion WFL. Ankle dorsiflexion WFL. Ankle plantarflexion WFL. Strength: Right Upper Extremity: Shoulder flexors 5/5. Shoulder abductors 5/5. Elbow flexors 5/5. Elbow extensors 5/5. Director Of Casework Department strong. Left Upper Extremity: Shoulder flexors 4/5. Shoulder abductors 4/5. Elbow flexors 4/5. Elbow extensors 4/5. Director Of Casework Department strong. Right Lower Extremity: Hip flexors 3--/5. Hip abductors 3-/5. Knee flexors 3-/5. Knee extensors 3-/5. Ankle dorsiflexors 4-/5. Ankle plantarflexors 4-/5. Left Lower Extremity:Hip flexors 4-/5. Hip abductors 4-/5. Knee flexors 4-/5. Knee extensors 4-/5. Ankle dorsiflexors 4-/5. Ankle plantarflexors 4-/5. Sensation:?Intact as to pain and pressure on bilateral lower extremities. Bed Mobility/Transfers: Supine to sit: Standby assist with HOB at 30 degrees Sit to supine: Standby assist Sit to stand: Contact-guard assist. Stand to sit: Contact-guard assist Gait:?Deferred due to orthostatic hypotension at 55/20 mmHg while in standing and tachycardia of up to 149 bpm with associated increased lightheadedness and L shoulder pain that radiates across the chest to the right and to posterior neck. Nurse Roz aware. Balance:? Static Sitting: Normal Dynamic Sitting: Good Static Standing: Fair Dynamic Standing: Fair Special Tests: Mobility Limitations Standardized Measure [facility] AM-PAC 6 clicks Basic Mobility Inpatient Short Form: Raw Score: 12 ? CMS Score: 69% deficit Informed Consent/Education: Patient was instructed in purpose of PT consult and plan of care. Agreeable to proceed with established PT POC to achieve personal goals. Assessment: No range of motion deficits on the L shoulder. Pain report on the L shoulder significantly diminished today but got aggravated with standing up with radiation of pain to across the chest and the posterior neck. Please ensure that patient avoids sitting on low chairs/ bedside commode as incidence of the hip popping out happened while getting up from a low surface. Avoid crossing legs. Will slowly progress mobility level once orthostatic BP resolves. Low endurance, needs frequent rests. Patient presents with clinical signs and symptoms consistent with current/admitting diagnoses that have resulted to mobility limitations, gait instability, generalized weakness, and overall ADL decline as demonstrated by the following impairment level findings: 1. Decreased strength to R LE major muscle groups 2. Impaired sitting/standing balance 3. Impaired activity tolerance 4. Limitation of joint range of motion in R hip 5. Shortness of breath 6. Orthostatic BP with tachycardia Impairments are contributing to the following functional limitations: 1. Decline in bed mobility skills 2. Decline in transfer skills 3. Difficulty with ambulation without assistive device and physical assistance 4. Increased completion time for mobility ADL performance 5. Increased risk for falls 6. Difficulty with managing steps alone safely Patient is assessed [place] a 95207 moderatecomplexity based on the following: History: 71-year-old malewith past medical history as indicated above Examination: Demonstrable impairment in strength, balance, and mobility level with underlying impairments and functional limitations as exhibited above as well as deficit score of 69% utilizing the [facility] Mobility Inpatient Short Form Presentation: Evolving Decision Makin moderate complexity Goals: Goals X1 week 1. Supine-Sit independent 2. Sit-Supine independent 3. Sit-Stand independent 4. Stand-Sit independent with FWW 5. Bed-Chair independent with FWW 6. Chair-Bed independent with FWW 7. Independent gait on level surface with use of FWW for at least 100 feet without report of pain nor dyspnea 8. Good static and dynamic standing balance/tolerance Plan of Care/Treatment Plan: 1-2x/day, 7 days/week x 1 week. Plan of care has been reviewed with the [employer] INSPECTOR providing the service under Physical Therapy direction. Initiate Physical Therapy intervention for pain management as needed, strengthening, bed mobility, transfers, gait, stairs, balance training, and use of assistive device. DISCHARGE RECOMMENDATIONS: [] Home with no services [] [] Home with services [specify] [] Home with outpatient PT [] [X] SNF for continued rehabilitation. Patient will benefit from home health PT services in order to progress mobility level using least restrictive assistive ambulatory device, assess home safety, identify additional equipment needs, and establish a functional maintenance program that will increase ability of patient to remain at home. [] [facility] [] [] SNF versus LTC based on ability to participate and progress [] TREATMENT CODE/TIME: 75254 x 20 minutes, 97182 x 17 minutes beginning at 9:08 AM. Thank you for the opportunity to participate in the care of this patient. Lea Orta PT, DPT, [facility] [place], [place]
--- NOTE | 2022-01-19 09:11 | PDOC.CMIN ---
- If Service Date Differs Date of service: 01/19/22 Time of Service: 09:11 Care Management Initial Assess REASON FOR HOSPITALIZATION:: Rapid Afib, suspected sepsis, failure to thrive PAST MEDICAL HISTORY/PAST SURGICAL HISTORY:: All Active Problems (Updated 01/18/22 @ 18:49 by Mera Orosco MD). Sepsis (Acute). Discharge planning issues (Acute). DVT prophylaxis (Acute). Metastatic disease (Acute). Atrial fibrillation with rapid ventricular response (Acute). Acute kidney injury superimposed on chronic kidney disease (Acute). Dehydration (Acute). UTI (urinary tract infection) (Acute). Bladder cancer (Acute). Pneumonia (Acute). A-fib (Chronic). Medical History (Updated 01/18/22 @ 18:49 by Mera Orosco MD). Anemia, autoimmune hemolytic. Benign essential HTN. Bladder mass. 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 CAD (coronary artery disease). Cardiomyopathy. Chronic adrenal insufficiency. Chronic atrial fibrillation. CLL (chronic lymphocytic leukemia). COPD (chronic obstructive pulmonary disease). Encounter for insertion of venous access port. Leukemia. chronic lymphocytic leukemia. Lung mass. primary malignant 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 Mechanical instability of hip prosthesis. Nephrolithiasis. Nicotine dependence, cigarettes, uncomplicated. Pulmonary embolism. ST elevation (STEMI) myocardial infarction. Stage 3b chronic kidney disease. Surgical History (Updated 01/18/22 @ 18:41 by Mera Orosco MD). Displaced fracture of right femoral neck (12/02/21). s/p right unipolar [facility]; revision at [facility] [place] on 12/30/21. H/O inguinal hernia repair. at age 15, left. H/O total cystectomy. Transurethral Resection of Bladder Tumor, >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) PREVIOUS FUNCTIONAL STATUS/SOCIAL/FAMILY SUPPORTS:: Ramesh lives in [place], [place] with his Serina. He has 4 adult children, his daughter Bobbi lives locally and is supportive. Jonnathan also names his fbhbouf-tu-wee who lives next door to him as a source of support. 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 He enjoys hunting, fishing, and finding treasures with his metal detector. Jonnathan is independent at baseline. CURRENT FUNCTIONAL STATUS:: Jonnathan was lying in bed when CM met with him. He was alert, oriented and easy to engage in conversation. Per provider, Jonnathan has agreed to a palliative care consult today and would like his to be present at the time. ADVANCE DIRECTIVES:: None on File, per patient he has previously completed forms and his Serina Fung, is Health Care Agent. Has patient been provided with info about the portal/API?: Yes Did the patient sign up for the portal?: Yes (Prior to admission) CODE STATUS:: Full Code INSURANCE COVERAGE / FINANCIAL ISSUES:: Medicare. [employer]. Health Plans CURRENT HOME/COMMUNITY SERVICES/EQUIPMENT:: Jonnathan has a FWW, commode and handrails at home. PRIMARY CARE PHYSICIAN:: Steve Neil MD ([facility]). POTENTIAL DISCHARGE NEEDS:: Follow up appointments PATIENT/FAMILY EDUCATION NEEDS:: Review of discharge instructions, limitations, medications, and follow up plan of care; discuss Ask Me Three and self management. ANTICIPATED BARRIERS TO DISCHARGE:: None identified at this time. TRANSPORTATION:: via private vehicle with family. PLAN:: Jonnathan requires monitoring and treatment in the ICU. Jonnathan is s/p Right Hip Arthroplasty at [facility] (12/30/21) and could use some additional rehab. Anticipate, Jonnathan will discharge to SNF for short term rehab vs. home with new [facility] RN/PT/OT services. Transportation will be dependent on disposition. Additionally, recent imaging during this admission requires additional outpatient workup with his oncologist. Jonnathan may also benefit from a Palliative care consult, referral was placed. Readmission - Within the Past 30 Days Yes or No: N
[2022-01-19] MEDS: Tiotropium/Olodaterol 10 PUFF INHALER 2 PUFF IH (09:19)
--- NOTE | 2022-01-19 09:22 | NUR.NOTE ---
Nursing Note: Dr. Orosco spoke with patient's spouse.
[2022-01-19] MEDS: Pantoprazole 20 MG TABCR PO (10:32)
[2022-01-19] MEDS: Rivaroxaban 10 MG TABLET 20 MG PO (10:32)
[2022-01-19] MEDS: Sulfameth/Trimeth DS TAB 1 TAB PO (10:33)
[2022-01-19] MEDS: Docusate Sodium 100 MG CAP PO ×2 (10:33→21:30)
[2022-01-19] MEDS: Cyanocobalamin 500 MCG TAB 1000 MCG PO (10:34)
[2022-01-19] MEDS: buPROPion-XL 150 MG TABCR PO (10:34)
[2022-01-19] MEDS: Clopidogrel 75 MG TAB PO (10:34)
[2022-01-19] MEDS: Folic Acid 1 MG TAB 2 MG PO (10:34)
[2022-01-19] MEDS: Magnesium Gluconate 500 MG TAB PO (10:34)
[2022-01-19] MEDS: Calcium 600mg/Vit D 200U TAB 1 TAB PO (10:34)
[2022-01-19] MEDS: Normal Saline Flush 10 ML SYR IVP ×2 (10:35→21:35)
[2022-01-19] MEDS: Midodrine 2.5 MG TAB PO ×3 (11:08→21:30)
--- NOTE | 2022-01-19 13:03 | PTTR_ITS ---
Date of service: 01/19/22 Time of Service: 13:03 PT Notes Visit Reasons: Rapid Afib,Suspected Sepsis,Failure to Thrive Physical Therapy Inpatient Treatment Note Date: 01/19/2022 Precautions: Fall. Standard.? WBAT on R LE with AD. Refrain from sitting on low chairs and low bedside commode. Most recent LVEF 15-20%. Subjective:?? Agreeable to PT session. Objective:? General Observation: ? Supine in bed.? Telemetry monitoring in place.? IV access in the right UE.? Mental Status: A&O x3 Pain: Pain in R hip and L shoulder with sit<>stand at 2-3/10 Bed Mobility/Transfers: Supine to sit: Standby assist with HOB at 30 degrees Sit to supine: Standby assist Sit to stand: Contact-guard assist.? Stand to sit: Contact-guard assist Gait:?Deferred due to orthostatic hypotension at 67/30s mmHg while in standing and tachycardia of up to 149 bpm with associated increased lightheadedness and L shoulder pain that radiates across the chest to the right and to posterior neck. Balance:? Static Sitting: Normal Dynamic Sitting: Good Static Standing: Fair Dynamic Standing: Fair Assessment: Decreased report of lightheadedness but remains weak and unable to tolerate the upright position with BP softening to 67/30s mmHg, ambulation deferred. Transfer to chair was also deferred as patient reports increasing lightheadedness in the sitting position accompanied by pain that radiates across his chest and posterior neck. Nurse Rzo in room during orthostatic BP check. DISCHARGE RECOMMENDATIONS: [] ? Home with no services [] [] ? Home with services [specify] [] ? Home with outpatient PT [] [X] ? SNF for continued rehabilitation.? Patient will benefit from home health PT services in order to progress mobility level using least restrictive assistive ambulatory device, assess home safety, identify additional equipment needs, and establish a functional maintenance program that will increase ability of patient to remain at home. [] ? [employer] [facility] [] [] ? SNF versus LTC based on ability to participate and progress [] TREATMENT CODE/TIME: 05800 x 15 minutes beginning at 13:03 PM.
[2022-01-19] MEDS: Milk of Magnesia 30 ML CUP PO (14:17)
[2022-01-19] MEDS: Polyethylene Glycol 3350 17 GM PACKET PO (14:17)
[2022-01-19] MEDS: Bisacodyl 5 MG TABEC PO (14:17)
[2022-01-19] MEDS: VANCOMYCIN/WATER (PEG) 1.25 GM/250 ML BAG IV (14:23)
[2022-01-19] MEDS: Metoprolol 50 MG TAB PO (14:52)
[2022-01-19] MEDS: Lactated Ringers 250 ML IV (14:53)
[2022-01-19] MEDS: Metoprolol 50 MG TAB 25 MG PO (21:30)
[2022-01-19] MEDS: Nicotine 21 MG/24 HR PATCH TD (21:31)
[2022-01-19] MEDS: Atorvastatin 40 MG TAB 80 MG PO (21:31)
[2022-01-19] MEDS: oxyCODONE 5 MG TAB 10 MG PO (21:41)
[2022-01-19] MEDS: Zolpidem 5 MG TAB PO (21:41)
[2022-01-20] VITALS (12 sets, daily range): BP systolic 88–126; BP diastolic 55–76; PULSE 66–108; RESP 18–20; TEMP 35.5–36.6; O2SAT 96–98
[2022-01-20] MEDS: Metoprolol 50 MG TAB 25 MG PO ×4 (02:53→21:31)
[2022-01-20] MEDS: Hydrocortisone SOD SUC. 100 MG VIAL 50 MG IVP ×3 (04:28→15:43)
[2022-01-20] MEDS: Normal Saline Flush 10 ML SYR IVP ×4 (04:28→21:32)
[2022-01-20] MEDS: CEFEPIME 2 GM in Normal Saline 100 ML IVPB ×2 (04:28→15:44)
[2022-01-20 07:18] LABS: Abs Immature Grans 0.24 10^3/uL (0.0-0.06); Absolute Basophil Count 0.02 10^3/uL (0.0-0.2); Absolute Lymphocyte Count 0.84 10^3/uL (1.2-3.4); Absolute Monocyte Count 0.11 10^3/uL (0.1-0.8); Absolute Neutrophil Count 8.39 10^3/uL (1.2-6.7); Basophils % 0.2; HCT 27.7 % (40.0-50.0); HGB 8.8 g/dL (13.5-17.5); Immature Grans % 2.5; Lymphocytes % 8.8; MCH 36.5 pg (27.0-33.0); MCHC 31.8 % (32.0-36.0); MCV 114.9 fL (80-95); MPV 9.4 fL (8.0-11.0); Monocytes % 1.1; Neutrophils % 87.4; Nucleated RBC 0 %; Platelet Count 210 10^3/uL (130-400); RBC 2.41 10^6/uL (4.36-5.78); RDW 17.6 % (11.8-14.1); RDW-SD 76.5 fL
[2022-01-20 07:44] LABS: Anion Gap 8.8 mmol/L (3-11); BUN 35 mg/dL (7-18); C-Reactive Protein 2.37 mg/dL (0.0-0.3); CO2 25.2 mmol/L (21.0-32.0); CREATININE 1.7 mg/dL (0.70-1.30); Chloride 109 mmol/L (98-107); Estimated GFR 40.16 (mL/min/1.73m2); Glucose 105 mg/dL (74-106); Sodium 143 mmol/L (136-145)
[2022-01-20 07:58] LABS: Diff Comment RBC Morph Reviewed; Macrocytosis 2+
[2022-01-20] MEDS: Tiotropium/Olodaterol 10 PUFF INHALER 2 PUFF IH (08:04)
[2022-01-20] MEDS: Rivaroxaban 10 MG TABLET 20 MG PO (08:17)
[2022-01-20] MEDS: Magnesium Gluconate 500 MG TAB PO (08:18)
[2022-01-20] MEDS: Folic Acid 1 MG TAB 2 MG PO (08:18)
[2022-01-20] MEDS: Midodrine 2.5 MG TAB PO ×3 (08:18→21:31)
[2022-01-20] MEDS: Clopidogrel 75 MG TAB PO (08:18)
[2022-01-20] MEDS: Cyanocobalamin 500 MCG TAB 1000 MCG PO (08:18)
[2022-01-20] MEDS: buPROPion-XL 150 MG TABCR PO (08:18)
[2022-01-20] MEDS: Docusate Sodium 100 MG CAP PO ×2 (08:18→21:31)
[2022-01-20] MEDS: Pantoprazole 20 MG TABCR PO (08:19)
[2022-01-20] MEDS: Calcium 600mg/Vit D 200U TAB 1 TAB PO (08:19)
--- NOTE | 2022-01-20 10:39 | W.NUTRFU ---
Date of service: 01/20/22 Time of Service: 10:39 Nutrition Note NOTE: 71 year old male admitted with sepsis(?UTI) with hx of COPD, CKD, hemolytic anemia, squamous cell cancer of lung, s/p treatment for bladder CA , now with metastatic dx and noted with a 17 lbs weight loss in last 8 weeks. Following heart healthy diet with excellent intake. Not at nutritional risk at this time. WIll continue to follow and support. Time Spent in Nutritional Counseling and Treatment: 0
--- NOTE | 2022-01-20 13:25 | PT.INTREAT ---
Date of service: 01/20/22 Time of Service: 11:49 PT Notes Visit Reasons: Rapid Afib,Suspected Sepsis,Failure to Thrive Inpatient Physical Therapy Treatment Note [facility] Date: 01/20/2022 PRECAUTIONS: Fall, Activity as tolerated SUBJECTIVE: Ramesh is pleasant and agreeable to participating in PT. He states that his blood pressures have been better today, although he reports that they are usually low. OBJECTIVE: PAIN: Patient c/o L shoulder and lateral chest pain with L shoulder flexion and abduction as well as with taking a deep breath and completion of LE exercises on L. BED MOBILITY/TRANSFERS Sit-supine: S with HOB at 20 degrees Sit-stand: S in a.m.; I in p.m. Stand-sit: S in a.m.; I in p.m. GAIT Assistive Device: FWW Weight bearing: Full Assist: S Distance: 400' in a.m.; 250' + 150' in p.m. VITALS: Orthostatic BP (taken at 11:50): Supine = 107/69, 80 bpm; Seated = 94/62, 107 bpm; Standing = 97/63, 92 bpm THEREX: Patient was instructed in a standing LE strengthening and stabilization program, as per flow sheet. Patient was limited in his ability to complete exercises on L due to referred pain to L shoulder/chest area, nursing aware. STAIRS: Up/down 3x4 and 2x6 using B rails and a step-to pattern independently. ASSESSMENT: Patient tolerated session without complaint. He was able to tolerate gait training today, as orthotatic BP's remained WNL. PLAN: Continue with general conditioning for improved activity tolerance, as indicated. TREATMENT CODE/TIME: Session 1: 19 minutes; 51955 (11:49) Session 2: 25 minutes; 28085, 08081 (14:57)
--- NOTE | 2022-01-20 14:39 | CMPROGNOTE_ITS ---
- If Service Date Differs Date of service: 01/20/22 Time of Service: 14:39 Care Management Progress Note S/O: Jonnathan is being closely monitored and treated with IV ABX. In addition, he is approx. 3 weeks s/p Right Hip Arthroplasty at [facility] and benefiting from working with PT. Per provider, he could potentially discharge home with [facility] RN/PT on . He will need to follow up with his oncologist. Palliative care consult is pending. A:71 year old make admitted to [facility] on 01/18/22 for Rapid Afib, suspected sepsis, failure to thrive P: Anticipate, Jonnathan will discharge to SNF for short term rehab vs. home with new [facility] RN/PT/OT services. Transportation will be dependent on disposition. Additionally, recent imaging during this admission requires additional outpatient workup with his oncologist. Jonnathan may also benefit from a Palliative care consult, referral was placed.
--- NOTE | 2022-01-20 16:35 | W.PM.PROGNOT ---
Date of Service Date of service: 01/20/22 Time of Service: 16:36 Assessment and Plan Assessment and plan (1) Sepsis: Status: Suspected Assessment and plan: Suspected on admission as the patient had leucocytosis and tachycardia on presentation. However, we have not identified a source, and all his cultures are negative. Vancomycin was d/c'ed today. If he continues to improve, cefepime would be d/c'ed tomorrow with plans for discharge home on . Ultimately, adrenal insufficiency can sometimes present as sepsis, and that is probably what happened. (2) Atrial fibrillation with rapid ventricular response: Status: Resolved Assessment and plan: HR now controlled, but we are not able to give his prior to admission dose of metoprolol due to orthostasis. He is currently on 25 mg PO Q6h. (3) Chronic adrenal insufficiency: Assessment and plan: Start to taper stress dose steroids. On steroids due to AIHA. (4) Acute kidney injury superimposed on chronic kidney disease: Status: Resolved Assessment and plan: Resolved Continue to monitor renal function. (5) COPD (chronic obstructive pulmonary disease): Assessment and plan: Does not appear to be in an acute exacerbation on exam. Wheezing is from upper airway. Continue home meds. (6) Metastatic disease: Status: Acute Assessment and plan: has a h/o CLL, active squamous cell cancer of the lung, h/o bladder ca s/p urostomy. Several metastatic lesions seen on CT (new): lung, liver, right adrenal gland, L1 vertebra, possibly ribs; enlarged metastatic right hilar node also seen. Will need outpatient oncology follow up, biopsies by IR, and an open MRI of the brain (patient has severe claustrophobia and is unable to tolerate a regular MRI even with sedation). (7) DVT prophylaxis: Status: Acute Assessment and plan: On therapeutic xarelto (8) Discharge planning issues: Status: Acute Assessment and plan: Full code as confirmed in my conversation with the patient. Palliative care consulted. Likely discharge home on . Has an appointment with [facility] oncology on 01/26. Subjective Subjective Interval history since last seen: Mr Fung feels better overall. His thinks he is markedly better. HE was able to walk with PT today. He was not as short of breath as he was at home. He remains orthostatic, but better. Denies dizziness, chest pain, shortness of breath, nausea. Exam Narrative Exam Narrative: General: Pleasant male, looks even better today, A&Ox3 HEENT: EOMI, MMM Cardiovascular: irregularly irregular rhythm, no m/r/g Lungs: upper airway expiratory wheezing B Gastrointestinal: soft, nontender, nondistended; urostomy in place Extremities: no e/c/c. L shoulder without erythema/warmth/effusion, preserved ROM Objective Last Vital Signs Temp 36.1 C L 01/20/22 13:00 Pulse 92 H 01/20/22 15:47 Resp 18 01/20/22 13:00 BP 109/69 01/20/22 13:00 Pulse Ox 97 01/20/22 13:00 Laboratory Results - last 24 hr 01/20/22 01/20/22 06:40 06:40 WBC 9.60 D RBC 2.41 L Hgb 8.8 L Hct 27.7 L MCV 114.9 H MCH 36.5 H MCHC 31.8 L RDW 17.6 H Plt Count 210 MPV 9.4 Immature Gran % 2.5 Neutrophils % 87.4 Lymphocytes % 8.8 Monocytes % 1.1 Eosinophils % 0.0 Basophils % 0.2 Nucleated RBC % 0 Absolute Neutrophils 8.39 H Absolute Lymphocytes 0.84 L Absolute Monocytes 0.11 Absolute Eosinophils 0.00 Absolute Basophils 0.02 RBC Morphology See Below Macrocytosis 2+ Sodium 143 Potassium 4.0 Chloride 109 H Carbon Dioxide 25.2 Anion Gap 8.8 BUN 35 H Creatinine 1.7 H Estimated GFR/1.73 m2 40.16 Glucose 105 Calcium 9.0 Magnesium 2.0 C-Reactive Protein 2.37 H
[2022-01-20] MEDS: Atorvastatin 40 MG TAB 80 MG PO (21:31)
[2022-01-20] MEDS: oxyCODONE 5 MG TAB 10 MG PO (21:32)
[2022-01-20] MEDS: Zolpidem 5 MG TAB PO (21:32)
[2022-01-20] MEDS: Nicotine 21 MG/24 HR PATCH TD (21:33)
[2022-01-21] VITALS (13 sets, daily range): BP systolic 83–116; BP diastolic 45–72; PULSE 62–106; RESP 4–20; TEMP 35.9–36.9; O2SAT 94–99
[2022-01-21] MEDS: Hydrocortisone SOD SUC. 100 MG VIAL 50 MG IVP (00:37)
[2022-01-21] MEDS: Normal Saline Flush 10 ML SYR IVP ×4 (00:38→19:54)
[2022-01-21] MEDS: Metoprolol 50 MG TAB 25 MG PO ×4 (02:45→19:53)
[2022-01-21] MEDS: CEFEPIME 2 GM in Normal Saline 100 ML IVPB (04:36)
[2022-01-21] MEDS: Sulfameth/Trimeth DS TAB 1 TAB PO (06:16)
[2022-01-21 06:55] LABS: Abs Immature Grans 0.27 10^3/uL (0.0-0.06); Absolute Basophil Count 0.02 10^3/uL (0.0-0.2); Absolute Lymphocyte Count 0.69 10^3/uL (1.2-3.4); Absolute Monocyte Count 0.27 10^3/uL (0.1-0.8); Absolute Neutrophil Count 8.48 10^3/uL (1.2-6.7); Basophils % 0.2; HCT 26.9 % (40.0-50.0); HGB 8.3 g/dL (13.5-17.5); Immature Grans % 2.8; Lymphocytes % 7.1; MCH 35.6 pg (27.0-33.0); MCHC 30.9 % (32.0-36.0); MCV 115.5 fL (80-95); MPV 9.4 fL (8.0-11.0); Monocytes % 2.8; Neutrophils % 87.1; Nucleated RBC 0 %; Platelet Count 198 10^3/uL (130-400); RBC 2.33 10^6/uL (4.36-5.78); RDW 17.6 % (11.8-14.1); RDW-SD 76.7 fL; WBC 9.73 10^3/uL (4.4-10.8)
[2022-01-21 07:11] LABS: Anion Gap 7.8 mmol/L (3-11); BUN 33 mg/dL (7-18); C-Reactive Protein 1.23 mg/dL (0.0-0.3); CO2 25.2 mmol/L (21.0-32.0); CREATININE 1.5 mg/dL (0.70-1.30); Calcium 8.8 mg/dL (8.5-10.1); Chloride 109 mmol/L (98-107); Glucose 131 mg/dL (74-106); Potassium 3.8 mmol/L (3.5-5.1); Sodium 142 mmol/L (136-145)
[2022-01-21] MEDS: Tiotropium/Olodaterol 10 PUFF INHALER 2 PUFF IH (08:08)
[2022-01-21] MEDS: Calcium 600mg/Vit D 200U TAB 1 TAB PO (08:36)
[2022-01-21] MEDS: buPROPion-XL 150 MG TABCR PO (08:36)
[2022-01-21] MEDS: Cyanocobalamin 500 MCG TAB 1000 MCG PO (08:37)
[2022-01-21] MEDS: Clopidogrel 75 MG TAB PO (08:37)
[2022-01-21] MEDS: Magnesium Gluconate 500 MG TAB PO (08:38)
[2022-01-21] MEDS: Docusate Sodium 100 MG CAP PO ×2 (08:38→19:52)
[2022-01-21] MEDS: Folic Acid 1 MG TAB 2 MG PO (08:38)
[2022-01-21] MEDS: Pantoprazole 20 MG TABCR PO (08:39)
[2022-01-21] MEDS: predniSONE 20 MG TAB 40 MG PO (08:39)
[2022-01-21] MEDS: Midodrine 2.5 MG TAB PO ×3 (08:39→19:51)
[2022-01-21] MEDS: oxyCODONE 5 MG TAB 10 MG PO ×2 (08:40→19:52)
[2022-01-21] MEDS: Rivaroxaban 10 MG TABLET 20 MG PO (08:40)
--- NOTE | 2022-01-21 10:31 | PT.INTREAT ---
Date of service: 01/21/22 Time of Service: 10:00 PT Notes Visit Reasons: Rapid Afib,Suspected Sepsis,Failure to Thrive Inpatient Physical Therapy Treatment Note [facility] Date: 01/21/2022 PRECAUTIONS: Fall, Activity as tolerated SUBJECTIVE: Ramesh is pleasant and agreeable to participating in PT. He reports new onset LBP, which he attributes to over doing it in PT yesterday. Agrees to base today's PT sessions off symptoms. OBJECTIVE: Set up and application of Aqua-K heating unit for LBP symptom relief. PAIN: Patient c/o L shoulder and lateral chest pain as well as constant LBP, all reported to nursing. BED MOBILITY/TRANSFERS Supine-sit: I with HOB at 30 degrees Sit-supine: I with HOB at 30 degrees Sit-stand: I Stand-sit: I GAIT Assistive Device: FWW Weight bearing: Full Assist: S Distance: 300' in a.m.; in p.m. VITALS: Orthostatic BP obtained by nursing. Nursing approved participation in PT this morning. THEREX: Held in a.m. ASSESSMENT: Patient tolerated session with complaint of LBP, increasing with gait training. Limited activity tolerance today due to new onset LBP. PLAN: Continue with general conditioning for improved activity tolerance, as indicated. TREATMENT CODE/TIME: 23 minutes; 90137 x2 (10:00)
[2022-01-21 10:33] LABS: Lab Add On Test DONE
[2022-01-21] MEDS: Acetaminophen 325 MG TAB PO (10:59)
--- NOTE | 2022-01-21 15:33 | NT_ITS ---
Date of service: 01/21/22 Time of Service: 15:33 PT Notes Visit Reasons: Rapid Afib,Suspected Sepsis,Failure to Thrive 01/21/2022 Patient declined to participate in afternoon PT session, reporting that he just completed a shower with the help of his and that he is wiped out. He do es report improvement in LBP symptoms after using Aqua-K heating pad. He is agreeable to resuming PT services tomorrow morning.
--- NOTE | 2022-01-21 15:52 | PGE_ITS ---
Date of Service Date of service: 01/21/22 Time of Service: 15:52 Assessment and Plan Assessment and plan (1) Sepsis: Status: Suspected Assessment and plan: Suspected on admission as the patient had leucocytosis and tachycardia on presentation. However, we have not identified a source, and all his cultures are negative. Vancomycin was d/c'ed yesterday. Today we d/c'ed cefepime. ?Adrenal insufficiency presenting as sepsis. (2) Atrial fibrillation with rapid ventricular response: Status: Resolved Assessment and plan: HR now controlled, but we are not able to give his prior to admission dose of metoprolol due to orthostasis. He is currently on 25 mg PO Q6h. Convert to toprol XL 100 mg daily tomorrow am. (3) Chronic adrenal insufficiency: Assessment and plan: Continue current dose of prednisone. On steroids due to AIHA. (4) Acute kidney injury superimposed on chronic kidney disease: Status: Resolved Assessment and plan: Resolved Continue to monitor renal function. (5) COPD (chronic obstructive pulmonary disease): Assessment and plan: Does not appear to be in an acute exacerbation on exam. Wheezing is from upper airway. Continue home meds. (6) Metastatic disease: Status: Acute Assessment and plan: has a h/o CLL, active squamous cell cancer of the lung, h/o bladder ca s/p urostomy. Several metastatic lesions seen on CT (new): lung, liver, right adrenal gland, L1 vertebra, possibly ribs; enlarged metastatic right hilar node also seen. While could consider biopsies/ MRI of the brain, the patient and are interested in going home on hospice as early as tomorrow. The patient will still follow up with his oncologist as an outpatient. (7) DVT prophylaxis: Status: Acute Assessment and plan: On therapeutic xarelto (8) Discharge planning issues: Status: Acute Assessment and plan: Full code as confirmed in my conversation with the patient. The patient completed COLST form with the palliative care team - ? change of code status. Plan for discharge home tomorrow with hospice. Has an appointment with [facility] oncology on 01/26. Subjective Subjective Interval history since last seen: Mr Fung states his back hurts after working with PT. Denies dizziness, chest pain, shortness of breath, nausea. Interested in going home on hospice - as early as tomorrow. Per orthopedics, can take melisa out today. Exam Narrative Exam Narrative: General: Pleasant male, looks even better today, A&Ox3 HEENT: EOMI, MMM Cardiovascular: irregularly irregular rhythm, no m/r/g Lungs: Expiratory wheezing B Gastrointestinal: soft, nontender, nondistended; urostomy in place Extremities: no e/c/c. Objective Last Vital Signs Temp 36.4 C L 01/21/22 11:09 Pulse 80 01/21/22 14:51 Resp 18 01/21/22 11:09 BP 104/64 01/21/22 14:51 Pulse Ox 97 01/21/22 11:09 Laboratory Results - last 24 hr 01/21/22 01/21/22 01/21/22 06:20 06:20 06:20 WBC 9.73 RBC 2.33 L Hgb 8.3 L Hct 26.9 L MCV 115.5 H MCH 35.6 H MCHC 30.9 L RDW 17.6 H Plt Count 198 MPV 9.4 Immature Gran % 2.8 Neutrophils % 87.1 Lymphocytes % 7.1 Monocytes % 2.8 Eosinophils % 0.0 Basophils % 0.2 Nucleated RBC % 0 Absolute Neutrophils 8.48 H Absolute Lymphocytes 0.69 L Absolute Monocytes 0.27 Absolute Eosinophils 0.00 Absolute Basophils 0.02 Sodium 142 Potassium 3.8 Chloride 109 H Carbon Dioxide 25.2 Anion Gap 7.8 BUN 33 H Creatinine 1.5 H Estimated GFR/1.73 m2 46.40 Glucose 131 H Calcium 8.8 Magnesium 2.0 C-Reactive Protein 1.23 H Add-On Test Request DONE
--- NOTE | 2022-01-21 16:08 | PDOC.CMPRO ---
- If Service Date Differs Date of service: 01/21/22 Time of Service: 16:08 Care Management Progress Note S/O: Jonnathan has been working with PT and may potentially discharge home tomorrow with New [facility] RN/PT/OT, with a plan to follow up with his oncologist. He had a palliative care consult today with his present, to discuss goals of care. In addition, he is approx. 3 weeks s[place] [facility] and benefiting from working with PT during this inpatient admission. A:71 year old make admitted to [facility] on 01/18/22 for Rapid Afib, suspected sepsis, failure to thrive P: Anticipate, Jonnathan will discharge to SNF for short term rehab vs. home with new [facility] RN/PT/OT services. Transportation will be dependent on disposition. Additionally, recent imaging during this admission requires additional outpatient workup with his oncologist. Jonnathan may also benefit from a Palliative care consult, referral was placed.
[2022-01-21] MEDS: Levalbuterol 0.63 MG/3 ML UPD VIAL UPD (16:14)
[2022-01-21] MEDS: Atorvastatin 40 MG TAB 80 MG PO (19:53)
[2022-01-22] VITALS (7 sets, daily range): BP systolic 90–118; BP diastolic 45–76; PULSE 75–104; RESP 14–15; TEMP 35.9–36.3; O2SAT 94–97
[2022-01-22] MEDS: Metoprolol 50 MG TAB 25 MG PO ×2 (02:18→13:31)
[2022-01-22] MEDS: Acetaminophen 325 MG TAB PO ×2 (02:32→15:37)
[2022-01-22] MEDS: oxyCODONE 5 MG TAB 10 MG PO ×3 (02:32→15:36)
[2022-01-22] MEDS: Normal Saline Flush 10 ML SYR IVP ×3 (06:04→15:37)
[2022-01-22 06:37] LABS: Abs Immature Grans 0.23 10^3/uL (0.0-0.06); Absolute Basophil Count 0.01 10^3/uL (0.0-0.2); Absolute Eosinophil Count 0.02 10^3/uL (0.0-0.7); Absolute Lymphocyte Count 0.99 10^3/uL (1.2-3.4); Absolute Monocyte Count 0.06 10^3/uL (0.1-0.8); Absolute Neutrophil Count 8.08 10^3/uL (1.2-6.7); Basophils % 0.1; Eosinophils % 0.2; HCT 26.5 % (40.0-50.0); HGB 8.3 g/dL (13.5-17.5); Immature Grans % 2.4; Lymphocytes % 10.5; MCH 35.9 pg (27.0-33.0); MCHC 31.3 % (32.0-36.0); MCV 114.7 fL (80-95); MPV 9.4 fL (8.0-11.0); Monocytes % 0.6; Neutrophils % 86.2; Nucleated RBC 0 %; Platelet Count 202 10^3/uL (130-400); RBC 2.31 10^6/uL (4.36-5.78); RDW 17.7 % (11.8-14.1); RDW-SD 75.4 fL; WBC 9.39 10^3/uL (4.4-10.8)
[2022-01-22 06:58] LABS: Anion Gap 6.6 mmol/L (3-11); BUN 26 mg/dL (7-18); CO2 26.4 mmol/L (21.0-32.0); CREATININE 1.3 mg/dL (0.70-1.30); Calcium 9.1 mg/dL (8.5-10.1); Chloride 108 mmol/L (98-107); Estimated GFR 54.73 (mL/min/1.73m2); Glucose 77 mg/dL (74-106); Magnesium 1.9 mg/dL (1.8-2.4); Potassium 3.8 mmol/L (3.5-5.1); Sodium 141 mmol/L (136-145)
[2022-01-22 07:24] LABS: Diff Comment Agrees w/ Instrument; Hypochromasia 1+; Macrocytosis 2+
--- NOTE | 2022-01-22 07:46 | PCNE_ITS ---
Date of service: 01/21/22 Time of Service: 15:00 History of Present Illness Narrative: Mr. Wade is a 71 y/o M currently inpatient at [facility] 12/17?? PMHx sig for h/o bladder and lung cancer, chronic lymphocytic leukemia, chronic hemolytic anemia, PE managed on rivaroxaban, history of STEMI, cardiomyopathy, HTN, CKD and COPD?with h/o right hip arthroplasty w/recent hip replacement Presented to ED 01/18/22 w/CC weakness, L sided neck/shoulder pain, SOB worse w/ambulation; Several metastatic lesions seen on CT (new): lung, liver, right adrenal gland, L1 vertebra, possibly ribs; enlarged metastatic right hilar node; consult placed for hospice discussion Pt laying comfortably in bed on arrival, Serina present; report gathered from and pt; Shared decision making pt requests no further work-up, invasive procedures or biopsies on new mets; request to go on hospice on discharge, to focus on maintaining QoL; f/u apt scheduled w/[facility] Dr. Raya on 01/26/22 switched to tele-health; Pt lives w/ in multi-floor home, entrance to home basement level w/bedroom set up on same level; goal to have hospital bed on first floor, O2 for intermittent difficulty breathing which has worked in past to resolve dyspnea; reports back pain, currently controlled on oxycodone, wondering about home options on hospice; Pt iADLs at baseline, reduced prior to admission, improved; Pt has strong support system, Serina, 4 supportive children, daughter Bobbi [facility], daughter Phoebe lives [place], nurse; 2 sons in [place]; enjoys hunting, fishing, excited to use new metal detector on beach; 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 Dr. Raya tele-health scheduled 01/26/22; no further work up; pain currently controlled (2) Encounter for hospice care: Status: Acute Assessment and plan: hospice referral on discharge, java consultant nurse contacted to start referral process, hospital bed and home O2 requested (3) A-fib: Status: Chronic Assessment and plan: resolved (4) Palliative care patient: Status: Acute Assessment and plan: transition to hospice; COLST completed, DNR/I/T, [employer] Review of Systems Narrative: per HPI PFSH All Active Problems (Updated 01/22/22 @ 08:11 by Radha Zaragoza NP) Palliative care patient (Acute) Encounter for hospice care (Acute) Lactic acidosis (Acute) COPD (chronic obstructive pulmonary disease) (Chronic) Hemolytic anemia (Acute) Discharge planning issues (Acute) DVT prophylaxis (Acute) Metastatic disease (Acute) Dehydration (Acute) Bladder cancer (Acute) Pneumonia (Acute) A-fib (Chronic) Medical History (Updated 01/22/22 @ 08:11 by Radha Zaragoza NP) Anemia, autoimmune hemolytic Benign essential HTN Bladder mass 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 Mechanical instability of hip prosthesis Nephrolithiasis Nicotine dependence, cigarettes, uncomplicated Pulmonary embolism ST elevation (STEMI) myocardial infarction Stage 3b chronic kidney disease Surgical History (Updated 01/18/22 @ 18:41 by Mera Orosco MD) Displaced fracture of right femoral neck (12/02/21) s/p right unipolar [facility]; revision at [facility] on 12/30/21. H/O inguinal hernia repair at age 15, left. H/O total cystectomy Transurethral Resection of Bladder Tumor, >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) Family History Father Heart disease Social History Smoking/Tobacco Use Status: Current every day Tobacco Type: cigarettes Years smoked: 50 Smoking risk assessment performed?: Yes Alcohol Intake: current Alcohol Intake frequency: holidays/special occasions only Drug use: Never Substance use type: does not use Do you feel safe at home: Yes Do you feel safe in your relationship?: Yes Exam Narrative Exam Narrative: pt sitting comfortably in bed; Const General: cooperative, comfortable and no acute distress Orientation: alert, awake and oriented x3 HENMT Ears: hearing grossly normal bilaterally Resp Effort & Inspection: normal respiratory effort and able to speak in complete sentences Psych Mental Status: mental status grossly normal Speech and Movement: speech clear Mood: congruent mood Attitude: cooperative Thought Content: normal Insight: insight good Judgment: judgment good Results Last Vital Signs Temp 96.6 F L 01/22/22 02:17 Pulse 80 01/22/22 02:17 Resp 15 01/22/22 02:17 BP 110/72 01/22/22 02:17 Pulse Ox 94 01/22/22 02:17 Labs Result diagrams: 01/22/22 06:12 01/22/22 06:12 Labs: Laboratory Results - last 24 hr 01/21/22 01/22/22 01/22/22 06:20 06:12 06:12 WBC 9.39 RBC 2.31 L Hgb 8.3 L Hct 26.5 L MCV 114.7 H MCH 35.9 H MCHC 31.3 L RDW 17.7 H Plt Count 202 MPV 9.4 Immature Gran % 2.4 Neutrophils % 86.2 Lymphocytes % 10.5 Monocytes % 0.6 Eosinophils % 0.2 Basophils % 0.1 Nucleated RBC % 0 Absolute Neutrophils 8.08 H Absolute Lymphocytes 0.99 L Absolute Monocytes 0.06 L Absolute Eosinophils 0.02 Absolute Basophils 0.01 RBC Morphology See Below Hypochromasia 1+ Macrocytosis 2+ Sodium 141 Potassium 3.8 Chloride 108 H Carbon Dioxide 26.4 Anion Gap 6.6 BUN 26 H Creatinine 1.3 Estimated GFR/1.73 m2 54.73 Glucose 77 D Calcium 9.1 Magnesium 1.9 C-Reactive Protein 1.80 H Add-On Test Request DONE
--- NOTE | 2022-01-22 08:49 | PT.INTREAT ---
Date of service: 01/22/22 Time of Service: 08:34 PT Notes Visit Reasons: Rapid Afib,Suspected Sepsis,Failure to Thrive Inpatient Physical Therapy Treatment Note [facility] Date: 01/22/2022 PRECAUTIONS: Activity as tolerated SUBJECTIVE: Jonnathan is pleasant although stating that he is having increased LBP as well as left shoulder and neck pain this morning. OBJECTIVE: PAIN: See subjective portion of this note BED MOBILITY/TRANSFERS Supine-sit: I Sit-stand: I Stand-sit: I GAIT Assistive Device: FWW Weight bearing: Full Assist: S Distance: 80' Deviation: LBP ASSESSMENT: Patient was limited by increasing LBP and L shoulder and neck pain, however he continues to demonstrate independence with bed mobility and transfers at this time. PLAN: Patient to discharge to home later today, per provider. Recommend PT upon discharge. TREATMENT CODE/TIME: 10 minutes; 31665 (08:34)
[2022-01-22] MEDS: buPROPion-XL 150 MG TABCR PO (08:57)
[2022-01-22] MEDS: Cyanocobalamin 500 MCG TAB 1000 MCG PO (08:58)
[2022-01-22] MEDS: Clopidogrel 75 MG TAB PO (08:58)
[2022-01-22] MEDS: Polyethylene Glycol 3350 17 GM PACKET PO (08:58)
[2022-01-22] MEDS: Calcium 600mg/Vit D 200U TAB 1 TAB PO (08:58)
[2022-01-22] MEDS: Docusate Sodium 100 MG CAP PO (08:59)
[2022-01-22] MEDS: Magnesium Gluconate 500 MG TAB PO (08:59)
[2022-01-22] MEDS: Folic Acid 1 MG TAB 2 MG PO (08:59)
[2022-01-22] MEDS: Pantoprazole 20 MG TABCR PO (09:02)
[2022-01-22] MEDS: predniSONE 20 MG TAB 40 MG PO (09:02)
[2022-01-22] MEDS: Midodrine 2.5 MG TAB PO ×2 (09:02→13:31)
[2022-01-22] MEDS: Rivaroxaban 10 MG TABLET 20 MG PO (09:03)
--- NOTE | 2022-01-22 09:40 | PDOC.CMDIS ---
- If Service Date Differs Date of service: 01/22/22 Time of Service: 09:40 LACE Index Scoring Tool - Questions: Length of Stay (in days): 4 - 6 Acuity (Admit via E.D.?): Yes Comorbidities: Previous M.I., Chronic Pulmonary Disease, Any Tumor, Liver or Renal Disease, Metastatic Solid Tumor E.D. Visits: 5 - Answers: Total Score: 16 Risk of Readmission: High Risk Care Management Discharge Reason for Hospitalization: Rapid Afib, suspected sepsis, failure to thrive Discharge Plan: Discharge home via private vehicle with . Jonnathan will admit to Hospice tomorrow at which time DME will be discussed and ordered. Per , DME is not needed at time of discharge. Jonnathan will follow up with community providers and discharge plan of care as prescribed. Patient/Family Education Needs: Review discharge instructions, limitations, medications and plan to follow up with Hospice providers. Ask me three. Services Needed at Discharge: Home Health Care Services ([facility] and Hospice)
[2022-01-22] MEDS: Tiotropium/Olodaterol 10 PUFF INHALER 2 PUFF IH (10:44)
[2022-01-22 10:46] LABS: Haptoglobin 62 mg/dL (32-197)
--- NOTE | 2022-01-22 14:02 | DSE_ITS ---
Date of service: 01/22/22 Time of Service: 14:02 DS: Diagnosis Discharge Diagnosis (1) Chronic adrenal insufficiency: (2) Lung mass: (3) Metastatic disease: Status: Acute (4) Atrial fibrillation with rapid ventricular response: Status: Resolved (5) COPD (chronic obstructive pulmonary disease): Status: Chronic (6) Hemolytic anemia: Status: Chronic (7) Sepsis: Status: Ruled-out (8) Acute kidney injury superimposed on chronic kidney disease: Status: Resolved (9) Lactic acidosis: Status: Resolved (10) Dehydration: Status: Resolved (11) Bladder cancer: Status: Chronic (12) Orthostatic hypotension: Status: Acute (13) Ambulatory dysfunction: Status: Acute (14) Cardiomyopathy: (15) CLL (chronic lymphocytic leukemia): Discharge Plan Disposition Patient Disposition: HOME W/HOME HEALTH SERVICE Condition: Stable Discharge Details Reason For Visit: Rapid Afib,Suspected Sepsis,Failure to Thrive Admit Date/Time: 01/18/22 15:49 Admit Provider: Mera Orosco Attending Provider: Mera Orosco Primary Care Provider: Steve Neil [facility] Course Hospital Course: Mr Fung is a 71 year old male with PMHx of [place] [place] as well as h/o CAD s/p EZ, ICMO/chronic systolic CHF (LVEF 15-20%), Afib and PE on xarelto, as well as h/o sq. cell ca of the lung, bladder ca s/p urostomy, and CLL, who was admitted to [facility] hospitalist service on 01/18/22 with sepsis-like picture (Tachycardia/rapid Afib, leucocytosis, generalized weakness). He was dehydrated and in [place] on CKD. The patient required a bolus of IV cardizem, which effectively slowed down the HR, but also lowered his BP to the point that his admission was upgraded to ICU level of care. He was treated with IVF, empiric antibiotics, and stress dose steroids. However, we were not able to find a source of infection. His antibiotics were gradually de-escalated without clinical deterioration, and we started to taper his steroids. We now feel that the primary reasons the patient had presented was adrenal insufficiency and dehydration. On admission, imaging revealed new metastatic disease involving lung, liver, right adrenal gland, L1 vertebra, and possibly also ribs. The patient and his were interested in meeting with palliative care to discuss going home on hospice, which will be admitting Mr Fung tomorrow. Meanwhile, he is going home today with a steroid taper and plans to follow up with oncology on Wednesday via [facility]. The patient is optimized for discharge at this time. His metoprolol dose was decreased due to symtpomatic orthostatic hypotension. He is now on toprol XL 100 mg PO daily. He was also initiated on midodrine. His lasix was discussed wit his and should be given prn. Care for patient as well as completion of his discharge summary on day of discharge took 45 minutes. Home Meds and New Rx's Prescriptions: New metoprolol tartrate 50 mg Tablet 25 mg PO Q6H Qty: 2 0RF Rx Instructions: take 0.5 tab every 6 hrs until tomorrow morning when you start metoprolol succinate docusate sodium [Colace] 100 mg Capsule 100 mg PO BID Qty: 60 0RF midodrine 5 mg Tablet 2.5 mg PO TID Qty: 90 0RF metoprolol succinate [Toprol XL] 100 mg tablet extended release 24 hr 100 mg PO DAILY Qty: 30 0RF prednisone 10 mg tablet See Rx Instructions .ROUTE .COMPLEX Qty: 49 0RF Rx Instructions: take 40 mg (4 tabs) daily x 1 week, then 30 mg (3 tabs) daily x 1 week, prior to resuming 20 mg of prednisone daily Continued Stiolto Respimat 2.5-2.5 mcg/actuation mist 2 puff inhalation DAILY Qty: 4 8RF levalbuterol tartrate 45 mcg/actuation HFA aerosol inhaler 2 inh inhalation Q6H Qty: 15 8RF pantoprazole [Protonix] 20 mg tablet,delayed release (DR/EC) 20 mg PO DAILY 0RF folic acid 1 mg tablet 2 mg PO DAILY 0RF atorvastatin 80 mg tablet 80 mg PO QPM 0RF Label Comments: Take 1 tablet by mouth every evening docusate sodium [Colace] 100 mg Capsule 100 mg PO DAILY PRN0RF sulfamethoxazole-trimethoprim 800-160 mg tablet 1 tab PO .THREE TIMES A WEEK 0RF Label Comments: TAKE 1 TABLET BY MOUTH THREE TIMES A WEEK zolpidem 5 mg tablet 5 mg PO HS PRN0RF Label Comments: TAKE 1 TABLET BY MOUTH AT BEDTIME NEEDED cyanocobalamin (vitamin B-12) 1,000 mcg Tablet 1,000 mcg PO DAILY 0RF nicotine (polacrilex) 4 mg Gum 4 mg buccal Q2H PRN0RF nicotine 21 mg/24 hr Patch 24 Hour 1 patch TRANSDERMAL Q24H 0RF polyethylene glycol 3350 17 gram Powder In Packet 17 g PO DAILY PRN PRN (Reason: Constipation) Qty: 0 0RF oxycodone 5 mg Tablet 10 mg PO Q4H PRN PRNQty: 0 0RF clopidogrel 75 mg tablet 75 mg PO DAILY 0RF magnesium 250 mg Tablet 500 mg PO DAILY 0RF calcium carbonate-vitamin D3 [Calcium 500 + D] 500 mg-10 mcg (400 unit) Tablet 1 tab PO DAILY 0RF Xarelto 20 mg tablet 20 mg PO DAILY 0RF Label Comments: TAKE 1 TABLET BY MOUTH ONCE DAILY aspirin 81 mg Tablet,Chewable 81 mg PO DAILY 0RF bupropion HCl 150 mg tablet extended release 24 hr 150 mg PO DAILY 0RF Label Comments: TAKE 1 TABLET BY MOUTH ONCE DAILY acetaminophen 500 mg Tablet 1,000 mg PO Q6H PRN0RF Held furosemide 20 mg tablet 20 mg PO DAILY 0RF Hold Instructions: Resume on 01/26/22. prednisone 20 mg tablet 20 mg PO DAILY 0RF Hold Instructions: Resume on 02/05/22. Resume after finishing 40 mg x 1 weeks, then 30 mg x 1 week Label Comments: TAKE 4 TABLETS BY MOUTH ONCE DAILY FOR 3 DAYS, THEN 3 TABS DAILY FOR 3 DAYS, THEN 2 TABS DAILY FOR 3 DAYS, THEN 1 TABLET DAILY THEREAFTER FOR 20 DAYS Discontinued metoprolol succinate 200 mg tablet extended release 24 hr 200 mg PO DAILY 0RF Discharge Instructions Instructions: Hospice Care (GEN) Additional Instructions: Follow up with oncology as previously scheduled. Return to the hospital if your symptoms are not controlled at home. Care Plan Goals: Home with home hospice. Stand Alone Forms: Nursing Discharge Form Referrals: ONCOLOGY,[facility] [OTHER] - (Please follow up as scheduled) Steve Neil MD [Primary Care Provider] - 02/03/22 8:55 am Activity:: Activity as Tolerated Equipment/Supplies:: No Equipment Needed Diet:: As Tolerated Discharge Orders Discharge Orders: Discharge Order (Routine); Ordered 01/22/22 Ordered By: Mera Orosco DS: Summary Time Spent with Patient providing and/or coordinating discharge services: Greater than 30 minutes Status at Discharge Functional status at discharge: uses cane/walker Overall status at discharge: patient is progressing back to baseline Mental Status: mental status grossly normal Speech and Movement: speech and movement normal Mood: congruent mood Affect: normal affect Exam Narrative Exam Narrative: General: Pleasant male, looks even better today, A&Ox3 HEENT: EOMI, MMM Cardiovascular: irregularly irregular rhythm, no m/r/g Lungs: rales and wheezing on expiration B Gastrointestinal: soft, nontender, nondistended; urostomy in place Extremities: no e/c/c. Psych Mental Status: mental status grossly normal Speech and Movement: speech and movement normal Mood: congruent mood Affect: normal affect DS: Data Vitals/I&O Vitals and I&O: Vital Signs Temperature 36.3 C L 01/22/22 07:46 Temperature Source Tympanic 01/22/22 07:46 Pulse 104 H 01/22/22 13:31 Pulse Rhythm Irregular 01/22/22 02:35 Pulse 90 01/19/22 15:51 Respiratory Rate 14 01/22/22 07:46 Respiratory Effort 01/22/22 02:35 Respiratory Depth Normal 01/22/22 02:35 Respiratory Pattern Normal 01/22/22 02:35 Blood Pressure 100/50 L 01/22/22 13:31 Blood Pressure Mean 66 01/19/22 15:51 Blood Pressure Position Supine 01/19/22 07:45 Pulse Oximetry 97 01/22/22 07:46 Oxygen Delivery Method Room Air 01/22/22 07:46 Oxygen Flow Rate 0 01/22/22 07:46 Pain Level 7 01/22/22 09:03 Comment 01/22/22 02:17 Intake & Output 01/21/22 01/22/22 01/22/22 23:59 11:59 23:59 Intake Total 350 / 940 310 / 310 Output Total 975 / 1720 750 / 1000 250 / 1000 Balance -625 / -780 -440 / -690 -250 / -690 Intake: IV 30 / 160 30 / 30 Oral 320 / 780 280 / 280 Output: Urine 975 / 1720 750 / 1000 250 / 1000 Other: Urine Color Yellow Yellow Yellow Urine Appearance Cloudy Mucous Threads Mucous Threads Urine Odor Normal Foul Voiding Methods Urostomy Urostomy Urostomy Data Completed and Pending Completed studies during hospitalization [Text1]: CT chest/adbomen/pelvis: Findings are suggestive of new metastatic disease involving lung, liver, right adrenal gland, and L1 vertebral body.? Probable enlargement of metastatic right hilar node since prior examination of June 13. No evidence of acute pneumonitis.? Pulmonary embolic disease cannot be assessed on this noncontrast examination. CT c-spine w/o contrast: No evidence of acute injury. Labs on day of discharge: Labs from last 24 hours 01/22/22 01/22/22 01/21/22 06:12 06:12 06:20 WBC 9.39 RBC 2.31 L Hgb 8.3 L Hct 26.5 L MCV 114.7 H MCH 35.9 H MCHC 31.3 L RDW 17.7 H Plt Count 202 MPV 9.4 Immature Gran % 2.4 Neutrophils % 86.2 Lymphocytes % 10.5 Monocytes % 0.6 Eosinophils % 0.2 Basophils % 0.1 Nucleated RBC % 0 Absolute Neutrophils 8.08 H Absolute Lymphocytes 0.99 L Absolute Monocytes 0.06 L Absolute Eosinophils 0.02 Absolute Basophils 0.01 RBC Morphology See Below Hypochromasia 1+ Macrocytosis 2+ Haptoglobin 62 Sodium 141 Potassium 3.8 Chloride 108 H Carbon Dioxide 26.4 Anion Gap 6.6 BUN 26 H Creatinine 1.3 Estimated GFR/1.73 m2 54.73 Glucose 77 D Calcium 9.1 Magnesium 1.9 C-Reactive Protein 1.80 H Preliminary micro results at discharge 01/18/22 17:50 Blood Culture - Preliminary Blood NO GROWTH 72 HOURS 01/18/22 16:23 Blood Culture - Preliminary Blood NO GROWTH 72 HOURS 01/18/22 16:15 Blood Culture - Preliminary Blood NO GROWTH 72 HOURS PFSH All Active Problems (Updated 01/22/22 @ 14:07 by Mera Orosco MD) Ambulatory dysfunction (Acute) Orthostatic hypotension (Acute) Palliative care patient (Acute) Encounter for hospice care (Acute) COPD (chronic obstructive pulmonary disease) (Chronic) Hemolytic anemia (Chronic) Discharge planning issues (Acute) DVT prophylaxis (Acute) Metastatic disease (Acute) Bladder cancer (Chronic) Pneumonia (Acute) A-fib (Chronic) Medical History (Updated 01/22/22 @ 14:07 by Mera Orosco MD) Anemia, autoimmune hemolytic Benign essential HTN Bladder mass 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 Mechanical instability of hip prosthesis Nephrolithiasis Nicotine dependence, cigarettes, uncomplicated Pulmonary embolism ST elevation (STEMI) myocardial infarction Stage 3b chronic kidney disease Surgical History (Updated 01/18/22 @ 18:41 by Mera Orosco MD) Displaced fracture of right femoral neck (12/02/21) s/p right unipolar [facility]; [place] [facility] [place] H/O inguinal hernia repair at age 15, left. H/O total cystectomy Transurethral Resection of Bladder Tumor, >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) Family History Father Heart disease Social History Smoking/Tobacco Use Status: Current every day Tobacco Type: cigarettes Years smoked: 50 Smoking risk assessment performed?: Yes Alcohol Intake: current Alcohol Intake frequency: holidays/special occasions only Drug use: Never Substance use type: does not use Do you feel safe at home: Yes Do you feel safe in your relationship?: Yes
[2022-01-22] MEDS: Heparin 500 UNITS/5 ML SYRINGE IV (15:38)
--- NOTE | 2022-01-22 17:36 | CHAPLAIN ---
Mauro was resting in bed when I visit. He said he is likely going home soon (he was discharged later this afternoon) and he is very much looking forward to getting home. His is a nurse, and that has been very helpful. According to the Palliative Care notes from a visit this morning, Mauro will be admitted to hospice tomorrow. He didn't bring this up with me.
--- NOTE | 2022-01-22 18:10 | INDS_ITS ---
Date of service: 01/22/22 PT Notes Visit Reasons: Rapid Afib,Suspected Sepsis,Failure to Thrive Physical Therapy Inpatient Discharge Summary is Date: 01/22/2022 Dates of Service: 01/19/2022 through 01/22/2022 This is a clinical summary of care provided for the duration of dates listed above. No charge was made in the completion of this documentation. Referring Doctor: Mera Orosco MD PT Orders: PT CONSULT: Limited ability Precautions: Fall. Standard.? Refrain from sitting on low chairs and low bedside commode. Most recent LVEF 15-20%. Patient Profile/Admitting Diagnosis:? Jonnathan is a 71-year-old male with past medical history significant for lung cancer with metastasis to liver and adrenal glands who underwent right hip hemiarthroplasty on 12/05/21 due to displaced fracture of femoral neck on 12/02/21 secondary to fall.? He presented to the ED on 12/24/2021 and again on 12/26/2021 for right hip dislocation.? The first occurred while sleeping and the second upon standing from commode. He is S/P R total hip arthroplasty at [facility] [place] ans is now on postoperative week 3.? He presented again at the ED on 01/18/2022 due to generalized weakness, left shoulder pain since a day ago and shortness of breath for the past 2 months that has been worse since day of re-admission. 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 Mechanical instability of hip prosthesis Nephrolithiasis Nicotine dependence, cigarettes, uncomplicated Pulmonary embolism ST elevation (STEMI) myocardial infarction Stage 3b chronic kidney disease Social History/Home Situation: Lives with spouse, has no stairs to enter.? Ambulating with FWW.? He does report general weakness and fatigue with shortness of breath at baseline. Equipment Owned/DME: FWW,? bedside commode Subjective:?? NT. See most recent BR[facility] STIFFENER notes. Objective:? General Observation: ?NT. See most recent [facility] STIFFENER notes. Mental Status: NT. See most recent [facility] STIFFENER notes. Pain: NT. See most recent [facility] STIFFENER notes. ROM: Right Upper Extremity: Shoulder Flexion WFL. Shoulder abduction WFL. Elbow flexion WFL. Wrist flexion WFL. Opening and closing of hand WFL. Left Upper Extremity: Shoulder Flexion WFL. Shoulder abduction WFL. Elbow flexion WFL. Wrist flexion WFL. Opening and closing of hand WFL. Right Lower Extremity: Hip flexion unable to complete the last 25% of AROM. Hip abduction about 20 degrees . Knee flexion WFL. Ankle dorsiflexion WFL. Ankle pl antarflexion WFL. Left Lower Extremity: Hip flexion WFL. Hip abduction WFL. Knee flexion WFL. Ankle dorsiflexion WFL. Ankle plantarflexion WFL. Strength: Right Upper Extremity: Shoulder flexors 5/5. Shoulder abductors 5/5. Elbow flexors 5/5. Elbow extensors 5/5. Solution Strategist strong. Left Upper Extremity: Shoulder flexors 4/5. Shoulder abductors 4/5. Elbow flexors 4/5. Elbow extensors 4/5. Solution Strategist strong. Right Lower Extremity: Hip flexors 3--/5. Hip abductors 3-/5. Knee flexors 3-/5. Knee extensors 3-/5. Ankle dorsiflexors 4-/5. Ankle plantarflexors 4-/5. Left Lower Extremity:Hip flexors 4-/5. Hip abductors 4-/5. Knee flexors 4-/5. Knee extensors 4-/5. Ankle dorsiflexors 4-/5. Ankle plantarflexors 4-/5. Sensation:?Intact as to pain and pressure on bilateral lower extremities. Bed Mobility/Transfers: Supine to sit: Independent Sit to supine: Independent Sit to stand: Independent Stand to sit: Independent Gait:?Up to 80 feet of level surface ambulation using FWW with supervision with mild SOB and 144 bpm after gait oximetry. Balance:? Static Sitting: Normal Dynamic Sitting: Good Static Standing: Fair Dynamic Standing: Fair Assessment: No range of motion deficits on the L shoulder.? Pain report on the L shoulder significantly diminished today but got aggravated with standing up with radiation of pain to across the chest and the posterior neck.? Please ensure that patient avoids sitting on low chairs/ bedside commode as incidence of the hip popping out happened while getting up from a low surface.? Avoid crossing legs.? Patient presents with clinical signs and symptoms consistent with current/admitting diagnoses that have resulted to mobility limitations, gait instability, generalized weakness, and overall ADL decline as demonstrated by the following impairment level findings: 1.? Decreased strength to R LE major muscle groups 2.? Impaired sitting/standing balance 3.? Impaired activity tolerance 4.? Limitation of joint range of motion in R hip 5.? Shortness of breath 6.? Orthostatic BP with tachycardia Impairments are contributing to the following functional limitations: 1.? Decline in bed mobility skills 2.? Decline in transfer skills 3.? Difficulty with ambulation without assistive device and physical assistance 4.? Increased completion time for mobility ADL performance 5.? Increased risk for falls 6.? Difficulty with managing steps alone safely Goals: Goals X1 week 1. Supine-Sit independent MET 2. Sit-Supine independent MET 3. Sit-Stand independent MET 4. Stand-Sit independent with FWW MET 5. Bed-Chair independent with FWW MET 6. Chair-Bed independent with FWW MET 7. Independent gait on level surface with use of FWW for at least 100 feet without report of pain nor dyspnea NOT MET 8. Good static and dynamic standing balance/tolerance NOT MET DISCHARGE RECOMMENDATIONS: [] ? Home with no services [] [] ? Home with services [specify] [] ? Home with outpatient PT [] [X] ? SNF for continued rehabilitation.? Patient will benefit from home health PT services in order to progress mobility level using least restrictive assistive ambulatory device, assess home safety, identify additional equipment needs, and establish a functional maintenance program that will increase ability of patient to remain at home. [] ? [facility] [] [] ? SNF versus LTC based on ability to participate and progress [] TREATMENT CODE/TIME: NE Thank you for the opportunity to participate in the care of this patient. Lea Orta PT, DPT, CLT [facility], [place]
== END 2022-01-22 15:49 | disposition home health service (06) | DRG 644 ==
LOC: ER 16:08 → ICU 18:18 → MS 01-19 17:58
PROVIDERS: Admitting Provider Internal Medicine; Emergency Provider Physician Assistant; PCP Internal Medicine; Visit Provider Internal Medicine
DX: E27.40 Unspecified adrenocortical insufficiency (principal); N17.9 Acute kidney failure, unspecified; I50.22 Chronic systolic (congestive) heart failure; D59.10 Autoimmune hemolytic anemia, unspecified; C78.7 Secondary malignant neoplasm of liver and intrahepatic bile duct; C78.00 Secondary malignant neoplasm of unspecified lung; C77.9 Secondary and unspecified malignant neoplasm of lymph node, unspecified; C79.70 Secondary malignant neoplasm of unspecified adrenal gland; C91.10 Chronic lymphocytic leukemia of B-cell type not having achieved remission; I13.0 Hypertensive heart and chronic kidney disease with heart failure and stage 1 through stage 4 chronic kidney disease, or unspecified chronic kidney disease; I42.9 Cardiomyopathy, unspecified; I48.20 Chronic atrial fibrillation, unspecified; C34.31 Malignant neoplasm of lower lobe, right bronchus or lung; C79.51 Secondary malignant neoplasm of bone; E87.2 Acidosis; E86.0 Dehydration; J44.9 Chronic obstructive pulmonary disease, unspecified; Z96.642 Presence of left artificial hip joint; I25.10 Atherosclerotic heart disease of native coronary artery without angina pectoris; Z95.5 Presence of coronary angioplasty implant and graft; Z79.01 Long term (current) use of anticoagulants; F17.210 Nicotine dependence, cigarettes, uncomplicated; Z85.51 Personal history of malignant neoplasm of bladder; Z86.711 Personal history of pulmonary embolism; I25.2 Old myocardial infarction; N18.32 Chronic kidney disease, stage 3b; Z93.6 Other artificial openings of urinary tract status; I95.1 Orthostatic hypotension
CPT/HCPCS: 36415; 71250; 80048; 80053; 84145; 87040; 87077; 87081; 87635; 93005; 94640; 96361; 96365; 96366; 96375; 97110; 97162; 97530; 99285; 72125; 74176; 81003; 83010; 83605; 83735; 84484; 85025; 86140; 87086; 87186; 93010; 99223; 99232; 99233; 99239; J1720; J7512; J7614